=== PATIENT | female | born 1965 | race Caucasian/White ===

== ENCOUNTER 2019-07-15 18:41 | Emergency (ER) | payer OTHER, MEDICARE, SELFPAY ==
--- NOTE | ~2019-07-15 | XR_ITS ---
EXAMINATION: XR wrist RT min 3V, XR forearm RT 2V EXAM DATE: 07/15/2019 19:35 (accession [id number]), 07/15/2019 19:34 (accession [id number]) INDICATION: Initial encounter following injury, with pain of the right wrist, forearm. TECHNIQUE: Right wrist frontal, frontal with ulnar deviation, oblique and lateral projections obtain ed and reviewed. Right forearm frontal and lateral projections obtained and reviewed. There are no p rior studies for comparison. FINDINGS: Right wrist scapholunate joint space is maintained. There are no acute forearm or wrist fra ctures or dislocations identified. There is no subcutaneous gas. The soft tissue is unremarkable. There are no radiopaque foreign bodies. IMPRESSION: 1. Right wrist, forearm exam without acute osseous findings. Reviewed, dictated and finalized at location A. IMPRESSION: 1. Right wrist, forearm exam without acute osseous findings.
[2019-07-15 19:16] VITALS: BP 148/90; PULSE 91; RESP 18; TEMP 36.1; O2SAT 100
--- NOTE | 2019-07-15 19:56 | ED.UPPEXIN ---
HPI - Extremity Injury (Upper) General Chief Complaint: Extremity Injury, Upper Stated Complaint: R arm injury/pain Time Seen by Provider: 07/15/19 19:43 History of Present Illness HPI narrative: Patient presents after falling on her grandkids slip and slide in the yard. She went to reach over to poultry picking machine tender the toys when she took the slide and fell primarily on her right hand and wrist. She said the pain in her right wrist is 9 out of 10, she did not recognize the bruise on her left arm is being involved with this accident, and she hurts all over. She has never had a broken bone, she takes multiple medications, she does not smoke or drink. She has history of gastric bypass but still takes ibuprofen. MD complaint: injury to: right Other Extremity Injury: Right: wrist Handedness: right Place: home Severity: severe Relieving factors: none Exacerbating factors: movement of extremity Context: fall Associated symptoms: other (Pain all over) Related Data Home Medications Medication Instructions Recorded Confirmed conjugated estrogens 0.625 mg 0.625 mg PO DAILY 01/08/19 tablet cyanocobalamin (vitamin B-12) 3,000 mcg IM MONTHLY ml 01/08/19 1,000 mcg/mL injection solution dextroamphetamine-amphetamine 30 30 mg PO DAILY 01/08/19 mg tablet duloxetine 60 mg capsule,delayed 60 mg PO DAILY 01/08/19 release ferrous sulfate 325 mg (65 mg 325 mg PO DAILY 01/08/19 iron) tablet fluoxetine 20 mg capsule 20 mg PO DAILY 01/08/19 glucosamine-chondroitin 250 mg-200 2 tablet PO BID tablet 01/08/19 mg tablet lithium carbonate 300 mg 600 mg PO DAILY tablet 01/08/19 tablet,extended release pramipexole 0.5 mg tablet 1 mg PO DAILY tablet 01/08/19 topiramate 100 mg tablet 100 mg PO BID 01/08/19 Allergies Allergy/AdvReac Type Severity Reaction Status Date / Time sulfasalazine Allergy Unknown fever Verified 07/15/19 19:19 Review of Systems Review of Systems: Narrative: CONSTITUTIONAL: Denies fever, chills, or sweats. EYES: Denies visual changes, redness, or discharge. ENT: Denies rhinorrhea, congestion, sore throat, or otalgia. CARDIOVASCULAR: Denies chest pain, palpitations, or edema. RESPIRATORY: Denies cough or dyspnea. GASTROINTESTINAL: Denies abdominal pain, nausea, vomiting, or diarrhea. GENITOURINARY: Denies dysuria or hematuria. SKIN: Denies rash or itching. MUSCULOSKELETAL: Denies back pain, NEUROLOGIC: Denies headache, numbness, or weakness. PSYCHIATRIC: Denies anxiety or depression. [facility] Past Medical History Medical History ADHD Angina at rest Anxiety Back pain Depression Diabetes Fracture clavical GERD (gastroesophageal reflux disease) H/O Sjogren's disease Kidney stone with extraction Lupus Pneumonia PUD (peptic ulcer disease) UTI (urinary tract infection) Surgical History Surgical History H/O Spinal surgery H/O: hysterectomy History of total left knee replacement (TKR) Hx of section Hx of cholecystectomy Hx of gastric bypass Social History Social History Smoking status: Never smoker Alcohol intake: never Gender identity (if verbalized by the patient): Female Exam Narrative: Exam Narrative: GENERAL: Well-appearing, well-nourished, and in no acute distress. HEAD: Normocephalic, atraumatic. EYES: PERRLA and EOMI. ENT: Nares clear, no rhinorrhea or epistaxis. Mucous membranes moist. NECK: Supple. CHEST: Clear to auscultation. No respiratory distress. HEART: Regular rate and rhythm. No murmur heard. Normal peripheral pulses. ABDOMEN: Soft, nontender, nondistended, normal active bowel sounds. EXTREMITIES: Decreased range of motion of the right wrist and tenderness. no edema. SKIN: Warm, dry, no rash. NEURO: No focal deficits. Alert and oriented x3. PSYCH: Normal mood and affect. Course Vital Signs Vital
--- NOTE | 2019-07-15 20:33 | ED.UPPEXIN ---
HPI - Extremity Injury (Upper) General Chief Complaint: Extremity Injury, Upper Stated Complaint: R arm injury/pain Time Seen by Provider: 07/15/19 19:43 History of Present Illness Place: home Relieving factors: none Exacerbating factors: movement of extremity Context: fall Associated symptoms: other (Pain all over) Related Data Home Medications Medication Instructions Recorded Confirmed conjugated estrogens 0.625 mg 0.625 mg PO DAILY 01/08/19 tablet cyanocobalamin (vitamin B-12) 3,000 mcg IM MONTHLY ml 01/08/19 1,000 mcg/mL injection solution dextroamphetamine-amphetamine 30 30 mg PO DAILY 01/08/19 mg tablet duloxetine 60 mg capsule,delayed 60 mg PO DAILY 01/08/19 release ferrous sulfate 325 mg (65 mg 325 mg PO DAILY 01/08/19 iron) tablet fluoxetine 20 mg capsule 20 mg PO DAILY 01/08/19 glucosamine-chondroitin 250 mg-200 2 tablet PO BID tablet 01/08/19 mg tablet lithium carbonate 300 mg 600 mg PO DAILY tablet 01/08/19 tablet,extended release pramipexole 0.5 mg tablet 1 mg PO DAILY tablet 01/08/19 topiramate 100 mg tablet 100 mg PO BID 01/08/19 Allergies Allergy/AdvReac Type Severity Reaction Status Date / Time sulfasalazine Allergy Unknown fever Verified 07/15/19 19:19 PMF Past Medical History Medical History ADHD Angina at rest Anxiety Back pain Depression Diabetes Fracture clavical GERD (gastroesophageal reflux disease) H/O Sjogren's disease Kidney stone with extraction Lupus Pneumonia PUD (peptic ulcer disease) UTI (urinary tract infection) Surgical History Surgical History H/O Spinal surgery H/O: hysterectomy History of total left knee replacement (TKR) Hx of section Hx of cholecystectomy Hx of gastric bypass Social History Social History Smoking status: Never smoker Alcohol intake: never Gender identity (if verbalized by the patient): Female Course Vital Signs Vital signs: Vital Signs Temperature 97 F L 07/15/19 19:16 Pulse Rate 91 07/15/19 19:16 Respiratory Rate 18 07/15/19 19:16 Blood Pressure 148/90 H 07/15/19 19:16 Pulse Oximetry 100 07/15/19 19:16 Temperature 97 F L 07/15/19 19:16 Pulse Rate 91 07/15/19 19:16 Respiratory Rate 18 07/15/19 19:16 Blood Pressure 148/90 H 07/15/19 19:16 Pulse Oximetry 100 07/15/19 19:16 Discharge Plan Discharge Clinical Impression: Fall Qualifiers: Encounter type: initial encounter Qualified Code(s): W19.XXXA - Unspecified fall, initial encounter Acute wrist pain Qualifiers: Laterality: right Qualified Code(s): M25.531 - Pain in right wrist Patient Disposition: Home, Self-Care Condition: Stable Instructions: How to Use a Sling (ED) Prescriptions: New oxycodone-acetaminophen [Percocet] 5-325 mg tablet 1 tablet PO Q4H PRN (Reason: pain) Qty: 10 RF: 0 No Action dextroamphetamine-amphetamine [Adderall] 30 mg tablet 30 mg PO DAILY RF: 0 duloxetine [Cymbalta] 60 mg capsule,delayed release(DR/EC) 60 mg PO DAILY RF: 0 ferrous sulfate [Feosol] 325 mg (65 mg iron) tablet 325 mg PO DAILY RF: 0 lithium carbonate 300 mg tablet extended release 600 mg PO DAILY RF: 0 pramipexole 0.5 mg tablet 1 mg PO DAILY RF: 0 Premarin 0.625 mg tablet 0.625 mg PO DAILY RF: 0 fluoxetine [Prozac] 20 mg capsule 20 mg PO DAILY RF: 0 topiramate 100 mg tablet 100 mg PO BID RF: 0 glucosamine-chondroitin [Osteo Bi-Flex] 250-200 mg tablet 2 tablet PO BID RF: 0 cyanocobalamin (vitamin B-12) 1,000 mcg/mL solution 3,000 mcg IM MONTHLY RF: 0 metronidazole [Flagyl] 500 mg tablet 500 mg PO Q8H Qty: 21 RF: 0 omeprazole 20 mg capsule,delayed release(DR/EC) 20 mg PO DAILY Qty: 90 RF: 3 gabapentin 300 mg capsule 300 mg PO TID Qty: 270 RF: 3
== END 2019-07-15 20:40 | disposition home or self-care (01) ==
LOC: ANHED 20:08
PROVIDERS: Emergency Provider Emergency Medicine; PCP Family Medicine
DX: M25.531 Pain in right wrist (principal); F90.9 Attention-deficit hyperactivity disorder, unspecified type; F41.9 Anxiety disorder, unspecified; F32.9 Major depressive disorder, single episode, unspecified; E11.9 Type 2 diabetes mellitus without complications; K21.9 Gastro-esophageal reflux disease without esophagitis; M35.00 Sjogren syndrome, unspecified; Z87.442 Personal history of urinary calculi; Z87.11 Personal history of peptic ulcer disease; Z87.440 Personal history of urinary (tract) infections; Z96.652 Presence of left artificial knee joint; Z98.84 Bariatric surgery status; W18.39XA Other fall on same level, initial encounter
CPT/HCPCS: 73090; 73110; 99283; A4565; A9270

== ENCOUNTER 2019-10-03 13:08 | Outpatient (CLI) | payer OTHER, MEDICARE, SELFPAY ==
--- NOTE | ~2019-10-03 | MM_ITS ---
EXAMINATION: MM screening [facility] BI w jose HISTORY: Screening TECHNIQUE: Craniocaudal and mediolateral oblique 3-D tomosynthesis images were obtained and synthetic 2-D images were generated. CAD analysis was submitted and interpreted. COMPARISON: Comparison to multiple prior studies sequentially, with oldest reviewed study dated 10/2010. BREAST PARENCHYMAL COMPOSITION: There are scattered areas of fibroglandular density. FINDINGS: There is no evidence of suspicious mass, calcification, or architectural distortion to sugg est malignancy in either breast. There has been no suspicious interval change. IMPRESSION: 1. No mammographic evidence of malignancy. 2. Recommend routine screening mammography in one year. BI-RADS Category 1: Negative Reviewed, dictated and finalized at location A.
== END 2019-10-03 13:09 | disposition home or self-care (01) ==
LOC: ANHIMG 13:13
PROVIDERS: PCP Family Medicine; Visit Provider Family Medicine
DX: Z12.31 Encounter for screening mammogram for malignant neoplasm of breast (principal)
CPT/HCPCS: 77063; 77067

== ENCOUNTER 2020-01-02 06:42 | Outpatient (NON) | payer OTHER, MEDICARE, SELFPAY ==
[2020-01-04 21:25] LABS: SARS-CoV-2 RNA PCR Negative
== END 2020-01-02 06:43 ==
LOC: ANHCOVIDDT 06:44
PROVIDERS: PCP Family Medicine; Visit Provider Physician Assistant Medical
DX: J02.9 Acute pharyngitis, unspecified (principal); R05 Cough; R51.9 Headache, unspecified; Z20.828 Contact with and (suspected) exposure to other viral communicable diseases
CPT/HCPCS: 87635; C9803; U0003

== ENCOUNTER 2020-04-22 08:38 | Outpatient (CLI) | payer OTHER, MEDICARE, SELFPAY | END 2020-04-22 08:39 | disposition home or self-care (01) | LOC: ANHCOVIDVC 08:38 | PROVIDERS: PCP Family Medicine | DX: Z23 Encounter for immunization (principal) | CPT/HCPCS: 0001A; 91300 ==

== ENCOUNTER 2020-05-13 08:15 | Outpatient (CLI) | payer OTHER, MEDICARE, SELFPAY | END 2020-05-13 08:16 | LOC: ANHCOVIDVC 08:15 | PROVIDERS: PCP Family Medicine | DX: Z23 Encounter for immunization (principal) | CPT/HCPCS: 0002A; 91300 ==

== ENCOUNTER 2020-06-14 20:11 | Emergency (ER) | payer OTHER, MEDICARE, SELFPAY ==
--- NOTE | ~2020-06-14 | CT_ITS ---
EXAMINATION: CT abdomen pelvis w con DATE: 06/14/2020 21:36 INDICATION: Epigastric abdominal pain. TECHNIQUE: Computed tomography (CT) of the abdomen and pelvis was performed with 100 mL Omnipaque 350 intravenous contrast. Automated exposure control and iterative reconstruction technique were employe d. The dose-length product was 872.37 mGy-cm. COMPARISON: CT abdomen and pelvis 02/15/2019 FINDINGS: The visualized portions of the lung bases demonstrate mild atelectasis. No pleural effusion . The heart size is normal. No pericardial effusion. There is a small sliding hiatal hernia. There ar e changes of gastric bypass procedure. There is a calcification in the liver, consistent with old gra nulomatous disease. There are changes of cholecystectomy. The spleen, pancreas, adrenal glands, and k idneys are normal. There are no dilated loops of bowel. The appendix is normal. There are no patholog ically enlarged lymph nodes. There is no free intraperitoneal fluid. There is mild thoracolumbar spon dylosis. IMPRESSION: 1. Small sliding hiatal hernia. Reviewed, dictated and finalized at location A.
[2020-06-14 20:12] VITALS: BP 143/81; PULSE 78; RESP 16; TEMP 36.5; O2SAT 98
[2020-06-14 20:35] LABS: Basophils Absolute Auto 0.1 K/mm3 (0.0-0.1); Basophils Percent Auto 0.8 % (0.2-1.2); Eosinophils Absolute Auto 0.5 K/mm3 (0-0.3); Eosinophils Percent Auto 4.1 % (0-4.4); Hematocrit 49.4 % (37.0-47.0); Hemoglobin 15.7 g/dL (12.0-15.0); Immature Granulocyte Absolute 0.03 K/mm3 (0.00-0.031); Immature Granulocyte Percent A 0.3 % (0-0.5); Lymphocytes Absolute Auto 2.62 K/mm3 (0.9-3.2); Lymphocytes Percent Auto 23.3 % (18.3-44.2); Mean Corpuscular HGB Conc 31.8 g/dl (32-36); Mean Corpuscular Hemoglobin 28.8 pg (26-34); Mean Corpuscular Volume 90.6 fl (80-100); Mean Platelet Volume 10.3 fl (7.4-10.4); Monocytes Absolute Auto 0.7 K/mm3 (0.1-0.6); Monocytes Percent Auto 6.5 % (2.6-8.5); Neutrophils Absolute Auto 7.3 K/mm3 (1.3-6.7); Platelet Count Result 309 k/mm3 (150-375); Red Blood Count 5.45 M/mm3 (4.2-5.4); White Blood Count 11.2 K/mm3 (4.5-10.0)
--- NOTE | 2020-06-14 20:35 | ECG_ITS ---
Measurements Intervals [place] Rate: 71 P: 56 SC: 158 QRS: -7 QRSD: 82 T: 44 QT: 388 QTc: 424 Interpretive Statements SINUS RHYTHM BASELINE WANDER- I, II, AVR, AVL, AVF NORMAL ECG Electronically Signed On 06-14-2020 20:59:49 CDT by Francisco Javier Dozier D.O.
--- NOTE | 2020-06-14 20:37 | ED.ABDPAIN ---
HPI - Abdominal Pain General Chief Complaint: Abdominal Pain Stated Complaint: c/o flank pain Time Seen by Provider: 06/14/20 20:19 Source: patient Mode of arrival: ambulatory Limitations: no limitations History of Present Illness HPI narrative: This is a 55 year old female with history of gastric bypass, GERD, PUD, bipolar who presents for evaluation of epigastric pain and constipation. She reports constant epigastric discomfort for 3 weeks but it became sharp pain yesterday. Today she developed more severe pain after eating . Her pain radiates to her back and her chest. She also developed nausea and vomiting today with her worsening pain. She states she has chronic issue with constipation but over the past week it seems worse. She states she has been taking laxatives and stool softeners, and she is only passing small amount of brown liquid. Her gastric bypass was performed 10 years ago at [facility]. Related Data Home Medications Medication Instructions Recorded Confirmed dextroamphetamine-amphetamine 30 30 mg PO DAILY 01/08/19 mg tablet duloxetine 60 mg capsule,delayed 60 mg PO DAILY 01/08/19 04/02/20 release ferrous sulfate 325 mg (65 mg 325 mg PO DAILY 01/08/19 04/02/20 iron) tablet pramipexole 0.5 mg tablet 1 mg PO DAILY tablet 01/08/19 04/02/20 topiramate 100 mg tablet 100 mg PO BID 01/08/19 04/02/20 Allergies Allergy/AdvReac Type Severity Reaction Status Date / Time sulfasalazine Allergy Unknown fever Verified 04/16/20 14:50 Review of Systems Review of Systems: All systems reviewed & are unremarkable except as noted in HPI and below Constitutional: Constitutional: Denies chills and Denies fever(s) Cardiovascular: Cardiovascular: Reports chest pain Respiratory: Respiratory: Denies cough and Denies dyspnea Gastrointestinal: Gastrointestinal: Reports abdominal pain, Reports constipation, Reports nausea and Reports vomiting Musculoskeletal: Musculoskeletal: Reports back pain PMFSH Past Medical History Medical History ADHD Angina at rest Anxiety Back pain Depression Diabetes Fracture clavical GERD (gastroesophageal reflux disease) H/O Sjogren's disease Kidney stone with extraction Lupus Pneumonia PUD (peptic ulcer disease) Urge incontinence UTI (urinary tract infection) Surgical History Surgical History H/O Spinal surgery H/O: hysterectomy History of total left knee replacement (TKR) Hx of section Hx of cholecystectomy Hx of gastric bypass Family History Family History (Reviewed 04/16/20 @ 14:51 by Fadumo Ball [facility]) Mother Diabetes mellitus Depression Family history of hypothyroidism Social History Social History (Updated 06/14/20 @ 20:37 by Ruth Sruesh MD) Smoking status: Never smoker Alcohol intake: current Gender identity (if verbalized by the patient): Female Exam Const: General: alert Orientation/consciousness: patient oriented x3 Other: moderate distress due to pain Eyes: EOM: EOMs intact bilaterally Chest: Chest palpation & inspection: normal inspection of the chest Resp: Effort & Inspection: normal respiratory effort and no retractions Auscultation: clear to auscultation bilaterally Cardio: Rate: regular rate Rhythm: regular rhythm Heart sounds: no murmurs GI: GI Palp: Yes Soft to palpation, Yes Tenderness to palpation present (GI) (epigastric abdominal pain), No Guarding due to palpation present (GI) and No Rigid due to palpation Auscultation: normal bowel sounds Rectal Exam: No fecal impaction and No hemorrhoids Back/Spine/Pelvis: Back: no CVA tenderness Skin: General skin exam: normal color Rashes: no rashes Neuro: General: patient oriented x3, moves all extremities and CN's II-XI intact bilaterally Psych: Mental Status: mental status grossly normal Affect: normal affect Course
[2020-06-14 20:45] LABS: Potassium 3.6 mmol/L (3.4-5.0)
[2020-06-14] MEDS: LACTATED RINGERS 1,000 ML 999 ML IV CONT (20:45)
[2020-06-14] MEDS: ONDANSETRON INJ 4 MG/2 ML VIAL IV PUSH (20:45)
[2020-06-14] MEDS: PANTOPRAZOLE SODIUM IV 40 MG VIAL IV PUSH (20:45)
[2020-06-14] MEDS: HYDROmorphone HCL INJ (*CRX) 1 MG/ML SYR IV PUSH (20:46)
[2020-06-14 20:52] VITALS: BP 131/71; PULSE 84; RESP 22; O2SAT 99
[2020-06-14 20:57] LABS: Alanine Aminotransferase 19 U/L (4-35); Albumin Level 4.9 g/dL (3.5-5.1); Alkaline Phosphatase 96 U/L (38-126); Anion Gap 8 mmol/L (8-16); Aspartate Amino Transferase 35 U/L (14-36); Bilirubin,Total 0.2 mg/dL (0.2-1.3); Blood Urea Nitrogen 7 mg/dL (7-17); Calcium 9.7 mg/dL (8.4-10.2); Carbon Dioxide 28 mmol/L (22-30); Chloride 105 mmol/L (98-107); Estimated CRCL calculation 57 ml/min; Estimated Glomerular Filt Rate > 60; Glucose 67 mg/dL (65-105); Lipase 210 U/L (23-300); Sodium 141 mmol/L (137-145)
[2020-06-14 21:01] LABS: Troponin I < 0.012 ng/mL (0.000-0.034)
[2020-06-14 21:07] LABS: Lithium 0.5 mmol/L (0.6-1.2)
[2020-06-14 21:08] LABS: Add Urine Microscopic? NO; Appearance Urine Clear (Clear); Bilirubin Urine Negative (Negative); Blood Urine Negative (Negative); Color Urine Yellow (Yellow); Glucose Urine UA Negative (Negative); Ketones Urine Negative (Negative); Leukocyte Esterase Ur Negative LEU/UL (Negative); Nitrate Urine Negative (Negative); Protein Urine Negative (Negative); Specific Grav Ur 1.011 (1.001-1.035); Urobilinogen Urine Negative mg/dL (<2.0)
[2020-06-14 21:57] VITALS: BP 129/70; PULSE 81; RESP 20; O2SAT 99
[2020-06-15 00:23] VITALS: BP 160/92; PULSE 86; RESP 20; O2SAT 98
--- NOTE | 2020-06-15 01:01 | PC.NURSE ---
rn @ bedside ,pt was crying and states dr. hyde was rude and told me nothing is worry , and oh your bipolar pt continue to cry and said i have never been treated like this.
--- NOTE | 2020-06-20 02:17 | PC.NURSE ---
LATE ENTRY This note is being entered to document information to the patient's record. The following information was omitted on [], by [[id number] zoie barrientosed
== END 2020-06-15 01:08 | disposition left against medical advice (07) ==
LOC: ANHED 20:54
PROVIDERS: Emergency Medicine; Emergency Provider General Practice; PCP Family Medicine
DX: R10.13 Epigastric pain (principal); Z98.84 Bariatric surgery status; E11.9 Type 2 diabetes mellitus without complications; K21.9 Gastro-esophageal reflux disease without esophagitis; F31.9 Bipolar disorder, unspecified; F90.9 Attention-deficit hyperactivity disorder, unspecified type; F41.9 Anxiety disorder, unspecified; Z87.442 Personal history of urinary calculi; Z87.11 Personal history of peptic ulcer disease; Z87.440 Personal history of urinary (tract) infections; Z96.652 Presence of left artificial knee joint; M35.00 Sjogren syndrome, unspecified; K44.9 Diaphragmatic hernia without obstruction or gangrene
CPT/HCPCS: 36415; 74177; 80053; 80178; 81003; 83690; 84484; 85025; 93005; 95864; 96361; 96374; 96375; 99284; A9270; C9113; J1170; J2405; J7120; Q9967

== ENCOUNTER → 2020-07-25 07:26 | Outpatient (CLI) | payer OTHER, MEDICARE, SELFPAY ==
--- NOTE | ~2020-07-25 | MR_ITS ---
EXAMINATION: MR sacrum wo con, MR lumbar spine wo con DATE: 07/25/2020 08:48 INDICATION: Sacrococcygeal disorder with chronic low back pain and bilateral foot numbness and burnin g. Right leg pain of 2 weeks duration. TECHNIQUE: 1. Magnetic resonance imaging (MRI) of the lumbar spine was performed without intravenous contrast. S equences included sagittal T2-weighted FSE, sagittal T2-weighted FS FSE, sagittal T1-weighted FSE and axial T2-weighted FSE. 2. MRI of the sacrum and coccyx was performed without intravenous contrast. Sequences included sagitt al PD-weighted FS FSE, coronal oblique T2-weighted FS FSE, coronal oblique T1-weighted FSE, oblique axial T2-weighted FS FSE and oblique axial T1-weighted FSE. COMPARISON: CT abdomen and pelvis dated 06/14/2020 FINDINGS: Lumbar spine: Alignment is normal. Vertebral body heights are normal. There are a few small T1 hyperintense hemangi omas including at T11, T12, L2 and L3. Marrow signal is otherwise normal. Disc heights are normal. An nular fissure at L5-S1. The conus medullaris terminates at L1. There is normal signal in the caudal s mag cord. Paravertebral soft tissues are unremarkable. The following disc levels are specifically d iscussed: T12-L1: Disc is mildly bulging. There is no facet joint osteoarthritis. There is no neural foraminal stenosis. There is no central canal stenosis. L1-L2: Disc is minimally bulging. There is mild right and minimal left facet joint osteoarthritis. Th ere is no neural foraminal stenosis. There is no central canal stenosis. L2-L3: Disc is minimally bulging. There is normal bilateral facet joint osteoarthritis. There is no n eural foraminal stenosis. There is no central canal stenosis. L3-L4: The disc does not extend beyond the endplate margin. There is mild bilateral facet joint osteo arthritis. There is no neural foraminal stenosis. There is no central canal stenosis. L4-L5: Disc is minimally bulging. There is mild bilateral facet joint osteoarthritis. There is and mi ld to moderate right and mild left neural foraminal stenosis. There is no central canal stenosis. L5-S1: Disc is minimally bulging with annular fissure and small central disc extrusion with disc mate rial extending 3 mm caudal to the level of the superior endplate of S1. There is mild right and moder ate left facet joint osteoarthritis. There is mild bilateral neural foraminal stenosis. There is no c entral canal stenosis. Sacrum and coccyx: Bilateral sacroiliac joints are normal. Marrow edema surrounding a nondisplaced linear low signal int ensity sagittally oriented fracture of the right sacral ala which runs alongside the right sacroiliac joint and which is new since CT dated 06/14/2020. No other fractures identified. The uterus is not chelsey ntified and has likely been surgically resected. IMPRESSION: 1. Acute to subacute nondisplaced sagittally oriented fracture of the right sacral ala, new since 06/14. 2. Mild lumbar spondylosis. Reviewed, dictated and finalized at location A. IMPRESSION: 1. Acute to subacute nondisplaced sagittally oriented fracture of the right sac ral ala, new since 06/14/2020. 2. Mild lumbar spondylosis.
== END ==
PROVIDERS: PCP Family Medicine; Visit Provider Family Medicine
DX: M53.3 Sacrococcygeal disorders, not elsewhere classified (principal); M47.896 Other spondylosis, lumbar region; S32.19XD Other fracture of sacrum, subsequent encounter for fracture with routine healing; X58.XXXD Exposure to other specified factors, subsequent encounter
CPT/HCPCS: 72148; 72195

== ENCOUNTER 2020-09-01 19:24 | Emergency (ER) | payer OTHER, MEDICARE, SELFPAY ==
--- NOTE | ~2020-09-01 | CT_ITS ---
EXAMINATION: CTA brain carotid DATE: 09/01/2020 23:32 INDICATION: Headache TECHNIQUE: Computed tomographic angiography (CTA) of the head was performed without and with 100 mL O mnipaque-350 intravenous contrast. CTA of the neck was performed with intravenous contrast. The dose- length product was 2074.41 mGy-cm. Maximum intensity projection and volume rendered 3D-reconstruction s were created by the technologist on a separate workstation. Automated exposure control and iterativ e reconstruction technique were employed. COMPARISON: 04/30/2016 FINDINGS: HEAD CTA: There is no intracranial hemorrhage, acute infarction, or abnormal mass lesion. The ventric les are normal. There is no abnormal mass effect or midline shift. The baig-white matter differentiat ion is normal. The basal cisterns are patent. The orbits are normal. The paranasal sinuses, mastoids and calvarium are normal. There is no significant stenosis of the basilar artery or posterior cerebral arteries. There is no si gnificant stenosis of the intracranial internal carotid arteries or the anterior or middle cerebral a rteries. The anterior communicating artery and posterior communicating arteries are normal. There is no aneurysm. NECK CTA: The thyroid gland is unremarkable. The submandibular and parotid glands are symmetric. Ther e is no lymphadenopathy. There are no masses identified. The airway is unremarkable. An interbody dev ice is noted at C5-6. The superior mediastinum is unremarkable. There is 0% stenosis of the proximal right internal carotid artery relative to normal distal artery l umen diameter (NASCET criteria). There is 0% stenosis of the proximal left internal carotid artery re lative to normal distal artery lumen diameter. IMPRESSION: 1. No acute intracranial abnormality. Normal head CTA. 2. 0% stenosis of the proximal right internal carotid artery relative to normal distal artery lumen d iameter (NASCET criteria). 3. 0% stenosis of the proximal left internal carotid artery relative to normal distal artery lumen di ameter. Reviewed, dictated and finalized at location A. IMPRESSION: 1. No acute intracranial abnormality. Normal head CTA. 2. 0% stenosis of the proximal right internal carotid artery relative to normal distal artery lumen diameter (NASCET criteria). 3. 0% stenosis of the proximal left internal carotid artery relative to normal distal artery lumen diameter.
--- NOTE | ~2020-09-01 | CT_ITS ---
EXAMINATION: CT brain wo con INDICATION: Headache COMPARISON: 04/30/2016 TECHNIQUE: Standard unenhanced head CT. The dose-length product (DLP) was 605.33 mGy-cm. The mA was a djusted according to patient size. Iterative reconstruction technique was employed. FINDINGS: There is no intracranial hemorrhage, acute infarction, or abnormal mass lesion. The ventric les are normal. There is no abnormal mass effect or midline shift. The baig-white matter differentiat ion is normal. The basal cisterns are patent. The orbits are normal. The paranasal sinuses, mastoids and calvarium are normal. IMPRESSION: 1. No acute intracranial abnormality. Reviewed, dictated and finalized at location A.
--- NOTE | 2020-09-01 19:36 | ED.HA ---
HPI - Headache General Chief Complaint: Headache Stated Complaint: Unspecified Time Seen by Provider: 09/01/20 19:35 Source: patient and EMS Mode of arrival: EMS Limitations: no limitations History of Present Illness HPI Narrative: Patient is a 55-year-old female with a history of peptic ulcer disease, gastric bypass, hyperlipidemia, bipolar disorder, depression who presents for evaluation of headache pain. Patient states she has had a mild, aching headache throughout the day today, which became acutely worse approximately 1 hour ago. Patient states that she bent over to pick something up where she felt a severe pain in the front of her head. She has had some associated nausea and vomiting. She has had 2 episodes of nonbloody, nonbilious emesis. She denies vision changes, arm weakness or leg weakness. No numbness. No difficulty with speech. Patient denies history of headache pain. She states she was outside for many hours today, states that she felt as if she was drinking enough water. She denies any myalgias currently. No chest pain or shortness of breath. No neck pain or recent fevers. Patient denies any history of migraine headache. She states that she did discontinue caffeine today, states she typically drinks several sodas daily. Patient does not feel confused. Patient does state that her lithium dose was recently changed per her primary care provider. Related Data Home Medications Medication Instructions Recorded Confirmed duloxetine 60 mg capsule,delayed 60 mg PO DAILY 01/08/19 07/31/20 release ferrous sulfate 325 mg (65 mg 325 mg PO DAILY 01/08/19 07/31/20 iron) tablet topiramate 100 mg tablet 100 mg PO BID 01/08/19 07/31/20 furosemide 20 mg tablet 20 mg PO QAM PRN tablet 07/31/20 Allergies Allergy/AdvReac Type Severity Reaction Status Date / Time sulfasalazine Allergy Unknown fever Verified 09/01/20 21:03 Review of Systems Review of Systems: Narrative: CONSTITUTIONAL: Denies fever, chills, or sweats. EYES: Denies visual changes, redness, or discharge. ENT: Denies rhinorrhea, congestion, sore throat, or otalgia. CARDIOVASCULAR: Denies chest pain, palpitations, or edema. RESPIRATORY: Denies cough or dyspnea. GASTROINTESTINAL: Denies abdominal pain, reports nausea and vomiting GENITOURINARY: Denies dysuria or hematuria. SKIN: Denies rash or itching. MUSCULOSKELETAL: Denies back pain, joint pain, or myalgia. NEUROLOGIC: Reports headache without numbness, or weakness. PSYCHIATRIC: History of depression PMFSH Past Medical History Medical History ADHD Angina at rest Anxiety Back pain Depression Diabetes Fracture clavical GERD (gastroesophageal reflux disease) H/O Sjogren's disease Kidney stone with extraction Lupus Pneumonia PUD (peptic ulcer disease) Urge incontinence UTI (urinary tract infection) Surgical History Surgical History H/O Spinal surgery H/O: hysterectomy History of total left knee replacement (TKR) Hx of section Hx of cholecystectomy Hx of gastric bypass Family History Family History Mother Diabetes mellitus Depression Family history of hypothyroidism Social History Social History Alcohol intake: current Gender identity (if verbalized by the patient): Female Exam Narrative: Exam Narrative: GENERAL: Awake, alert, conversant HEAD: Normocephalic, atraumatic. EYES: 2+ PERRLA and EOMI. ENT: Nares clear, no rhinorrhea or epistaxis. Mucous membranes moist. NECK: Supple. CHEST: No respiratory distress, breathing even and non labored HEART: Regular rate, sinus rhythm ABDOMEN:Non distended, non tender EXTREMITIES: Normal range of motion. No edema. SKIN: Warm, dry, no rash. NEURO:No focal deficits. Alert and oriented x3. Finger to nose int
--- NOTE | 2020-09-01 19:38 | ECG_ITS ---
Measurements Intervals [place] Rate: 88 P: 68 MA: 158 QRS: 4 QRSD: 82 T: 43 QT: 374 QTc: 454 Interpretive Statements SINUS RHYTHM BASELINE ARTIFACT- I, II, III, AVR, AVL NORMAL ECG Electronically Signed On 09-01-2020 22:17:36 CDT by Francisco Javier Dozier D.O.
[2020-09-01 19:41] VITALS: BP 142/74; PULSE 78; RESP 18; TEMP 36.3; O2SAT 100
[2020-09-01] MEDS: ONDANSETRON INJ 4 MG/2 ML VIAL IV PUSH (20:57)
[2020-09-01] MEDS: SODIUM CHLORIDE 0.9% IV 1,000 ML 999 ML IV CONT (20:57)
[2020-09-01 21:01] VITALS: BP 145/72; PULSE 84; RESP 16; O2SAT 100
[2020-09-01] MEDS: MAGNESIUM SULF 2 GM/WATER 50ML 2 GM/50 ML BAG IVPB (21:37)
[2020-09-01 22:31] LABS: Basophils Absolute Auto 0.1 K/mm3 (0.0-0.1); Basophils Percent Auto 0.7 % (0.2-1.2); Eosinophils Absolute Auto 0.1 K/mm3 (0-0.3); Eosinophils Percent Auto 0.8 % (0-4.4); Hematocrit 40.7 % (37.0-47.0); Hemoglobin 13.1 g/dL (12.0-15.0); Immature Granulocyte Absolute 0.03 K/mm3 (0.00-0.031); Immature Granulocyte Percent A 0.3 % (0-0.5); Lymphocytes Absolute Auto 0.83 K/mm3 (0.9-3.2); Lymphocytes Percent Auto 9.5 % (18.3-44.2); Mean Corpuscular HGB Conc 32.2 g/dl (32-36); Mean Corpuscular Hemoglobin 28.8 pg (26-34); Mean Corpuscular Volume 89.5 fl (80-100); Mean Platelet Volume 10.1 fl (7.4-10.4); Monocytes Absolute Auto 0.4 K/mm3 (0.1-0.6); Monocytes Percent Auto 4.1 % (2.6-8.5); Neutrophils Absolute Auto 7.4 K/mm3 (1.3-6.7); Neutrophils Percent Auto 84.6 % (45.5-73.1); Platelet Count Result 252 k/mm3 (150-375); Red Blood Count 4.55 M/mm3 (4.2-5.4); Red Cell Distribution Width 13.2 % (11.5-14.5); White Blood Count 8.8 K/mm3 (4.5-10.0)
[2020-09-01 22:41] LABS: Creatine Kinase 40 U/L (30-135)
[2020-09-01 22:43] LABS: Alanine Aminotransferase 25 U/L (4-35); Albumin Level 3.8 g/dL (3.5-5.1); Alkaline Phosphatase 100 U/L (38-126); Anion Gap 5 mmol/L (8-16); Aspartate Amino Transferase 30 U/L (14-36); Bilirubin,Total 0.4 mg/dL (0.2-1.3); Blood Urea Nitrogen 11 mg/dL (7-17); Calcium 8.3 mg/dL (8.4-10.2); Carbon Dioxide 28 mmol/L (22-30); Chloride 107 mmol/L (98-107); Estimated CRCL calculation 80 ml/min; Estimated Glomerular Filt Rate > 60; Glucose 101 mg/dL (65-110); Potassium 4.3 mmol/L (3.4-5.0); Sodium 140 mmol/L (137-145)
[2020-09-01 23:45] LABS: Lithium < 0.2 mmol/L (0.6-1.2)
[2020-09-01 23:49] VITALS: BP 123/72; PULSE 74; RESP 17; O2SAT 100
[2020-09-02 01:25] VITALS: BP 100/62; PULSE 72; RESP 14; O2SAT 99
== END 2020-09-02 01:25 | disposition home or self-care (01) ==
PROVIDERS: Emergency Provider Emergency Medicine; PCP Family Medicine
DX: G44.209 Tension-type headache, unspecified, not intractable (principal); E78.5 Hyperlipidemia, unspecified; E11.9 Type 2 diabetes mellitus without complications; K21.9 Gastro-esophageal reflux disease without esophagitis; M35.00 Sjogren syndrome, unspecified; F41.9 Anxiety disorder, unspecified; F32.9 Major depressive disorder, single episode, unspecified; F90.9 Attention-deficit hyperactivity disorder, unspecified type; Z87.11 Personal history of peptic ulcer disease; Z98.84 Bariatric surgery status; Z87.440 Personal history of urinary (tract) infections; Z96.652 Presence of left artificial knee joint
CPT/HCPCS: 36415; 70450; 70496; 70498; 80053; 80178; 82550; 85025; 93005; 96365; 96366; 96367; 96375; 99284; J0131; J1100; J2405; J3475; J7030; Q9967

== ENCOUNTER 2021-02-15 18:33 | Emergency (ER) | payer OTHER, MEDICARE, SELFPAY ==
--- NOTE | ~2021-02-15 | XR_ITS ---
EXAMINATION: XR hip RT 2V w AP pelvis INDICATION: Right hip pain after fall TECHNIQUE: AP view of the pelvis and two views of the right hip are obtained. COMPARISON: 05/01/2014 FINDINGS: There is moderate osteoarthritis of the hips. Bone alignment is normal. No fracture is iden tified. Phleboliths are noted in the pelvis. IMPRESSION: 1. No acute osseous abnormality. Reviewed, dictated and finalized at location F. BOTTLE INSPECTOR
[2021-02-15 18:40] VITALS: BP 119/73; PULSE 89; RESP 18; TEMP 37.6; O2SAT 99
[2021-02-15 20:36] VITALS: PULSE 85; RESP 15; O2SAT 100
--- NOTE | 2021-02-15 20:51 | ED.LOWEXIN ---
HPI - Extremity Injury (Lower) General Chief Complaint: Extremity Injury, Lower Stated Complaint: Fall Rt hip pain Time Seen by Provider: 02/15/21 20:47 Source: patient Mode of arrival: ambulatory Limitations: no limitations History of Present Illness HPI Narrative: Patient is a 55-year-old female complaining of right hip pain, 9 out of 10, dull, worse with palpation and movement after she tripped over her make-up chair and fell on her right hip. Patient denies any head, neck, chest, back, abdomen or any other extremity pain/injury. Patient denies any loss of consciousness. Related Data Home Medications Medication Instructions Recorded Confirmed ferrous sulfate 325 mg (65 mg 325 mg PO DAILY 01/08/19 01/02/21 iron) tablet furosemide 20 mg tablet 20 mg PO QAM PRN tablet 07/31/20 01/02/21 Allergies Allergy/AdvReac Type Severity Reaction Status Date / Time sulfasalazine Allergy Unknown fever Verified 02/15/21 20:35 Review of Systems Review of Systems: All systems reviewed & are unremarkable except as noted in HPI and below Constitutional: Constitutional: Denies body ache(s), Denies chills, Denies excessive sweating, Denies fatigue, Denies fever(s), Denies headache(s), Denies lethargy, Denies malaise, Denies weakness and Denies weight loss Eyes: Eyes: Denies blurry vision, Denies change in vision and Denies loss of vision ENT: Denies dizziness, Denies ear discharge, Denies headache(s), Denies lip swelling, Denies epistaxis, Denies nasal congestion, Denies neck pain, Denies throat swelling and Denies tongue swelling Cardiovascular: Cardiovascular: Denies chest pain, Denies chest pain at rest, Denies chest pain with activity, Denies diaphoresis, Denies rapid heart rate, Denies edema, Denies irregular heart rhythm, Denies lightheadedness, Denies palpitations, Denies dyspnea and Denies dyspnea on exertion Respiratory: Respiratory: Denies chest congestion, Denies cough, Denies hemoptysis, Denies dyspnea and Denies dyspnea on exertion Gastrointestinal: Gastrointestinal: Denies abdominal pain, Denies melena, Denies hematochezia, Denies diarrhea, Denies nausea, Denies vomiting and Denies hematemesis Musculoskeletal: Musculoskeletal: Denies abnormal gait, Denies deformity, Denies joint swelling, Denies limited range of motion, Denies neck pain and Denies numbness Neurologic: Denies Abnormal speech present, Denies abnormal gait, Denies confusion, Denies dizziness, Denies headache(s), Denies focal weakness, Denies loss of vision, Denies numbness, Denies Other visual disturbances, Denies Sensory deficit (Neuro) and Denies weakness Psychiatric: Psychiatric: Denies confusion, Denies depression, Denies auditory hallucinations, Denies homicidal ideation and Denies suicidal ideation Endocrine: Endocrine: Denies cold intolerance, Denies excessive sweating, Denies fatigue, Denies heat intolerance and Denies palpitations Hematologic/Lymphatic: Hematologic/Lymphatic: Denies easy bleeding and Denies easy bruising Allergic/Immunologic: Allergic/Immunologic: Denies lip swelling, Denies throat swelling and Denies tongue swelling PMFSH Past Medical History Medical History ADHD Angina at rest Anxiety Back pain Depression Diabetes Fracture clavical GERD (gastroesophageal reflux disease) H/O Sjogren's disease Kidney stone with extraction Lupus Pneumonia PUD (peptic ulcer disease) Urge incontinence UTI (urinary tract infection) Surgical History Surgical History H/O Spinal surgery H/O: hysterectomy History of total left knee replacement (TKR) Hx of section Hx of cholecystectomy Hx of gastric bypass Family History Family History Mother Diabetes mellitus Depression Family history of hypothyroidism Social History Social History (Reviewed 02/15/21 @ 20:52
[2021-02-15] MEDS: KETOROLAC 30 MG/ML VIAL (*BKC) IM (21:13)
[2021-02-15] MEDS: HYDROcodone/acetaminophen (*CRX) 5-325 MG TABLET 2 TAB PO (21:13)
[2021-02-15] MEDS: diazePAM INJ (*CRX) 10 MG/2 ML SYRINGE 5 MG IM (22:48)
[2021-02-15 23:02] VITALS: BP 119/57; PULSE 76; RESP 18; O2SAT 97
[2021-02-15 23:36] LABS: SARS-CoV-2 RNA PCR Positive
== END 2021-02-15 23:03 | disposition home or self-care (01) ==
PROVIDERS: Emergency Provider Emergency Medicine; PCP Family Medicine
DX: S70.01XA Contusion of right hip, initial encounter (principal); U07.1 COVID-19; E11.9 Type 2 diabetes mellitus without complications; K21.9 Gastro-esophageal reflux disease without esophagitis; F90.9 Attention-deficit hyperactivity disorder, unspecified type; F41.9 Anxiety disorder, unspecified; F32.A Depression, unspecified; Z87.442 Personal history of urinary calculi; Z87.01 Personal history of pneumonia (recurrent); Z87.11 Personal history of peptic ulcer disease; Z87.440 Personal history of urinary (tract) infections; Z79.84 Long term (current) use of oral hypoglycemic drugs; W18.09XA Striking against other object with subsequent fall, initial encounter
CPT/HCPCS: 73502; 96372; 99284; A9270; C9803; J1885; J3360; U0003; U0005

== ENCOUNTER 2021-07-16 13:26 | Emergency (ER) | payer OTHER, MEDICARE, SELFPAY ==
[2021-07-16 13:53] VITALS: BP 115/70; PULSE 99; RESP 18; TEMP 36.5; O2SAT 99
--- NOTE | 2021-07-16 14:48 | PC.NURSE ---
pt amb out of ed with steady gait.
== END 2021-07-17 00:38 | disposition left against medical advice (07) ==
LOC: ANHED 14:53
DX: Z53.21 Procedure and treatment not carried out due to patient leaving prior to being seen by health care provider (principal)
CPT/HCPCS: 99199

== ENCOUNTER 2021-09-24 10:27 | Outpatient (CLI) | payer OTHER, MEDICARE, SELFPAY ==
--- NOTE | ~2021-09-24 | XR_ITS ---
EXAMINATION:XR cervical spine 4-5V DATE: 09/24/2021 10:59 INDICATION: Neck pain TECHNIQUE: AP and lateral in neutral, flexion, extension views of the cervical spine are provided. COMPARISON: 10/10/2013 FINDINGS: There are surgical changes at C5-6. Alignment is normal in the neutral position. There are 2 mm of anterolisthesis of C5 on C6 with flexion of the cervical spine. No fracture is identified. Th e vertebral body heights are normal. There is mild multilevel facet and uncovertebral joint osteoarth ritis. The odontoid appears intact although is not directly evaluated. The prevertebral soft tissues are normal. IMPRESSION: 1. Postsurgical changes at C5-6 with 2 mm of anterolisthesis of C5 on C6 with flexion of the cervical spine. Reviewed, dictated and finalized at location A. IMPRESSION: 1. Postsurgical changes at C5-6 with 2 mm of anterolisthesis of C5 on C6 with f lexion of the cervical spine.
--- NOTE | ~2021-09-24 | XR_ITS ---
XR lumbar spine 6V w bending 09/24/2021 13:50 Indication: Back pain Procedure: 7 views lumbar spine including oblique and flexion/extension views. Comparison: No prior studies for comparison. Findings: There is mild disc narrowing at L5-S1. Vertebral body heights are maintained. No fracture o r traumatic malalignment. There are facet degenerative change at L5-S1. There are cholecystectomy cli ps. There are pelvic phleboliths. Impression: 1: Mild lumbar spondylosis. Reviewed, dictated and finalized at location B. Impression: 1: Mild lumbar spondylosis.
== END 2021-09-24 10:28 | disposition home or self-care (01) ==
PROVIDERS: PCP Family Medicine; Visit Provider Neurological Surgery
DX: R51.9 Headache, unspecified (principal); R20.2 Paresthesia of skin; M47.896 Other spondylosis, lumbar region
CPT/HCPCS: 72050; 72114

== ENCOUNTER 2021-11-02 12:07 | Emergency (ER) | payer OTHER, MEDICARE, SELFPAY ==
--- NOTE | ~2021-11-02 | XR_ITS ---
XR knee LT min 4V 11/02/2021 12:45 Indication: Left total knee arthroplasty Procedure: 4 views left knee Comparison: 06/19/2014 Findings: This post left total knee arthroplasty. No fracture or traumatic malalignment. No significa nt joint effusion. No foreign bodies. Prosthesis well seated. Impression: 1: No acute fracture. Reviewed, dictated and finalized at location B. Impression: 1: No acute fracture.
[2021-11-02 12:08] VITALS: BP 133/80; PULSE 70; RESP 16; TEMP 36.8; O2SAT 98
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
[2021-11-02 13:56] VITALS: BP 135/86; PULSE 79; RESP 14; O2SAT 97
== END 2021-11-02 13:58 | disposition home or self-care (01) ==
PROVIDERS: Emergency Provider Nurse Practitioner Family; PCP Family Medicine
DX: M25.562 Pain in left knee (principal); E11.9 Type 2 diabetes mellitus without complications; K21.9 Gastro-esophageal reflux disease without esophagitis; M65.4 Radial styloid tenosynovitis [de Quervain]; M35.00 Sjogren syndrome, unspecified; F90.9 Attention-deficit hyperactivity disorder, unspecified type; F41.9 Anxiety disorder, unspecified; Z98.84 Bariatric surgery status; Z96.652 Presence of left artificial knee joint; Z90.710 Acquired absence of both cervix and uterus; Z86.16 Personal history of COVID-19; Z87.442 Personal history of urinary calculi; Z87.01 Personal history of pneumonia (recurrent); Z87.11 Personal history of peptic ulcer disease; Z87.440 Personal history of urinary (tract) infections; Z62.810 Personal history of physical and sexual abuse in childhood; Z79.84 Long term (current) use of oral hypoglycemic drugs
CPT/HCPCS: 73564; 99283

== ENCOUNTER 2021-12-03 07:42 | Outpatient (CLI) | payer OTHER, MEDICARE, SELFPAY ==
--- NOTE | ~2021-12-03 | MR_ITS ---
EXAMINATION: MR brain/brain stem wo/w con DATE: 12/03/2021 16:57 CDT INDICATION: Migraine headaches. Vision changes. TECHNIQUE: Magnetic resonance imaging (MRI) of the brain and brainstem was performed without and with 16 cc MultiHance intravenous contrast. Sequences included sagittal and axial T1-weighted SE, axial d iffusion-weighted FS SE, axial T2*-weighted GRE, axial T2-weighted FLAIR Propeller, and axial T2-weig hted Propeller. Apparent diffusion coefficient (ADC) maps were created. COMPARISON: CT dated 09/01/2020 FINDINGS: The brain volume and ventricular system are within normal limits. The brain parenchymal si gnal intensity pattern and baig/white matter is normal and there is no evidence of hemorrhage, space occupying masses or infarctions. The flow signal voids of the major arterial structures about the [place] and within the david r dural venous sinuses appear grossly unremarkable and patent. The seventh and eighth cranial nerve complexes are normal. The mid sagittal image demonstrates a normal craniovertebral junction and cris us callosum. The paranasal sinuses are grossly unremarkable. No abnormal contrast enhancement was appreciated. IMPRESSION: 1: Unremarkable MRI of the brain. Reviewed, dictated and finalized at location B.
--- NOTE | ~2021-12-03 | CT_ITS ---
EXAMINATION: CTA brain carotid DATE: 12/04/2021 09:48 CDT INDICATION: Headaches.. TECHNIQUE: Computed tomographic angiography (CTA) of the head was performed without and with 100 mL O mnipaque-350 intravenous contrast. CTA of the neck was performed with intravenous contrast. The dose- length product was 1556.66 mGy-cm. Maximum intensity projection and volume rendered 3D-reconstruction s were created by the technologist on a separate workstation. Automated exposure control and iterativ e reconstruction technique were employed. COMPARISON: CTA brain/carotid dated 09/01/2020 and MRI dated 12/03/2021 FINDINGS: HEAD CTA: Normal brain parenchymal volume. Normal baig-white differentiation. No ventriculomegaly or midline shift. Basilar cisterns are patent. No acute infarction, hemorrhage, mass or mass effect. Par anasal sinuses and mastoids are pneumatized. No depressed skull fractures. The anterior, middle and p osterior cerebral arteries are within normal limits. There is a left dominant vertebral artery. No ev idence for significant stenosis, occlusion or aneurysm. NECK CTA: The aortic arch is unremarkable. The vertebral arteries are symmetric without occlusion or dissection. The common carotid arteries are within normal limits. There is mild atherosclerosis at th e bifurcation of the common carotid artery. Lung apices are unremarkable. There is right upper lobe a telectasis/scarring. Thyroid gland is unremarkable. No cervical lymph node enlargement. There is 34% stenosis of the proximal right internal carotid artery relative to normal distal artery lumen diameter (NASCET criteria). There is 0% stenosis of the proximal left internal carotid artery r elative to normal distal artery lumen diameter. IMPRESSION: 1. 34% stenosis of the proximal right internal carotid artery relative to normal distal artery lumen diameter (NASCET criteria). 2. 0% stenosis of the proximal left internal carotid artery relative to normal distal artery lumen di ameter. 3: No significant abnormality of the intracranial arteries. No acute intracranial abnormality Reviewed, dictated and finalized at location B. IMPRESSION: 1. 34% stenosis of the proximal right internal carotid artery relative to magdiel l distal artery lumen diameter (NASCET criteria). 2. 0% stenosis of the proximal left internal carotid artery relative to normal distal artery lumen diameter. 3: No significant abnormality of the intracranial arteries. No acute intracrani al abnormality
[2021-12-03 08:29] LABS: Estimated Glomerular Filt Rate > 60
== END 2021-12-03 07:43 | disposition home or self-care (01) ==
PROVIDERS: PCP Family Medicine; Visit Provider Student in an Organized Health Care Education/Training Program
DX: G43.909 Migraine, unspecified, not intractable, without status migrainosus (principal); H53.9 Unspecified visual disturbance; I65.21 Occlusion and stenosis of right carotid artery
CPT/HCPCS: 70496; 70498; 70553; A9577; Q9967

== ENCOUNTER 2022-04-28 09:00 | Outpatient (NON) | payer OTHER, MEDICARE, SELFPAY | END 2022-04-28 09:01 | disposition home or self-care (01) | LOC: ANHLAB 04-29 07:57 | PROVIDERS: PCP Family Medicine; Visit Provider Internal Medicine Gastroenterology | DX: R19.7 Diarrhea, unspecified (principal); K21.9 Gastro-esophageal reflux disease without esophagitis | CPT/HCPCS: 88305 ==

== ENCOUNTER 2022-04-28 12:33 | Day surgery (SDC) | payer OTHER, MEDICARE, SELFPAY ==
[2022-04-22 10:06] VITALS: BMI 37.7
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
[2022-04-28 12:50] VITALS: BP 107/64; PULSE 83; RESP 20; TEMP 37.1; O2SAT 100
[2022-04-28 13:09] LABS: Glucose Point of Care 71 mg/dl (65-105)
[2022-04-28] MEDS: LACTATED RINGERS 1,000 ML 150 ML IV CONT (13:09)
[2022-04-28] MEDS: DEXTROSE 50% 25 GM/50 ML SYRINGE IV PUSH (13:13)
[2022-04-28 14:20] LABS: Glucose Point of Care 83 mg/dl (65-105)
[2022-04-28 14:53] VITALS: BP 128/61; PULSE 71; RESP 16; O2SAT 100
--- NOTE | 2022-04-28 15:02 | WPDANESPN ---
Anes - Prog Note Post-Op Date/Time: 04/28/22 15:02 Cardiovascular status: normal Respiratory status: normal Airway patency: baseline Mental status: baseline Post-Op hydration status: normal Vital Signs: Last Vital Signs Temp 37.1 C 04/28/22 12:50 Pulse 71 04/28/22 14:53 Resp 16 04/28/22 14:53 BP 128/61 04/28/22 14:53 Pulse Ox 100 04/28/22 14:53 O2 Del Method Room Air 04/28/22 14:53 Pain Score (VAS): 0 I/O: Intake & Output 04/27/22 04/28/22 04/28/22 23:59 07:59 15:59 Intake Total 400 Balance 400 04/28/22 04/28/22 13:05 14:18 POC Capillary Glucose 71 83 Post-procedural complaints: none Patient Feedback: Patient satisfied with anesthetic care. Other Findings: Patient vital signs back to baseline. Patient denies nausea and vomiting. Patient's pain under control. Patient OK for discharge.
[2022-04-28 15:03] VITALS: BP 107/70; PULSE 71; RESP 16; O2SAT 100
[2022-04-28 15:13] VITALS: BP 97/62; PULSE 72; RESP 16; O2SAT 100
== END 2022-04-28 15:35 | disposition home or self-care (01) ==
PROVIDERS: PCP Family Medicine; Visit Provider Internal Medicine Gastroenterology
PROC: 0DJ08ZZ Inspection of Upper Intestinal Tract, Via Natural or Artificial Opening Endoscopic (ICD-10-PCS; CPT 43235; principal; 2022-04-28 14:00)
PROC: 0DJD8ZZ Inspection of Lower Intestinal Tract, Via Natural or Artificial Opening Endoscopic (ICD-10-PCS; CPT 45378; 2022-04-28 14:00)
DX: K21.9 Gastro-esophageal reflux disease without esophagitis (principal)
CPT/HCPCS: 45385; 43239

== ENCOUNTER 2022-07-07 19:42 | Emergency (ER) | payer OTHER, MEDICARE, SELFPAY ==
[2022-07-07 19:48] VITALS: BP 126/88; PULSE 89; RESP 18; TEMP 36.5; O2SAT 100
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
== END 2022-07-07 21:35 | disposition home or self-care (01) ==
PROVIDERS: Emergency Provider Family Medicine; PCP Family Medicine
DX: K91.840 Postprocedural hemorrhage of a digestive system organ or structure following a digestive system procedure (principal); I10 Essential (primary) hypertension; E11.9 Type 2 diabetes mellitus without complications; K21.9 Gastro-esophageal reflux disease without esophagitis; M35.00 Sjogren syndrome, unspecified; F90.9 Attention-deficit hyperactivity disorder, unspecified type; F41.9 Anxiety disorder, unspecified; F32.A Depression, unspecified; Z96.652 Presence of left artificial knee joint; Z98.84 Bariatric surgery status; Z86.16 Personal history of COVID-19; Z87.01 Personal history of pneumonia (recurrent); Z87.11 Personal history of peptic ulcer disease; Z87.440 Personal history of urinary (tract) infections; Z87.442 Personal history of urinary calculi; Z62.810 Personal history of physical and sexual abuse in childhood; Z90.710 Acquired absence of both cervix and uterus; Z90.49 Acquired absence of other specified parts of digestive tract; Z79.85 Long-term (current) use of injectable non-insulin antidiabetic drugs; Z79.84 Long term (current) use of oral hypoglycemic drugs
CPT/HCPCS: 99281

== ENCOUNTER 2022-08-26 09:47 | Emergency (ER) | payer OTHER, MEDICARE, SELFPAY ==
[2022-08-26 10:07] VITALS: BP 108/71; PULSE 78; RESP 16; TEMP 36.3; O2SAT 100
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
== END 2022-08-26 10:33 | disposition short-term general hospital (02) ==
PROVIDERS: Emergency Provider Nurse Practitioner; PCP Family Medicine
DX: R10.9 Unspecified abdominal pain (principal); E11.9 Type 2 diabetes mellitus without complications; K21.9 Gastro-esophageal reflux disease without esophagitis; M35.00 Sjogren syndrome, unspecified; I20.9 Angina pectoris, unspecified; Z86.16 Personal history of COVID-19; Z98.84 Bariatric surgery status; Z96.652 Presence of left artificial knee joint; F41.9 Anxiety disorder, unspecified; F32.A Depression, unspecified
CPT/HCPCS: 81003; 99212; G0463

== ENCOUNTER 2022-08-26 10:42 | Emergency (ER) | payer OTHER, MEDICARE, SELFPAY ==
[2022-08-26 10:50] VITALS: BP 103/86; PULSE 102; RESP 20; TEMP 36.3; O2SAT 100
[2022-08-26 11:07] LABS: Basophils Absolute Auto 0.1 K/mm3 (0.0-0.1); Basophils Percent Auto 1.1 % (0.2-1.2); Eosinophils Absolute Auto 0.1 K/mm3 (0-0.3); Eosinophils Percent Auto 2.9 % (0-4.4); Hematocrit 47.7 % (37.0-47.0); Hemoglobin 15.2 g/dL (12.0-15.0); Immature Granulocyte Absolute 0.01 K/mm3 (0.00-0.031); Immature Granulocyte Percent A 0.2 % (0-0.5); Lymphocytes Absolute Auto 1.28 K/mm3 (0.9-3.2); Lymphocytes Percent Auto 26.9 % (18.3-44.2); Mean Corpuscular HGB Conc 31.9 g/dl (32-36); Mean Corpuscular Hemoglobin 28.3 pg (26-34); Mean Corpuscular Volume 88.8 fl (80-100); Monocytes Absolute Auto 0.4 K/mm3 (0.1-0.6); Monocytes Percent Auto 7.8 % (2.6-8.5); Neutrophils Absolute Auto 2.9 K/mm3 (1.3-6.7); Neutrophils Percent Auto 61.1 % (45.5-73.1); Platelet Count Result 194 k/mm3 (150-375); Red Blood Count 5.37 M/mm3 (4.2-5.4); Red Cell Distribution Width 13.3 % (11.5-14.5); White Blood Count 4.8 K/mm3 (4.5-10.0)
[2022-08-26 11:15] LABS: Alanine Aminotransferase 48 U/L (6-35); Albumin Level 4.6 g/dL (3.5-5.1); Alkaline Phosphatase 89 U/L (38-126); Anion Gap 11 mmol/L (8-16); Aspartate Amino Transferase 38 U/L (14-36); Bilirubin,Total 0.5 mg/dL (0.2-1.3); Blood Urea Nitrogen 10 mg/dL (7-17); Calcium 9.5 mg/dL (8.4-10.2); Carbon Dioxide 26 mmol/L (22-30); Chloride 102 mmol/L (98-107); Estimated CRCL calculation 61 ml/min; Estimated Glomerular Filt Rate > 60; Glucose 89 mg/dL (65-110); Sodium 139 mmol/L (137-145)
--- NOTE | 2022-08-26 11:22 | PC.NURSE ---
Pt to intake desk and reports she just passed a kidney stone in the restroom.
== END 2022-08-26 12:37 | disposition left against medical advice (07) ==
LOC: ANHED 12:22
PROVIDERS: Emergency Provider Emergency Medicine; PCP Family Medicine
DX: M54.9 Dorsalgia, unspecified (principal)
CPT/HCPCS: 36415; 80053; 81003; 85025; 99199; 99212; G0463

== ENCOUNTER 2022-09-18 17:13 | Emergency (ER) | payer OTHER, MEDICARE, SELFPAY ==
[2022-09-18] VITALS (10 sets, daily range): BP systolic 127–196; BP diastolic 58–80; PULSE 72–97; RESP 13–40; TEMP 36.4; O2SAT 99–100
--- NOTE | ~2022-09-18 | XR_ITS ---
EXAMINATION: XR chest 2V DATE: 09/18/2022 17:33 INDICATION: Chest pain. TECHNIQUE: Frontal and lateral views of the chest were obtained. COMPARISON: Chest single view 12/13/2016, CT abdomen and pelvis 06/14/2020 FINDINGS: There is no pneumonia, pleural effusion, or pneumothorax. The heart size is normal. There a re changes of disc replacement in cervical spine. Surgical clips in the right upper quadrant are like ly from cholecystectomy. There is a staple line at the stomach. IMPRESSION: 1. No acute cardiopulmonary disease. Reviewed, dictated and finalized at location E.
--- NOTE | 2022-09-18 17:16 | ECG_ITS ---
Measurements Intervals [place] Rate: 81 P: 76 [place]: 174 QRS: 13 QRSD: 84 T: 62 QT: 359 QTc: 417 Interpretive Statements SINUS RHYTHM NORMAL ECG COMPARED TO ECG 09/01/2020 20:18:27 NO SIGNIFICANT CHANGES Electronically Signed On 09-19-2022 10:03:20 CDT by Jesus Waldrop M.D.
--- NOTE | 2022-09-18 17:44 | PC.NURSE ---
patient very anxious. requesting to walk around the room. at bedside.
[2022-09-18 17:51] LABS: Basophils Absolute Auto 0.1 K/mm3 (0.0-0.1); Basophils Percent Auto 1.2 % (0.2-1.2); Eosinophils Absolute Auto 0.1 K/mm3 (0-0.3); Eosinophils Percent Auto 1.4 % (0-4.4); Hematocrit 42.9 % (37.0-47.0); Hemoglobin 13.8 g/dL (12.0-15.0); Immature Granulocyte Absolute 0.02 K/mm3 (0.00-0.031); Immature Granulocyte Percent A 0.3 % (0-0.5); Lymphocytes Absolute Auto 1.35 K/mm3 (0.9-3.2); Lymphocytes Percent Auto 23.4 % (18.3-44.2); Mean Corpuscular HGB Conc 32.2 g/dl (32-36); Mean Corpuscular Hemoglobin 28.3 pg (26-34); Mean Corpuscular Volume 88.1 fl (80-100); Mean Platelet Volume 11.5 fl (7.4-10.4); Monocytes Absolute Auto 0.4 K/mm3 (0.1-0.6); Monocytes Percent Auto 7.4 % (2.6-8.5); Neutrophils Absolute Auto 3.8 K/mm3 (1.3-6.7); Neutrophils Percent Auto 66.3 % (45.5-73.1); Platelet Count Result 199 k/mm3 (150-375); Red Blood Count 4.87 M/mm3 (4.2-5.4); Red Cell Distribution Width 13.1 % (11.5-14.5); White Blood Count 5.8 K/mm3 (4.5-10.0)
[2022-09-18 18:01] LABS: Alanine Aminotransferase 41 U/L (6-35); Albumin Level 4.3 g/dL (3.5-5.1); Alkaline Phosphatase 78 U/L (38-126); Anion Gap 11 mmol/L (8-16); Aspartate Amino Transferase 31 U/L (14-36); Bilirubin,Total 0.3 mg/dL (0.2-1.3); Blood Urea Nitrogen 13 mg/dL (7-17); Carbon Dioxide 21 mmol/L (22-30); Chloride 106 mmol/L (98-107); Estimated CRCL calculation 49 ml/min; Estimated Glomerular Filt Rate 57; Glucose 158 mg/dL (65-110); Lipase 202 U/L (23-300); Potassium 3.1 mmol/L (3.4-5.0); Sodium 138 mmol/L (137-145)
[2022-09-18 18:06] LABS: Partial Thromboplastin Time 24.3 SECONDS (22.3-36.8); Prothrombin Time 13.6 Seconds (11.1-14.7)
[2022-09-18 18:13] LABS: Troponin I < 0.012 ng/mL (0.000-0.034)
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
[2022-09-18 18:53] LABS: Appearance Urine Slightly Cloudy (Clear); Bilirubin Urine 1+ (Negative); Blood Urine Negative (Negative); Color Urine Yellow (Yellow); Glucose Urine UA Negative (Negative); Ketones Urine Trace mg/dL (Negative); Leukocyte Esterase Ur 1+ LEU/UL (Negative); Nitrate Urine Negative (Negative); Protein Urine 1+ mg/dL (Negative); Specific Grav Ur >= 1.030 (1.001-1.035); Urobilinogen Urine 0.2 mg/dL (<2.0); pH Urine 5.5 (5.0-9.0)
[2022-09-18] MEDS: LORazepam (*CRX) 0.5 MG TABLET PO (18:55)
[2022-09-18] MEDS: ONDANSETRON INJ 4 MG/2 ML VIAL IV PUSH (18:55)
[2022-09-18] MEDS: SODIUM CHLORIDE 0.9% IV 1,000 ML 999 ML IV CONT (18:58)
[2022-09-18] MEDS: POTASSIUM CHLORIDE 20 MEQ ER TABLET 40 MEQ PO (19:00)
[2022-09-18 19:03] LABS: Add Urine Microscopic? YES
[2022-09-18 19:04] LABS: RBC Urine 0-2 /hpf (0-2)
[2022-09-18 19:05] LABS: Squamous Epithelial Cell Urine Few /hpf (Few)
--- NOTE | 2022-09-18 19:05 | PC.NURSE ---
This RN assumed care of patient. This Rn took patient report from SARAH Nguyen.
[2022-09-18 19:06] LABS: Bacteria Urine Trace /hpf
[2022-09-18 19:18] LABS: Creatine Kinase 38 U/L (30-135)
[2022-09-18 21:21] LABS: Troponin I < 0.012 ng/mL (0.000-0.034)
[2022-09-18 22:01] LABS: Influenza A QL RT-PCR Negative (Negative); Influenza B QL RT-PCR Negative (Negative); SARS-CoV-2 RNA PCR Negative (Negative)
--- NOTE | 2022-09-18 22:36 | PC.NURSE ---
pt asked for medications for pain following discharge to get her through until she sees Dr. Black and for medications for her restless leg syndrome because she is not happy with the medication she is currently on . EDP Angeles Tang made aware.
== END 2022-09-18 23:03 | disposition home or self-care (01) ==
PROVIDERS: Emergency Provider Physician Assistant; PCP Family Medicine
DX: E86.0 Dehydration (principal); E87.6 Hypokalemia; R11.2 Nausea with vomiting, unspecified; G25.81 Restless legs syndrome; Z20.822 Contact with and (suspected) exposure to COVID-19; E11.9 Type 2 diabetes mellitus without complications; N39.41 Urge incontinence; K21.9 Gastro-esophageal reflux disease without esophagitis; M35.00 Sjogren syndrome, unspecified; F90.9 Attention-deficit hyperactivity disorder, unspecified type; F32.A Depression, unspecified; Z98.84 Bariatric surgery status; Z96.652 Presence of left artificial knee joint; Z86.16 Personal history of COVID-19; Z87.01 Personal history of pneumonia (recurrent); Z87.440 Personal history of urinary (tract) infections; Z87.442 Personal history of urinary calculi; Z87.11 Personal history of peptic ulcer disease; Z90.710 Acquired absence of both cervix and uterus; Z90.49 Acquired absence of other specified parts of digestive tract; Z79.84 Long term (current) use of oral hypoglycemic drugs
CPT/HCPCS: 36415; 71046; 80053; 81001; 82550; 83690; 83735; 84484; 85025; 85610; 85730; 87636; 93005; 96361; 96374; 99284; A9270; J2405; J7030

== ENCOUNTER 2023-03-10 09:09 | Day surgery (SDC) | payer OTHER, MEDICARE, SELFPAY ==
[2023-03-03 07:57] VITALS: BMI 22.4
[2023-03-04 11:52] VITALS: BMI 22.4
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
[2023-03-10 10:43] VITALS: BP 126/77; PULSE 85; RESP 20; TEMP 37.3; O2SAT 99
[2023-03-10 11:28] LABS: Glucose Point of Care 78 mg/dl (65-105)
[2023-03-10] MEDS: LACTATED RINGERS 1,000 ML 150 ML IV CONT (11:30)
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
[2023-03-10 11:56] VITALS: BP 111/70; PULSE 83; RESP 16; O2SAT 100
--- NOTE | 2023-03-10 11:58 | WPDANESPN ---
Anes - Prog Note Post-Op Date/Time: 03/10/23 11:58 Cardiovascular status: normal Respiratory status: normal Airway patency: baseline Mental status: baseline Post-Op hydration status: normal Vital Signs: Last Vital Signs Temp 37.3 C 03/10/23 10:43 Pulse 85 03/10/23 10:43 Resp 20 03/10/23 10:43 BP 126/77 03/10/23 10:43 Pulse Ox 99 03/10/23 10:43 O2 Del Method Room Air 03/10/23 10:43 Pain Score (VAS): 0 I/O: Intake & Output 03/09/23 03/10/23 03/10/23 23:59 07:59 15:59 Intake Total 100 Balance 100 03/10/23 11:23 POC Capillary Glucose 78 Post-procedural complaints: none Patient Feedback: Patient satisfied with anesthetic care. Other Findings: Patient vital signs back to baseline. Patient denies nausea and vomiting. Patient's pain under control. Patient OK for discharge.
[2023-03-10 12:06] VITALS: BP 110/68; PULSE 72; RESP 16; O2SAT 100
[2023-03-10 12:16] VITALS: BP 111/72; PULSE 65; RESP 16; O2SAT 100
== END 2023-03-10 12:33 | disposition home or self-care (01) ==
PROVIDERS: PCP Family Medicine; Visit Provider Internal Medicine Gastroenterology
PROC: 0DJ08ZZ Inspection of Upper Intestinal Tract, Via Natural or Artificial Opening Endoscopic (ICD-10-PCS; CPT 43235; principal; 2023-03-10 12:00)
DX: R10.13 Epigastric pain (principal); K31.89 Other diseases of stomach and duodenum
CPT/HCPCS: 43239

== ENCOUNTER 2023-04-22 13:57 | Outpatient (CLI) | payer OTHER, MEDICARE, SELFPAY ==
--- NOTE | ~2023-04-22 | XR_ITS ---
[[id number] ] INDICATION: Right rib pain TECHNIQUE: Frontal projection of the upper right ribs, frontal projection of the lower right ribs, ob lique projection of all the right ribs, frontal inspiratory chest x-ray for interpretation. FINDINGS: There are no displaced rib fractures identified. There are no soft tissue abnormality see n. The lungs are clear. There are cholecystectomy clips. IMPRESSION: 1:No acute displaced rib fractures. Reviewed, dictated and finalized at location A.
== END 2023-04-22 13:58 | disposition home or self-care (01) ==
LOC: ANHIMG 14:00
PROVIDERS: PCP Family Medicine; Visit Provider Family Medicine
DX: R29.6 Repeated falls (principal)
CPT/HCPCS: 71101

== ENCOUNTER 2023-05-04 23:35 | Emergency (ER) | payer OTHER, MEDICARE, SELFPAY ==
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
[2023-05-04 23:42] VITALS: BP 117/71; PULSE 84; RESP 15; TEMP 36.6; O2SAT 100
[2023-05-04 23:51] VITALS: BP 117/71; PULSE 82; PULSE 83; RESP 12; O2SAT 99
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
[2023-05-05] MEDS: ONDANSETRON INJ 4 MG/2 ML VIAL IV PUSH (00:19)
[2023-05-05] MEDS: MORPHINE SULFATE (*CRX) 4 MG/ML INJ IV PUSH (00:20)
[2023-05-05 00:38] LABS: Alanine Aminotransferase 97 U/L (6-35); Albumin Level 4.1 g/dL (3.5-5.1); Alkaline Phosphatase 89 U/L (38-126); Anion Gap 1 mmol/L (4-12); Aspartate Amino Transferase 56 U/L (14-36); Bilirubin,Total 0.5 mg/dL (0.2-1.3); Blood Urea Nitrogen 14 mg/dL (7-17); Calcium 9.3 mg/dL (8.4-10.2); Carbon Dioxide 33 mmol/L (22-30); Chloride 102 mmol/L (98-107); Estimated CRCL calculation 50 ml/min; Estimated Glomerular Filt Rate > 60; Glucose 83 mg/dL (65-110); Potassium 4.1 mmol/L (3.4-5.0); Sodium 136 mmol/L (137-145)
[2023-05-05 00:50] LABS: Basophils Absolute Auto 0.1 K/mm3 (0.0-0.1); Eosinophils Absolute Auto 0.1 K/mm3 (0-0.3); Eosinophils Percent Auto 2.3 % (0-4.4); Hematocrit 42.3 % (37.0-47.0); Hemoglobin 13.8 g/dL (12.0-15.0); Immature Granulocyte Absolute 0.01 K/mm3 (0.00-0.031); Immature Granulocyte Percent A 0.2 % (0-0.5); Lymphocytes Absolute Auto 1.59 K/mm3 (0.9-3.2); Lymphocytes Percent Auto 26.6 % (18.3-44.2); Mean Corpuscular HGB Conc 32.6 g/dl (32-36); Mean Corpuscular Hemoglobin 29.1 pg (26-34); Mean Corpuscular Volume 89.2 fl (80-100); Monocytes Absolute Auto 0.5 K/mm3 (0.1-0.6); Monocytes Percent Auto 8.7 % (2.6-8.5); Neutrophils Absolute Auto 3.7 K/mm3 (1.3-6.7); Neutrophils Percent Auto 61.2 % (45.5-73.1); Platelet Count Result 218 k/mm3 (150-375); Red Blood Count 4.74 M/mm3 (4.2-5.4); Red Cell Distribution Width 12.9 % (11.5-14.5)
[2023-05-05 02:16] VITALS: BP 122/68; PULSE 84; RESP 12; O2SAT 99
[2023-05-05] MEDS: METOCLOPRAMIDE HCL INJ 10 MG/2 ML VIAL IV PUSH (02:19)
[2023-05-05] MEDS: MORPHINE SULFATE (*CRX) 2 MG/ML INJ IV PUSH (02:19)
== END 2023-05-05 02:30 | disposition home or self-care (01) ==
LOC: ANHED 05-05 00:14
PROVIDERS: Emergency Provider Physician Assistant; PCP Family Medicine
DX: K52.9 Noninfective gastroenteritis and colitis, unspecified (principal); E11.9 Type 2 diabetes mellitus without complications; K21.9 Gastro-esophageal reflux disease without esophagitis; M35.00 Sjogren syndrome, unspecified; Z98.84 Bariatric surgery status; Z96.652 Presence of left artificial knee joint; Z86.16 Personal history of COVID-19; Z87.442 Personal history of urinary calculi; Z87.01 Personal history of pneumonia (recurrent); Z87.11 Personal history of peptic ulcer disease; Z87.440 Personal history of urinary (tract) infections; Z90.710 Acquired absence of both cervix and uterus; Z90.49 Acquired absence of other specified parts of digestive tract; Z79.84 Long term (current) use of oral hypoglycemic drugs
CPT/HCPCS: 36415; 71260; 74177; 80053; 85025; 96374; 96375; 96376; 99284; J2270; J2405; J2765; Q9967

== ENCOUNTER 2023-05-10 00:33 | Emergency (ER) | payer OTHER, MEDICARE, SELFPAY ==
[2023-05-10] VITALS (59 sets, daily range): BP systolic 97–137; BP diastolic 52–108; PULSE 66–111; RESP 10–30; TEMP 36.7–36.8; O2SAT 95–100
--- NOTE | 2023-05-10 00:47 | ECG_ITS ---
Measurements Intervals [place] Rate: 101 P: 71 RI: 156 QRS: 9 QRSD: 82 T: 67 QT: 342 QTc: 444 Interpretive Statements SINUS TACHYCARDIA POSSIBLE LEFT ATRIAL ENLARGEMENT [-0.1mV P WAVE IN V1/V2] SEPTAL MYOCARDIAL INFARCTION , PROBABLY OLD [40+ ms Q WAVE IN V1/V2] COMPARED TO ECG 09/18/2022 17:34:30 SINUS TACHYCARDIA NOW PRESENT Electronically Signed On 05-10-2023 8:52:25 CDT by Venkat Arriaga M.D.
[2023-05-10 01:07] LABS: Basophils Absolute Auto 0.1 K/mm3 (0.0-0.1); Basophils Percent Auto 0.9 % (0.2-1.2); Eosinophils Absolute Auto 0.2 K/mm3 (0-0.3); Eosinophils Percent Auto 2.7 % (0-4.4); Hematocrit 43.6 % (37.0-47.0); Hemoglobin 14.4 g/dL (12.0-15.0); Immature Granulocyte Absolute 0.02 K/mm3 (0.00-0.031); Immature Granulocyte Percent A 0.4 % (0-0.5); Lymphocytes Absolute Auto 1.69 K/mm3 (0.9-3.2); Lymphocytes Percent Auto 30.1 % (18.3-44.2); Mean Corpuscular Hemoglobin 29.3 pg (26-34); Mean Corpuscular Volume 88.6 fl (80-100); Mean Platelet Volume 10.7 fl (7.4-10.4); Monocytes Absolute Auto 0.5 K/mm3 (0.1-0.6); Monocytes Percent Auto 8.6 % (2.6-8.5); Neutrophils Absolute Auto 3.2 K/mm3 (1.3-6.7); Neutrophils Percent Auto 57.3 % (45.5-73.1); Platelet Count Result 192 k/mm3 (150-375); Red Blood Count 4.92 M/mm3 (4.2-5.4); Red Cell Distribution Width 12.8 % (11.5-14.5); White Blood Count 5.6 K/mm3 (4.5-10.0)
[2023-05-10 01:16] LABS: Acetaminophen < 10 ug/mL (10-30); Ethanol < 10 mg/dL (<10); Salicylate < 1.0 mg/dL (2-20)
[2023-05-10 01:17] LABS: Alanine Aminotransferase 108 U/L (6-35); Albumin Level 4.4 g/dL (3.5-5.1); Alkaline Phosphatase 91 U/L (38-126); Anion Gap 2 mmol/L (4-12); Aspartate Amino Transferase 98 U/L (14-36); Bilirubin,Total 0.5 mg/dL (0.2-1.3); Blood Urea Nitrogen 11 mg/dL (7-17); Calcium 9.5 mg/dL (8.4-10.2); Carbon Dioxide 32 mmol/L (22-30); Chloride 105 mmol/L (98-107); Estimated CRCL calculation 57 ml/min; Estimated Glomerular Filt Rate > 60; Glucose 96 mg/dL (65-110); Potassium 3.8 mmol/L (3.4-5.0); Sodium 139 mmol/L (137-145)
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
[2023-05-10 01:27] LABS: Lithium 0.6 mmol/L (0.6-1.2)
[2023-05-10 01:28] LABS: Glucose Point of Care 93 mg/dl (65-105)
--- NOTE | 2023-05-10 01:33 | PC.NURSE ---
Patient states she took three days worth of her medications. See list below. Adderall 30mg Calcium 600mg Centrum Silver for women Crestor 5mg D3 5,000IU Estradiol 1mg Hydroxychloroquine 200mg Iron 65mg [place] 300mg Lorazepam 1mg TID Magnesium 400mg Metformin 500mg Midodrine 2.5mg Pantoprazole 40mg Pramipexole 1.5mg 2@bedtime Premarin 0.625mg Prozac 40mg Ropinirole 0.25mg BID Super B complex Trazodone 100mg [place] poison control called and advised to get a [place] level, acetaminophen, salicylate, and a basic 12 lead EKG. Poison control advised to watch patient for six hours before medically clearing patient. Poison control also advised to that Adderall will increase the heart rate, Hydroxychloroquine may cause N/V/D, HTN and arrhythmias (poison control also advised that at levels of 1,600mg of Hydroxychloroquine can lead to Cardiogenic shock or Cardiac ), magnesium may lead to diarrhea, metformin may cause lactic acidosis as well low blood glucose, ropinirole may cause drowsiness, and trazadone may also cause drowsiness. Notified EDP Dr. Go.
[2023-05-10 01:41] LABS: Appearance Urine Clear (Clear); Bacteria Urine 1+ /hpf; Bilirubin Urine Negative (Negative); Blood Urine Negative (Negative); Color Urine Yellow (Yellow); Glucose Urine UA Negative (Negative); Ketones Urine Negative (Negative); Leukocyte Esterase Ur 2+ LEU/UL (Negative); Need Manual Microscopic Reviewed; Nitrate Urine Negative (Negative); Non Pathogenic Casts 0-2; Protein Urine Negative (Negative); Specific Grav Ur 1.015 (1.001-1.035); Squamous Epithelial Cell Urine Many /hpf (Few); WBC Urine 21-50 /hpf (0-3); pH Urine 6.5 (5.0-9.0)
[2023-05-10 01:42] LABS: Amphetamine Screen Urine Positive (Negative); Barbiturate Screen Urine Negative (Negative); Benzodiazepines Screen Urine Negative (Negative); Cannabinoid Screen Urine Negative (Negative); Cocaine Screen Urine Negative (Negative); Methadone Screen Urine Negative (Negative); Opiate Screen Urine Negative (Negative); Phencyclidine Screen Urine Negative (Negative)
[2023-05-10 01:43] LABS: SARS-CoV-2 RNA PCR Negative (Negative)
[2023-05-10] MEDS: cefTRIAXone 1 GM VIAL IM (02:03)
[2023-05-10 02:18] LABS: Add Urine Microscopic? YES
[2023-05-10] MEDS: ONDANSETRON INJ 4 MG/2 ML VIAL IV PUSH (02:27)
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
[2023-05-10 02:37] LABS: Glucose Point of Care 93 mg/dl (65-105)
[2023-05-10 03:26] LABS: Glucose Point of Care 83 mg/dl (65-105)
[2023-05-10 04:28] LABS: Glucose Point of Care 82 mg/dl (65-105)
[2023-05-10 06:09] LABS: Glucose Point of Care 78 mg/dl (65-105)
--- NOTE | 2023-05-10 06:33 | PC.NURSE ---
Per EDP Dr. Go patient is medically cleared and crisis can be called.
--- NOTE | 2023-05-10 06:37 | PC.NURSE ---
Addendum entered by Ricardo Reed RN 05/10/23 06:38: Per poison control . Per Tracy at poison control the case is closed. Original Note: Per Sruthi at [facility] for patient to have placement be sure to get a case number from poison control and that they close the case.
--- NOTE | 2023-05-10 08:58 | PC.NURSE ---
Pt phone returned to pt
--- NOTE | 2023-05-10 10:39 | PC.NURSE ---
This RN spoke with Minal at [facility] regarding pt, Minal stated she would call back after speaking with her nursing shipping supervisor
--- NOTE | 2023-05-10 11:12 | PC.NURSE ---
This RN spoke with Beryl Nixon regarding pt status. Beryl stated she would call back after presenting to the physician at [facility]
--- NOTE | 2023-05-10 11:13 | PC.NURSE ---
This RN spoke with Krystal at [facility] who stated their physician would like a repeat lithium, EKG, and CMP levels done. EDP made aware and gave VORB to place the orders requested
--- NOTE | 2023-05-10 11:26 | ECG_ITS ---
Measurements Intervals [place] Rate: 87 P: 57 FL: 144 QRS: 16 QRSD: 76 T: 60 QT: 347 QTc: 419 Interpretive Statements SINUS RHYTHM COMPARED TO ECG 05/10/2023 00:55:29 SINUS RHYTHM NOW PRESENT Electronically Signed On 05-10-2023 12:38:29 CDT by Venkat Arriaga M.D.
--- NOTE | 2023-05-10 11:26 | PC.NURSE ---
PT refusing to go to [place] due to stating it is too far [place] notified
--- NOTE | 2023-05-10 11:29 | PC.NURSE ---
This RN spoke with Kassandra at [facility] regarding pt and Kassandra stated they would not be able to accept her
[2023-05-10 12:08] LABS: Alanine Aminotransferase 119 U/L (6-35); Albumin Level 4.1 g/dL (3.5-5.1); Alkaline Phosphatase 88 U/L (38-126); Anion Gap 3 mmol/L (4-12); Aspartate Amino Transferase 106 U/L (14-36); Bilirubin,Total 0.6 mg/dL (0.2-1.3); Blood Urea Nitrogen 10 mg/dL (7-17); Calcium 9.1 mg/dL (8.4-10.2); Carbon Dioxide 30 mmol/L (22-30); Chloride 102 mmol/L (98-107); Estimated CRCL calculation 57 ml/min; Estimated Glomerular Filt Rate > 60; Glucose 96 mg/dL (65-110); Potassium 4.5 mmol/L (3.4-5.0); Sodium 135 mmol/L (137-145)
--- NOTE | 2023-05-10 12:39 | PC.NURSE ---
This RN attempted to call Minal at [facility] back at [phone] and received no answer
--- NOTE | 2023-05-10 12:52 | PC.NURSE ---
This RN spoke with Krystal at [facility] [phone] regarding pt status and stated that the only result we are waiting on of the ones requested was the [place] level. This RN stated that we would inform them of the results when they resulted
--- NOTE | 2023-05-10 12:54 | PC.NURSE ---
This RN spoke with Carine at [facility] [phone] regarding pt placement status
[2023-05-10 13:42] LABS: Lithium 0.4 mmol/L (0.6-1.2)
== END 2023-05-10 15:55 ==
LOC: ANHED 02:38
PROVIDERS: Emergency Medicine; Emergency Provider Emergency Medicine; PCP Family Medicine
DX: T50.902A Poisoning by unspecified drugs, medicaments and biological substances, intentional self-harm, initial encounter (principal); Z11.52 Encounter for screening for COVID-19; E11.9 Type 2 diabetes mellitus without complications; M32.9 Systemic lupus erythematosus, unspecified; M35.00 Sjogren syndrome, unspecified; K21.9 Gastro-esophageal reflux disease without esophagitis; Z86.16 Personal history of COVID-19; F41.9 Anxiety disorder, unspecified; F32.A Depression, unspecified; F90.9 Attention-deficit hyperactivity disorder, unspecified type; Z96.652 Presence of left artificial knee joint; Z87.442 Personal history of urinary calculi; Z87.01 Personal history of pneumonia (recurrent); Z87.11 Personal history of peptic ulcer disease; Z87.440 Personal history of urinary (tract) infections; Z90.710 Acquired absence of both cervix and uterus; Z90.49 Acquired absence of other specified parts of digestive tract; Z79.84 Long term (current) use of oral hypoglycemic drugs; R94.31 Abnormal electrocardiogram [ECG] [EKG]; R00.0 Tachycardia, unspecified; Z98.84 Bariatric surgery status
CPT/HCPCS: 36415; 80053; 80178; 80307; 81001; 81025; 82948; 84443; 85025; 87086; 87088; 87635; 93005; 96372; 96374; 99285; J0696; J2405

== ENCOUNTER 2023-06-11 10:07 | Observation (INO) | payer OTHER, MEDICARE, SELFPAY ==
[2023-06-11] VITALS (12 sets, daily range): BP systolic 101–137; BP diastolic 62–78; PULSE 65–89; RESP 16–20; TEMP 35.9–36.8; O2SAT 97–100
--- NOTE | 2023-06-11 | ECHO_ITS ---
Patient Info Name: Dafne Polanco Treat Age: 58 years : 1965 Gender: Female Ht: 61 in Wt: 99 lbs BSA: 1.39 m2 HR: 80 bpm BP: 137 / 76 mmHg Heart Rhythm: Sinus Rhythm Technical Quality: Good Exam Date: 06/11/2023 4:52 PM Exam Location: Echo Lab Patient Status: Inpatient Admit Date: 06/11/2023 Staff Ordering Physician: Erasmo Gimenez MD Sewer: Sarai De [facility] Attending Provider: Erasmo Gimenez MD Exam Type: CA echo doppler w bubble study Study Info Indications - TIA Complete two-dimensional, color flow and Doppler transthoracic echocardiogram is performed with agitated saline. Contrast/Agitated Saline Contrast/Ag. Saline: Agitated Saline Amount: 14.00 ml IV Access Condition: patent with no signs of infiltration Summary 1. Left ventricular chamber dimension is normal. 2. Left ventricular systolic function is normal, estimated at 55-60%. 3. There is no increased left ventricular wall thickness. 4. The left ventricular diastolic function is grade I diastolic dysfunction. 5. Suspected patent foramen ovale visualized by agitated saline imaging. 6. Thin and hypermobile atrial septum. 7. There is mild aortic valve regurgitation. 8. The mitral valve has thickened leaflets. 9. There is mild tricuspid valve regurgitation. Left Ventricle Left ventricular chamber dimension is normal. Left ventricular systolic function is normal, estimated at 55-60%. There is no increased left ventricular wall thickness. The left ventricular diastolic function is grade I diastolic dysfunction. Right Ventricle Right ventricular chamber dimension is normal. Right ventricular systolic function is normal. Left Atria Left atrial chamber dimension is normal. Right Atria Right atrial chamber dimension is normal. Atrial Septum Suspected patent foramen ovale visualized by agitated saline imaging. Thin and hypermobile atrial septum. Aortic Valve The aortic valve is probable trileaflet. There is mild aortic valve sclerosis. There is no aortic valve stenosis. There is mild aortic valve regurgitation. Pulmonic Valve The pulmonic valve is normal. There is no pulmonic valve stenosis. There is trace pulmonic regurgitation. Mitral Valve The mitral valve has thickened leaflets. There is no mitral valve stenosis. There is trace mitral valve regurgitation. Tricuspid Valve The tricuspid valve leaflets are normal. There is no significant tricuspid valve stenosis. There is mild tricuspid valve regurgitation. No pulmonary hypertension, estimated pulmonary arterial systolic pressure is 26 mmHg. Pericardium/Pleural The pericardium appears normal. There is no pericardial effusion. Inferior Vena Cava Normal inferior vena cava with >50% collapse upon inspiration consistent with normal right atrial pressure, 10 mmHg. Aorta The aortic root size at the sinus of Valsalva is mildly dilated. Left Ventricular Outflow Tract Name Value Normal LVOT 2D LVOT Diameter 1.9 cm LVOT Doppler LVOT Peak Gradient 4 mmHg LVOT Mean Gradient 2 mmHg LVOT VTI 21 cm LVOT VTI/
--- NOTE | ~2023-06-11 | MR_ITS ---
EXAMINATION: MR lumbar spine wo/w con DATE: 06/11/2023 15:27 INDICATION: left leg weakness . TECHNIQUE: Magnetic resonance imaging (MRI) of the lumbar spine was performed intravenous contrast. S equences included sagittal T2-weighted frFSE, sagittal T2-weighted FS frFSE, sagittal T1-weighted FSE , and axial T2-weighted FSE. This examination was originally ordered without and with contrast. The p atient could not tolerate additional sequences, no contrast injection or postcontrast imaging perform ed. COMPARISON: 07/25/2020 X-ray L-spine 09/24/2021 FINDINGS: The last fully formed and hydrated disc is designated L5-S1. The marrow signal is benign an d homogenous. Conus terminates at L1-2. Mild multilevel loss of disc height. The following disc level s are specifically discussed: T11-T12: The disc does not extend beyond the endplate margin. There is no facet joint osteoarthritis. There is no neural foraminal stenosis. There is no central canal stenosis. T12-L1: The disc does not extend beyond the endplate margin. There is no facet joint osteoarthritis. There is no neural foraminal stenosis. There is no central canal stenosis. L1-L2: Mild diffuse bulge. There is mild facet joint osteoarthritis. There is no neural foraminal marzena nosis. There is no central canal stenosis. L2-L3: Mild diffuse bulge. There is mild facet joint osteoarthritis. There is no neural foraminal marzena nosis. There is no central canal stenosis. L3-L4: Mild diffuse bulge. There is mild facet joint osteoarthritis. There is no neural foraminal marzena nosis. There is no central canal stenosis. L4-L5: Mild diffuse bulge with a 5 mm superimposed left foraminal extrusion. There is moderate bilate ral facet joint osteoarthritis. There is mild right and moderate left neural foraminal stenosis. Ther e is no central canal stenosis. L5-S1: Mild diffuse bulge posterior disc rent. 3 mm central protrusion. There is moderate bilateral f acet joint osteoarthritis. There is no right and mild left neural foraminal stenosis. There is no leonidas tral canal stenosis. IMPRESSION: 5 mm left foraminal disc extrusion at L4-5 that contributes to moderate left neural foraminal narrowi ng. Moderate lower lumbar facet arthropathy. Reviewed, dictated and finalized at location K. IMPRESSION: 5 mm left foraminal disc extrusion at L4-5 that contributes to moderate left ne ural foraminal narrowing. Moderate lower lumbar facet arthropathy.
--- NOTE | ~2023-06-11 | CT_ITS ---
EXAMINATION: CTA BRAIN/CAROTID DATE: 06/11/2023 10:29 INDICATION: Left-sided weakness, numbness and tingling TECHNIQUE: Computed tomographic angiography (CTA) of the head and neck was performed with 100 mL Omni paque-350 intravenous contrast. Multiplanar reconstructions and maximum intensity projection 3D-recon structions of the carotid arteries and of the intracranial arteries were created by the technologist on a separate workstation. Automated exposure control and iterative reconstruction technique were emp loyed.The dose-length product was 847.36 mGy-cm. COMPARISON: None. FINDINGS: Carotid arteries: Visualized portion of the thoracic aorta and great vessels arising from the arch are all normal in ca liber with no atherosclerotic plaque or dissection. There is small amount of calcified atheroscleroti c plaque with 0% stenosis of the right carotid bulb relative to normal distal artery lumen diameter ( NASCET criteria). There is no evident atherosclerotic plaque with 0% stenosis of the left carotid bul b relative to normal distal artery lumen diameter. Left vertebral artery is mildly dominant. There is no hemodynamically significant stenosis along the cervical portion of the bilateral vertebral arteri es. Cervical soft tissues are unremarkable. Mild biapical pleural-parenchymal scarring, recommend lef t. Mild cervical and upper thoracic spondylosis with C5-C6 discectomy and prosthetic disc placement. Intracranial arteries There is no hemodynamically significant stenosis in the vertebral, basilar and internal carotid arter ies. Left vertebral artery is dominant. There are no aneurysms identified. Both A1 and P1 segments a re patent. The left P1 segment is diminutive with majority of the flow to the left posterior cerebral artery supplied via a patent left posterior communicating artery. There appears also to be a likely tiny anterior communicating artery. Cerebral arterial arborization appears symmetric. IMPRESSION: 1. 0% stenosis of the right and left carotid bulbs relative to normal distal artery lumen diameter (N ASCET criteria). 2. Unremarkable cerebral CT angiogram with no hemodynamically significant stenosis, aneurysm or disse ction. Reviewed, dictated and finalized at location A. IMPRESSION: 1. 0% stenosis of the right and left carotid bulbs relative to normal distal ar yvon lumen diameter (NASCET criteria). 2. Unremarkable cerebral CT angiogram with no hemodynamically significant steno sis, aneurysm or dissection.
--- NOTE | ~2023-06-11 | CT_ITS ---
EXAMINATION: CT brain wo con DATE: 06/11/2023 10:29 INDICATION: Stroke with left-sided numbness and tingling TECHNIQUE: Computed tomography (CT) of the head was performed without intravenous contrast. Sagittal and coronal reconstructions were performed. The mA was adjusted according to patient size. Iterative reconstruction technique was employed. The dose-length product was 847.36 mGy-cm. COMPARISON: head CT dated 12/03/2021 FINDINGS: No acute intracranial hemorrhage, acute infarction or abnormal extra axial fluid collection. There is minimal scattered white matter hypoattenuation consistent with chronic small vessel ischemic disease . Ventricles are normal and symmetric. No mass/mass effect. The orbits, paranasal sinuses and mastoi d air cells are normal. IMPRESSION: 1. Minimal scattered white matter hypoattenuation which is within normal limits for age and likely se quela of chronic small vessel ischemic disease. No acute intracranial process. Reviewed, dictated and finalized at location A. IMPRESSION: 1. Minimal scattered white matter hypoattenuation which is within normal limits for age and likely sequela of chronic small vessel ischemic disease. No acute intracranial process.
--- NOTE | ~2023-06-11 | MR_ITS ---
EXAMINATION: MR brain/brain stem wo/w con DATE: 06/11/2023 15:27 INDICATION: CVA TECHNIQUE: Magnetic resonance imaging (MRI) of the brain and brainstem was performed without and with 9 mL MultiHance intravenous contrast. Sequences included sagittal and axial T1-weighted SE, axial di ffusion-weighted FS EPI ASSET, axial T2*-weighted GRE, axial T2-weighted FLAIR Propeller, and axial T 2-weighted Propeller. Postcontrast axial and coronal T1-weighted SE was obtained. Apparent diffusion coefficient (ADC) maps were created. COMPARISON: CT brain and CTA brain carotid, same date. FINDINGS: No abnormal restricted diffusion to suggest acute ischemic infarct. No MRI evidence of hemorrhage or extra-axial collection. No suspicious foci of susceptibility to suggest prior intraparenchymal hemorr margie. Scattered foci of white matter hyperintensity, likely representing mild small vessel ischemic d isease. No evidence of advanced or lobar predominant parenchymal volume loss. The basilar cisterns ar e patent. Flow voids are preserved. Paranasal sinuses are within normal limits. Bilateral lens replac ements.Globes and orbital contents are otherwise within normal limits. No abnormal enhancement. IMPRESSION: No acute intracranial process. Reviewed, dictated and finalized at location K.
--- NOTE | ~2023-06-11 | US_ITS ---
EXAMINATION: US arterial duplex LE DATE: 06/11/2023 18:44 INDICATION: Peripheral arterial disease. TECHNIQUE: Multiple grayscale and Doppler ultrasound images of the lower extremities arteries were ob tained. COMPARISON: CT 05/05/2023 FINDINGS: Peak systolic velocity is 89 cm/s in right common femoral artery, 97 cm/s in profunda femor al artery, 95 cm/s in superficial femoral artery, 67 cm/s in popliteal artery, 52 cm/s in posterior t ibial artery, 81 cm/s in anterior tibial artery, 49 cm/s in dorsalis pedis, and 92 cm/s in peroneal a rtery. Peak systolic velocity is 98 cm/s in left common femoral artery, 75 cm/s in profunda femoral artery, 103 cm/s in superficial femoral artery, 69 cm/s in popliteal artery, 61 cm/s in posterior tibial yuri ry, 58 cm/s in anterior tibial artery, and 25 cm/s in dorsalis pedis. Left peroneal artery is not chelsey ntified. IMPRESSION: 1. No significant right-sided arterial occlusive disease. 2. Increased velocity gradient between anterior tibial artery and dorsalis pedis, consistent with mod erate to severe stenosis. 3. Left peroneal artery not identified. Reviewed, dictated and finalized at location A. IMPRESSION: 1. No significant right-sided arterial occlusive disease. 2. Increased velocity gradient between anterior tibial artery and dorsalis pedi s, consistent with moderate to severe stenosis. 3. Left peroneal artery not identified.
--- NOTE | 2023-06-11 10:13 | ECG_ITS ---
SEE SCANNED COPY FOR CONFIRMED REPORT MTDD
[2023-06-11 10:14] LABS: Glucose Point of Care 92 mg/dl (65-105)
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
[2023-06-11 10:22] LABS: Basophils Absolute Auto 0.1 K/mm3 (0.0-0.1); Basophils Percent Auto 1.2 % (0.2-1.2); Eosinophils Absolute Auto 0.1 K/mm3 (0-0.3); Eosinophils Percent Auto 2.1 % (0-4.4); Hematocrit 45.1 % (37.0-47.0); Hemoglobin 14.9 g/dL (12.0-15.0); Immature Granulocyte Absolute 0.02 K/mm3 (0.00-0.031); Immature Granulocyte Percent A 0.4 % (0-0.5); Lymphocytes Absolute Auto 1.52 K/mm3 (0.9-3.2); Lymphocytes Percent Auto 31.6 % (18.3-44.2); Mean Corpuscular Hemoglobin 28.9 pg (26-34); Mean Corpuscular Volume 87.4 fl (80-100); Mean Platelet Volume 10.9 fl (7.4-10.4); Monocytes Absolute Auto 0.4 K/mm3 (0.1-0.6); Monocytes Percent Auto 8.1 % (2.6-8.5); Neutrophils Absolute Auto 2.7 K/mm3 (1.3-6.7); Neutrophils Percent Auto 56.6 % (45.5-73.1); Platelet Count Result 210 k/mm3 (150-375); Red Blood Count 5.16 M/mm3 (4.2-5.4); Red Cell Distribution Width 12.4 % (11.5-14.5); White Blood Count 4.8 K/mm3 (4.5-10.0)
[2023-06-11 10:25] LABS: Estimated CRCL calculation 47 ml/min; Estimated Glomerular Filt Rate > 60
[2023-06-11 10:33] LABS: Alanine Aminotransferase 57 U/L (6-35); Albumin Level 4.8 g/dL (3.5-5.1); Alkaline Phosphatase 77 U/L (38-126); Anion Gap 5 mmol/L (4-12); Aspartate Amino Transferase 48 U/L (14-36); Bilirubin,Total 0.6 mg/dL (0.2-1.3); Blood Urea Nitrogen 8 mg/dL (7-17); Calcium 10.1 mg/dL (8.4-10.2); Carbon Dioxide 30 mmol/L (22-30); Chloride 105 mmol/L (98-107); Estimated CRCL calculation 54 ml/min; Estimated Glomerular Filt Rate > 60; Glucose 92 mg/dL (65-110); Potassium 4.5 mmol/L (3.4-5.0); Sodium 140 mmol/L (137-145)
[2023-06-11 10:35] LABS: Partial Thromboplastin Time 27.7 Seconds (22.3-36.8); Prothrombin Time 13.3 Seconds (11.1-14.7)
--- NOTE | 2023-06-11 12:22 | PC.NURSE ---
Pt ambulatory to bathroom with steady gait & stand by assist. Denies any increase in left leg numbness
[2023-06-11] MEDS: ASPIRIN 81 MG CHEWABLE TABLET 324 MG PO (12:29)
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
--- NOTE | 2023-06-11 14:08 | PC.NURSE ---
Spoke with patient upon arrival to the floor. This RN discussed with patient, patient's right and options while in the hospital. Patient marked confidential in the system per patient request. dry starch supervisor made aware. Security made aware.
--- NOTE | 2023-06-11 14:21 | ADMGEN ---
This patient, Dafne Case, was admitted to [facility] Surg Room 330-02. Patient/family oriented to hospital policies and general routines including ID bracelet, bed and alarms, visiting hours, pain management, procedures, bathroom and other care routines, personal items, smoking policy, room service/diet, and visiting hours. Information on how to activate the Rapid Response Team has been discussed. Patient/Family are encouraged to report perceived risks to care and to ask questions if they do not understand what they are told or what they should do.
[2023-06-11] MEDS: LORazepam (*CRX) 1 MG TABLET PO (15:48)
[2023-06-11 16:09] LABS: Cholesterol 145 mg/dL (0-200); HDL Direct 90 mg/dL; Triglycerides 66 mg/dL (<150)
[2023-06-11 16:10] LABS: Hemoglobin A1C 4.8 % (<5.7)
[2023-06-11 16:20] LABS: LDL Cholesterol Direct 48 mg/dL
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
--- NOTE | 2023-06-11 17:00 | ECG_ITS ---
SEE SCANNED COPY FOR CONFIRMED REPORT MTDD
[2023-06-11] MEDS: ONDANSETRON INJ 4 MG/2 ML VIAL IV PUSH (18:12)
[2023-06-11 18:45] LABS: Troponin I < 0.012 ng/mL (0.000-0.034)
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
[2023-06-11] MEDS: LITHIUM CARBONATE 300 MG CAPSULE PO (20:11)
[2023-06-11] MEDS: PRAMIPEXOLE 0.5 MG TABLET 1.5 MG PO (20:12)
[2023-06-12] VITALS (7 sets, daily range): BP systolic 116–118; BP diastolic 65–74; PULSE 77–93; RESP 13–21; TEMP 36.3; O2SAT 93–96
[2023-06-12] MEDS: HYDROcodone/acetaminophen (*CRX) 5-325 MG TABLET 1 TAB PO (06:31)
[2023-06-12] MEDS: HYDROXYCHLOROQUINE SULFATE 200 MG TABLET PO (09:01)
[2023-06-12] MEDS: FLUoxetine HCL 20 MG CAPSULE 40 MG PO (09:01)
[2023-06-12] MEDS: ROSUVASTATIN 5 MG TABLET PO (09:01)
[2023-06-12] MEDS: MULTIVITAMINS THERAPEUTIC TAB (*BKC) 1 TABLET PO (09:01)
[2023-06-12] MEDS: MIDODRINE HCL 2.5 MG TABLET PO (09:01)
[2023-06-12] MEDS: MAGNESIUM OXIDE 400 MG TABLET PO (09:01)
[2023-06-12] MEDS: PANTOPRAZOLE 40 MG TABLET PO (09:01)
[2023-06-12] MEDS: rOPINIRole HCL 0.25 MG TABLET PO (09:01)
[2023-06-12] MEDS: CALCIUM CARBONATE (OSCAL) 500 MG TABLET PO (09:02)
[2023-06-12] MEDS: ASPIRIN 81 MG CHEWABLE TABLET PO (09:02)
[2023-06-12] MEDS: ENOXAPARIN 40 MG/0.4 ML SYRINGE SUB-Q (09:02)
[2023-06-12] MEDS: estradioL 1 MG TABLET PO (09:02)
[2023-06-12] MEDS: ESTROGENS, CONJUGATED 0.625 MG TABLET PO (09:02)
[2023-06-12] MEDS: FERROUS SULFATE 325 MG TABLET DR BY MOUTH (09:02)
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
== END 2023-06-12 11:45 | disposition home or self-care (01) ==
LOC: ANHED 10:37 → ANH3MEDSUR 12:54 → ANHICU 06-12 10:32 → ANH3MEDSUR 06-14 07:46 → ANHICU 06-14 07:46
PROVIDERS: Admitting Provider Internal Medicine; Emergency Provider Emergency Medicine; PCP Family Medicine; Visit Provider Internal Medicine
DX: M79.605 Pain in left leg (principal); R20.2 Paresthesia of skin; M51.26 Other intervertebral disc displacement, lumbar region; I73.9 Peripheral vascular disease, unspecified; G25.81 Restless legs syndrome; E78.2 Mixed hyperlipidemia; R73.03 Prediabetes; M79.7 Fibromyalgia; F31.9 Bipolar disorder, unspecified; M32.9 Systemic lupus erythematosus, unspecified; M35.00 Sjogren syndrome, unspecified; F90.9 Attention-deficit hyperactivity disorder, unspecified type; F41.9 Anxiety disorder, unspecified; K21.9 Gastro-esophageal reflux disease without esophagitis; Z98.84 Bariatric surgery status; R29.703 NIHSS score 3; Z79.85 Long-term (current) use of injectable non-insulin antidiabetic drugs; Z79.891 Long term (current) use of opiate analgesic; Z79.84 Long term (current) use of oral hypoglycemic drugs; Z91.51 Personal history of suicidal behavior
CPT/HCPCS: 36415; 70450; 70496; 70498; 70553; 72148; 72158; 80053; 80061; 82948; 83036; 84484; 85025; 85610; 85730; 93005; 93306; 93925; 96374; 96375; 99285; A9270; A9577; G0378; J1650; J2405; Q9967

== ENCOUNTER 2023-09-12 14:19 | Emergency (ER) | payer MEDICARE, OTHER, SELFPAY ==
[2023-09-12 14:32] VITALS: BP 118/69; PULSE 84; RESP 16; TEMP 36.7; O2SAT 100
[2023-09-12 16:40] VITALS: BP 113/70; PULSE 79; RESP 15; O2SAT 97
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
[2023-09-12 18:24] LABS: Basophils Absolute Auto 0.1 K/mm3 (0.0-0.1); Eosinophils Absolute Auto 0.1 K/mm3 (0-0.3); Eosinophils Percent Auto 1.9 % (0-4.4); Hematocrit 42.5 % (37.0-47.0); Immature Granulocyte Absolute 0.02 K/mm3 (0.00-0.031); Immature Granulocyte Percent A 0.3 % (0-0.5); Lymphocytes Percent Auto 29.1 % (18.3-44.2); Mean Corpuscular HGB Conc 32.9 g/dl (32-36); Mean Corpuscular Hemoglobin 29.4 pg (26-34); Mean Corpuscular Volume 89.1 fl (80-100); Mean Platelet Volume 10.1 fl (7.4-10.4); Monocytes Absolute Auto 0.4 K/mm3 (0.1-0.6); Monocytes Percent Auto 7.5 % (2.6-8.5); Neutrophils Absolute Auto 3.5 K/mm3 (1.3-6.7); Neutrophils Percent Auto 60.2 % (45.5-73.1); Platelet Count Result 192 k/mm3 (150-375); Red Blood Count 4.77 M/mm3 (4.2-5.4); Red Cell Distribution Width 12.3 % (11.5-14.5); White Blood Count 5.8 K/mm3 (4.5-10.0)
[2023-09-12 18:35] LABS: Alanine Aminotransferase 55 U/L (6-35); Alkaline Phosphatase 67 U/L (38-126); Anion Gap 7 mmol/L (4-12); Aspartate Amino Transferase 40 U/L (14-36); Bilirubin,Total 0.3 mg/dL (0.2-1.3); Blood Urea Nitrogen 11 mg/dL (7-17); Calcium 8.6 mg/dL (8.4-10.2); Carbon Dioxide 30 mmol/L (22-30); Chloride 100 mmol/L (98-107); Estimated CRCL calculation 66 ml/min; Estimated Glomerular Filt Rate > 60; Glucose 87 mg/dL (65-110); Potassium 4.4 mmol/L (3.4-5.0); Sodium 137 mmol/L (137-145)
[2023-09-12 18:44] VITALS: BP 119/68; PULSE 82; RESP 15; TEMP 36.9; O2SAT 97
== END 2023-09-12 18:50 | disposition home or self-care (01) ==
PROVIDERS: Emergency Provider Physician Assistant; PCP Family Medicine
DX: K13.70 Unspecified lesions of oral mucosa (principal); F90.9 Attention-deficit hyperactivity disorder, unspecified type; F41.9 Anxiety disorder, unspecified; F32.A Depression, unspecified; E11.9 Type 2 diabetes mellitus without complications; K21.9 Gastro-esophageal reflux disease without esophagitis; Z87.442 Personal history of urinary calculi; Z87.440 Personal history of urinary (tract) infections
CPT/HCPCS: 36415; 80053; 85025; 99283

== ENCOUNTER 2023-11-24 21:13 | Emergency (ER) | payer MEDICARE, OTHER, SELFPAY ==
[2023-11-24 21:14] VITALS: BP 121/74; PULSE 73; RESP 15; TEMP 36.8; O2SAT 98
--- NOTE | 2023-11-24 21:28 | PC.NURSE ---
pt refused xray. stating i dont care if it is broke, theres nothing that can be done with that I just want to be able to go to the beach without it getting infected
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
== END 2023-11-24 23:22 | disposition home or self-care (01) ==
PROVIDERS: Emergency Provider Registered Nurse; PCP Family Medicine
DX: S91.111A Laceration without foreign body of right great toe without damage to nail, initial encounter (principal); E11.9 Type 2 diabetes mellitus without complications; J32.9 Chronic sinusitis, unspecified; K21.9 Gastro-esophageal reflux disease without esophagitis; M35.00 Sjogren syndrome, unspecified; M32.9 Systemic lupus erythematosus, unspecified; F90.9 Attention-deficit hyperactivity disorder, unspecified type; F41.9 Anxiety disorder, unspecified; F32.A Depression, unspecified; Z98.84 Bariatric surgery status; Z96.652 Presence of left artificial knee joint; Z86.16 Personal history of COVID-19; Z87.442 Personal history of urinary calculi; Z87.11 Personal history of peptic ulcer disease; Z87.440 Personal history of urinary (tract) infections; Z90.710 Acquired absence of both cervix and uterus; Z79.84 Long term (current) use of oral hypoglycemic drugs; Z79.899 Other long term (current) drug therapy; W22.8XXA Striking against or struck by other objects, initial encounter
CPT/HCPCS: 12001; 99282

== ENCOUNTER 2024-01-11 12:31 | Emergency (ER) | payer MEDICARE, OTHER, SELFPAY ==
[2024-01-11] VITALS (7 sets, daily range): BP systolic 115–135; BP diastolic 69–91; PULSE 68–102; RESP 12–17; TEMP 36.6; O2SAT 96–100
--- NOTE | ~2024-01-11 | CT_ITS ---
EXAMINATION: CTA chest abdomen pelvis DATE: 01/11/2024 14:07 INDICATION: Chest pain radiating to the back TECHNIQUE: Computed tomographic angiography (CTA) of the chest, abdomen and pelvis was performed with 100 cc of Omnipaque-350 intravenous contrast. Additional 3D reconstructions utilizing rotating maxim um intensity projection (MIP) were performed. Automated exposure control and iterative reconstruction technique were employed. The dose-length product was 281.46 mGy-cm. COMPARISON: 05/05/2023 FINDINGS: Chest: Mild right apical pleural-parenchymal scarring. No pneumonia, pulmonary edema, pleural effusion or pn eumothorax. Heart size is normal. No pericardial effusion. Thoracic aorta is normal caliber with no d issection. No pathologically enlarged thoracic lymphadenopathy. Mild to moderate thoracic spondylosis . Abdomen and pelvis: Small sliding-type hiatal hernia with postoperative change of prior Gamaliel-en-Y gastric bypass procedur e. Cholecystectomy clips the gallbladder fossa. Liver, spleen, pancreas, bilateral adrenal glands and kidneys are normal. No bowel obstruction or abnormal bowel wall thickening. Normal appendix. Bladder is normal. The uterus is not identified and has likely been surgically resected. Abdominal aorta is normal in caliber with no dissection and with negligible a few sclerotic plaque. The arteries arising from the aorta proximally normal in caliber with no hematoma and significant atherosclerotic plaque. No free intraperineal gas or fluid. No pathologically enlarged abdominal or pelvic lymphadenopathy. Mild lumbar spondylosis. Osteoarthritis of the bilateral hips, mild on the left and mild to moderate on the right. IMPRESSION: 1. Normal thoracic and abdominal aorta with no aneurysm or dissection. No acute cardiopulmonary disea se or acute intra-abdominal/pelvic process. 2. Small sliding-type hernia with change of prior gastric bypass procedure. Reviewed, dictated and finalized at location A. [facility] [employer] IMPRESSION: 1. Normal thoracic and abdominal aorta with no aneurysm or dissection. No acute cardiopulmonary disease or acute intra-abdominal/pelvic process. 2. Small sliding-type hernia with change of prior gastric bypass procedure.
--- NOTE | 2024-01-11 12:36 | ECG_ITS ---
Test Date: 2024-01-11 12:41:11 Measurements Intervals [place] Rate: 91 P: 78 NV: 148 QRS: 39 QRSD: 81 T: 73 QT: 334 QTc: 413 Interpretive Statements SINUS RHYTHM NORMAL ECG No previous ECG available for comparison Electronically Signed On 01-11-2024 15:03:03 [employer] MECH[employer]IC by Jesus Waldrop M.D.
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
[2024-01-11] MEDS: HYDROmorphone HCL INJ (*CRX) 1 MG/ML SYR 0.5 MG IV PUSH (12:59)
[2024-01-11] MEDS: LORazepam INJ (*CRX) 2 MG/ML VIAL 0.5 MG IV PUSH (13:00)
[2024-01-11] MEDS: ONDANSETRON INJ 4 MG/2 ML VIAL IV PUSH (13:11)
[2024-01-11 13:31] LABS: Basophils Percent Auto 0.7 % (0.2-1.2); Eosinophils Absolute Auto 0.1 K/mm3 (0-0.3); Hematocrit 42.5 % (37.0-47.0); Hemoglobin 14.3 g/dL (12.0-15.0); Immature Granulocyte Absolute 0.01 K/mm3 (0.00-0.031); Immature Granulocyte Percent A 0.2 % (0-0.5); Lymphocytes Absolute Auto 1.19 K/mm3 (0.9-3.2); Lymphocytes Percent Auto 21.3 % (18.3-44.2); Mean Corpuscular HGB Conc 33.6 g/dl (32-36); Mean Corpuscular Hemoglobin 29.9 pg (26-34); Mean Corpuscular Volume 88.7 fl (80-100); Mean Platelet Volume 10.6 fl (7.4-10.4); Monocytes Absolute Auto 0.5 K/mm3 (0.1-0.6); Monocytes Percent Auto 8.4 % (2.6-8.5); Neutrophils Absolute Auto 3.8 K/mm3 (1.3-6.7); Neutrophils Percent Auto 67.4 % (45.5-73.1); Platelet Count Result 212 k/mm3 (150-375); Red Blood Count 4.79 M/mm3 (4.2-5.4); Red Cell Distribution Width 12.3 % (11.5-14.5); White Blood Count 5.6 K/mm3 (4.5-10.0)
[2024-01-11 13:49] LABS: Lipase 627 U/L (23-300)
[2024-01-11 13:49] LABS: Alanine Aminotransferase 43 U/L (6-35); Albumin Level 4.4 g/dL (3.5-5.1); Alkaline Phosphatase 69 U/L (38-126); Anion Gap 4 mmol/L (4-12); Aspartate Amino Transferase 34 U/L (14-36); Bilirubin,Total 0.5 mg/dL (0.2-1.3); Blood Urea Nitrogen 12 mg/dL (7-17); Calcium 9.2 mg/dL (8.4-10.2); Carbon Dioxide 28 mmol/L (22-30); Chloride 107 mmol/L (98-107); Estimated CRCL calculation 62 ml/min; Estimated Glomerular Filt Rate > 60; Glucose 62 mg/dL (65-110); Potassium 3.9 mmol/L (3.4-5.0); Sodium 139 mmol/L (137-145)
[2024-01-11 13:52] LABS: INR 0.9; Prothrombin Time 13.1 Seconds (11.1-14.7)
[2024-01-11 13:59] LABS: D Dimer < 0.27 ug/mL (<0.48)
[2024-01-11 14:15] LABS: NT Pro B Type Natriuretic Pept 78 pg/mL (19.9-100); Troponin I < 0.012 ng/mL (0.000-0.034)
[2024-01-11 15:13] LABS: Glucose Point of Care 73 mg/dl (65-105)
--- NOTE | 2024-01-11 15:34 | ECG_ITS ---
Test Date: 2024-01-11 15:47:00 Measurements Intervals [place] Rate: 83 P: 73 ID: [id number] QRS: -1 QRSD: 84 T: 60 QT: 371 QTc: 438 Interpretive Statements SINUS RHYTHM SEPTAL MYOCARDIAL INFARCTION , PROBABLY OLD [40+ ms Q WAVE IN V1/V2] ABNORMAL ECG Compared to ECG 01/11/2024 12:41:11 Myocardial infarct finding now present Electronically Signed On 01-11-2024 16:44:23 [employer]YROLL ACCOUNTANT by Jesus Waldrop M.D.
[2024-01-11 16:07] LABS: Troponin I < 0.012 ng/mL (0.000-0.034)
== END 2024-01-11 17:46 | disposition home or self-care (01) ==
PROVIDERS: Emergency Provider Emergency Medicine; PCP Family Medicine
DX: R07.89 Other chest pain (principal); E11.9 Type 2 diabetes mellitus without complications; M32.9 Systemic lupus erythematosus, unspecified; M35.00 Sjogren syndrome, unspecified; K21.9 Gastro-esophageal reflux disease without esophagitis; J32.9 Chronic sinusitis, unspecified; N39.41 Urge incontinence; F90.9 Attention-deficit hyperactivity disorder, unspecified type; F41.9 Anxiety disorder, unspecified; Z98.84 Bariatric surgery status; Z96.652 Presence of left artificial knee joint; Z86.16 Personal history of COVID-19; Z87.442 Personal history of urinary calculi; Z87.01 Personal history of pneumonia (recurrent); Z87.11 Personal history of peptic ulcer disease; Z87.440 Personal history of urinary (tract) infections; Z62.810 Personal history of physical and sexual abuse in childhood; Z90.710 Acquired absence of both cervix and uterus; Z90.49 Acquired absence of other specified parts of digestive tract; Z79.84 Long term (current) use of oral hypoglycemic drugs; Z79.899 Other long term (current) drug therapy; R94.31 Abnormal electrocardiogram [ECG] [EKG]
CPT/HCPCS: 36415; 71275; 74174; 80053; 82948; 83690; 83880; 84484; 85025; 85380; 85610; 85730; 93005; 96374; 96375; 99284; J1171; J2060; J2405; Q9967

== ENCOUNTER 2024-03-06 14:06 | Outpatient (CLI) | payer MEDICARE, OTHER, SELFPAY ==
--- NOTE | ~2024-03-06 | MM_ITS ---
EXAMINATION: MM screening surya BI w jose HISTORY: Screening TECHNIQUE: Craniocaudal and mediolateral oblique 3-D tomosynthesis images were obtained and synthetic 2-D images were generated. CAD analysis was submitted and interpreted. COMPARISON: Comparison to multiple prior studies sequentially, with oldest reviewed study dated 11/03. BREAST PARENCHYMAL COMPOSITION: Dense: The breasts are extremely dense, which lowers the sensitivity of mammography. FINDINGS: There is no evidence of suspicious mass, calcification, or architectural distortion to sugg est malignancy in either breast. There has been no suspicious interval change. IMPRESSION: 1. No mammographic evidence of malignancy. 2. Recommend routine screening mammography in one year. BI-RADS Category 1: Negative Reviewed, dictated and finalized at location A. DEVELOPER
--- OUTSIDE RECORDS SUMMARY | 2024-03-06 14:46 | XMS_ITS | Referral Summary ---
Author Organization [facility] Address [address] [place] [address] Care Team Providers Care Manager Agriculture Name Role Phone Maxwell Black MD Primary Care Provider [phone] Source Comments [facility],non-owned Affiliates and Associated Physician Practices is amultiple site organization consisting of ambulatory clinics and hospital sitesin [place], [place], [place] and [place]. This disclosure is being madepursuant to the Care Everywhere program and may not contain all information available regarding this patient. Last updated 17.[employer] [facility] Allergies No known active allergies Medications * Be aware that medications may not be up to date on this document. Alwaysverify current medications with the patient. Medication Sig Dispensed Refills Start Date End Date Status cyanocobalamin (Vitamin B-12) injection Inject into muscle every 30 days Active calcium carbonate (Caltrate) 600 MG tablet Take 1 (one) tablet by mouth daily with food Active rosuvastatin (Crestor) 5 MG tablet Take 1 (one) tablet by mouth once daily Active ferrous sulfate 325 (65 FE) MG tablet Take 1 (one) tablet by mouth once daily Active furosemide (Lasix) 20 MG tablet Take 1 (one) tablet by mouth once daily Active omeprazole (PriLOSEC) 20 MG capsule Take 1 (one) capsule by mouth daily before breakfast Active gabapentin (Neurontin) 300 MG capsule Take 1 (one) capsule by mouth once daily 10/20/2021 Active hydroxychloroquine (Plaquenil) 200 MG tablet Take 1 (one) tablet by mouth as directed 06/24/2022 Active lithium CR (Lithobid) 300 MG tablet Take 1 (one) tablet by mouth once daily 05/29/2022 Active LORazepam (Ativan) 1 MG tablet Take 1 (one) tablet by mouth as directed 05/29/2022 Active metFORMIN ER 24hr (Glucophage XR) 500 MG tablet Take 1 (one) tablet by mouth as directed 06/12/2022 Active traZODone (Desyrel) 100 MG tablet 05/17/2022 Active semaglutide (Wegovy) 2.4 MG/0.75ML pen Inject 2.4 mg subcutaneously every 7 days Active topiramate (Topamax) 100 MG tablet Take 1 (one) tablet by mouth 2 times daily Active B Complex-C (SUPER B COMPLEX PO) Active estrogens, conjugated, (Premarin) 0.625 MG tablet Take 1 (one) tablet by mouth once daily Active FLUoxetine (PROzac) 20 MG capsule Take 1 (one) capsule by mouth once daily Active pramipexole (Mirapex) 0.5 MG tablet Take 1 (one) tablet by mouth at bedtime 2 tabs Active magnesium oxide (Mag-Ox) 400 MG tablet Take 1 (one) tablet by mouth once daily Active vitamin D3 (Cholecalciferol) 25 MCG (1000 UNITS) tablet Take 1 (one) tablet by mouth once daily 5000 Active Multiple Vitamins-Minerals (Centrum Silver 50+Women) TABS Active ipratropium (Atrovent) 0.06 % nasal sprayIndications:V asomotor rhinitis [place] 2 (two) sprays into each nostril 3 times daily 15 mL 12/20/2022 Active Active Problems Problem Noted Date Diagnosed Date Sjogren syndrome, unspecified 07/08/2022 Hypercholesteremia 07/07/2022 Migraines 07/07/2022 Prediabetes 07/07/2022 Anxiety 07/07/2022 Depression 07/07/2022 Systemic lupus erythematosus 07/07/2022 GERD (gastroesophageal reflux disease) Hypertension 07/07/2022 Resolved Problems Problem Noted Date Diagnosed Date Resolved Date Sjogren's syndrome without e xtraglandular involvement 07/07/2022 07/07/2022 Immunizations Name Administration Dates Next Due INFLUENZA VACCINE, QUADR. (F LUZONE; FLULAVAL; FLUARIX; AFLURIA QUADRIVALENT; 6MO+), 0.5 ML (IIV4) 11/26/2019,11/24/2018 INFLUENZA VACCINE, TRIV. (FL UZONE; FLULAVAL; FLUARIX; AFLURIA TRIVALENT; 6MO+), 0.5 ML (IIV3) 11/27/2015,12/01/2014 Social History Tobacco Use Types Packs/Day Years Used Date Smoking Tobacco: Never Smokeless Tobacco: Never Tobacco Cessation:Counseling Given: Not Answered Alcohol Use Standard Drinks/Week Comments Yes 0 (1 standard drink = 0.6 oz pur e alcohol) AUDIT-C Answer Date Recorded Q1: How often do you have a drink containing alcohol? Never 09/25/2021 Q2: How many drinks containi ng alcohol do you have on a typical day when you are drinking? Patient does not drink Q3: How often do you have si x or more drinks on one occasion? Never 09/25/2021 Sex and Gender Information Value Date Recorded Sex Assigned at Not on file Gender Identity Not on file Sexual Orientation Not on file Last Filed Vital Signs Vital Sign Reading Time Taken Comments Blood Pressure 121/84 07/07/2022 8:50 AM CDT Pulse 84 07/07/2022 8:50 AM CDT Temperature 36.7 ??C (98.1 ??F) 09/25/2021 7:27 AM CD T Respiratory Rate 16 09/25/2021 7:27 AM CDT Oxygen Saturation 99% 09/25/2021 7:27 AM CDT Inhaled Oxygen Concentration - - Weight 79.8 kg (176 lb) 07/07/2022 8:50 AM CDT Height 152.4 cm (5') 07/07/2022 8:50 AM CDT Body Mass Index 34.37 07/07/2022 8:50 AM CDT Plan of Treatment Not on file Care Teams Manager Agriculture Relationship Specialty Start Date End Date Maxwell Black MD [address] [place] [phone] PCP - General 12/03/13
--- OUTSIDE RECORDS SUMMARY | 2024-03-06 14:46 | XMS_ITS ---
Author Organization [facility] Address [address] [address] [address], [place] [address] Care Team Providers Care Cold Roll Operator Name Role Phone Wayne FOSTER, Maxwell Primary Care Provider Marisel Garcia Unavailable [phone] Marisel Layton MD Unavailable Unavailable REASON FOR VISIT Benlysta 520mg dose. 1)400 1)120 Du Encounters Encounter Location Date Provider Diagnosis [facility] [address] [address] 01/17/2024 Marisel Layton Plan Of Treatment No Information Progress Notes * Dafne SCHULZDOB: [birth year] (59 yo F)Acc No.[id number]:01/17/2024 Patient:Dafne SY Provider:?MARISEL LAYTON MD :1965???Age:58 Y???Sex:Female D ate:01/17/2024 Address:[address] [place], [place] [id number] Pcp:Maxwell Black MD Subjective: * Chief Complaints: * ???1. Benlysta 520mg dose. 1 )400 1)120 Du. * Medical History:? Objective: * Vitals:? Assessment: Plan: * Treatment: * Billing Information: * Visit Code:? * Procedure Codes:? * Electronic signature of Marisel Layton MD on 03/06/2024 at 02:46 PM BILLET CHECKER Sign off status: Pending * Provider:?MARISEL LAYTON MD Date:?01/17/2024 Generated for Kelley doherty/Ada/eTransmitting on:?03/06/2024 02:46 PM BILLET CHECKER
--- OUTSIDE RECORDS SUMMARY | 2024-03-06 14:46 | XMS_ITS | Clinical Summary ---
Author Organization [facility] Address [address] [place] [address] Care Team Providers Care Solar Panel Technician Name Role Phone Charmaine Black MD Primary Care Provider + Allergies No known active allergies Medications calcium carbonate (OS-TAMARA) 650 mg (260 mg elemental) tablet,chewable 260 mg Acti ve awxfjzxc-oqj-gu lic acid-vit K 400-80 mcg capsule Take by mouth Active rosuvastatin (CRESTOR) 5 mg tablet Take 1 tablet (5 mg total) by mouth daily Active cyanocobalamin (Vitamin B-12) 1,000 mcg/mL injection Active estradioL 1 mg/gram (0.1 %) gel in packet Place 1 mg on the skin daily Active hydroxychloroqu ine (PLAQUENIL) 200 mg tablet Take by mouth daily Active iron bisgly,ps-FA-B- C#12-succ 65 mg-65 mg -1,000 mcg (24) tablet Take by mouth Active LORazepam (ATIVAN) 1 mg tablet Take 1 tablet (1 mg total) by mouth every 6 (six) hours as needed for anxiety Active magnesium oxide 400 mg magnesium capsule Take by mouth Active metFORMIN (GLUCOPHAGE) 500 mg tablet Take 1 tablet (500 mg total) by mouth 2 (two) times a day with meals Active methocarbamoL (ROBAXIN) 750 mg tablet Take 1 tablet (750 mg total) by mouth 4 (four) times a day Active omeprazole (PriLOSEC) 40 mg capsule Take 1 capsule (40 mg total) by mouth daily Active pantoprazole DR (PROTONIX) 40 mg EC tablet Take 1 tablet (40 mg total) by mouth daily Active pramipexole (MIRAPEX) 0.125 mg tablet Take 1 tablet (0.125 mg total) by mouth 3 (three) times a day Active FLUoxetine (PROzac) 40 mg capsule Take 1 capsule (40 mg total) by mouth daily Active rOPINIRole (REQUIP) 0.25 mg tablet Take 1 tablet (0.25 mg total) by mouth 3 (three) times a day Active traZODone (DESYREL) 100 mg tablet Take 1 tablet (100 mg total) by mouth nightly Active ondansetron (ZOFRAN) 4 mg tablet Take 1 tablet (4 mg total) by mouth every 8 (eight) hours as needed for nausea or vomiting Active Active Problems Problem Noted Date Diagnosed Date Peripheral arterial disease 08/15/2023 Assessment & Plan (08/15/2023 8:24 AM CDT): no evidence of PVD as she has palpable pulses. I suspect her noninvasives from [facility] were inaccurate. Based on her history a lot of her discomfort sounds more musculoskeletal in nature or from lumbosacral spine disease. Can follow up with me as needed. Surgical History Surgery Date Site/Laterality Comments EPIDURAL INJECTION LUMBOSACRAL 12/29/2012 N/A EPIDURAL INJECTION LUMBOSACRAL 11/06/2012 N/A Social History Tobacco Use Types Packs/Day Years Used Date Smoking Tobacco: Unknown Tobacco Cessation:Counseling Given: Not Answered Comments Unknown Sex and Gender Information Value Date Recorded Sex Assigned at Not on file Legal Sex Female 2:19 AM NURSE RECEPTIONIST Gender Identity Female 06/06/2018 12:13 PM CDT Sexual Orientation Not on file Obstetrics History Last Filed Vital Signs Vital Sign Reading Time Taken Comments Blood Pressure 92/59 08/10/2023 10:07 AM CDT Pulse 80 08/10/2023 10:07 AM CDT Temperature 36.6 ??C (97.9 ??F) 05/14/2023 3:38 PM CD T Respiratory Rate 18 05/14/2023 3:38 PM CDT Oxygen Saturation 97% 08/10/2023 10:07 AM CDT Inhaled Oxygen Concentration - - Weight 52.3 kg (115 lb 3.2 oz) 05/14/2023 3:38 P M CDT Height 154.9 cm (5' 1 ) 05/14/2023 3:38 PM CDT Body Mass Index 21.77 05/14/2023 3:38 PM CDT Plan of Treatment Health Maintenance Due Date Last Done Comments Breast Cancer Screening-Mammogram 1965 Cervical Cancer Screening 1965 Colon Cancer Screening-Colonoscopy 1965 Depression Screening 1965 Pneumococcal vaccine <65 (1 of 2 - PCV) 1971 DTaP/Tdap/Td Vaccine (1 - Tdap) 02/21/1976 Hepatitis B Screening 1983 Regular Well Visit/Exam 18-64 1983 Zoster Vaccine (1 of 2) 02/21/1984 Covid-19 Vaccine (4 - 2023-2 5 season) 2023 04/07/2022, 05/13/2020, 04/22/2020 Influenza Vaccine (#1) 2023 0, 11/24/2018, 11/27/2015, Additional history exists Hepatitis C Screening Completed 03/08/2022 Procedures Procedure Name Priority Date/Time Associated Diagnosis Comments HEPATITIS C ANTIBODY Routine 03/08/2022 3:23 PM NURSE RECEPTIONIST from Last 3 Months or Most Recently Relevant to Health Maintenance Results * Hepatitis C antibody (03/08/2022 3:23 PM NURSE RECEPTIONIST) Hep C Ab Nonreactive Nonreactive [facility] Comment: Interpretive Data Nonreactive: Antibodies to HCV not detected. Does NOT exclude the possibility of recent exposure to HCV. Equivocal: Equivocal for HCV antibodies. Supplemental molecular testing will be automatically performed to determine infection status in accordance with current CDC screening recommendations. ?? Reactive: Positive for HCV antibodies. ??This may represent current or past HCV infection. Supplemental molecular testing will be automatically performed to determine ??current infection status in accordance with current CDC screening recommendations. Interpretive data was last revised on 2019. Blood 03/08/2022 3:23 PM NURSE RECEPTIONIST 03/08/2022 5:48 PM NURSE RECEPTIONIST us Marisel Pineda MD LAB MICROBIOLOGY - GENERAL ORDER NAIF Edited Result - Final [facility] Natalie Law [place] Department [place] [address] from Last 3 Months or Most Recently Relevant to Health Maintenance Insurance [facility] CHOICE PLUS MEDICARE [facility] MEDICARE Care Teams Solar Panel Technician Relationship Specialty Start Date End Date Charmaine Black MD PCP - General 10/07/16
--- OUTSIDE RECORDS SUMMARY | 2024-03-06 14:46 | XMS_ITS | Patient Health Summary ---
Author Organization [facility] [employer] Address [address] [place] [address] Care Team Providers Care Commercial Food Instructor Name Role Phone Maxwell Black MD Primary Care Provider [phone] Note from [facility],non-owned Affiliates and Associated Physician Practices is amultiple site organization consisting of ambulatory clinics and hospital sitesin [place], [place], [place] and [place]. This disclosure is being madepursuant to the Care Everywhere program and may not contain all information available regarding this patient. Last updated 17.[facility] [employer] Allergies No known active allergies Medications * Be aware that medications may not be up to date on this document. Alwaysverify current medications with the patient. * cyanocobalamin (Vitamin B-12) injection Inject into muscle every 30 days * calcium carbonate (Caltrate) 600 MG tablet Take 1 (one) tablet by mouth daily with food * rosuvastatin (Crestor) 5 MG tablet Take 1 (one) tablet by mouth once daily * ferrous sulfate 325 (65 FE) MG tablet Take 1 (one) tablet by mouth once daily * furosemide (Lasix) 20 MG tablet Take 1 (one) tablet by mouth once daily * omeprazole (PriLOSEC) 20 MG capsule Take 1 (one) capsule by mouth daily before breakfast * gabapentin (Neurontin) 300 MG capsule(Started 10/20/2021) Take 1 (one) capsule by mouth once daily * hydroxychloroquine (Plaquenil) 200 MG tablet(Started 06/24/2022) Take 1 (one) tablet by mouth as directed * lithium CR (Lithobid) 300 MG tablet(Started 05/29/2022) Take 1 (one) tablet by mouth once daily * LORazepam (Ativan) 1 MG tablet(Started 05/29/2022) Take 1 (one) tablet by mouth as directed * metFORMIN ER 24hr (Glucophage XR) 500 MG tablet(Started 06/12/2022) Take 1 (one) tablet by mouth as directed * traZODone (Desyrel) 100 MG tablet(Started 05/17/2022) * semaglutide (Wegovy) 2.4 MG/0.75ML pen Inject 2.4 mg subcutaneously every 7 days * topiramate (Topamax) 100 MG tablet Take 1 (one) tablet by mouth 2 times daily * B Complex-C (SUPER B COMPLEX PO) * estrogens, conjugated, (Premarin) 0.625 MG tablet Take 1 (one) tablet by mouth once daily * FLUoxetine (PROzac) 20 MG capsule Take 1 (one) capsule by mouth once daily * pramipexole (Mirapex) 0.5 MG tablet Take 1 (one) tablet by mouth at bedtime 2 tabs * magnesium oxide (Mag-Ox) 400 MG tablet Take 1 (one) tablet by mouth once daily * vitamin D3 (Cholecalciferol) 25 MCG (1000 UNITS) tablet Take 1 (one) tablet by mouth once daily 5000 * Multiple Vitamins-Minerals (Centrum Silver 50+Women) TABS * ipratropium (Atrovent) 0.06 % nasal spray(Started 12/20/2022) [place] 2 (two) sprays into each nostril 3 times daily Active Problems Problem Noted Date Diagnosed Date Sjogren syndrome, unspecified 07/08/2022 Hypercholesteremia 07/07/2022 Migraines 07/07/2022 Prediabetes 07/07/2022 Anxiety 07/07/2022 Depression 07/07/2022 Systemic lupus erythematosus 07/07/2022 GERD (gastroesophageal reflux disease) Hypertension 07/07/2022 Resolved Problems Problem Noted Date Diagnosed Date Resolved Date Sjogren's syndrome without e xtraglandular involvement 07/07/2022 07/07/2022 Immunizations * INFLUENZA VACCINE, QUADR. (FLUZONE; FLULAVAL; FLUARIX; AFLURIA QUADRIVALENT; 6MO+), 0.5 ML (IIV4)(Given 11/26/2019, 11/24/2018) * INFLUENZA VACCINE, TRIV. 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 12/20/2022 11:57 AM Procedure- ??flexible nasal endoscopy The procedure and alternatives were explained to the patient and verbal consent was obtained. The patient's bilateral nasal cavities were anesthetized with mixture of topical lidocaine and oxymetazoline. A zero degree flexible ??endoscope was advanced into both nasal cavities for evaluations. The patient tolerated the procedure well and there were no complications. Findings- There are no nasal masses, mucosal lesions, polyps, or purulent drainage. Posterior septum straight, no metallic posts in the floor of the nasal cavity, no signs of bleeding, no prominent vessels. Nasopharynx clear. Christopher Rose MD PROCEDURE/MINOR SURG ICAL ORDERABLES * [place] BIOPSY TONGUE,ANTER 2/3 (07/08/2022 5:54 AM CDT) Narrative Ernesto Orellana DMD - 07/08/2022 5:54 AM CDT Ernesto Orellana DMD ? 07/08/2022 ??6:01 AM Part 2 Location: Tongue, left ventrolateral Procedure: Incisional biopsy Start: 10:30 AM Finish: 10:40 AM Pre-op instructions given, informed consent obtained, and surgery consent form signed prior to Part 1. Left ventrolateral tongue--a more posterior location than Part 1--dried. 1.2 cc of 2% lidocaine 1:100,000 epi injected around more posterior white striations. After confirming profound anesthesia, 6 mm punch biopsy of left ventrolateral tongue white striations completed to a depth of 3 mm. Tissue removed with tissue forceps and 15 blade disposable scalpel. Tissue submitted in Hair's solution for direct immunofluorescence. Pressure hemostasis for 5 minutes. Three 3.0 chromic gut sutures placed. Gauze placed for pressure hemostasis. Minimal residual hemorrhage noted. Post-op instructions given. The patient was advised to take 600 mg of ibuprofen every 6 hours and 500 mg of Tylenol every 6 hours as needed for pain and to apply ice as needed for pain. The patient was dismissed in good condition. At this time, IDr. Ernesto, am practicing in the Oral Pathology portion of my credentials and not in the Dental capacity. Oral Pathology is the specialty of dentistry and discipline of pathology that deals with the nature, identification, and management of diseases affecting the oral and maxillofacial regions (i.e., the mouth and jaw areas). It is a science that investigates the causes, processes, and effects of these diseases. The practice of oral pathology includes the diagnosis of diseases using clinical, radiographic, microscopic, biochemical, or other examinations and the management of patients. Ernesto Orellana DMD, MBA Ernesto Orellana DMD PROCEDURE/MINOR SURG ICAL ORDERABLES * [place] BIOPSY TONGUE,ANTER 03/12 (07/08/2022 5:48 AM CDT) Narrative Ernesto Orellana DMD - 07/08/2022 5:48 AM CDT Ernesto Orellana DMD ? 07/08/2022 ??6:01 AM Part 1 Location: Tongue, left ventrolateral Procedure: Incisional biopsy Start: 10:20 AM Finish: 10:30 AM Pre-op instructions given, informed consent obtained, and surgery consent form signed prior to Part 1 and Part 2. Left ventrolateral tongue dried. 1.0 cc of 2% lidocaine 1:100,000 epi injected around white striations. After confirming profound anesthesia, 6 mm punch biopsy of left ventrolateral tongue white striations completed to a depth of 3 mm. Tissue specimen removed with 15 blade disposable scalpel and tissue forceps. Pressure hemostasis for 5 minutes. Two 3.0 chromic gut sutures placed. No residual hemorrhage noted. The patient verbally consented to proceed with Part 2. At this time, I, Dr. Ernesto Orellana, am practicing in the Oral Pathology portion of my credentials and not in the Dental capacity. Oral Pathology is the specialty of dentistry and discipline of pathology that deals with the nature, identification, and management of diseases affecting the oral and maxillofacial regions (i.e., the mouth and jaw areas). It is a science that investigates the causes, processes, and effects of these diseases. The practice of oral pathology includes the diagnosis of diseases using clinical, radiographic, microscopic, biochemical, or other examinations and the management of patients. Ernesto Orellana DMD, MBA Ernesto Orellana DMD PROCEDURE/MINOR SURG ICAL ORDERABLES * PATHOLOGY TISSUE (07/07/2022 12:48 PM CDT) Case Report Surgical Pathology Report ? Case: [id number] ? Authorizing Provider: ??Ernesto Orellana, DMD ?Collected: ? 07/07/2022 12:48 PM ? Ordering Location: ? [facility] - Otolaryngology ?? Received: ?07/07/2022 02:56 PM ? Pathologist: ? Orville Anand, NANCY ? Specimens: ?? A) - Tongue, Part 1: Tongue, left ventrolateral, incisional biopsy, submitted in ? formalin for H&E ? B) - Skin Biopsy, Part 2: Tongue, left ventrolateral, incisional biopsy, submitted in ? Hair's solution for DIF ? 07/13/2022 4:43 PM [facility] Final Diagnosis .A Tongue; left ventrolateral -- Focal keratosis and mild chronic mucositis .B Tongue; left ventrolateral; immunofluorescence -- No immunopathological abnormality 07/13/2022 4:43 PM [facility] Microscopic Description and Comment .A The specimen consists of two strip-like sections surfaced by parakeratinized stratified squamous epithelium with a slightly corrugated surface. The lamina propria contains scattered aggregates of lymphocytes. .B The specimen is a strip like sections with intact mucosa-submucosa interface on each end. Antibodies to IgA, IgG, IgM, C3, C1q and fibrinogen show negative or non-specific staining. Positive controls are evaluated and are appropriate. 07/13/2022 4:43 PM [facility] Clinical History 57 year-old male presents with lacy, interlacing, white striations of the patient's right and left ventrolateral tongue. No erythematous areas, erosions, or ulcerations were noted in these locations. 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 Received in formalin, specimen A tongue , is a 0.7 x 0.4 x 0.3 cm esquivel epithelial ellipse which is inked blue, sectioned, and entirely submitted in A1. /ml 07/13/2022 4:43 PM [facility] Pathologist Location at [facility] 07/13/2022 4:43 PM [facility] Disclaimer The performance characteristics of all immunohistochemical and indirect immunofluorescence stains (if any) cited in this report were determined by the [facility] of [facility]. Some of these tests were developed by our own laboratory and have not been cleared or approved by the US Food and Drug Administration. The FDA does not require this test to go through premarket FDA review. These tests are used for clinical purposes. They should not be regarded as investigational or for research. This laboratory is certified under the Clinical Laboratory Improvement Amendments (CLIA) as qualified to perform high complexity clinical laboratory testing. This case has been personally reviewed and interpreted by the attending (teaching) pathologist. 07/13/2022 4:43 PM CDT [facility] Embedded Images 07/13/2022 4:43 PM CDT [facility] Pathology/Cytology BIOPSY OF SKIN / Unknown Collection / Unknown 07/07/2022 12:48 PM CDT 07/07/2022 2:56 PM CDT Comment:Please accession to Dr. Iron Anand, Oral and Maxillofacial Pathologist.Thanks,Ernesto Miscellaneous samples (specimen) BIOPSY OF SKIN / Unknown 07/07/2022 12:48 PM CDT 07/07/2022 2:56 PM CDT Comment:Please accession to Dr. Iron Anand, Oral and Maxillofacial Pathologist.Thanks,Ernesto Ernesto Orellana [facility] - PATHOLOGY/CYTO LOGY ORDERABLES Performing Organization Address City/State/[facility] Phone Number [facility] [address] [phone] * Laceration Repair (09/25/2021 3:30 PM CDT) Narrative Aaron Guillory MD - 09/25/2021 3:30 PM CDT Nichelle Hua MD ? 09/25/2021 ??3:33 PM Laceration Repair Date/Time: 09/25/2021 3:30 PM Performed by: Nichelle Hua MD Authorized by: Aaron Guillory MD Consent: ??Consent obtained: ??Verbal ??Consent given by: ??Patient ??Risks, benefits, and alternatives were discussed: yes ?Risks discussed: ??Infection and pain ??Alternatives discussed: ??No treatment [place] protocol: ??Procedure explained and questions answered to patient or proxy's satisfaction: yes ?Patient identity confirmed: ??Verbally with patient Anesthesia: ??Anesthesia method: ??None Laceration details: ??Location: ??Face ??Face location: ??Forehead ??Length (cm): ??1 Exploration: ??Hemostasis achieved with: ??Direct pressure ??Contaminated: no ?? Treatment: ??Area cleansed with: ??Saline ??Amount of cleaning: ??Standard ??Irrigation solution: ??Sterile saline ??Irrigation method: ??Pressure wash Skin repair: ??Repair method: ??Tissue adhesive Approximation: ??Approximation: ??Close Post-procedure details: ??Dressing: ??Open (no dressing) ??Procedure completion: ??Tolerated Aaron Guillory MD PROCEDURE/MINOR SURG ICAL ORDERABLES * CULTURE URINE (01/14/2014 11:50 PM TRANSCRIPT CLERK) Only the most recent of2 resultswithin the time period is included. Culture Urine Greater than or Equal to 10,000 CFU/ML Normal Urogenital/ Skin Rosie at 48 Hours [facility] Comment: Urine specimen (specimen) (Unspecified) 01/14/2014 11:50 PM TRANSCRIPT CLERK 01/15/2014 9:44 AM TRANSCRIPT CLERK [facility] - 01/17/2014 10:57 AM TRANSCRIPT CLERK ViktorSpecimen#[id number] Viktor Loc/Rm/Bed: ED// UNSP U @01/15/14 0018: URINE CULTURE added. RFLXG = UAUCC. Historical Provider LAB - MICROBIOLOG Y ORDERABLES Performing Organization Address [facility] Co de Phone Number [address] [phone] * CULTURE BLOOD (12/16/2013 1:30 AM TRANSCRIPT CLERK) Only the most recent of2 resultswithin the time period is included. Culture Blood No Growth at 5 days [facility] Blood specimen (specimen) BLOOD SPECIMEN / Unknown 12/16/2013 1:30 AM TRANSCRIPT CLERK 12/16/2013 10:21 AM TRANSCRIPT CLERK Narrative [facility] - 12/21/2013 10:30 AM TRANSCRIPT CLERK ViktorSpecimen#[id number] Viktor Loc/Rm/Bed: 3 [facility]/322/02 @ MANISHA DATE was changed from 12/15/13 to 12/16/13 @ by NGUYỄN. Historical Provider LAB - [place] [address], [facility] [phone] Care Teams Commercial Food Instructor Relationship Specialty Start Date End Date Maxwell Black MD [address] [place] [address] [phone] PCP - General 12/03/13
--- OUTSIDE RECORDS SUMMARY | 2024-03-06 14:46 | XMS_ITS | Referral Summary ---
Author Organization [facility] Address [address] [place] [address] Care Team Providers Care Post Office Markup Clerk Name Role Phone Charmaine Black MD Primary Care Provider + Allergies No known active allergies Medications calcium carbonate (OS-TAMARA) 650 mg (260 mg elemental) tablet,chewable 260 mg Acti ve oowavvas-zzm-sb lic acid-vit K 400-80 mcg capsule Take [...] palpable pulses. I suspect her noninvasives from [facility] were inaccurate. Based on her history a lot of her discomfort sounds more musculoskeletal in nature or from lumbosacral spine disease. Can follow up with me as needed. Social History Tobacco Use Types Packs/Day Years Used Date Smoking Tobacco: Unknown Tobacco Cessation:Counseling Given: Not Answered Comments Unknown Sex and Gender Information Value Date Recorded Sex Assigned at Not on file Legal Sex Female 2:19 AM AIRCRAFT DESIGNER Gender Identity Female 06/06/2018 12:13 PM CDT Sexual Orientation Not on file Last Filed [...] 05/14/2023 3:38 PM CDT Plan of Treatment Not on file Procedures Procedure Name Priority Date/Time Associated Diagnosis Comments HEPATITIS C ANTIBODY Routine 03/08/2022 3:23 PM AIRCRAFT DESIGNER from Last 3 Months or Most Recently Relevant to Health Maintenance Results * Hepatitis C antibody (03/08/2022 3:23 PM AIRCRAFT DESIGNER) Hep C Ab Nonreactive Nonreactive [facility] Comment: Interpretive Data Nonreactive: Antibodies to [...] revised on 2019. Blood 03/08/2022 3:23 PM AIRCRAFT DESIGNER 03/08/2022 5:48 PM AIRCRAFT DESIGNER Marisel Pineda MD LAB MICROBIOLOGY - GENERAL ORDER NAIF Edited Result - Final [facility] [address] [place] [address] from Last 3 Months or Most Recently Relevant to Health Maintenance Insurance [facility]/PPO Address: [address] [address] [place] [address] MEDICARE [employer] Care Teams Post Office Markup Clerk Relationship Specialty Start Date End Date Charmaine Black MD PCP - General 10/07/16
--- OUTSIDE RECORDS SUMMARY | 2024-03-06 14:46 | XMS_ITS | Clinical Summary ---
Author Organization [facility] [employer] Address [address] [place] [address] Care Team Providers Care Blacksmith Apprentice Name Role Phone Maxwell Black MD Primary Care Provider [phone]- [phone] Source Comments [employer] [facility],non-owned Affiliates and Associated Physician Practices is amultiple site organization consisting of ambulatory clinics and hospital sitesin [place], [place], [place] and [place]. This disclosure is being madepursuant to the Care Everywhere program and may not contain all information available regarding this patient. Last updated 17.[employer] Allergies No known active allergies Medications * [...] (Atrovent) 0.06 % nasal sprayIndications:V asomotor rhinitis [place] 2 (two) sprays into each nostril 3 [...] 07/07/2022 8:50 AM CDT Plan of Treatment Health Maintenance Due Date Last Done Comments COLOGUARD (AGES 45-75) - COLON CA SCREENING 1965 COLON MONITORING 1965 COLONOSCOPY - COLON CA SCREENING 1965 CT COLONOGRAPHY - COLON CA SCREENING 1965 Colorectal Cancer Screening 1965 FIT - COLON CA SCREENING 1965 FLEX SIG - COLON CA SCREENING 1965 MAMMOGRAM 1965 MEDICARE AWV ? 12 MONTHS 1965 PAP SMEAR 1965 HIV SCREENING 02/21/1980 HEPATITIS C SCREENING 02/16/1983 DTAP/TDAP/TD VACCINES (1 - Tdap) 02/21/1984 HEPATITIS B VACCINE (1 of 3 - 19+ 3-dose series) 02/21/1984 PNEUMOCOCCAL VACCINE 50+ (1 of 1 - PCV) 2015 ZOSTER VACCINE (1 of 2) 2015 SCREENING FOR DIABETES 07/07/2022 COVID-19 VACCINE ( - 2023- season) 2023 04/07/2022, 05/13/2020, 04/22/2020 INFLUENZA VACCINE (#1) 2023 , 11/24/2018, 11/27/2015, Additional history exists DEPRESSION SCREENING 02/08/2024 HIB VACCINE Aged Out No longer eligi ble based on patient's age to complete this topic HPV VACCINE Aged Out No longer eligi ble based on patient's age to complete this topic MENINGOCOCCAL (Group B) VACCINE Aged Out No longer eligible based on patient's age to complete this topic MENINGOCOCCAL VACCINE Aged Out No rob lou eligible based on patient's age to complete this topic PNEUMOCOCCAL VACCINE Aged Out No long er eligible based on patient's age to complete this topic Care Teams Blacksmith Apprentice Relationship Specialty Start Date End Date Maxwell Black MD [facility] [place] [id number] PCP - General 12/03/13
--- OUTSIDE RECORDS SUMMARY | 2024-03-06 14:47 | XMS_ITS ---
Author Organization [facility] Address [address] [facility] [address] [place] [address] Care Team Providers Care Carpenter Maintenance Name Role Phone Maxwell Black MD Primary Care Provider Marisel Garcia Unavailable [phone] Marisel Layton MD Unavailable Unavailable REASON FOR VISIT Infusion, Benlysta, 520mg, 1)400 1)120 Medications Medication SIG (Take, Route, Frequency, Duration) Notes Start Date End Date Status Magnesium Oxide 400 MG 1 tablet as neede d Orally Once a day for 30 day(s) Active Midodrine HCl 2.5 MG 1 tablet Orally Twice a day for 30 day(s) Active Cevimeline HCl 30 MG 1 capsule Orally Three times a day for 30 days As needed 09/14/2023 Active Acetaminophen-Codeine 300-15 MG 1 tablet as needed Orally every 6 hrs Not-Taking Hydroxychloroquine Sulfate 200 MG TAKE 1 TABLET(200 MG) BY MOUTH TWICE DAILY WITH FOOD Oral for 90 days 09/26/2022 01/29/20 24 Active PredniSONE (Curt) Act hang Estradiol 1 MG 1 tablet Orally Once a day for 30 day(s) Active Lidocaine Viscous HCl 2 % Mouth/Throat for 25 Days Active [place] Carbonate 300 MG 1 tablet at bedtime Orally Once a day for 30 day(s) Active Pantoprazole Sodium 40 MG 1 tablet Orally Once a day for 30 day(s) Active Cyanocobalamin 1000 MCG/ML inject 1 milliliter (1,000 mcg) by intramuscular route once a month Injection [id number]- 02 Active Centrum Silver 50+Women 8 mg iron-400 mcg-300 mcg take 1 tablet by oral route once Oral 1 *Pick strength-form from [employer] for eRX* Active Topiramate 100 MG take 1 tablet (100 mg) by oral route 2 times per day Oral 2 Active Amoxicillin 500 MG TAKE 1 CAPSULE BY MOUTH EVERY 8 HOURS Oral for 10 Days Active Clobetasol Propionate 0.05 % apply a thin layer to the affected area(s) by topical route 2 times per day External 2 Active duloxetine - daily oral *Reorder from [employer] for eRx and Interaction Alerts* Active Pramipexole Dihydrochloride 0.5 MG take 1 tablet (0.5 mg) by oral route 2-3 hours before bedtime Oral 0 Active Wegovy - weekly subcutaneous *Pick strength-form from [employer] for eRX* Active Vitamin B Complex take 1 capsule by oral route once Oral 1 Active LORazepam 2 MG prn Oral Activ e metFORMIN HCl 500 MG take 1 tablet (500 mg) by oral route 2 times per day with morning and evening meals Oral 2 Active Calcium Carbonate 1500 (600 Ca) MG take 1 tablet by oral route once Oral 1 Active traZODone HCl 100 MG take 1 tablet (100 mg) by oral route once daily at bedtime Oral 1 Active Crestor 5 MG take 1 tablet (5 mg) by oral route once daily Oral 1 Active Pilocarpine HCl 5 MG take 1 tablet (5 mg) by oral route 3 times per day Oral 3 Active Cholecalciferol 1.25 MG (23357 UT) take 1 tablet by oral route once Oral 1 Active Omeprazole 20 MG take 1 capsule (20 mg) by oral route once daily before a meal Oral 1 Active PROzac 20 MG take 1 capsule (20 mg) by oral route once daily Oral 1 Active Problems Problem Type SNOMED Code ICD Code Onset Dates Problem Status W/U Status Risk Notes Problem [id number] Systemic lupus erythematosus, unspecified SLE type, unspecified organ involvement status (M32.9) Active confirmed Vital Signs Temperature 98.7 degrees Fahrenheit 12/20/19 24 Blood pressure systolic 97 mm Hg 12/20/19 24 Blood pressure diastolic 71 mm Hg 024 Heart Rate 88 /min 12/20/2023 Height 61 in 12/20/2023 Weight 109 lbs 12/20/2023 BMI 20.59 kg/m2 12/20/2023 Height-cm 154.94 cm 12/20/2023 Weight-kg 49.44 kg 12/20/2023 Encounters Encounter Location Date Provider Diagnosis [facility] [address] [facility] [address] [place] [address] 12/20/2023 Marisel Layton Systemic lupus erythematosus, unspecified SLE type, unspecified organ involvement status M32.9 Assessments Encounter Date Diagnosis (ICD Code) Assessment Notes Treatment Notes Treatment Clinical Notes Section Notes 12/20/2023 Systemic lupus erythematosus, unspecified SLE type, unspecified organ involvement status (ICD-10 - M32.9) Plan Of Treatment No Information Progress Notes * Dafne SCHULZDOB: [birth year] (58 yo F)Acc No.[id number]:12/20/2023 Patient:?JASPERSaidaDafne Provider:?MARISEL LAYTON MD :1965???Age:58 Y???Sex:Female D ate:12/20/2023 Address:[address] [place] [address] Pcp:Maxwell Black MD Subjective: * Chief Complaints: * ???Infusion, Benlysta, 520mg , 1)400 1)120 * HPI: ???Infusion:?Infusion Record?Type of Infusion? ,Benlysta,?What is the dosage?. 520mg dose. 0mg waste.,?How is the dose calculated?. 10mg/kg,?Authorized by? ,Dr. Layton,?Number of vials to reconstitute?. 1)400mg vial 1)120mg vial,?Infusion type? ,Benlysta,?Amount?. 520mg dose,?Animal Attendant?____ GSK,?Expiration date? 120m04/2028 400m05/2028,?Lot number?___ 120mg: [id number] 400mg: [id number],?Sterile water (number of vials)?. 1,?Sterile water lot number?___ [id number],?Sterile water exp. date? 02/2026,?sterile water MFG?__ [employer].?Pre Infusion Assessment?TB Screening Results PPD?N/A,?Quantiferon TB Gold Results?N/A,?Chest Xray Results?N/A,?Recent exposure to TB? ,N/A,?Any illness now? ,None.?Skin Conditon?Does the patient has any skin condition?no.?Previous Infusion?Date of last infusion?11/15/2023,?Previous infusion type? ,Benlysta,?Reaction?No,?Was patient pre treated? ,YES,?Response to previous infusion? Reports minimal relief of symptoms at this time..?IV INSERTION?Catheter brand?____ [id number],?Catherter Gauge? ,24 ga,?Needle Length?____,3/4 inch,?IV site accessed?____ LAC,?Number of attempts to access vein/port 1,?Premedication? Tylenol 650mg PO. Refused Benadryl 25mg PO.,?Time given?___ 814.?PATIENT MONITORING?Time infusion initated?___ 824,?Rate of infusion?___ 250cc/hour,?Infusion end time:? 924.?DISPOSITION?Time IV discontinued:?___ 926,?Amount of drug administered?____ 520mg,?Next Infusion Date Scheduled:?01/17/2024.? * Medical History:? * Surgical History:?Hysterecto my; [id number] surgery; 6690-84-63Oismymu Bypass; 2022-03-05 * Hospitalization/Major Diagno stic Procedure:? * Family History:?Migrated Fam heath History: Depression , Diabetes , Hypothyroidism .? * Social History:?Migrated Social History:?Migrated Social History: :: CHILDREN GROWN :: note : 2 grown children , Exercise :: Minimal Amount of Exercise (Once weekly or less) :: note : 08/02/2022 - walks, Marital Status :: , Substance Use :: Alcohol-Does not give any significant history , Substance Use :: Tobacco :: Never. * Medications:?TakingCholecalc iferol 1.25 MG (79693 UT) Tablet take 1 tablet by oral route once Oral 1 PROzac 20 MG Capsule take 1 capsule (20 mg) by oral route once daily Oral 1 Omeprazole 20 MG Capsule Delayed Release take 1 capsule (20 mg) by oral route once daily before a meal Oral 1 Calcium Carbonate 1500 (600 Ca) MG Tablet take 1 tablet by oral route once Oral 1 metFORMIN HCl 500 MG Tablet take 1 tablet (500 mg) by oral route 2 times per day with morning and evening meals Oral 2 Crestor 5 MG Tablet take 1 tablet (5 mg) by oral route once daily Oral 1 traZODone HCl 100 MG Tablet take 1 tablet (100 mg) by oral route once daily at bedtime Oral 1 Pilocarpine HCl 5 MG Tablet take 1 tablet (5 mg) by oral route 3 times per day Oral 3 Pramipexole Dihydrochloride 0.5 MG Tablet take 1 tablet (0.5 mg) by oral route 2-3 hours before bedtime Oral 0 duloxetine - daily oral , Notes to Pharmacist: *Reorder from [employer] for eRx and Interaction Alerts*Vitamin B Complex Capsule take 1 capsule by oral route once Oral 1 Wegovy - weekly subcutaneous , Notes to Pharmacist: *Pick strength- form from [employer] for eRX*LORazepam 2 MG Tablet prn Oral Cyanocobalamin 1000 MCG/ML Solution inject 1 milliliter (1,000 mcg) by intramuscular route once a month Injection [id number]-57 Topiramate 100 MG Tablet take 1 tablet (100 mg) by oral route 2 times per day Oral 2 Centrum Silver 50+Women 8 mg iron-400 mcg-300 mcg Tablet take 1 tablet by oral route once Oral 1 , Notes to Pharmacist: *Pick strength-form from [employer] for eRX*Clobetasol Propionate 0.05 % Gel apply a thin layer to the affected area(s) by topical route 2 times per day External 2 Amoxicillin 500 MG Capsule TAKE 1 CAPSULE BY MOUTH EVERY 8 HOURS Oral PredniSONE (Curt) Lidocaine Viscous HCl 2 % Solution Mouth/Throat Estradiol 1 MG Tablet 1 tablet Orally Once a day Pantoprazole Sodium 40 MG Tablet Delayed Release 1 tablet Orally Once a day [place] Carbonate 300 MG Tablet 1 tablet at bedtime Orally Once a day Midodrine HCl 2.5 MG Tablet 1 tablet Orally Twice a day Magnesium Oxide 400 MG Tablet 1 tablet as needed Orally Once a day Cevimeline HCl 30 MG Capsule 1 capsule Orally Three times a day As neededHydroxychloroquine Sulfate 200 MG Tablet TAKE 1 TABLET(200 MG) BY MOUTH TWICE DAILY WITH FOOD Oral , stop date 01/29/2024Taking Cholecalciferol 1.25 MG (86089 UT) Tablet take 1 tablet by oral route once Oral 1 Taking PROzac 20 MG Capsule take 1 capsule (20 mg) by oral route once daily Oral 1 Taking Omeprazole 20 MG Capsule Delayed Release take 1 capsule (20 mg) by oral route once daily before a meal Oral 1 Taking Calcium Carbonate 1500 (600 Ca) MG Tablet take 1 tablet by oral route once Oral 1 Taking metFORMIN HCl 500 MG Tablet take 1 tablet (500 mg) by oral route 2 times per day with morning and evening meals Oral 2 Taking Crestor 5 MG Tablet take 1 tablet (5 mg) by oral route once daily Oral 1 Taking traZODone HCl 100 MG Tablet take 1 tablet (100 mg) by oral route once daily at bedtime Oral 1 Taking Pilocarpine HCl 5 MG Tablet take 1 tablet (5 mg) by oral route 3 times per day Oral 3 Taking Pramipexole Dihydrochloride 0.5 MG Tablet take 1 tablet (0.5 mg) by oral route 2-3 hours before bedtime Oral 0 Taking duloxetine - daily oral , Notes to Pharmacist: *Reorder from [facility] for eRx and Interaction Alerts*Taking Vitamin B Complex Capsule take 1 capsule by oral route once Oral 1 Taking Wegovy - weekly subcutaneous , Notes to Pharmacist: *Pick strength-form from [facility] for eRX*Taking LORazepam 2 MG Tablet prn Oral Taking Cyanocobalamin 1000 MCG/ML Solution inject 1 milliliter (1,000 mcg) by intramuscular route once a month Injection [id number]-29 Taking Topiramate 100 MG Tablet take 1 tablet (100 mg) by oral route 2 times per day Oral 2 Taking Centrum Silver 50+Women 8 mg iron-400 mcg-300 mcg Tablet take 1 tablet by oral route once Oral 1 , Notes to Pharmacist: *Pick strength-form from [facility] for eRX*Taking Clobetasol Propionate 0.05 % Gel apply a thin layer to the affected area(s) by topical route 2 times per day External 2 Taking Amoxicillin 500 MG Capsule TAKE 1 CAPSULE BY MOUTH EVERY 8 HOURS Oral Taking PredniSONE (Curt) Taking Lidocaine Viscous HCl 2 % Solution Mouth/Throat Taking Estradiol 1 MG Tablet 1 tablet Orally Once a day Taking Pantoprazole Sodium 40 MG Tablet Delayed Release 1 tablet Orally Once a day Taking [place] Carbonate 300 MG Tablet 1 tablet at bedtime Orally Once a day Taking Midodrine HCl 2.5 MG Tablet 1 tablet Orally Twice a day Taking Magnesium Oxide 400 MG Tablet 1 tablet as needed Orally Once a day Taking Cevimeline HCl 30 MG Capsule 1 capsule Orally Three times a day As neededTaking Hydroxychloroquine Sulfate 200 MG Tablet TAKE 1 TABLET(200 MG) BY MOUTH TWICE DAILY WITH FOOD Oral , stop date 01/29/20244675Nrk-MufbxiGmetctkzopjac-Ehyqxfr 300-15 MG Tablet 1 tablet as needed Orally every 6 hrs Not-Taking Acetaminophen-Codeine 300-15 MG Tablet 1 tablet as needed Orally every 6 hrs Objective: * Vitals:?BP:97/71mm Hg, HR:88 /min, Temp:98.7F, Wt:109lbs, Wt-k.44 kg, Ht: 61 in, Ht-cm: 154.94 cm, BMI:20.59Index, Body Surface Area: 1.46. Assessment: * Assessment: 1.?Systemic lupus erythemato edda, unspecified SLE type, unspecified organ involvement status - M32.9 (Primary)??? Plan: * Treatment: * Procedure Codes:?J7050 INFUS NORMAL SALINE SOLUTION 250 [id number] INJECTION BELIMUMAB 10 MG, Units: 52.00 69253 THER/PROPH/DIAG IV INF, INIT * Billing Information: * Visit Code:? * Procedure Codes:? J7050 INFUS NORMAL SALINE SOLUTION 250 CC. J0490 INJECTION BELIMUMAB 10 MG. Units: 52.00. 90083 THER/PROPH/DIAG IV INF, INIT. * ING/EVENT PLANNER Electronically co-signed by Marisel Layton MD on 12/20/2023 at 04:44 PM MEETING/EVENT PLANNER Sign off status: Completed true * Provider:?MARISEL LAYTON MD Date:?12/20/2023 Generated for Kelley doherty/Ada/Valentin on:?03/06/2024 02:46 PM MEETING/EVENT PLANNER History and Physical Notes * HPI (History of Present Illness) Category Sub-Category Detail Notes Category Not es Infusion Infusion Record Type of Infusion: ,Benlyst a What is the dosage: . 520mg dose. 0mg wa marzena. How is the dose calculated: . 10mg/kg Authorized by: Dr. Layton Number of vials to reconstitute: . 1)400 mg vial 1)120mg vial Infusion type: ,Benlysta Amount: . 520mg dose Animal Attendant: ____ GSK Expiration date: 120m04/2028 400mg : 05/2028 Lot number: ___ 120mg: [id number] 400mg: W F9B Sterile water (number of vials): . 1 Sterile water lot number: ___ [id number] Sterile water exp. date: 02/2026 sterile water MFG: __ [employer] Pre Infusion Assessment TB Screening Results PPD : N/A Quantiferon TB Gold Results: N/A Chest Xray Results: N/A Recent exposure to TB: ,N/A Any illness now: ,None Skin Conditon Does the patient has any skin co ndition: no Previous Infusion Date of last infusion: 024 Previous infusion type: ,Benlysta Reaction: No Was patient pre treated: ,YES Response to previous infusion: Rep orts minimal relief of symptoms at this time. IV INSERTION Catheter brand: ____ Saf-T-Intim a Catherter Gauge: ,24 ga Needle Length: ____,3/4 inch IV site accessed: ____ LAC Number of attempts to access vein/port: 1 Premedication: Tylenol 650mg PO. R efused Benadryl 25mg PO. Time given: ___ 0815 PATIENT MONITORING Time infusion initated: ___ 0 825 Rate of infusion: ___ 250cc/hour Infusion end time:: 924 DISPOSITION Time IV discontinued:: ___ 926 Amount of drug administered: ____ 520mg Next Infusion Date Scheduled:: 4
--- OUTSIDE RECORDS SUMMARY | 2024-03-06 14:47 | XMS_ITS ---
Author Organization [facility] ar[facility] Address [address] [facility] [address] [place] [address] Care Team Providers Care Mortgage Banker Name Role Phone Maxwell Black MD Primary Care Provider Marisel Garcia Unavailable [phone] Marisel Pineda MD Unavailable Unavailable REASON FOR VISIT letter Encounters Encounter Location Date Provider Diagnosis [facility] [address] [facility] [address] [place] [address] 12/22/2023 Marisle Pineda Plan Of Treatment No Information Progress Notes * Dafne SCHULZDOB: [birth year] (58 yo F)Acc No.[id number]:12/22/2023 Patient:?Dafne SCHULZ :1965???Age:58 Y???Sex:Female Address:[address] [place] [address], [address] * true * Date:? Generated for Printi ng/Faxing/eTransmitting on:?03/06/2024 02:46 PM FINANCIAL REPORTING MANAGER
--- OUTSIDE RECORDS SUMMARY | 2024-03-06 14:47 | XMS_ITS | Patient Health Record ---
Author Organization [facility] arabella Address [address] [facility] [address] [place] [address] Care Team Providers Care Bindery Technician Name Role Phone Maxwell Black MD Primary Care Provider Marisel Garcia Unavailable [phone] Marisel Pineda MD Unavailable Unavailable Allergies No Known Allergies Results Component Value Reference Range Notes eGFR Reviewed date:09/14/2023 12:40:26 PM Interpretation: Performing Lab:[facility] , [address] [facility] [facility] [id number] Notes/Report: eGFR >90 >=60 mL/min/1.73 m2 Interpretive Data Reference Interval Normal >/= 90 mL/min/1.73m2 Mildly decreased* 60 - 89 mL/min/1.73m2 Mildly to moderately decreased 45 - 59 mL/min/1.73m2 Moderately to severely decreased 30 - 44 mL/min/1.73m2 Severely decreased 15 - 29 mL/min/1.73m2 Kidney Failure < 15 mL/min/1.73m2 *Relative to young adult level Estimated glomerular filtration rate is determined by the 2020 CKD-EPI equation recommended by the National Kidney Foundation (A Unifying Approach to GFR Estimation: Recommendations of the NKF-ASK Task Force on Reassessing the Inclusion of Race in Diagnosing Kidney Disease, JASN 2020). The CKD-EPI equation should not be used for patients with unstable renal function and has not been validated in children and those over 70. Current interpretive data was last reviewed 2020. UA Micro (All Sites) Reviewed date:09/14/2023 12:40:26 PM Interpretation: Performing Lab:[facility] , [address] [place] [address] Notes/Report: WBC, Ur 6-10 0-5 /HPF RBC, Ur 0-2 0-2 /HPF Epithl Squam, Ur 1-5 0-5 /HPF Urinalysis reflex microscopi c exam Reviewed date:09/14/2023 12:40:26 PM Interpretation: Performing Lab:[facility] , [address] [place] [address]. [facility] [id number] Notes/Report: Color, Ur Yellow Yellow Clarity, Ur Clear Clear Spec Grav, Ur 1.008 1.003-1.030 pH, Ur 6.5 Interpretive Data ?Urine pH is affected by diet, medications, systemic acid-base disturbances, and renal tubular function. pH may affect urinary stone formation. For example, urine pH below 6.0 may help reduce the tendency for calcium phosphate stones and pH greater than 6.0 may reduce the tendency for uric acid stone formation. Source: [facility] Aqua[employer] Current Interpretive Data was last revised on 2017 Protein, Ur Ql Negative Negative Glucose, Ur Ql Negative Negative Ketones, Ur Negative Negative Bilirubin, Ur Negative Negative Blood, Ur Negative Negative Urobilinogen, Ur <2.0 <2.0 mg/dL Nitrite, Ur Negative Negative Leukocyte Esterase, Ur 4+ Negative UA reflex comment See Below Reflex to microscopic UA will be performed. SSB Ab Reviewed date:09/15/2023 11:07:56 AM Interpretation: Performing Lab:[facility] , [address] [place] [address]. [facility] [id number] Notes/Report: SS B Antibody <0.2 <=0.9 Ab Index Interpretive Data Negative: < 1.0 Ab Index Positive: > or = 1.0 Ab Index Current interpretive data was last revised on 2016. SSA Ab Reviewed date:09/15/2023 11:07:56 AM Interpretation: Performing Lab:[facility] , [address] [place] [address] Notes/Report: SS A Antibody <0.2 <=0.9 Ab Index Interpretive Data Negative: < 1.0 Ab Index Positive: > or = 1.0 Ab Index Current interpretive data was last revised on 2016. Palacios Ab. Reviewed date:09/15/2023 11:07:56 AM Interpretation: Performing Lab:[facility] , [address] [place] [address]. [facility] [id number] Notes/Report: Palacios Antibody <0.2 <=0.9 Ab Index Interpretive Data Negative: < 1.0 Ab Index Positive: > or = 1.0 Ab Index Current interpretive data was last revised on 2016. Sed Rate Reviewed date:09/14/2023 12:40:26 PM Interpretation: Performing Lab:[facility] , [address] [place] [address]. [facility] [address] Notes/Report: ESR 7 1-30 mm/hr SCL 70 Antibodies Reviewed date:09/15/2023 11:07:56 AM Interpretation: Performing Lab:[facility] , [address] [place] [address]. [facility] [id number] Notes/Report: Scl 70 Ab, IgG <0.2 <=0.9 Ab Index Interpretive Data Negative: < 1.0 Ab Index Positive: > or = 1.0 Ab Index Current interpretive data was last revised on 2016. Ribonuclear Protein (LANDSCAPER HELPER) Ab Reviewed date:09/15/2023 11:07:56 AM Interpretation: Performing Lab:[facility] , [address] [place] [address]. [facility] [id number] Notes/Report: LANDSCAPER HELPER Antibody 0.3 <=0.9 Ab Index Interpretive Data Negative: < 1.0 Ab Index Positive: > or = 1.0 Ab Index Current interpretive data was last revised on 2016. Rheumatoid Factor Reviewed date:09/14/2023 12:40:26 PM Interpretation: Performing Lab:[facility] , [address] [place] [address]. [facility] [id number] Notes/Report: RF, Jack 10 <=15 IUnits/mL LIGIA Screen Reviewed date:09/15/2023 05:36:48 PM Interpretation: Performing Lab:[facility] , [address] [place] [address]. [facility] [id number] Notes/Report: LIGIA Screen Negative Negative Interpretive Data Positive Screens will be reflexed to specific testing for Antibodies against the following antigens: Sandy-1 Ab, LANDSCAPER HELPER Ab, Scl-70 Ab, Palacios Ab, SS-A/Ro Ab, and SS-B/La Ab. Further testing for dsDNA, Centromere, or Ribosomal P antibodies is suggested in patient with a positive screen and negative specific antibodies. Current interpretive data was last revised on 2022. DS DNA Reviewed date:09/15/2023 11:07:56 AM Interpretation: Performing Lab:[facility] , [address] [facility] [place] [address] Notes/Report: Double Stranded DNA, Jack <1.0 <=4.0 IUnits/mL Interpretive Data Negative: < or = 4 IUnits/mL Indeterminate: 5 - 9 IUnits/mL Positive: > or = 10 IUnits/mL Current interpretive data was last revised on 2016. Differential Automated Reviewed date:09/14/2023 12:21:08 PM Interpretation: Performing Lab:[facility] , [address] [facility] [place] [address] Notes/Report: Neut Abs 7.3 1.5-6.5 K/cumm ImmGran Abs 0.0 0.0-0.1 K/cumm Lymphocyte Abs 0.9 0.8-3.3 K/cumm [place] Abs 0.3 0.2-0.8 K/cumm Eos Abs 0.0 0.0-0.5 K/cumm Baso Abs 0.0 0.0-0.1 K/cumm Neut Pct 85.2 Interpretive Data Percent cell count reference ranges are not reported, since discordance with absolute values may lead to misinterpretation of CBC data. Current Interpretive Data was last revised on 2017. ImmGran Pct 0.4 Interpretive Data Percent cell count reference ranges are not reported, since discordance with absolute values may lead to misinterpretation of CBC data. Current Interpretive Data was last revised on 2017. Lymph Pct 10.3 Interpretive Data Percent cell count reference ranges are not reported, since discordance with absolute values may lead to misinterpretation of CBC data. Current Interpretive Data was last revised on 2017. [place] Pct 3.5 Interpretive Data Percent cell count reference ranges are not reported, since discordance with absolute values may lead to misinterpretation of CBC data. Current Interpretive Data was last revised on 2017. Eos Pct 0.1 Interpretive Data Percent cell count reference ranges are not reported, since discordance with absolute values may lead to misinterpretation of CBC data. Current Interpretive Data was last revised on 2017. Baso Pct 0.5 Interpretive Data Percent cell count reference ranges are not reported, since discordance with absolute values may lead to misinterpretation of CBC data. Current Interpretive Data was last revised on 2017. Creatine Kinase Reviewed date:09/14/2023 12:40:26 PM Interpretation: Performing Lab:[facility] , [address] [place] [address]. [facility] [address] Notes/Report: Total CK 50 30-200 Units/L Comprehensive metabolic pane l (CMP) Reviewed date:09/14/2023 12:40:26 PM Interpretation: Performing Lab:[facility] , [address] [place] [address]. [facility] [id number] Notes/Report: Sodium 141 135-145 mmol/L Plasma Potassium 4.3 3.3-4.9 mmol/L Chloride 100 97-110 mmol/L Total CO2 28 22-32 mmol/L Anion Gap 13 2-15 mmol/L BUN 10 6-25 mg/dL Creatinine 0.61 0.60-1.10 mg/dL Glucose 107 70-199 mg/dL Interpretive Data Fasting glucose >/= 126 mg/dl is diagnostic for diabetes. Fasting is defined as no caloric intake for at least 8 hours. Fasting glucose between 100 mg/dl to 125 mg/dl is diagnostic of prediabetes. In a patient with classic symptoms of hyperglycemia or hyperglycemic crisis, a random glucose >/= 200 mg/dl is diagnostic for diabetes. In the absence of unequivocal hyperglycemia, results should be confirmed by repeat testing. The classification and Diagnosis of Diabetes Diabetes Care 202; 46: S19-S40. Current interpretive data was last revised 2022. Total Calcium 10.1 8.5-10.3 mg/dL Total Bilirubin 0.3 0.1-1.2 mg/dL Plasma Total Protein 7.4 6.5-8.5 g/dL Albumin 4.9 3.5-5.0 g/dL Alkaline Phosphatase 82 40-130 Units/L ALT 53 7-45 Units/L AST 32 10-45 Units/L Complement C4 Reviewed date:09/14/2023 12:40:26 PM Interpretation: Performing Lab:[facility] , [address] [place] [address] Notes/Report: Complement, C4 32 10-40 mg/dL Complement C3 Reviewed date:09/14/2023 12:40:26 PM Interpretation: Performing Lab:[facility] , [address] [place] [address] Notes/Report: Complement, C3 135 90-180 mg/dL CBC w auto diff Reviewed date:09/14/2023 12:21:08 PM Interpretation: Performing Lab:[facility] , [address] [place] [address] Notes/Report: WBC 8.5 3.8-9.9 K/cumm Hgb 14.9 11.9-15.5 g/dL Hct 45.9 35.6-45.5 % Platelet Ct 242 150-400 K/cumm MPV 11.3 9.1-12.3 fL RBC 5.11 3.90-5.20 M/cumm MCV 89.8 81.3-96.4 fL MCH 29.2 27.1-33.3 pg MCHC 32.5 32.3-35.7 g/dL RDW CV 12.3 11.1-14.9 % RDW SD 40.7 35.7-48.1 fL NRBC Abs Auto 0.00 0.00-0.01 K/cumm C Reactive Protein Reviewed date:09/14/2023 12:40:26 PM Interpretation: Performing Lab:[facility] , [address] [place] [address]. [facility] [id number] Notes/Report: C-Reactive Protein <3.0 <=10.0 mg/L Anti-CCP (Cyclic Citrullinat ed Peptide Ab) Reviewed date:09/15/2023 11:07:56 AM Interpretation: Performing Lab:[facility] , [address] [place] [address] Notes/Report: CCP Ab <0.5 <=2.9 units/mL Interpretive data Negative: <3 units/mL Positive: > or equal to 3 units/mL Current interpretive data was last revised on 2016. CAROLYN reflex titer pattern LIGIA + dsDNA Reviewed date:09/15/2023 12:41:33 PM Interpretation: Performing Lab:[facility] , [address] [facility] [facility] [address] Notes/Report: CAROLYN, Qual Positive 1:640 Interpretive Data Normal range for CAROLYN Qualitative Antibody = Negative. 1. CAROLYN is performed using indirect immunofluorescence against HEp-2 cells 2. CAROLYN titers are performed on all positive qualitative results. 3. A significantly positive CAROLYN result is defined as a positive nuclear fluorescence at a titer of 1:80 or greater. 4. 15% of normal people above age 65 have significantly positive CAROLYN results. 5% or less of normal people age 65 or under have significantly positive CAROLYN results. Current interpretive data was last revised on 2019. Testing performed by: [facility], [address] [place] [address]., [address] CAROLYN, Jack 1:640 Testing performed by: [address] [address] CAROLYN Pattern 1 Homogeneous Testing performed by: [facility], [address] [place] [address]., [address] Reason For Referral Reason Benlysta Medicare/[facility] Renee Slaughter'hilario Diagnosis 1 Lupus (M32.9) Referral Organization [facility] alonzo Referring Provider First Name Marisel Referring Provider Last Name Edwin Referring Provider Speciality Rheumatolo gy Referred Organization [facility] alonzo Referred Provider Marisel Pineda Referred Address [address],[place], [place],[address], Referred Provider Specialty Rheumatology Procedure 1 INJECTION BELIMUMAB 10 MG (J0490) Referral Priority Routine Medications Medication SIG (Take, Route, Frequency, Duration) Notes Start Date End Date Status duloxetine - daily oral *Reorder from [employer] [facility] for eRx and Interaction Alerts* Active Pramipexole Dihydrochloride 0.5 MG take 1 tablet (0.5 mg) by oral route 2-3 hours before bedtime Oral 0 Active Wegovy - weekly subcutaneous *Pick strength-form from [employer] [facility] for eRX* Active Vitamin B Complex take 1 capsule by oral route once Oral 1 Active Cyanocobalamin 1000 MCG/ML inject 1 milliliter (1,000 mcg) by intramuscular route once a month Injection [id number]- 02 Active LORazepam 2 MG prn Oral Activ e Centrum Silver 50+Women 8 mg iron-400 mcg-300 mcg take 1 tablet by oral route once Oral 1 *Pick strength-form from [employer] for eRX* Active Topiramate 100 MG take 1 tablet (100 mg) by oral route 2 times per day Oral 2 Active Amoxicillin 500 MG TAKE 1 CAPSULE BY MOUTH EVERY 8 HOURS Oral for 10 Days Active Clobetasol Propionate 0.05 % apply a thin layer to the affected area(s) by topical route 2 times per day External 2 Active PredniSONE (Curt) Act hang Estradiol 1 MG 1 tablet Orally Once a day for 30 day(s) Active Lidocaine Viscous HCl 2 % Mouth/Throat for 25 Days Active Cholecalciferol 1.25 MG (61606 UT) take 1 tablet by oral route once Oral 1 Active Faxon Carbonate 300 MG 1 tablet at bedtime Orally Once a day for 30 day(s) Active Pantoprazole Sodium 40 MG 1 tablet Orally Once a day for 30 day(s) Active Omeprazole 20 MG take 1 capsule (20 mg) by oral route once daily before a meal Oral 1 Active Magnesium Oxide 400 MG 1 tablet as needed Orally Once a day for 30 day(s) Active PROzac 20 MG take 1 capsule (20 mg) by oral route once daily Oral 1 Active Midodrine HCl 2.5 MG 1 tablet Orally Twice a day for 30 day(s) Active metFORMIN HCl 500 MG take 1 tablet (500 mg) by oral route 2 times per day with morning and evening meals Oral 2 Active Cevimeline HCl 30 MG 1 capsule Orally Three times a day for 30 days As needed 09/14/2023 Active Calcium Carbonate 1500 (600 Ca) MG take 1 tablet by oral route once Oral 1 Active Acetaminophen-Codeine 300-15 MG 1 tablet as needed Orally every 6 hrs Not-Taking traZODone HCl 100 MG take 1 tablet (100 mg) by oral route once daily at bedtime Oral 1 Active Crestor 5 MG take 1 tablet (5 mg) by oral route once daily Oral 1 Active Pilocarpine HCl 5 MG take 1 tablet (5 mg) by oral route 3 times per day Oral 3 Active Problems Problem Type SNOMED Code ICD Code Onset Dates Problem Status W/U Status Risk Notes Problem Systemic lupus erythematosus (99806959) Systemic lupus erythematosus, unspecified (M32.9) Active confirmed Problem 250335194 Fibromyalgia (M79.7) Active confirmed Problem 76107865 Systemic lupus erythematosus, unspecified SLE type, unspecified organ involvement status (M32.9) Active confirmed Vital Signs Heart Rate 88 /min 12/20/2023 Temperature 98.7 degrees Fahrenheit 12/20/2023 Height-cm 154.94 cm 12/20/2023 Blood pressure diastolic 71 mm Hg 12/20/2023 Oximetry 99 % 09/14/2023 Weight-kg 49.44 kg 12/20/2023 Height 61 in 12/20/2023 Blood pressure systolic 97 mm Hg 12/20/2023 Weight 109 lbs 12/20/2023 BMI 20.59 kg/m2 12/20/2023 Encounters Encounter Location Date Provider Diagnosis [facility] [address] [place] [address] 09/14/2023 Marisel Du 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 ; Fibromyalgia M79.7 ; Dry eyes H04.123 and High risk medication use Z79.899 [facility] [address] [place] [address] 10/04/2023 Marisel Du 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 ; Lupus M32.9 ; Fibromyalgia M79.7 ; Dry eyes H04.123 and High risk medication use Z79.899 [facility] [address] [place] [address] 10/18/2023 Marisel Du Systemic lupus erythematosus, unspecified SLE type, unspecified organ involvement status M32.9 [facility] [address] [place] [address] 11/01/2023 Marisel Du Lupus M32.9 [facility] [address] [place] [address] 11/01/2023 Marisel Du 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 ; Lupus M32.9 ; Fibromyalgia M79.7 ; Dry eyes H04.123 and High risk medication use Z79.899 [facility] [address] [place] [address] 11/15/2023 Marisel Du Systemic lupus erythematosus, unspecified M32.9 [facility] [address] [place] [address] 12/13/2023 Marisel Pineda [facility] [address] [place] [address] 12/20/2023 Marisel Pineda Systemic lupus erythematosus, unspecified SLE type, unspecified organ involvement status M32.9 [facility] [address] [place] [address] 12/22/2023 Marisel Pineda Assessments Encounter Date Diagnosis (ICD Code) Assessment Notes Treatment Notes Treatment Clinical Notes Section Notes 09/14/2023 Fibromyalgia (ICD-10 - M79.7) repeat serologies, try evoxac for dryness, consider methotrexate 09/14/2023 Connective tissue disease (ICD-10 - M35.9) repeat serologies, try evoxac for dryness, consider methotrexate 10/04/2023 Connective tissue disease (ICD-10 - M35.9) has had recurrent oral ulcers and joint pain, on plaquenil 400mg/day, avoid methotrexate due to oral ulcers, will start benlysta infusion. 10/04/2023 Lupus (ICD-10 - M32.9) has had recurrent oral ulcers and joint pain, on plaquenil 400mg/day, avoid methotrexate due to oral ulcers, will start benlysta infusion. 10/18/2023 Systemic lupus erythematosus, unspecified SLE type, unspecified organ involvement status (ICD-10 - M32.9) 11/01/2023 Lupus (ICD-10 - M32.9) 11/01/2023 Connective tissue disease (ICD-10 - M35.9) hurting all over, restart plaquenil 400mg/day, start prednisone taper, continue benlysta infusion. 11/15/2023 Systemic lupus erythematosus, unspecified (ICD-10 - M32.9) 12/20/2023 Systemic lupus erythematosus, unspecified SLE type, unspecified organ involvement status (ICD-10 - M32.9) 11/01/2023 Lupus (ICD-10 - M32.9) hurting all over, restart plaquenil 400mg/day, start prednisone taper, continue benlysta infusion. 10/04/2023 Fibromyalgia (ICD-10 - M79.7) has had recurrent oral ulcers and joint pain, on plaquenil 400mg/day, avoid methotrexate due to oral ulcers, will start benlysta infusion. 09/14/2023 Dry eyes (ICD-10 - H04.123) repeat serologies, try evoxac for dryness, consider methotrexate 09/14/2023 High risk medication use (ICD-10 - Z79.899) repeat serologies, try evoxac for dryness, consider methotrexate 11/01/2023 Fibromyalgia (ICD-10 - M79.7) hurting all over, restart plaquenil 400mg/day, start prednisone taper, continue benlysta infusion. 10/04/2023 Dry eyes (ICD-10 - H04.123) has had recurrent oral ulcers and joint pain, on plaquenil 400mg/day, avoid methotrexate due to oral ulcers, will start benlysta infusion. 10/04/2023 High risk medication use (ICD-10 - Z79.899) has had recurrent oral ulcers and joint pain, on plaquenil 400mg/day, avoid methotrexate due to oral ulcers, will start benlysta infusion. 11/01/2023 Dry eyes (ICD-10 - H04.123) hurting all over, restart plaquenil 400mg/day, start prednisone taper, continue benlysta infusion. 11/01/2023 High risk medication use (ICD-10 - Z79.899) hurting all over, restart plaquenil 400mg/day, start prednisone taper, continue benlysta infusion. 09/29/2023 repeat serologies, try evoxac for dryness, consider methotrexate Plan Of Treatment Pending Test Test Name Order Date CRP (C-REACTIVE PROTEIN) 09/14/2023 RHEUMATOID FACTOR (RF), QUANTITATIVE 08/2023 CK 09/14/2023 CMP(COMPREHENSIVE METABOLIC PANEL) 09/13 C3 AND C4 COMPLEMENTS 09/14/2023 URINALYSIS, WITH MICROSCOPIC 09/14/2023 CBC W/DIFF 09/14/2023 SEDIMENTATION RATE, ESR 09/14/2023 CYCLIC CITRULLINATED PEPTIDE (CCP) AB, I gG/IgA 09/14/2023 SCLERODERMA ANTIBODY 70 (SCL-70) 024 SSA/SSB ANTIBODY (SJOGREN'S) 09/14/2023 PALACIOS / LANDSCAPER HELPER ANTIBODY 09/14/2023 DNA (DS) ANTIBODY 09/14/2023 CAROLYN SCREEN/REFLEX TITER/PATTERN 09/14/19 24 Insurance Providers Payer Name Payer Address Payer Phone Subscriber Number Group Number Insured Name Patient Relationship to Insured Coverage Start Date Coverage End Date Medicare [address] [address] [place] [address] [id number] Dafne Schulz Self - patient is the insured [address] [address] [id number] Dafne Schulz Self - patient is the insured Medical (General) History Medical History History ICD Code ADHD; Anxiety; Back Pain; Clavicle fracture; COVID-19; De Quervain's disease (radial styloid te nosynovitis); Depression; Diabetes; GERD (gastroesophageal reflux disease); Kidney stone; Lichen planus; Lupus; Peptic ulcer; Pneumonia; Sjogren's disease; Surgical History Surgery Date(Month/Year) Hysterectomy; 2022-03-05 Back surgery; 2022-03-05 Gastric Bypass; 2022-03-05
== END 2024-03-06 14:07 | disposition home or self-care (01) ==
PROVIDERS: PCP Family Medicine; Visit Provider Family Medicine
DX: Z12.31 Encounter for screening mammogram for malignant neoplasm of breast (principal)
CPT/HCPCS: 77063; 77067

== ENCOUNTER 2024-03-29 14:46 | Outpatient (CLI) | payer OTHER, SELFPAY ==
--- OUTSIDE RECORDS SUMMARY | 2024-03-29 14:54 | XMS_ITS | Clinical Summary ---
Author Organization [facility] Address [address] [place] [address] Care Team Providers Care Dormitory Supervisor Name Role Phone Charmaine Black MD Primary Care Provider + Allergies No known active allergies Medications calcium carbonate (OS-TAMARA) 650 mg (260 mg elemental) tablet,chewable 260 mg Acti ve acnfqtib-gcj-ea lic acid-vit K 400-80 mcg capsule Take [...] palpable pulses. I suspect her noninvasives from [facility] were inaccurate. 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 Gender Identity Female 06/06/2018 12:13 PM CDT Sexual Orientation Not on file Obstetrics History Last Filed Vital Signs Vital Sign Reading Time Taken Comments Blood Pressure 92/59 08/10/2023 10:07 AM CDT Pulse 80 08/10/2023 10:07 AM CDT Temperature 36.6 C (97.9 F) 05/14/2023 3:38 PM CDT Respiratory Rate 18 05/14/2023 3:38 PM CDT [...] Colon Cancer Screening-Colonoscopy 1965 Depression Screening 1965 DTaP/Tdap/Td Vaccine (1 - Tdap) 02/21/1976 Hepatitis B Screening 1983 Regular Well Visit/Exam 18-64 1983 Pneumococcal vaccine <65 (1 of 2 - PCV) 02/21/1984 Zoster Vaccine (1 of 2) 02/21/1984 Covid-19 Vaccine (4 - 2023-2 5 season) 2023 04/07/2022, 05/13/2020, 04/22/2020 Influenza Vaccine (#1) 2023 , 11/24/2018, 11/27/2015, Additional history exists Hepatitis C Screening Completed 03/08/2022 Procedures Procedure Name Priority Date/Time Associated Diagnosis Comments HEPATITIS C ANTIBODY Routine 03/08/2022 3:23 PM COMMERCIAL LOAN REVIEWER from Last 3 Months or Most Recently Relevant to Health Maintenance Results * Hepatitis C antibody (03/08/2022 3:23 PM COMMERCIAL LOAN REVIEWER) Hep C Ab Nonreactive Nonreactive [facility] Comment: Interpretive Data Nonreactive: Antibodies to HCV not detected. Does NOT exclude the possibility of recent exposure to HCV. Equivocal: Equivocal for HCV antibodies. Supplemental molecular testing will be automatically performed to determine infection status in accordance with current CDC screening recommendations. Reactive: Positive for HCV antibodies. This may represent current or past HCV infection. Supplemental molecular testing will be automatically performed to determine current infection status in accordance with current CDC screening recommendations. Interpretive data was last revised on 2019. Blood 03/08/2022 3:23 PM COMMERCIAL LOAN REVIEWER 03/08/2022 5:48 PM COMMERCIAL LOAN REVIEWER Marisel Pineda MD LAB MICROBIOLOGY - GENERAL ORDER NAIF Edited Result - Final [facility] [address] [place] Department [place] [address] from Last 3 Months or Most Recently Relevant to Health Maintenance Insurance [facility] CHOICE PLUS MEDICARE [facility] MEDICARE Care Teams Dormitory Supervisor Relationship Specialty Start Date End Date Charmaine Black MD PCP - General 10/07/16
--- OUTSIDE RECORDS SUMMARY | 2024-03-29 14:54 | XMS_ITS | Patient Health Summary ---
Author Organization [facility] Address [address] [place] [address] Care Team Providers Care Rn Unit Manager Name Role Phone Maxwell Black MD Primary Care Provider +1- [phone] Note from [facility],non-owned Affiliates and Associated Physician Practices is amultiple site organization consisting of ambulatory clinics and hospital sitesin [place], [place], [place] and [place]. This disclosure is being madepursuant to the Care Everywhere program and may not contain all information available regarding this patient. Last updated 17.[facility] Allergies No known active allergies Medications * [...] ipratropium (Atrovent) 0.06 % nasal spray(Started 12/20/2022) Fowler 2 (two) sprays into each nostril 3 [...] 84 07/07/2022 8:50 AM CDT Temperature 36.7 C (98.1 F) 09/25/2021 7:27 AM CDT Respiratory Rate 16 09/25/2021 7:27 AM CDT Oxygen Saturation 99% 09/25/2021 7:27 AM CDT Inhaled Oxygen Concentration - - Weight 79.8 kg (176 lb) 07/07/2022 8:50 AM CDT Height 152.4 cm (5') 07/07/2022 8:50 AM CDT Body Mass Index 34.37 07/07/2022 8:50 AM CDT Procedures * CT NASAL ENDOSCOPY,DX(Performed 12/20/2022) Performed for Epistaxis * CT BIOPSY TONGUE,ANTER 2/3(Performed 07/08/2022) 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 * CT BIOPSY TONGUE,ANTER 2/3(Performed 07/08/2022) 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 * PATHOLOGY TISSUE(Performed 07/07/2022) 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 The patient's bilateral nasal cavities were anesthetized with mixture of topical lidocaine and oxymetazoline. A zero degree flexible endoscope was advanced into both nasal cavities for evaluations. The patient tolerated the procedure well and there were no complications. Findings- There are no nasal masses, mucosal lesions, polyps, or purulent drainage. Posterior septum straight, no metallic posts in the floor of the nasal cavity, no signs of bleeding, no prominent vessels. Nasopharynx clear. Christopher Rose MD PROCEDURE/MINOR SURG ICAL ORDERABLES * CT BIOPSY TONGUE,ANTER 2/3 (07/08/2022 5:54 AM CDT) Ernesto Thomas DMD - 07/08/2022 5:54 AM CDT Ernesto Orellana DMD 07/08/2022 6:01 AM Part 2 Location: Tongue, left ventrolateral [...] dismissed in good condition. At this time, I, Dr. Ernesto Orellana, [...] Orellana DMD PROCEDURE/MINOR SURG ICAL ORDERABLES * CT BIOPSY TONGUE,ANTER 2/3 (07/08/2022 5:48 AM CDT) Narrative Ernesto Orellana DMD - 07/08/2022 5:48 AM CDT Ernesto Orellana DMD 07/08/2022 6:01 AM Part 1 Location: Tongue, left ventrolateral [...] PM CDT) Case Report Surgical Pathology Report Case: [id number] Authorizing Provider: Ernesto Orellana DMD Collected: 07/07/2022 12:48 PM Ordering Location: [facility] Received: 07/07/2022 02:56 PM Pathologist: Orville Anand DDS Specimens: A) - Tongue, Part 1: Tongue, left ventrolateral, incisional biopsy, submitted in formalin for H&E B) - Skin Biopsy, Part 2: Tongue, left ventrolateral, incisional biopsy, submitted in Hair's solution for DIF 07/13/2022 4:43 PM CDT [facility] Final Diagnosis .A Tongue; left ventrolateral -- Focal keratosis and mild chronic mucositis .B Tongue; left ventrolateral; immunofluorescence -- No immunopathological abnormality 07/13/2022 4:43 PM T [facility] Microscopic Description and Comment .A [...] evaluated and are appropriate. 07/13/2022 4:43 PM CDT [facility] Clinical History 57 year-old male presents with lacy, interlacing, white striations of the patient's right and left ventrolateral tongue. No erythematous areas, erosions, or ulcerations were noted in these locations. 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 Received in formalin, specimen A tongue , is a 0.7 x 0.4 x 0.3 cm esquivel epithelial ellipse which is inked blue, sectioned, and entirely submitted in A1. /ml 07/13/2022 4:43 PM CDT [facility] Pathologist Location at [facility] 07/13/2022 4:43 PM CDT [facility] Disclaimer The performance characteristics of all immunohistochemical and indirect immunofluorescence stains (if any) cited in this report were determined by the Histopathology Laboratory of [facility]. Some of these tests were developed by [...] attending (teaching) pathologist. 07/13/2022 4:43 PM CDT [facility] Embedded Images 07/13/2022 4:43 PM CDT [facility] Pathology/Cytology BIOPSY OF SKIN / Unknown Collection / Unknown 07/07/2022 12:48 PM CDT 07/07/2022 2:56 PM CDT Comment:Please accession to Dr. Iron Anand, Oral and Maxillofacial Pathologist.Thanks,Ernesto Miscellaneous samples (specimen) BIOPSY OF SKIN / Unknown 07/07/2022 12:48 PM CDT 07/07/2022 2:56 PM CDT Comment:Please accession to Dr. Iron Anand, Oral and Maxillofacial Pathologist.Thanks,Ernesto Ernesto Orellana [facility] - PATHOLOGY/CYTO LOGY ORDERABLES Performing Organization Address City/State/[facility] Phone Number [facility] [address] [phone] * Laceration Repair (09/25/2021 3:30 PM CDT) Narrative Aaron Guillory MD - 09/25/2021 3:30 PM CDT Nichelle Hua MD 09/25/2021 3:33 PM Laceration Repair Date/Time: 09/25/2021 3:30 PM Performed by: Nichelle Hua MD Authorized by: Aaron Guillory MD Consent: Consent obtained: Verbal Consent given by: Patient Risks, benefits, and alternatives were discussed: yes Risks discussed: Infection and pain Alternatives discussed: No treatment [place] protocol: Procedure explained and questions answered to patient or proxy's satisfaction: yes Patient identity confirmed: Verbally with patient Anesthesia: Anesthesia method: None Laceration details: Location: Face Face location: Forehead Length (cm): 1 Exploration: Hemostasis achieved with: Direct pressure Contaminated: no Treatment: Area cleansed with: Saline Amount of cleaning: Standard Irrigation solution: Sterile saline Irrigation method: Pressure wash Skin repair: Repair method: Tissue adhesive Approximation: Approximation: Close Post-procedure details: Dressing: Open (no dressing) Procedure completion: Tolerated Aaron Guillory MD PROCEDURE/MINOR SURG ICAL ORDERABLES * CULTURE URINE (01/14/2014 11:50 PM RAILROAD CAR LETTERER) Only the most recent of2 resultswithin the time period is included. Culture Urine Greater than or Equal to 10,000 CFU/ML Normal Urogenital/ Skin Rosie at 48 Hours [facility] Comment: Urine specimen (specimen) (Unspecified) 01/14/2014 11:50 PM RAILROAD CAR LETTERER 01/15/2014 9:44 AM RAILROAD CAR LETTERER [facility] - 01/17/2014 10:57 AM RAILROAD CAR LETTERER ViktorSpecimen#[id number] Viktor Loc/Rm/Bed: ED// UNSP U @01/15/14 0018: URINE CULTURE added. RFLXG = UAUCC. Historical Provider LAB - MICROBIOLOG Y ORDERABLES [address] [phone] * CULTURE BLOOD (12/16/2013 1:30 AM RAILROAD CAR LETTERER) Only the most recent of2 resultswithin the time period is included. Culture Blood No Growth at 5 days [facility] Blood specimen (specimen) BLOOD SPECIMEN / Unknown 12/16/2013 1:30 AM RAILROAD CAR LETTERER 12/16/2013 10:21 AM RAILROAD CAR LETTERER [facility] - 12/21/2013 10:30 AM RAILROAD CAR LETTERER ViktorSpecimen#[id number] Viktor Loc/Rm/Bed: [facility]/02 @ MANISHA DATE was changed from 12/15/13 to 12/16/13 @ by NGUYỄN. Historical Provider LAB - MICROBIOLOG Y ORDERABLES [address] [phone] Care Teams Rn Unit Manager Relationship Specialty Start Date End Date Maxwell Black MD [address] [place] [phone] PCP - General 12/03/13
--- OUTSIDE RECORDS SUMMARY | 2024-03-29 14:54 | XMS_ITS ---
Author Organization [facility] Address [address] [place] [address] Care Team Providers Care Community Relations Officer Name Role Phone Maxwell Black MD Primary Care Provider Marisel Garcia Unavailable [phone] Marisel Pineda MD Unavailable Unavailable REASON FOR VISIT infusion order Encounters Encounter Location Date Provider Diagnosis [facility] [address] [place] [address] 03/29/2024 Marisel Pineda Plan Of Treatment Next Appt Details Provider Name:Marisel Pineda, 04/11 08:30:00 AM, [address], [place], [address], Progress Notes * Dafne SCHULZDOB: [birth year] (59 yo F)Acc No.[id number]:03/29/2024 Patient: Tavo Dafne DUNBAR :1965 A ge:59 Y S ex:Female Address:[address] [place] [address], [address] * true * Date: Generated for Printi ng/Faxing/eTransmitting on: 0 03/29/2024 02:53 PM CREDIT RISK ASSOCIATE
--- OUTSIDE RECORDS SUMMARY | 2024-03-29 14:54 | XMS_ITS | Referral Summary ---
Author Organization [facility] [employer] Address [address] [place] [address] Care Team Providers Care Slotter Operator Name Role Phone Maxwell Black MD Primary Care Provider +1- [phone] Source Comments [facility] [employer],non-owned Affiliates and Associated Physician Practices is amultiple site organization consisting of ambulatory clinics and hospital sitesin [place], [place], [place] and [place]. This disclosure is being madepursuant to the Care Everywhere program and may not contain all information available regarding this patient. Last updated 17.[employer] Allergies No known active allergies Medications * [...] (Atrovent) 0.06 % nasal sprayIndications:V asomotor rhinitis [place] 2 (two) sprays into each nostril 3 [...] of Treatment Not on file Care Teams Slotter Operator Relationship Specialty Start Date End Date Maxwell Black MD [facility] [place] [phone] PCP - General 12/03/13
--- OUTSIDE RECORDS SUMMARY | 2024-03-29 14:54 | XMS_ITS | Referral Summary ---
Author Organization [facility] Address [address] [place] [address] Care Team Providers Care Promotions Intern Name Role Phone Charmaine Black MD Primary Care Provider + Allergies No known active allergies Medications calcium carbonate (OS-TAMARA) 650 mg (260 mg elemental) tablet,chewable 260 mg Acti ve bhavlslk-awt-hf lic acid-vit K 400-80 mcg capsule Take [...] palpable pulses. I suspect her noninvasives from [facility] were inaccurate. Based on her history a [...] on file Legal Sex Female 2:19 AM MAGNET PLACER Gender Identity Female 06/06/2018 12:13 PM CDT [...] HEPATITIS C ANTIBODY Routine 03/08/2022 3:23 PM MAGNET PLACER from Last 3 Months or Most Recently Relevant to Health Maintenance Results * Hepatitis C antibody (03/08/2022 3:23 PM MAGNET PLACER) Hep C Ab Nonreactive Nonreactive [facility] Comment: Interpretive Data Nonreactive: Antibodies to HCV [...] revised on 2019. Blood 03/08/2022 3:23 PM MAGNET PLACER 03/08/2022 5:48 PM MAGNET PLACER us Marisel Pineda MD LAB MICROBIOLOGY - GENERAL ORDER NAIF Edited Result - Final [facility] [address] [place] Department [place] [address] from Last 3 Months or Most Recently Relevant to Health Maintenance Insurance [facility] CHOICE PLUS MEDICARE [employer] [place] [employer] [place] MED[place] Care Teams Promotions Intern Relationship Specialty Start Date End Date Charmaine Black MD PCP - General 10/07/16
--- OUTSIDE RECORDS SUMMARY | 2024-03-29 14:54 | XMS_ITS ---
Author Organization [facility] Address [address] [facility] [[email or web address] [address] [place] [address] Care Team Providers Care Extruder Operator Name Role Phone Wayne FOSTER, Maxwell Primary Care Provider Marisel Garcia [phone] Marisel Layton MD Unavailable Unavailable REASON FOR VISIT Benlysta 520mg dose. 1)400 1)120 Du Encounters Encounter Location Date Provider Diagnosis [facility] [address] [place] [address] 01/17/2024 Marisel Layton Plan Of Treatment Next Appt Details Provider Name:Marisel Layton, 04/11 08:30:00 AM, [address] [facility] [[email or web address] [address], [place], [address], Progress Notes * Dafne SCHULZDOB: [birth year] (59 yo F)Acc No.[id number]:01/17/2024 Patient: Tavo Dafne DUNBAR Provider: Zaynab LAYTON MD :1965 A ge:58 Y S ex:Female Date:01/17/2024 Address:[address] [place], [place] [id number] Pcp:Maxwell Black MD Subjective: * Chief Complaints: * 1 . Benlysta 520mg dose. 1)400 1)120 Du. * Medical History: Objective: * Vitals: Assessment: Plan: * Treatment: * Billing Information: * Visit Code: * Procedure Codes: * Electronic signature of Marisel Layton MD on 03/29/2024 at 02:53 PM JEWEL BEARING GRINDER Sign off status: Pending * Provider: Zaynab LAYTON MD Date: 1 03/19/2023 Generated for Kelley doherty/Ada/Valentin on: 0 03/29/2024 02:53 PM JEWEL BEARING GRINDER
--- OUTSIDE RECORDS SUMMARY | 2024-03-29 14:55 | XMS_ITS ---
Author Organization [facility] Address [address] [place] [address] Care Team Providers Care Hvac Tech Name Role Phone Maxwell Black MD Primary Care Provider Marisel Garcia Unavailable [phone] Marisel Pineda MD Unavailable Unavailable REASON FOR VISIT letter Encounters Encounter Location Date Provider Diagnosis [facility] [address] [place] [address] 12/22/2023 Marisel Pineda Plan Of Treatment Next Appt Details Provider Name:Marisel Pineda, 04/11 08:30:00 AM, [address], [place], [address], Progress Notes * Dafne SCHULZDOB: [birth year] (58 yo F)Acc No.[id number]:12/22/2023 Patient: Tavo Dafne DUNBAR :1965 A ge:58 Y S ex:Female Address:[address] [place] [address], [address] * true * Date: Generated for Printi ng/Faxing/eTransmitting on: 0 03/29/2024 02:55 PM HIMS CODER
--- OUTSIDE RECORDS SUMMARY | 2024-03-29 14:55 | XMS_ITS | Clinical Summary ---
Author Organization [facility] [employer] Address [address] [place] [address] Care Team Providers Care Skilled Nursing Professional Name Role Phone Maxwell Black MD Primary Care Provider +1- [phone] Source Comments [facility] [employer],non-owned Affiliates and Associated Physician Practices is amultiple site organization consisting of ambulatory clinics and hospital sitesin [place], [place], [place] and [place]. This disclosure is being madepursuant to the Care Everywhere program and may not contain all information available regarding this patient. Last updated 17.[employer] Allergies No known active allergies Medications * [...] (Atrovent) 0.06 % nasal sprayIndications:V asomotor rhinitis [place] 2 (two) sprays into each nostril 3 [...] CA SCREENING 1965 MAMMOGRAM 1965 MEDICARE AWV 12 MONTHS 1965 PAP SMEAR 1965 HIV SCREENING 02/21/1980 HEPATITIS C SCREENING 02/16/1983 DTAP/TDAP/TD VACCINES (1 - Tdap) 02/21/1984 HEPATITIS B VACCINE (1 of 3 - 19+ 3-dose series) 02/21/1984 PNEUMOCOCCAL VACCINE 50+ (1 of 1 - PCV) 2015 ZOSTER VACCINE (1 of 2) 2015 SCREENING FOR DIABETES 07/07/2022 COVID-19 VACCINE ( - season) 2023 04/07/2022, 05/13/2020, 04/22/2020 INFLUENZA VACCINE [...] age to complete this topic Care Teams Skilled Nursing Professional Relationship Specialty Start Date End Date Maxwell Black MD [facility] [place] [address] PCP - General 12/03/13
--- OUTSIDE RECORDS SUMMARY | 2024-03-29 14:55 | XMS_ITS | Patient Health Record ---
Author Organization [facility] arabella Address [address] [place] [address] Care Team Providers Care Paste Maker Name Role Phone Maxwell Black MD Primary Care Provider Unava ilMarisel Owens Unavailable [phone] Marisel Pineda MD Unavailable Unavailable Allergies No Known Allergies Results Component Value Reference Range Notes LIGIA Screen Reviewed date:09/15/2023 05:36:48 PM Interpretation: Performing Lab:[facility] , [address] [facility] [facility] [address] Notes/Report: LIGIA Screen Negative Negative Interpretive Data Positive Screens will be reflexed to specific testing for Antibodies against the following antigens: Sandy-1 Ab, PROCESS STEWARD Ab, Scl-70 Ab, Palacios Ab, SS-A/Ro Ab, and SS-B/La Ab. Further testing for dsDNA, Centromere, or Ribosomal P antibodies is suggested in patient with a positive screen and negative specific antibodies. Current interpretive data was last revised on 2022. CAROLYN reflex titer pattern LIGIA + dsDNA Reviewed date:09/15/2023 12:41:33 PM Interpretation: Performing Lab:[facility] , [address] [facility] [address] Notes/Report: CAROLYN, Qual Positive 1:640 Interpretive Data [...] last revised on 2019. Testing performed by: [facility], [address] [place]., [address] CAROLYN, Jack 1:640 Testing performed by: [facility], [address] [place]., [address] CAROLYN Pattern 1 Homogeneous Testing performed by: [facility], [address] [place]., [address] eGFR Reviewed date:09/14/2023 12:40:26 PM Interpretation: Performing Lab:[facility] , [address] [facility] [place] [address] Notes/Report: eGFR >90 >=60 mL/min/1.73 m2 Interpretive [...] of Race in Diagnosing Kidney Disease, JASN 202). The CKD-EPI equation should not be used for patients with unstable renal function and has not been validated in children and those over 70. Current interpretive data was last reviewed 2020. Sed Rate Reviewed date:09/14/2023 12:40:26 PM Interpretation: Performing Lab:[facility] , [address] [place] [address] Notes/Report: ESR 7 1-30 mm/hr C Reactive Protein Reviewed date:09/14/2023 12:40:26 PM Interpretation: Performing Lab:[facility] , [address] [place] [address] Notes/Report: C-Reactive Protein <3.0 <=10.0 mg/L UA Micro (All Sites) Reviewed date:09/14/2023 12:40:26 PM Interpretation: Performing Lab:[facility] , [address] [place] [address]. [facility] [address] Notes/Report: WBC, Ur 6-10 0-5 /HPF RBC, Ur 0-2 0-2 /HPF Epithl Squam, Ur 1-5 0-5 /HPF Urinalysis reflex microscopi c exam Reviewed date:09/14/2023 12:40:26 PM Interpretation: Performing Lab:[facility] , [address] [place] [address]. [facility] [address] Notes/Report: Color, Ur Yellow Yellow Clarity, Ur [...] tendency for uric acid stone formation. Source: [employer] Current Interpretive Data was last revised on [...] Ab Reviewed date:09/15/2023 11:07:56 AM Interpretation: Performing Lab:[facility] , [address] [place] [address]. [facility] [address] Notes/Report: SS B Antibody <0.2 <=0.9 Ab Index Interpretive Data Negative: < 1.0 Ab Index Positive: > or = 1.0 Ab Index Current interpretive data was last revised on 2016. SSA Ab Reviewed date:09/15/2023 11:07:56 AM Interpretation: Performing Lab:[facility] , [address] [place] [address]. [facility] [address] Notes/Report: SS A Antibody <0.2 <=0.9 Ab Index Interpretive Data Negative: < 1.0 Ab Index Positive: > or = 1.0 Ab Index Current interpretive data was last revised on 2016. Palacios Ab. Reviewed date:09/15/2023 11:07:56 AM Interpretation: Performing Lab:[facility] , [address] [place] [address]. [facility] [address] Notes/Report: Palacios Antibody <0.2 <=0.9 Ab Index Interpretive Data Negative: < 1.0 Ab Index Positive: > or = 1.0 Ab Index Current interpretive data was last revised on 2016. SCL 70 Antibodies Reviewed date:09/15/2023 11:07:56 AM Interpretation: Performing Lab:[facility] , [address] [place] [address]. [facility] [address] Notes/Report: Scl 70 Ab, IgG <0.2 <=0.9 Ab Index Interpretive Data Negative: < 1.0 Ab Index Positive: > or = 1.0 Ab Index Current interpretive data was last revised on 2016. Ribonuclear Protein (PROCESS STEWARD) Ab Reviewed date:09/15/2023 11:07:56 AM Interpretation: Performing Lab:[facility] , [address] [place] [address]. [facility] [address] Notes/Report: PROCESS STEWARD Antibody 0.3 <=0.9 Ab Index Interpretive Data Negative: < 1.0 Ab Index Positive: > or = 1.0 Ab Index Current interpretive data was last revised on 2016. Rheumatoid Factor Reviewed date:09/14/2023 12:40:26 PM Interpretation: Performing Lab:[facility] , [address] [place] [address]. [facility] [address] Notes/Report: RF, Jack 10 <=15 IUnits/mL DS DNA Reviewed date:09/15/2023 11:07:56 AM Interpretation: Performing Lab:[facility] , [address] [place] [address]. [facility] [address] Notes/Report: Double Stranded DNA, Jack <1.0 <=4.0 IUnits/mL Interpretive Data Negative: < or = 4 IUnits/mL Indeterminate: 5 - 9 IUnits/mL Positive: > or = 10 IUnits/mL Current interpretive data was last revised on 2016. Differential Automated Reviewed date:09/14/2023 12:21:08 PM Interpretation: Performing Lab:[facility] , [address] [facility] [facility] [place] [address] Notes/Report: Neut Abs 7.3 1.5-6.5 K/cumm ImmGran Abs 0.0 0.0-0.1 K/cumm Lymphocyte Abs 0.9 0.8-3.3 K/cumm Haywood Abs 0.3 0.2-0.8 K/cumm Eos Abs 0.0 [...] Interpretive Data was last revised on 2017. Haywood Pct 3.5 Interpretive Data Percent cell count [...] Kinase Reviewed date:09/14/2023 12:40:26 PM Interpretation: Performing Lab:[facility] , [address] [facility]. [place] [address] Notes/Report: Total CK 50 30-200 Units/L Comprehensive metabolic pane l (CMP) Reviewed date:09/14/2023 12:40:26 PM Interpretation: Performing Lab:[facility] , [address] [place] [address]. [facility] [address] Notes/Report: Sodium 141 135-145 mmol/L Plasma Potassium [...] classification and Diagnosis of Diabetes Diabetes Care 2021; 46: S19-S40. Current interpretive data was last revised 2022. Total Calcium 10.1 8.5-10.3 mg/dL Total Bilirubin 0.3 0.1-1.2 mg/dL Plasma Total Protein 7.4 6.5-8.5 g/dL Albumin 4.9 3.5-5.0 g/dL Alkaline Phosphatase 82 40-130 Units/L ALT 53 7-45 Units/L AST 32 10-45 Units/L Complement C4 Reviewed date:09/14/2023 12:40:26 PM Interpretation: Performing Lab:[facility] , [address] [place] [address]. [facility] [address] Notes/Report: Complement, C4 32 10-40 mg/dL Complement C3 Reviewed date:09/14/2023 12:40:26 PM Interpretation: Performing Lab:[facility] , [address] [place] [address]. [facility] [address] Notes/Report: Complement, C3 135 90-180 mg/dL CBC w auto diff Reviewed date:09/14/2023 12:21:08 PM Interpretation: Performing Lab:[facility] , [address] [place] [address]. [facility] [address] Notes/Report: WBC 8.5 3.8-9.9 K/cumm Hgb 14.9 11.9-15.5 g/dL Hct 45.9 35.6-45.5 % Platelet Ct 242 150-400 K/cumm MPV 11.3 9.1-12.3 fL RBC 5.11 3.90-5.20 M/cumm MCV 89.8 81.3-96.4 fL MCH 29.2 27.1-33.3 pg MCHC 32.5 32.3-35.7 g/dL RDW CV 12.3 11.1-14.9 % RDW SD 40.7 35.7-48.1 fL NRBC Abs Auto 0.00 0.00-0.01 K/cumm Anti-CCP (Cyclic Citrullinat ed Peptide Ab) Reviewed date:09/15/2023 11:07:56 AM Interpretation: Performing Lab:[facility] , [address] [facility] [facility] [address] Notes/Report: CCP Ab <0.5 <=2.9 units/mL Interpretive data Negative: <3 units/mL Positive: > or equal to 3 units/mL Current interpretive data was last revised on 2016. Reason For Referral Reason [employer] Medicare/[facility] Renee Slaughter'd Diagnosis 1 Lupus (M32.9) Referral Organization [facility] alonzo Referring Provider First Name Marisel Referring Provider Last Name Edwin Referring Provider Speciality Rheumatolo gy Referred Organization [facility] aolnzo Referred Provider Marisel Pineda Referred Address [address] ,[facility] [address],[place], [place],[address], Referred Provider Specialty Rheumatology Procedure 1 INJECTION BELIMUMAB 10 MG (J0490) Referral Priority Routine Medications Medication SIG (Take, Route, Frequency, Duration) Notes Start Date End Date Status duloxetine - daily oral *Reorder from [facility] for eRx and Interaction Alerts* Active Pramipexole Dihydrochloride 0.5 MG take 1 tablet (0.5 mg) by oral route 2-3 hours before bedtime Oral 0 Active Wegovy - weekly subcutaneous *Pick strength-form from [facility] for eRX* Active Vitamin B Complex take 1 capsule by oral route once Oral 1 Active Cyanocobalamin 1000 MCG/ML inject 1 milliliter (1,000 mcg) by intramuscular route once a month Injection [id number] Active LORazepam 2 MG prn Oral Activ e Centrum Silver 50+Women 8 mg iron-400 mcg-300 mcg take 1 tablet by oral route once Oral 1 *Pick strength-form from [employer] for eRX* Active Topiramate 100 MG take [...] for 25 Days Active Cholecalciferol 1.25 MG (07172 UT) take 1 tablet by oral route once Oral 1 Active Iron Station Carbonate 300 MG 1 tablet at bedtime [...] Status Risk Notes Problem Systemic lupus erythematosus (27925675) Systemic lupus erythematosus, unspecified (M32.9) Active confirmed Problem 487879797 Fibromyalgia (M79.7) Active confirmed Problem 17481163 Systemic lupus erythematosus, unspecified SLE type, unspecified [...] 12/20/2023 Encounters Encounter Location Date Provider Diagnosis [facility] [address] [place] [address] 09/14/2023 Marisel Du 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 ; Fibromyalgia M79.7 ; Dry eyes H04.123 and High risk medication use Z79.899 [facility] [address] [place] [address] 10/04/2023 Marisel Du 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 ; Lupus M32.9 ; Fibromyalgia M79.7 ; Dry eyes H04.123 and High risk medication use Z79.899 [facility] [address] [place] [address] 10/18/2023 Marisel Du Systemic lupus erythematosus, unspecified SLE type, unspecified organ involvement status M32.9 [facility] [address] [place] [address] 11/01/2023 Marisel Du Lupus M32.9 [facility] [address] [place] [address] 11/01/2023 Marisel Du 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 ; Lupus M32.9 ; Fibromyalgia M79.7 ; Dry eyes H04.123 and High risk medication use Z79.899 [facility] [address] [place] [address] 11/15/2023 Marisel Du Systemic lupus erythematosus, unspecified M32.9 [facility] [address] [place] [address] 12/13/2023 Marisel Pineda [facility] [address] [place] [address] 12/20/2023 Marisel Pineda Systemic lupus erythematosus, unspecified SLE type, unspecified organ involvement status M32.9 [facility] [address] [place] [address] 12/22/2023 Marisel Pineda [facility] [address] [place] [address] 03/29/2024 Marisel Pineda Assessments Encounter Date Diagnosis (ICD [...] 024 SSA/SSB ANTIBODY (SJOGREN'S) 09/14/2023 PALACIOS / PROCESS STEWARD ANTIBODY 09/14/2023 DNA (DS) ANTIBODY 09/14/2023 CAROLYN SCREEN/REFLEX TITER/PATTERN 09/14/19 24 Next Appt Details Provider Name:Marisel Pineda, 04/11 08:30:00 AM, [address] [place] [address], [place], [address], Insurance Providers Payer Name Payer Address Payer Phone Subscriber Number Group Number Insured Name Patient Relationship to Insured Coverage Start Date Coverage End Date Medicare [address] [address] [place] [address] [id number] Dafne Schulz Self - patient is the insured [address] [address] [id number] Dafne Schulz Self - patient is the [...]
[2024-03-29 15:31] LABS: Basophils Absolute Auto 0.1 K/mm3 (0.0-0.1); Basophils Percent Auto 1.4 % (0.2-1.2); Eosinophils Absolute Auto 0.1 K/mm3 (0-0.3); Hematocrit 42.3 % (37.0-47.0); Hemoglobin 13.9 g/dL (12.0-15.0); Immature Granulocyte Absolute 0.01 K/mm3 (0.00-0.031); Immature Granulocyte Percent A 0.2 % (0-0.5); Lymphocytes Absolute Auto 1.63 K/mm3 (0.9-3.2); Mean Corpuscular HGB Conc 32.9 g/dl (32-36); Mean Corpuscular Hemoglobin 29.3 pg (26-34); Mean Corpuscular Volume 89.2 fl (80-100); Mean Platelet Volume 10.4 fl (7.4-10.4); Monocytes Absolute Auto 0.5 K/mm3 (0.1-0.6); Monocytes Percent Auto 9.8 % (2.6-8.5); Neutrophils Absolute Auto 2.8 K/mm3 (1.3-6.7); Neutrophils Percent Auto 54.6 % (45.5-73.1); Platelet Count Result 237 k/mm3 (150-375); Red Blood Count 4.74 M/mm3 (4.2-5.4); Red Cell Distribution Width 12.6 % (11.5-14.5); White Blood Count 5.1 K/mm3 (4.5-10.0)
[2024-03-29 15:48] LABS: Albumin Level 4.1 g/dL (3.5-5.1); Anion Gap 7 mmol/L (4-12); Blood Urea Nitrogen 12 mg/dL (7-17); Calcium 9.2 mg/dL (8.4-10.2); Carbon Dioxide 30 mmol/L (22-30); Chloride 102 mmol/L (98-107); Estimated Glomerular Filt Rate > 60; Glucose 95 mg/dL (65-110); Potassium 4.2 mmol/L (3.4-5.0); Sodium 139 mmol/L (137-145)
[2024-03-29 15:55] LABS: Prealbumin 21.2 mg/dL (17.6-36.0)
[2024-03-29 16:33] LABS: Iron 98 ug/dL (37-170)
[2024-04-03 06:22] LABS: Vitamin B1 14 nmol/L (8-30)
== END 2024-03-29 14:47 | disposition home or self-care (01) ==
PROVIDERS: PCP Family Medicine; Visit Provider Surgery Plastic and Reconstructive Surgery
DX: R63.4 Abnormal weight loss (principal); Z68.20 Body mass index [BMI] 20.0-20.9, adult
CPT/HCPCS: 36415; 80048; 82040; 83540; 84134; 84425; 85025

== ENCOUNTER 2024-05-07 12:26 | Outpatient (CLI) | payer OTHER, SELFPAY ==
--- OUTSIDE RECORDS SUMMARY | 2024-05-07 13:33 | XMS_ITS | Referral Summary ---
Author Organization [facility] Address [address] [place] [address] Care Team Providers Care Sales Compensation Analyst Name Role Phone Charmaine Black MD Primary Care Provider + Encounters Date Type Department Care Team Description 04/11/2024 2:06 PM LAW TUTOR - 04/11/2024 11:59 PM [facility] Hospital Encounter [facility] [address] [place] [address] Discharge Disposition: Discharge to home or self care from Last 3 Months Allergies No known active allergies Medications calcium carbonate (OS-TAMARA) 650 mg (260 mg elemental) tablet,chewable 260 mg Acti ve emoenvht-jwf-vn lic acid-vit K 400-80 mcg capsule Take [...] palpable pulses. I suspect her noninvasives from [facility] were inaccurate. Based on her history [...] on file Legal Sex Female 2:19 AM LAW TUTOR Gender Identity Female 06/06/2018 12:13 PM CDT [...] Procedure Name Priority Date/Time Associated Diagnosis Comments EGFR Routine 04/11/2024 8:44 AM LAW TUTOR DIFFERENTIAL AUTO Routine 04/11/2024 8:4 4 AM LAW TUTOR CREATININE Routine 04/11/2024 8:44 AM LAW TUTOR CBC WITH AUTO DIFFERENTIAL Routine 04/11/2024 8:44 AM LAW TUTOR HEPATIC FUNCTION PANEL Routine 04/11/2024 8:44 AM LAW TUTOR HEPATITIS C ANTIBODY Routine 03/08/2022 3:23 PM LAW TUTOR from Last 3 Months or Most Recently Relevant to Health Maintenance Results * eGFR (04/11/2024 8:44 AM LAW TUTOR) eGFR >90 >=60 mL/min/1. 73 m2 Comment: Interpretive Data Reference Interval Normal >/= 90 [...] Current interpretive data was last reviewed 2020. Blood 04/11/2024 8:44 AM LAW TUTOR 04/11/2024 8:31 PM LAW TUTOR us Marisel Pineda MD LAB BLOOD ORDERABLES Final Resul t [facility] [address] Department [place] [address] * Differential, auto (04/11/2024 8:44 AM LAW TUTOR) Neutrophil abs 3.1 1.5 - 6.5 K/cumm Imm gran abs 0.0 0.0 - 0.1 K/cumm [facility] Lymphocyte abs 0.8 0.8 - 3.3 K/cumm [facility] Monocyte abs 0.5 0.2 - 0.8 K/cumm [facility] Eosinophil abs 0.2 0.0 - 0.5 K/cumm [facility] Basophil abs 0.1 0.0 - 0.1 K/cumm [facility] Neutrophil pct 67.0 % [facility] Comment: Interpretive Data Percent cell count reference ranges are not reported, since discordance with absolute values may lead to misinterpretation of CBC data. Current Interpretive Data was last revised on 2017. Imm gran pct 0.2 % [facility] Comment: Interpretive Data Percent cell count reference ranges are not reported, since discordance with absolute values may lead to misinterpretation of CBC data. Current Interpretive Data was last revised on 2017. Lymphocyte pct 17.0 % [facility] Comment: Interpretive Data Percent cell count reference ranges are not reported, since discordance with absolute values may lead to misinterpretation of CBC data. Current Interpretive Data was last revised on 2017. Monocyte pct 10.4 % [facility] Comment: Interpretive Data Percent cell count reference ranges are not reported, since discordance with absolute values may lead to misinterpretation of CBC data. Current Interpretive Data was last revised on 2017. Eosinophil pct 4.1 % [facility] Comment: Interpretive Data Percent cell count reference ranges are not reported, since discordance with absolute values may lead to misinterpretation of CBC data. Current Interpretive Data was last revised on 2017. Basophil pct 1.3 % [facility] Comment: Interpretive Data Percent cell count reference ranges are not reported, since discordance with absolute values may lead to misinterpretation of CBC data. Current Interpretive Data was last revised on 2017. Blood 04/11/2024 8:44 AM LAW TUTOR 04/11/2024 3:35 PM LAW TUTOR us Marisel Pineda MD LAB BLOOD ORDERABLES Final Resul t Performing Organization Address City/[facility]/ZIP Co de Phone Number [facility] [address] Department [place] [address] * (ABNORMAL) CBC with auto differential (04/11/2024 8:44 AM LAW TUTOR) WBC 4.6 3.8 - 9.9 K/cumm Hgb 14.1 11.9 - 15.5 g/dL [facility] Hct 45.3 35.6 - 45.5 % [facility] Plt 218 150 - 400 K/cumm [facility] MPV 11.1 9.1 - 12.3 fL [facility] RBC 4.80 3.90 - 5.20 M/cumm [facility] MCV 94.4 81.3 - 96.4 fL [facility] MCH 29.4 27.1 - 33.3 pg [facility] MCHC 31.1(L) 32.3 - 35.7 g/dL [facility] RDW CV 13.2 11.1 - 14.9 % [facility] RDW SD 45.6 35.7 - 48.1 fL [facility] NRBC abs 0.00 0.00 - 0.01 K/cumm [facility] Blood 04/11/2024 8:44 AM LAW TUTOR 04/11/2024 3:35 PM LAW TUTOR us Marisel Pineda MD LAB BLOOD ORDERABLES Final Resul t [facility] [address] [place] [address] * Creatinine (04/11/2024 8:44 AM LAW TUTOR) [facility] [address] Creatinine 0.63 0.60 - 1.10 mg/dL Blood 04/11/2024 8:44 AM LAW TUTOR 04/11/2024 3:35 PM LAW TUTOR us Marisel Pineda MD LAB BLOOD ORDERABLES Final Resul t Performing Organization Address [facility] Co de Phone Number [facility] [address] [facility] [place] [address] * (ABNORMAL) Hepatic function panel (04/11/2024 8:44 AM LAW TUTOR) [facility] [address] Bilirubin, total 0.5 0.1 - 1.2 mg/dL Bilirubin, direct 0.2 0.1 - 0.3 mg/dL [facility] Protein, pl 6.5 6.5 - 8.5 g/dL [facility] Albumin 4.4 3.5 - 5.0 g/dL [facility] Alk phos 86 40 - 130 Units/L [facility] ALT 64(H) 7 - 45 Units/L [facility] AST 41 10 - 45 Units/L [facility] Blood 04/11/2024 8:44 AM LAW TUTOR 04/11/2024 3:35 PM LAW TUTOR us Marisel Pineda MD LAB BLOOD ORDERABLES Final Resul t Performing Organization Address [facility] Co de Phone Number [facility] [address] [place] [address] * Hepatitis C antibody (03/08/2022 3:23 PM LAW TUTOR) [facility] [address] Hep C Ab Nonreactive Nonreactive [facility] Comment: Interpretive Data Nonreactive: Antibodies to HCV [...] revised on 2019. Blood 03/08/2022 3:23 PM LAW TUTOR 03/08/2022 5:48 PM LAW TUTOR Marisel Pineda MD LAB MICROBIOLOGY - GENERAL ORDER NAIF Edited Result - Final [facility] [address] Department [place] [address] from Last 3 Months or Most Recently Relevant to Health Maintenance Insurance [facility] CHOICE PLUS MEDICARE [facility] MED[facility] Care Teams Sales Compensation Analyst Relationship Specialty Start Date End Date Charmaine Black MD [facility] - General 10/07/16
--- OUTSIDE RECORDS SUMMARY | 2024-05-07 13:33 | XMS_ITS | Clinical Summary ---
Author Organization [facility] Address [address] [place] [address] Care Team Providers Care Zigzag Appliquer Name Role Phone Charmaine Black MD Primary Care Provider + Allergies No known active allergies Medications calcium carbonate (OS-TAMARA) 650 mg (260 mg elemental) tablet,chewable 260 mg Acti ve ejcdqkap-ldg-xl lic acid-vit K 400-80 mcg capsule Take [...] palpable pulses. I suspect her noninvasives from [facility] were inaccurate. Based on her history a lot of her discomfort sounds more musculoskeletal in nature or from lumbosacral spine disease. Can follow up with me as needed. Encounters Date Type Department Care Team Description 04/11/2024 2:06 PM ELECTRIC TRACK SWITCH MAINTAINER - 04/11/2024 11:59 PM ELECTRIC TRACK SWITCH MAINTAINER Hospital Encounter [address] [address] Discharge Disposition: Discharge to home or self care from Last 3 Months Surgical History Surgery Date Site/Laterality Comments EPIDURAL INJECTION LUMBOSACRAL 12/29/2012 N/A EPIDURAL INJECTION LUMBOSACRAL 11/06/2012 N/A Social History Tobacco Use Types Packs/Day Years Used Date Smoking Tobacco: Unknown Tobacco Cessation:Counseling Given: Not Answered Comments Unknown Sex and Gender Information Value Date Recorded Sex Assigned at Not on file Legal Sex Female 2:19 AM ELECTRIC TRACK SWITCH MAINTAINER Gender Identity Female 06/06/2018 12:13 PM CDT [...] Diagnosis Comments EGFR Routine 04/11/2024 8:44 AM ELECTRIC TRACK SWITCH MAINTAINER DIFFERENTIAL AUTO Routine 04/11/2024 8:4 4 AM ELECTRIC TRACK SWITCH MAINTAINER CREATININE Routine 04/11/2024 8:44 AM ELECTRIC TRACK SWITCH MAINTAINER CBC WITH AUTO DIFFERENTIAL Routine 04/11/2024 8:44 AM ELECTRIC TRACK SWITCH MAINTAINER HEPATIC FUNCTION PANEL Routine 04/11/2024 8:44 AM ELECTRIC TRACK SWITCH MAINTAINER HEPATITIS C ANTIBODY Routine 03/08/2022 3:23 PM ELECTRIC TRACK SWITCH MAINTAINER from Last 3 Months or Most Recently Relevant to Health Maintenance Results * eGFR (04/11/2024 8:44 AM ELECTRIC TRACK SWITCH MAINTAINER) eGFR >90 >=60 mL/min/1. 73 m2 Comment: [...] last reviewed 2020. Blood 04/11/2024 8:44 AM ELECTRIC TRACK SWITCH MAINTAINER 04/11/2024 8:31 PM ELECTRIC TRACK SWITCH MAINTAINER us Marisel Pineda MD LAB BLOOD ORDERABLES Final Resul t [facility] [address] Department of Laboratories [place], [place] [id number] * Differential, auto (04/11/2024 8:44 AM ELECTRIC TRACK SWITCH MAINTAINER) Pathologist [facility] Neutrophil abs 3.1 1.5 - 6.5 K/cumm Imm gran abs 0.0 0.0 - 0.1 K/cumm [facility] Lymphocyte abs 0.8 0.8 - 3.3 K/cumm [facility] Monocyte abs 0.5 0.2 - 0.8 K/cumm [facility] Eosinophil abs 0.2 0.0 - 0.5 K/cumm [facility] Basophil abs 0.1 0.0 - 0.1 K/cumm [facility] Neutrophil pct 67.0 % [facility] Comment: Interpretive Data Percent cell count reference ranges are not reported, since discordance with absolute values may lead to misinterpretation of CBC data. Current Interpretive Data was last revised on 2017. Imm gran pct 0.2 % [facility] Comment: Interpretive Data Percent cell count reference ranges are not reported, since discordance with absolute values may lead to misinterpretation of CBC data. Current Interpretive Data was last revised on 2017. Lymphocyte pct 17.0 % [facility] Comment: Interpretive Data Percent cell count reference ranges are not reported, since discordance with absolute values may lead to misinterpretation of CBC data. Current Interpretive Data was last revised on 2017. Monocyte pct 10.4 % [facility] Comment: Interpretive Data Percent cell count reference ranges are not reported, since discordance with absolute values may lead to misinterpretation of CBC data. Current Interpretive Data was last revised on 2017. Eosinophil pct 4.1 % [facility] Comment: Interpretive Data Percent cell count reference ranges are not reported, since discordance with absolute values may lead to misinterpretation of CBC data. Current Interpretive Data was last revised on 2017. Basophil pct 1.3 % [facility] Comment: Interpretive Data Percent cell count reference ranges are not reported, since discordance with absolute values may lead to misinterpretation of CBC data. Current Interpretive Data was last revised on 2017. Blood 04/11/2024 8:44 AM ELECTRIC TRACK SWITCH MAINTAINER 04/11/2024 3:35 PM ELECTRIC TRACK SWITCH MAINTAINER us Marisel Pineda MD LAB BLOOD ORDERABLES Final Resul t [facility] [address] Department [place] [address] * (ABNORMAL) CBC with auto differential (04/11/2024 8:44 AM ELECTRIC TRACK SWITCH MAINTAINER) WBC 4.6 3.8 - 9.9 K/cumm Hgb 14.1 11.9 - 15.5 g/dL [facility] Hct 45.3 35.6 - 45.5 % [facility] Plt 218 150 - 400 K/cumm [facility] MPV 11.1 9.1 - 12.3 fL [facility] RBC 4.80 3.90 - 5.20 M/cumm [facility] MCV 94.4 81.3 - 96.4 fL [facility] MCH 29.4 27.1 - 33.3 pg [facility] MCHC 31.1(L) 32.3 - 35.7 g/dL [facility] RDW CV 13.2 11.1 - 14.9 % [facility] RDW SD 45.6 35.7 - 48.1 fL [facility] NRBC abs 0.00 0.00 - 0.01 K/cumm [facility] Blood 04/11/2024 8:44 AM ELECTRIC TRACK SWITCH MAINTAINER 04/11/2024 3:35 PM ELECTRIC TRACK SWITCH MAINTAINER us Marisel Pineda MD LAB BLOOD ORDERABLES Final Resul t Performing Organization Address [facility] de Phone Number [facility] [address] Department [place] [employer] [place] [address] * Creatinine (04/11/2024 8:44 AM ELECTRIC TRACK SWITCH MAINTAINER) Pathologist [facility] Creatinine 0.63 0.60 - 1.10 mg/dL Blood 04/11/2024 8:44 AM ELECTRIC TRACK SWITCH MAINTAINER 04/11/2024 3:35 PM ELECTRIC TRACK SWITCH MAINTAINER us Marisel Pineda MD LAB BLOOD ORDERABLES Final Resul t Performing Organization Address [facility] de Phone Number [facility] [address] Department [place] [address] * (ABNORMAL) Hepatic function panel (04/11/2024 8:44 AM ELECTRIC TRACK SWITCH MAINTAINER) Bilirubin, total 0.5 0.1 - 1.2 mg/dL Bilirubin, direct 0.2 0.1 - 0.3 mg/dL [facility] Protein, pl 6.5 6.5 - 8.5 g/dL [facility] Albumin 4.4 3.5 - 5.0 g/dL [facility] Alk phos 86 40 - 130 Units/L [facility] ALT 64(H) 7 - 45 Units/L [facility] AST 41 10 - 45 Units/L [facility] Blood 04/11/2024 8:44 AM ELECTRIC TRACK SWITCH MAINTAINER 04/11/2024 3:35 PM ELECTRIC TRACK SWITCH MAINTAINER us Marisel Pineda MD LAB BLOOD ORDERABLES Final Resul t Performing Organization Address City/[facility]/ZIP Co de Phone Number [facility] [address] Department [place] [address] * Hepatitis C antibody (03/08/2022 3:23 PM ELECTRIC TRACK SWITCH MAINTAINER) Hep C Ab Nonreactive Nonreactive [facility] Comment: Interpretive Data Nonreactive: Antibodies to HCV [...] revised on 2019. Blood 03/08/2022 3:23 PM ELECTRIC TRACK SWITCH MAINTAINER 03/08/2022 5:48 PM ELECTRIC TRACK SWITCH MAINTAINER us Marisel Pineda MD LAB MICROBIOLOGY - GENERAL ORDER NAIF Edited Result - Final Performing Organization Address City/[facility]/ZIP Co de Phone Number [facility] [address] Department [place] [address] from Last 3 Months or Most Recently Relevant to Health Maintenance Insurance [facility] CHOICE PLUS [facility] HMO/PPO Address: [facility] [address] [place] [address] MEDICARE [employer] [place] [employer] [place] [employer] Care Teams Zigzag Appliquer Relationship Specialty Start Date End Date Charmaine Black MD PCP - General 10/07/16
--- OUTSIDE RECORDS SUMMARY | 2024-05-07 13:33 | XMS_ITS ---
Author Organization [facility] arabella Address [address] [facility] [address] [place] [address] Care Team Providers Care Fender Mechanic Name Role Phone Maxwell Black MD Primary Care Provider Marisel Garcia Unavailable [phone] Marisel Layton MD Unavailable Unavailable Results Component Value Reference Range Notes Hep Func Panel Reviewed date:04/11/2024 10:08:08 PM Interpretation:Lab Result Generalized Performing Lab:[facility] , [address] [place] [address]. [place] [id number] Notes/Report: Total Bilirubin 0.5 0.1-1.2 mg/dL Bilirubin, Direct 0.2 0.1-0.3 mg/dL Plasma Total Protein 6.5 6.5-8.5 g/dL Albumin 4.4 3.5-5.0 g/dL Alkaline Phosphatase 86 40-130 Units/L ALT 64 7-45 Units/L AST 41 10-45 Units/L Creatinine Reviewed date:04/11/2024 10:08:51 PM Interpretation: Performing Lab:[facility] , [address] [place] [address]. [place] [address] Notes/Report: Creatinine 0.63 0.60-1.10 mg/dL CBC w auto diff Reviewed date:04/11/2024 05:38:51 PM Interpretation: Performing Lab:[facility] , [address] [place] [address]. [place] [address] Notes/Report: WBC 4.6 3.8-9.9 K/cumm Hgb 14.1 11.9-15.5 g/dL Hct 45.3 35.6-45.5 % Platelet Ct 218 150-400 K/cumm MPV 11.1 9.1-12.3 fL RBC 4.80 3.90-5.20 M/cumm MCV 94.4 81.3-96.4 fL MCH 29.4 27.1-33.3 pg MCHC 31.1 32.3-35.7 g/dL RDW CV 13.2 11.1-14.9 % RDW SD 45.6 35.7-48.1 fL NRBC Abs Auto 0.00 0.00-0.01 K/cumm REASON FOR VISIT Benlysta 480mg dose 4)120mg vials Du Medications Medication SIG (Take, Route, Frequency, Duration) Notes Start Date End Date Status Lastrup Carbonate 300 MG 1 tablet at bedtime Orally Once a day for 30 day(s) Active Cevimeline HCl 30 MG 1 capsule Orally Three times a day for 30 days As needed 09/14/2023 Active Acetaminophen-Codeine 300-15 MG 1 tablet as needed Orally every 6 hrs Not-Taking Magnesium Oxide 400 MG 1 tablet as needed Orally Once a day for 30 day(s) Active Midodrine HCl 2.5 MG 1 tablet Orally Twice a day for 30 day(s) Active PredniSONE (Curt) Act hang Amoxicillin 500 MG TAKE 1 CAPSULE BY MOUTH EVERY 8 HOURS Oral for 10 Days Active Pantoprazole Sodium 40 MG 1 tablet Orally Once a day for 30 day(s) Active Estradiol 1 MG 1 tablet Orally Once a day for 30 day(s) Active Lidocaine Viscous HCl 2 % Mouth/Throat for 25 Days Active Topiramate 100 MG take 1 tablet (100 mg) by oral route 2 times per day Oral 2 Active Cyanocobalamin 1000 MCG/ML inject 1 milliliter (1,000 mcg) by intramuscular route once a month Injection 3.00506679285992O- 02 Active LORazepam 2 MG prn Oral Activ e Clobetasol Propionate 0.05 % apply a thin layer to the affected area(s) by topical route 2 times per day External 2 Active Centrum Silver 50+Women 8 mg iron-400 mcg-300 mcg take 1 tablet by oral route once Oral 1 *Pick strength-form from [employer] for eRX* Active Wegovy - weekly subcutaneous *Pick strength-form from [employer] for eRX* Active Pilocarpine HCl 5 MG take 1 tablet (5 mg) by oral route 3 times per day Oral 3 Active Vitamin B Complex take 1 capsule by oral route once Oral 1 Active duloxetine - daily oral *Reorder from [facility] for eRx and Interaction Alerts* Active Pramipexole Dihydrochloride 0.5 MG take 1 tablet (0.5 mg) by oral route 2-3 hours before bedtime Oral 0 Active Calcium Carbonate 1500 (600 Ca) MG take 1 tablet by oral route once Oral 1 Active Omeprazole 20 MG take 1 capsule (20 mg) by oral route once daily before a meal Oral 1 Active traZODone HCl 100 MG take 1 tablet (100 mg) by oral route once daily at bedtime Oral 1 Active Crestor 5 MG take 1 tablet (5 mg) by oral route once daily Oral 1 Active metFORMIN HCl 500 MG take 1 tablet (500 mg) by oral route 2 times per day with morning and evening meals Oral 2 Active PROzac 20 MG take 1 capsule (20 mg) by oral route once daily Oral 1 Active Cholecalciferol 1.25 MG (82033 UT) take 1 tablet by oral route once Oral 1 Active Vital Signs Temperature 97.5 degrees Fahrenheit 04/12/19 25 Blood pressure systolic 116 mm Hg 04/12/19 25 Blood pressure diastolic 66 mm Hg 025 Heart Rate 78 /min 04/11/2024 Height 61 in 04/11/2024 Weight 105 lbs 04/11/2024 BMI 19.84 kg/m2 04/11/2024 Height-cm 154.94 cm 04/11/2024 Weight-kg 47.63 kg 04/11/2024 Encounters Encounter Location Date Provider Diagnosis [facility] [place] [address] [facility] [address] [place] [address] 04/11/2024 Marisel Layton Systemic lupus erythematosus M32.9 Assessments Encounter Date Diagnosis (ICD Code) Assessment Notes Treatment Notes Treatment Clinical Notes Section Notes 04/11/2024 Systemic lupus erythematosus (ICD-10 - M32.9) Plan Of Treatment No Information Progress Notes * Dafne SCHULZDOB: [birth year] (59 yo F)Acc No.[id number]:04/11/2024 Patient: Tavo Dafne DUNBAR Provider: Zaynab LAYTON MD :1965 A ge:59 Y S ex:Female Date:04/11/2024 Address:[facility] [address], [facility] Pcp:Maxwell Black MD Subjective: * Chief Complaints: * B enlysta 480mg dose 4)120mg vials Du * HPI: I nfusion: Infusion Record T ype of Infusion _ ____,Benlysta, W hat is the dosage . 480mg dose. 0mg waste., H ow is the dose calculated . order,?Authorized by _ ____,Dr. Layton, N umber of vials to reconstitute . 4)120mg vials, Infusion type _ ____,Benlysta, A mount . 480mg, M anufacturer _ ___ GSK, E xpiration date 120m06/2028, L ot number _ __ 120mD9R, S terile water (number of vials) . 1, S terile water lot number _ __ [id number], S terile water exp. date 03/2026, s terile water MFG _ _ [employer]. P re Infusion Assessment T B Screening Results PPD N /A, Q uantiferon TB Gold Results N /A, C hest Xray Results N /A,?Recent exposure to TB _ ____,N/A, A ny illness now _ ____,None. S kin Conditon Does the patient has any skin condition n o. P revious Infusion D ate of last infusion 1 02/18/2023, P revious infusion type _ ____,Benlysta, R eaction N o, W as patient pre treated _ ____,YES, R esponse to previous infusion _ ____. I V INSERTION C atheter brand _ ___ Ksb-E-Jjhzhi, C atherter Gauge _ ____,24 ga, N eedle Length _ ___,3/4 inch, I V site accessed _ ___ LAC, N umber of attempts to access vein/port 1 , P remedication _ ____ Tylenol 650mg PO only, T boogie given _ __ 843. PATIENT MONITORING T boogie infusion initated _ __ 0844, R ate of infusion _ __ 250cc/hour, I nfusion end time: _ ____ 0950. D ISPOSITION T boogie IV discontinued: _ __ 950, A mount of drug administered _ ___ 480mg, N ext Infusion Date Scheduled: 0 05/14/2024. * Medical History: * Surgical History: H ysterectomy; 6107-07-75Usue surgery; 6670-11-81Uczwfvi Bypass; 2022-03-05 * Hospitalization/Major Diagno stic Procedure: * Family History: M igrated Family History: Depression , Diabetes , Hypothyroidism . * Social History: M igrated Social History: M igrated Social History: :: CHILDREN GROWN :: note : 2 grown children , Exercise :: Minimal Amount of Exercise (Once weekly or less) :: note : 08/02/2022 - walks, Marital Status :: , Substance Use :: Alcohol-Does not give any significant history , Substance Use :: Tobacco :: Never. * Medications: T akingCholecalciferol 1.25 MG (74230 UT) Tablet take 1 tablet by oral [...] oral , Notes to Pharmacist: *Reorder from [employer] for eRx and Interaction Alerts*Vitamin B Complex Capsule take 1 capsule by oral route once Oral 1 Wegovy - weekly subcutaneous , Notes to Pharmacist: *Pick strength- form from [employer] for eRX*LORazepam 2 MG Tablet prn Oral Cyanocobalamin 1000 MCG/ML Solution inject 1 milliliter (1,000 mcg) by intramuscular route once a month Injection 3.47943730342629S-28 Topiramate 100 MG Tablet take 1 tablet (100 mg) by oral route 2 times per day Oral 2 Centrum Silver 50+Women 8 mg iron-400 mcg-300 mcg Tablet take 1 tablet by oral route once Oral 1 , Notes to Pharmacist: *Pick strength-form from [employer] for eRX*Clobetasol Propionate 0.05 % Gel apply [...] Release 1 tablet Orally Once a day Lastrup Carbonate 300 MG Tablet 1 tablet at bedtime Orally Once a day Midodrine HCl 2.5 MG Tablet 1 tablet Orally Twice a day Magnesium Oxide 400 MG Tablet 1 tablet as needed Orally Once a day Cevimeline HCl 30 MG Capsule 1 capsule Orally Three times a day As neededTaking Cholecalciferol 1.25 MG (86557 UT) Tablet take 1 tablet by oral [...] oral , Notes to Pharmacist: *Reorder from [employer] for eRx and Interaction Alerts*Taking Vitamin B Complex Capsule take 1 capsule by oral route once Oral 1 Taking Wegovy - weekly subcutaneous , Notes to Pharmacist: *Pick strength-form from [facility] for eRX*Taking LORazepam 2 MG Tablet prn Oral Taking Cyanocobalamin 1000 MCG/ML Solution inject 1 milliliter (1,000 mcg) by intramuscular route once a month Injection 3.41596559745563U-47 Taking Topiramate 100 MG Tablet take 1 tablet (100 mg) by oral route 2 times per day Oral 2 Taking Centrum Silver 50+Women 8 mg iron-400 mcg-300 mcg Tablet take 1 tablet by oral route once Oral 1 , Notes to Pharmacist: *Pick strength-form from [facility] for eRX*Taking Clobetasol Propionate 0.05 % Gel [...] 1 tablet Orally Once a day Taking Lastrup Carbonate 300 MG Tablet 1 tablet at bedtime Orally Once a day Taking Midodrine HCl 2.5 MG Tablet 1 tablet Orally Twice a day Taking Magnesium Oxide 400 MG Tablet 1 tablet as needed Orally Once a day Taking Cevimeline HCl 30 MG Capsule 1 capsule Orally Three times a day As mlkzonUlr-OludtvXrivymrtqtcjw-Dzyuktg 300-15 MG Tablet 1 tablet as needed Orally every 6 hrs Not-Taking Acetaminophen-Codeine 300-15 MG Tablet 1 tablet as needed Orally every 6 hrs Objective: * Vitals: B P:116/66mm Hg, HR:78/min, Temp:97.5F, Wt:105lbs, Wt-k.63 kg, Ht: 61 in, Ht- cm: 154.94 cm, BMI:19.84Index, Body Surface Area: 1.43. Assessment: * Assessment: 1. S ystemic lupus erythematosus - M32.9 (Primary) Plan: * Treatment: Value Reference Range W BC 4.6 3.8-9.9 - K/cumm * R BC 4.80 3.90-5.20 - M/cumm * H gb 14.1 11.9-15.5 - g/dL * H ct 45.3 35.6-45.5 - % * M CV 94.4 81.3-96.4 - fL * M CH 29.4 27.1-33.3 - pg * M CHC 31.1 L 32.3-35.7 - g/dL * P lt 218 150-400 - K/cumm * M PV 11.1 9.1-12.3 - fL * R DW CV 13.2 11.1-14.9 - % * R DW SD 45.6 35.7-48.1 - fL * N RBC Abs Auto 0.00 0.00-0.01 - K/cumm * This lab was reviewed by Leonor Layton on 04/11/2024 at 17:38 PM PHYSICS INSTRUCTOR ?LAB: Creatinine* Value Reference Range C reatinine 0.63 0.60-1.10 - mg/dL * This lab was reviewed by Leonor Layton on 04/11/2024 at 22:08 PM PHYSICS INSTRUCTOR ?LAB: Hep Func Panel * Procedure Codes: J 7050 INFUS NORMAL SALINE SOLUTION 250 [id number] INJECTION BELIMUMAB 10 MG, Units: 48.00 74779 THER/PROPH/DIAG IV INF, INIT * Billing Information: * Visit Code: * Procedure Codes: J7050 INFUS NORMAL SALINE SOLUTION 250 CC. J0490 INJECTION BELIMUMAB 10 MG. Units: 48.00. 49809 THER/PROPH/DIAG IV INF, INIT. * ICS INSTRUCTOR Electronically co-signed by Marisel Layton MD on 04/11/2024 at 04:37 PM PHYSICS INSTRUCTOR Sign off status: Completed true * Provider: Zaynab LAYTON MD Date: 04/11/2024 Generated for Kelley doherty/Ada/Vinodsmitting on: 05/07/2024 01:33 PM CDT History and Physical Notes * HPI (History of Present Illness) Category Sub-Category Detail Notes Category Not es Infusion Infusion Record Type of Infusion: ,Benlyst a What is the dosage: . 480mg dose. 0mg wa marzena. How is the dose calculated: . order Authorized by: Dr. Layton Number of vials to reconstitute: . 4)120 mg vials Infusion type: ,Benlysta Amount: . 480mg Die Designer Apprentice: ____ GSK Expiration date: 120m06/2028 Lot number: ___ [id number] Sterile water (number of vials): . 1 Sterile water lot number: ___ [id number] Sterile water exp. date: 03/2026 sterile water MFG: __ [employer] Pre Infusion [...] pre treated: ,YES Response to previous infusion: IV INSERTION Catheter brand: ____ Saf-T-Intim a Catherter Gauge: ,24 ga Needle Length: ____,3/4 inch IV site accessed: ____ LAC Number of attempts to access vein/port: 1 Premedication: Tylenol 650mg PO on ly Time given: ___ 0844 PATIENT MONITORING Time infusion initated: ___ 0 844 Rate of infusion: ___ 250cc/hour Infusion end time:: 0950 DISPOSITION Time IV discontinued:: ___ 0951 Amount of drug administered: ____ 480mg Next Infusion Date Scheduled:: 5
--- OUTSIDE RECORDS SUMMARY | 2024-05-07 13:34 | XMS_ITS ---
Author Organization [facility] ar[facility] Address [address] [facility] [address] [place] [address] Care Team Providers Care Differential Tester Name Role Phone Maxwell Black MD Primary Care Provider Marisel Garcia Unavailable [phone] Marisel Pineda MD Unavailable Unavailable REASON FOR VISIT denial Encounters Encounter Location Date Provider Diagnosis [facility] [address] [facility] [address] [place] [address] 05/07/2024 Marisel Pineda Plan Of Treatment No Information Progress Notes * Dafne SCHULZDOB: [birth year] (59 yo F)Acc No.[id number]:05/07/2024 Patient: Tavo Dafne DUNBAR :1965 A ge:59 Y S ex:Female Address:[address] [place] [address], [address] * * Date:
--- OUTSIDE RECORDS SUMMARY | 2024-05-07 13:34 | XMS_ITS ---
Author Organization [facility] ar[facility] Address [address] [facility] [address] [place] [address] Care Team Providers Care Waiver Analyst Name Role Phone Maxwell Black MD Primary Care Provider Marisel Garcia Unavailable [phone] Marisel Pineda MD Unavailable Unavailable REASON FOR VISIT infusion order Encounters Encounter Location Date Provider Diagnosis [facility] [address] [facility] [address] [place] [address] 03/29/2024 Marisel Pineda Plan Of Treatment No Information Progress Notes * Dafne SCHULZDOB: [birth year] (59 yo F)Acc No.[id number]:03/29/2024 Patient: Tavo ALANIZDafne BELTRE :1965 A ge:59 Y S ex:Female Address:[address] [place] [address], [address] * true * Date: Generated for Printi ng/Faxing/eTransmitting on: 0 05/07/2024 01:33 PM CDT
--- OUTSIDE RECORDS SUMMARY | 2024-05-07 13:34 | XMS_ITS | Patient Health Record ---
Author Organization [facility] arabella Address [address] [facility] [facility] [address] [place] [address] Care Team Providers Care Engineering Production Liaison Name Role Phone Maxwell Black MD Primary Care Provider Unava Marisel Edward Unavailable [phone] Marisel Pineda MD Unavailable Unavailable Allergies No Known Allergies Results Component Value Reference Range Notes CBC w auto diff Reviewed date:04/11/2024 05:38:51 PM Interpretation: Performing Lab:[facility] , [facility]5 [facility]. [facility] [address] Notes/Report: WBC 4.6 3.8-9.9 K/cumm Hgb 14.1 11.9-15.5 g/dL Hct 45.3 35.6-45.5 % Platelet Ct 218 150-400 K/cumm MPV 11.1 9.1-12.3 fL RBC 4.80 3.90-5.20 M/cumm MCV 94.4 81.3-96.4 fL MCH 29.4 27.1-33.3 pg MCHC 31.1 32.3-35.7 g/dL RDW CV 13.2 11.1-14.9 % RDW SD 45.6 35.7-48.1 fL NRBC Abs Auto 0.00 0.00-0.01 K/cumm Creatinine Reviewed date:04/11/2024 10:08:51 PM Interpretation: Performing Lab:[facility] , [address] [facility]. [facility] [address] Notes/Report: Creatinine 0.63 0.60-1.10 mg/dL Hep Func Panel Reviewed date:04/11/2024 10:08:08 PM Interpretation:Lab Result Generalized Performing Lab:[facility] , [address] [place] [address]. [facility] [address] Notes/Report: Total Bilirubin 0.5 0.1-1.2 mg/dL Bilirubin, Direct 0.2 0.1-0.3 mg/dL Plasma Total Protein 6.5 6.5-8.5 g/dL Albumin 4.4 3.5-5.0 g/dL Alkaline Phosphatase 86 40-130 Units/L ALT 64 7-45 Units/L AST 41 10-45 Units/L eGFR Reviewed date:04/11/2024 10:08:08 PM Interpretation:Lab Result Generalized Performing Lab:[facility] , [address] [place] [address]. [facility] [address] Notes/Report: eGFR >90 >=60 mL/min/1.73 m2 Interpretive [...] Current interpretive data was last reviewed 2020. Differential Automated Reviewed date:04/11/2024 05:38:51 PM Interpretation: Performing Lab:[facility] , [address] [place] [address]. [place] [address] Notes/Report: Neut Abs 3.1 1.5-6.5 K/cumm ImmGran Abs 0.0 0.0-0.1 K/cumm Lymphocyte Abs 0.8 0.8-3.3 K/cumm [place] Abs 0.5 0.2-0.8 K/cumm Eos Abs 0.2 0.0-0.5 K/cumm Baso Abs 0.1 0.0-0.1 K/cumm Neut Pct 67.0 Interpretive Data Percent cell count reference ranges are not reported, since discordance with absolute values may lead to misinterpretation of CBC data. Current Interpretive Data was last revised on 2017. ImmGran Pct 0.2 Interpretive Data Percent cell count reference ranges are not reported, since discordance with absolute values may lead to misinterpretation of CBC data. Current Interpretive Data was last revised on 2017. Lymph Pct 17.0 Interpretive Data Percent cell count reference ranges are not reported, since discordance with absolute values may lead to misinterpretation of CBC data. Current Interpretive Data was last revised on 2017. [place] Pct 10.4 Interpretive Data Percent cell count reference ranges are not reported, since discordance with absolute values may lead to misinterpretation of CBC data. Current Interpretive Data was last revised on 2017. Eos Pct 4.1 Interpretive Data Percent cell count reference ranges are not reported, since discordance with absolute values may lead to misinterpretation of CBC data. Current Interpretive Data was last revised on 2017. Baso Pct 1.3 Interpretive Data Percent cell count reference ranges are not reported, since discordance with absolute values may lead to misinterpretation of CBC data. Current Interpretive Data was last revised on 2017. eGFR Reviewed date:09/14/2023 12:40:26 PM Interpretation: Performing Lab:[facility] , [address] [place] [address]. [facility] [address] Notes/Report: eGFR >90 >=60 mL/min/1.73 m2 Interpretive [...] Inclusion of Race in Diagnosing Kidney Disease, SN 2020). The CKD-EPI equation should not be used for patients with unstable renal function and has not been validated in children and those over 70. Current interpretive data was last reviewed 2020. UA Micro (All Sites) Reviewed date:09/14/2023 12:40:26 PM Interpretation: Performing Lab:[facility] , [facility]. [place] [address] Notes/Report: WBC, Ur 6-10 0-5 /HPF RBC, Ur 0-2 0-2 /HPF Epithl Squam, Ur 1-5 0-5 /HPF Urinalysis reflex microscopi c exam Reviewed date:09/14/2023 12:40:26 PM Interpretation: Performing Lab:[facility] , [address] [place] [address]. [place] [address] Notes/Report: Color, Ur Yellow Yellow Clarity, Ur [...] tendency for uric acid stone formation. Source: [place] Current Interpretive Data was last revised on [...] Ab Reviewed date:09/15/2023 11:07:56 AM Interpretation: Performing Lab:[facility] , [address] [place] [address]. [facility] [address] Notes/Report: SS B Antibody <0.2 <=0.9 Ab Index Interpretive Data Negative: < 1.0 Ab Index Positive: > or = 1.0 Ab Index Current interpretive data was last revised on 2016. SSA Ab Reviewed date:09/15/2023 11:07:56 AM Interpretation: Performing Lab:[facility] , [facility]5 [facility]. [facility] [address] Notes/Report: SS A Antibody <0.2 <=0.9 Ab Index Interpretive Data Negative: < 1.0 Ab Index Positive: > or = 1.0 Ab Index Current interpretive data was last revised on 2016. Palacios Ab. Reviewed date:09/15/2023 11:07:56 AM Interpretation: Performing Lab:[facility] , [address] [place] [address]. [facility] [address] Notes/Report: Palacios Antibody <0.2 <=0.9 Ab Index Interpretive Data Negative: < 1.0 Ab Index Positive: > or = 1.0 Ab Index Current interpretive data was last revised on 2016. Sed Rate Reviewed date:09/14/2023 12:40:26 PM Interpretation: Performing Lab:[facility] , [address] [place] [address]. [facility] [address] Notes/Report: ESR 7 1-30 mm/hr SCL 70 Antibodies Reviewed date:09/15/2023 11:07:56 AM Interpretation: Performing Lab:[facility] , [address] [place] [address]. [facility] [address] Notes/Report: Scl 70 Ab, IgG <0.2 <=0.9 Ab Index Interpretive Data Negative: < 1.0 Ab Index Positive: > or = 1.0 Ab Index Current interpretive data was last revised on 2016. Ribonuclear Protein (COMPUTER SECURITY SPECIALIST) Ab Reviewed date:09/15/2023 11:07:56 AM Interpretation: Performing Lab:[facility] , [facility]. [facility] [address] Notes/Report: COMPUTER SECURITY SPECIALIST Antibody 0.3 <=0.9 Ab Index Interpretive Data Negative: < 1.0 Ab Index Positive: > or = 1.0 Ab Index Current interpretive data was last revised on 2016. Rheumatoid Factor Reviewed date:09/14/2023 12:40:26 PM Interpretation: Performing Lab:[facility] , [facility]. [facility] [address] Notes/Report: RF, Jack 10 <=15 IUnits/mL LIGIA Screen Reviewed date:09/15/2023 05:36:48 PM Interpretation: Performing Lab:[facility] , [address] [place] [address]. [facility] [address] Notes/Report: LIGIA Screen Negative Negative Interpretive Data Positive Screens will be reflexed to specific testing for Antibodies against the following antigens: Sandy-1 Ab, COMPUTER SECURITY SPECIALIST Ab, Scl-70 Ab, Palacios Ab, SS-A/Ro Ab, and SS-B/La Ab. Further testing for dsDNA, Centromere, or Ribosomal P antibodies is suggested in patient with a positive screen and negative specific antibodies. Current interpretive data was last revised on 2022. DS DNA Reviewed date:09/15/2023 11:07:56 AM Interpretation: Performing Lab:[facility] , [address] [place] [address]. [facility] [address] Notes/Report: Double Stranded DNA, Jack <1.0 <=4.0 IUnits/mL Interpretive Data Negative: < or = 4 IUnits/mL Indeterminate: 5 - 9 IUnits/mL Positive: > or = 10 IUnits/mL Current interpretive data was last revised on 2016. Differential Automated Reviewed date:09/14/2023 12:21:08 PM Interpretation: Performing Lab:[facility] , [address] [place] [address]. [facility] [address] Notes/Report: Neut Abs 7.3 1.5-6.5 K/cumm ImmGran Abs 0.0 0.0-0.1 K/cumm Lymphocyte Abs 0.9 0.8-3.3 K/cumm [place] Abs 0.3 0.2-0.8 K/cumm Eos Abs 0.0 [...] Interpretive Data was last revised on 2017. [place] Pct 3.5 Interpretive Data Percent cell count [...] Kinase Reviewed date:09/14/2023 12:40:26 PM Interpretation: Performing Lab:[facility] , [address] [place] [address]. [place] [address] Notes/Report: Total CK 50 30-200 Units/L Comprehensive metabolic pane l (CMP) Reviewed date:09/14/2023 12:40:26 PM Interpretation: Performing Lab:[facility] , [address] [place] [address]. [place] [address] Notes/Report: Sodium 141 135-145 mmol/L Plasma Potassium [...] C4 Reviewed date:09/14/2023 12:40:26 PM Interpretation: Performing Lab:[facility] , [address] [place] [address]. [facility] [address] Notes/Report: Complement, C4 32 10-40 mg/dL Complement C3 Reviewed date:09/14/2023 12:40:26 PM Interpretation: Performing Lab:[facility] , [address] [place] [address]. [facility] [address] Notes/Report: Complement, C3 135 90-180 mg/dL CBC w auto diff Reviewed date:09/14/2023 12:21:08 PM Interpretation: Performing Lab:[facility] , [address] [place] [address]. [facility] [address] Notes/Report: WBC 8.5 3.8-9.9 K/cumm Hgb 14.9 11.9-15.5 g/dL Hct 45.9 35.6-45.5 % Platelet Ct 242 150-400 K/cumm MPV 11.3 9.1-12.3 fL RBC 5.11 3.90-5.20 M/cumm MCV 89.8 81.3-96.4 fL MCH 29.2 27.1-33.3 pg MCHC 32.5 32.3-35.7 g/dL RDW CV 12.3 11.1-14.9 % RDW SD 40.7 35.7-48.1 fL NRBC Abs Auto 0.00 0.00-0.01 K/cumm C Reactive Protein Reviewed date:09/14/2023 12:40:26 PM Interpretation: Performing Lab:[facility] , [address] [place] [address]. [facility] [address] Notes/Report: C-Reactive Protein <3.0 <=10.0 mg/L Anti-CCP (Cyclic Citrullinat ed Peptide Ab) Reviewed date:09/15/2023 11:07:56 AM Interpretation: Performing Lab:[facility] , [address] [facility] [place] [address] Notes/Report: CCP Ab <0.5 <=2.9 units/mL Interpretive data Negative: <3 units/mL Positive: > or equal to 3 units/mL Current interpretive data was last revised on 2016. CAROLYN reflex titer pattern LIGIA + dsDNA Reviewed date:09/15/2023 12:41:33 PM Interpretation: Performing Lab:[facility] , [address] [facility]. [facility] [address] Notes/Report: CAROLYN, Qual Positive 1:640 Interpretive Data [...] [facility], [address] [place]., [address] CAROLYN, Jack 1:640 Testing performed by: [facility], [address] [place]., [address] CAROLYN Pattern 1 Homogeneous Testing performed by: [facility], [address] [place] [address]., [address] Reason For Referral Reason Benlysta Medicare/Mu [place]ual of [place] No [place] Req'd Diagnosis 1 Lupus (M32.9) Referral Organization [facility] alonzo Referring Provider First Name Marisel Referring Provider Last Name Edwin Referring Provider Speciality Rheumatolo gy Referred Organization [facility] alonzo Referred Provider Marisel Pineda Referred Address [address],[place], [place],[address], Referred Provider Specialty Rheumatology Procedure 1 INJECTION BELIMUMAB 10 MG (J0490) Referral Priority Routine Reason Benlysta Medicare/Mu tual of [place] No [place] Req'd Diagnosis 1 Lupus (M32.9) Referral Organization [facility] alonzo Referring Provider First Name Marisel Referring Provider Last Name Edwin Referring Provider Speciality Rheumatolo gy Referred Organization [facility] alonzo Referred Provider Marisel Pineda Referred Address [address] [address],[place], [place],[address],[place] Referred Provider Specialty Rheumatology Procedure 1 INJECTION BELIMUMAB 10 MG (J0490) Referral Priority Routine Medications Medication SIG (Take, Route, Frequency, Duration) Notes Start Date End Date Status Calcium Carbonate 1500 (600 Ca) MG take [...] 3 times per day Oral 3 Active traZODone HCl 100 MG take 1 tablet (100 mg) by oral route once daily at bedtime Oral 1 Active Crestor 5 MG take 1 tablet (5 mg) by oral route once daily Oral 1 Active metFORMIN HCl 500 MG take 1 tablet (500 mg) by oral route 2 times per day with morning and evening meals Oral 2 Active Genola Carbonate 300 MG 1 tablet at bedtime Orally Once a day for 30 day(s) Active Vitamin B Complex take 1 capsule by oral route once Oral 1 Active Pantoprazole Sodium 40 MG 1 tablet Orally Once a day for 30 day(s) Active duloxetine - daily oral *Reorder from Notegraphy for eRx and Interaction Alerts* Active Pramipexole Dihydrochloride 0.5 MG take 1 tablet (0.5 mg) by oral route 2-3 hours before bedtime Oral 0 Active Cevimeline HCl 30 MG 1 capsule Orally Three times a day for 30 days As needed 09/14/2023 Active Acetaminophen-Codeine 300-15 MG 1 tablet as needed Orally every 6 hrs Not-Taking Magnesium Oxide 400 MG 1 tablet as needed Orally Once a day for 30 day(s) Active Midodrine HCl 2.5 MG 1 tablet Orally Twice a day for 30 day(s) Active Topiramate 100 MG take 1 tablet (100 mg) by oral route 2 times per day Oral 2 Active Cyanocobalamin 1000 MCG/ML inject 1 milliliter (1,000 mcg) by intramuscular route once a month Injection [id number]- 02 Active LORazepam 2 MG prn Oral Activ e Wegovy - weekly subcutaneous *Pick strength-form from Notegraphy for eRX* Active PredniSONE (Curt) Act hang Amoxicillin 500 MG TAKE 1 CAPSULE BY MOUTH EVERY 8 HOURS Oral for 10 Days Active Clobetasol Propionate 0.05 % apply a thin layer to the affected area(s) by topical route 2 times per day External 2 Active Centrum Silver 50+Women 8 mg iron-400 mcg-300 mcg take 1 tablet by oral route once Oral 1 *Pick strength-form from Notegraphy for eRX* Active Cholecalciferol 1.25 MG (55480 UT) take 1 tablet by oral route once Oral 1 Active Estradiol 1 MG 1 tablet Orally Once a day for 30 day(s) Active Lidocaine Viscous HCl 2 % Mouth/Throat for 25 Days Active Problems Problem Type SNOMED Code ICD Code Onset Dates Problem Status W/U Status Risk Notes Problem Systemic lupus erythematosus (61573135) Systemic lupus erythematosus, unspecified (M32.9) Active confirmed Problem 223809485 Fibromyalgia (M79.7) Active confirmed Problem 95437121 Systemic lupus erythematosus, unspecified SLE type, unspecified organ involvement status (M32.9) Active confirmed Problem Lupus (395370168) Lupus (M32.9) Active confirme d Vital Signs Heart Rate 78 /min 04/11/2024 Temperature 97.5 degrees Fahrenheit 04/11/2024 Height-cm 154.94 cm 04/11/2024 Blood pressure diastolic 66 mm Hg 04/11/2024 Oximetry 99 % 09/14/2023 Weight-kg 47.63 kg 04/11/2024 Height 61 in 04/11/2024 Blood pressure systolic 116 mm Hg 04/11/2024 Weight 105 lbs 04/11/2024 BMI 19.84 kg/m2 04/11/2024 Encounters Encounter Location Date Provider Diagnosis [facility] [address] [facility] [address] [place] [address] 09/14/2023 Marisel Pineda 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 ; Fibromyalgia M79.7 ; Dry eyes H04.123 and High risk medication use Z79.899 [facility] [address] [place] [address] 10/04/2023 Marisel Edwin 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 ; Lupus M32.9 ; Fibromyalgia M79.7 ; Dry eyes H04.123 and High risk medication use Z79.899 [facility] [address] [place] [address] 10/18/2023 Marisel Pineda Systemic lupus erythematosus, unspecified SLE type, unspecified organ involvement status M32.9 [facility] [address] [place] [address] 11/01/2023 Marisel Pineda Lupus M32.9 [facility] [address] [place] [address] 11/01/2023 Marisel Edwin 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 ; Lupus M32.9 ; Fibromyalgia M79.7 ; Dry eyes H04.123 and High risk medication use Z79.899 [facility] [address] [place] [address] 11/15/2023 Marisel Edwin Systemic lupus erythematosus, unspecified M32.9 [facility] [address] [place] [address] 12/13/2023 Marisel Edwin [facility] [address] [place] [address] 12/20/2023 Marisel Pineda Systemic lupus erythematosus, unspecified SLE type, unspecified organ involvement status M32.9 [facility] [address] [place] [address] 04/11/2024 Marisel Edwin Systemic lupus erythematosus M32.9 [facility] [address] [place] [address] 05/07/2024 Marisel Edwin [facility] [address], [place] [address] 12/22/2023 Marisel [facility] [address], [place] [address] 03/29/2024 Marisel Edwin Assessments Encounter Date Diagnosis (ICD Code) Assessment [...] unspecified organ involvement status (ICD-10 - M32.9) 04/11/2024 Systemic lupus erythematosus (ICD-10 - M32.9) 11/01/2023 Lupus (ICD-10 - [...] 024 SSA/SSB ANTIBODY (SJOGREN'S) 09/14/2023 PALACIOS / COMPUTER SECURITY SPECIALIST ANTIBODY 09/14/2023 DNA (DS) ANTIBODY 09/14/2023 CAROLYN SCREEN/REFLEX TITER/PATTERN 09/14/19 24 Insurance Providers Payer Name Payer Address Payer Phone Subscriber Number Group Number Insured Name Patient Relationship to Insured Coverage Start Date Coverage End Date Medicare [address] [address] [place] [address] [id number] Dafne Schulz Self - patient is the insured [address] [address] [id number] Dafne Schulz Self - patient is the [...]
--- OUTSIDE RECORDS SUMMARY | 2024-05-07 13:34 | XMS_ITS | Clinical Summary ---
Author Organization [facility] Address [address] [place] [address] Care Team Providers Care Photo Checker Name Role Phone Maxwell Black MD Primary Care Provider [phone] Source Comments [employer] [facility],non-owned Affiliates and Associated Physician Practices is amultiple site organization consisting of ambulatory clinics and hospital sitesin [place], [place], [place] and [place]. This disclosure is being madepursuant to the Care Everywhere program and may not contain all information available regarding this patient. Last updated 17.[employer] Allergies No known active allergies Medications * [...] (Atrovent) 0.06 % nasal sprayIndications:V asomotor rhinitis Berkley 2 (two) sprays into each nostril 3 [...] complete this topic MENINGOCOCCAL (Group B) VACCINE SHARED DECISION-MAKING Aged Out No longer eligible based on patient's age to complete this topic MENINGOCOCCAL GROUPS A/C/Y/W VACCINE Aged Out No longer eligible based on patient's age to complete this topic PNEUMOCOCCAL VACCINE Aged Out No long er eligible based on patient's age to complete this topic Care Teams Photo Checker Relationship Specialty Start Date End Date Maxwell Black MD [address] [place] [id number] PCP - General 12/03/13
== END 2024-05-07 12:27 | disposition home or self-care (01) ==
LOC: ANHLAB 12:30
PROVIDERS: PCP Family Medicine; Visit Provider Surgery Plastic and Reconstructive Surgery
DX: E11.9 Type 2 diabetes mellitus without complications (principal)
CPT/HCPCS: 36415; 83036

== ENCOUNTER 2024-05-22 08:41 | Outpatient (CLI) | payer OTHER, SELFPAY ==
--- OUTSIDE RECORDS SUMMARY | 2024-05-22 08:58 | XMS_ITS | Referral Summary ---
Author Organization [facility] Address [address] [place] [address] Care Team Providers Care Spray Technician Name Role Phone Charmaine Black MD Primary Care Provider + Encounters Date Type Department Care Team Description 04/11/2024 2:06 PM SERVICE CENTER MANAGER - 04/11/2024 11:59 PM [facility] [address] [place] [address] Discharge Disposition: Discharge to home or self care from Last 3 Months Allergies No known active allergies Medications calcium carbonate (OS-TAMARA) 650 mg (260 mg elemental) tablet,chewable 260 mg Acti ve ziatjekt-vdc-st lic acid-vit K 400-80 mcg capsule Take [...] I suspect her noninvasives from [facility] were inaccurate. Based on her history a [...] on file Legal Sex Female 2:19 AM SERVICE CENTER MANAGER Gender Identity Female 06/06/2018 12:13 PM CDT [...] Diagnosis Comments EGFR Routine 04/11/2024 8:44 AM SERVICE CENTER MANAGER DIFFERENTIAL AUTO Routine 04/11/2024 8:4 4 AM SERVICE CENTER MANAGER CREATININE Routine 04/11/2024 8:44 AM SERVICE CENTER MANAGER CBC WITH AUTO DIFFERENTIAL Routine 04/11/2024 8:44 AM SERVICE CENTER MANAGER HEPATIC FUNCTION PANEL Routine 04/11/2024 8:44 AM SERVICE CENTER MANAGER HEPATITIS C ANTIBODY Routine 03/08/2022 3:23 PM SERVICE CENTER MANAGER from Last 3 Months or Most Recently Relevant to Health Maintenance Results * eGFR (04/11/2024 8:44 AM SERVICE CENTER MANAGER) eGFR >90 >=60 mL/min/1. 73 m2 Comment: [...] last reviewed 2020. Blood 04/11/2024 8:44 AM SERVICE CENTER MANAGER 04/11/2024 8:31 PM SERVICE CENTER MANAGER us Marisel Pineda MD LAB BLOOD ORDERABLES Final Resul t [facility] [address] Department [place] [address] * Differential, auto (04/11/2024 8:44 AM SERVICE CENTER MANAGER) Neutrophil abs 3.1 1.5 - 6.5 K/cumm Imm gran abs 0.0 0.0 - 0.1 K/cumm [facility] Lymphocyte abs 0.8 0.8 - 3.3 K/cumm [facility] Monocyte abs 0.5 0.2 - 0.8 K/cumm [facility] Eosinophil abs 0.2 0.0 - 0.5 K/cumm [facility] Basophil abs 0.1 0.0 - 0.1 K/cumm [facility] Neutrophil pct 67.0 % [facility] Comment: Interpretive Data Percent cell count reference ranges are not reported, since discordance with absolute values may lead to misinterpretation of CBC data. Current Interpretive Data was last revised on 2017. Imm gran pct 0.2 % [facility] Comment: Interpretive Data Percent cell count reference ranges are not reported, since discordance with absolute values may lead to misinterpretation of CBC data. Current Interpretive Data was last revised on 2017. Lymphocyte pct 17.0 % [facility] Comment: Interpretive Data Percent cell count reference ranges are not reported, since discordance with absolute values may lead to misinterpretation of CBC data. Current Interpretive Data was last revised on 2017. Monocyte pct 10.4 % [facility] Comment: Interpretive Data Percent cell count reference ranges are not reported, since discordance with absolute values may lead to misinterpretation of CBC data. Current Interpretive Data was last revised on 2017. Eosinophil pct 4.1 % [facility] Comment: Interpretive Data Percent cell count reference ranges are not reported, since discordance with absolute values may lead to misinterpretation of CBC data. Current Interpretive Data was last revised on 2017. Basophil pct 1.3 % [facility] Comment: Interpretive Data Percent cell count reference ranges are not reported, since discordance with absolute values may lead to misinterpretation of CBC data. Current Interpretive Data was last revised on 2017. Blood 04/11/2024 8:44 AM SERVICE CENTER MANAGER 04/11/2024 3:35 PM SERVICE CENTER MANAGER us Marisel Pineda MD LAB BLOOD ORDERABLES Final Resul t Performing Organization Address City/[facility]/ZIP Co de Phone Number [facility] [address] Department [place] [address] * (ABNORMAL) CBC with auto differential (04/11/2024 8:44 AM SERVICE CENTER MANAGER) WBC 4.6 3.8 - 9.9 K/cumm Hgb 14.1 11.9 - 15.5 g/dL [facility] Hct 45.3 35.6 - 45.5 % [facility] Plt 218 150 - 400 K/cumm [facility] MPV 11.1 9.1 - 12.3 fL [facility] RBC 4.80 3.90 - 5.20 M/cumm [facility] MCV 94.4 81.3 - 96.4 fL [facility] MCH 29.4 27.1 - 33.3 pg [facility] MCHC 31.1(L) 32.3 - 35.7 g/dL [facility] RDW CV 13.2 11.1 - 14.9 % [facility] RDW SD 45.6 35.7 - 48.1 fL [facility] NRBC abs 0.00 0.00 - 0.01 K/cumm [facility] Blood 04/11/2024 8:44 AM SERVICE CENTER MANAGER 04/11/2024 3:35 PM SERVICE CENTER MANAGER us Marisel Pineda MD LAB BLOOD ORDERABLES Final Resul t [facility] [address] [place] [address] * Creatinine (04/11/2024 8:44 AM SERVICE CENTER MANAGER) [facility] Creatinine 0.63 0.60 - 1.10 mg/dL Blood 04/11/2024 8:44 AM SERVICE CENTER MANAGER 04/11/2024 3:35 PM SERVICE CENTER MANAGER us Marisel Pineda MD LAB BLOOD ORDERABLES Final Resul t Performing Organization Address [facility] Co de Phone Number [facility] [address] [facility] [place] [address] * (ABNORMAL) Hepatic function panel (04/11/2024 8:44 AM SERVICE CENTER MANAGER) [facility] Bilirubin, total 0.5 0.1 - 1.2 mg/dL Bilirubin, direct 0.2 0.1 - 0.3 mg/dL [facility] Protein, pl 6.5 6.5 - 8.5 g/dL [facility] Albumin 4.4 3.5 - 5.0 g/dL [facility] Alk phos 86 40 - 130 Units/L [facility] ALT 64(H) 7 - 45 Units/L [facility] AST 41 10 - 45 Units/L [facility] Blood 04/11/2024 8:44 AM SERVICE CENTER MANAGER 04/11/2024 3:35 PM SERVICE CENTER MANAGER us Marisel Pineda MD LAB BLOOD ORDERABLES Final Resul t Performing Organization Address [facility] Co de Phone Number [facility] [address] [place] [address] * Hepatitis C antibody (03/08/2022 3:23 PM SERVICE CENTER MANAGER) [facility] Hep C Ab Nonreactive Nonreactive [facility] Comment: Interpretive Data Nonreactive: Antibodies to [...] revised on 2019. Blood 03/08/2022 3:23 PM SERVICE CENTER MANAGER 03/08/2022 5:48 PM SERVICE CENTER MANAGER Marisel Pineda MD LAB MICROBIOLOGY - GENERAL ORDER NAIF Edited Result - Final [facility] [address] Department [place] [address] from Last 3 Months or Most Recently Relevant to Health Maintenance Insurance [facility] CHOICE PLUS MEDICARE [facility] MEDICARE Care Teams Spray Technician Relationship Specialty Start Date End Date Charmaine Black MD [facility] - General 10/07/16
--- OUTSIDE RECORDS SUMMARY | 2024-05-22 08:58 | XMS_ITS | Clinical Summary ---
Author Organization [email or web address] Address [address] [place] [address] Care Team Providers Care Billiard Table Assembler Name Role Phone Maxwell Black MD Primary Care Provider [phone] Source Comments [email or web address],non-owned Affiliates and Associated Physician Practices is amultiple site organization consisting of ambulatory clinics and hospital sitesin [place], [place], [place] and [place]. This disclosure is being madepursuant to the Care Everywhere program and may not contain all information available regarding this patient. Last updated 17.autoGraph Allergies No known active allergies Medications * Be aware that medications may not be up to date on this document. Alwaysverify current medications with the patient. cyanocobalamin (Vitamin B-12) injection Inject into muscle [...] 1 (one) capsule by mouth once daily 2 Active hydroxychloroq uine (Plaquenil) 200 MG tablet Take 1 (one) tablet by mouth as directed 3 Active lithium CR (Lithobid) 300 MG tablet Take 1 (one) tablet by mouth once daily 3 Active LORazepam (Ativan) 1 MG tablet Take 1 (one) tablet by mouth as directed 3 Active metFORMIN ER 24hr (Glucophage XR) 500 MG tablet Take 1 (one) tablet by mouth as directed 3 Active traZODone (Desyrel) 100 MG tablet 3 Active semaglutide (Wegovy) 2.4 MG/0.75ML pen Inject [...] by mouth once daily Active vitamin D3 (Cholecalcifer ol) 25 MCG (1000 UNITS) tablet Take 1 (one) tablet by mouth once daily 5000 Active Multiple Vitamins-[place] als (Centrum Silver 50+Women) TABS Activ e ipratropium (Atrovent) 0.06 % nasal sprayIndicatio ns:Vasomotor rhinitis [place] 2 (two) sprays into each nostril 3 times daily 15 mL 3 Active Active Problems Problem Noted Date Diagnosed Date Sjogren syndrome, unspecified 07/08/2022 Hypercholesteremia 07/07/2022 Migraines 07/07/2022 Prediabetes 07/07/2022 Anxiety 07/07/2022 Depression 07/07/2022 Systemic lupus erythematosus 07/07/2022 GERD (gastroesophageal reflux disease) 3 Hypertension 07/07/2022 Resolved Problems Problem Noted Date Diagnosed Date Resolved Date Sjogren's syndrome without e xtraglandular involvement 07/07/2022 07/07/2022 Immunizations Immunization Administration Dates Next Due INFLUENZA VACCINE, QUADR. [...] more drinks on one occasion? Never 09/25/2021 Comments Unknown Sex and Gender Information Value Date Recorded Sex Assigned at Not on file Legal Sex Female 6:19 PM MEDICAL ART THERAPIST Gender Identity Not on file Sexual Orientation [...] SCREENING FOR DIABETES 07/07/2022 COVID-19 VACCINE ( season) 2023 04/07/2022, 05/13/2020, 04/22/2020 DEPRESSION SCREENING 02/08/2024 INFLUENZA VACCINE (Season Ended) 2024 11/26/2019, 11/24/2018, 11/27/2015, Additional history exists HIB VACCINE Aged Out No longer eligi [...] on patient's age to complete this topic Insurance MEDICARE [facility] MEDICARE [facility] Care Teams Billiard Table Assembler Relationship Specialty Start Date End Date Maxwell Black MD [facility] [place] [id number] PCP - General 12/03/13
--- OUTSIDE RECORDS SUMMARY | 2024-05-22 08:58 | XMS_ITS | Clinical Summary ---
Author Organization [facility] Address [address] [place] [address] Care Team Providers Care Counselor Aide Name Role Phone Charmaine Black MD Primary Care Provider + Allergies No known active allergies Medications calcium carbonate (OS-TAMARA) 650 mg (260 mg elemental) tablet,chewable 260 mg Acti ve oykpwfqd-mow-he lic acid-vit K 400-80 mcg capsule Take [...] palpable pulses. I suspect her noninvasives from [facility] were inaccurate. Based on her history a lot of her discomfort sounds more musculoskeletal in nature or from lumbosacral spine disease. Can follow up with me as needed. Encounters Date Type Department Care Team Description 04/11/2024 2:06 PM BARREL LOADER AND CLEANER - 04/11/2024 11:59 PM BARREL LOADER AND CLEANER Hospital Encounter [address] [address] Discharge Disposition: Discharge to home [...] on file Legal Sex Female 2:19 AM BARREL LOADER AND CLEANER Gender Identity Female 06/06/2018 12:13 PM CDT [...] season) 2023 04/07/2022, 05/13/2020, 04/22/2020 Influenza Vaccine (Season Ended) 2024 11/26/2019, 11/24/2018, 11/27/2015, Additional history exists Hepatitis C Screening Completed 03/08/2022 Procedures Procedure Name Priority Date/Time Associated Diagnosis Comments EGFR Routine 04/11/2024 8:44 AM BARREL LOADER AND CLEANER DIFFERENTIAL AUTO Routine 04/11/2024 8:4 4 AM BARREL LOADER AND CLEANER CREATININE Routine 04/11/2024 8:44 AM BARREL LOADER AND CLEANER CBC WITH AUTO DIFFERENTIAL Routine 04/11/2024 8:44 AM BARREL LOADER AND CLEANER HEPATIC FUNCTION PANEL Routine 04/11/2024 8:44 AM BARREL LOADER AND CLEANER HEPATITIS C ANTIBODY Routine 03/08/2022 3:23 PM BARREL LOADER AND CLEANER from Last 3 Months or Most Recently Relevant to Health Maintenance Results * eGFR (04/11/2024 8:44 AM BARREL LOADER AND CLEANER) eGFR >90 >=60 mL/min/1. 73 m2 Comment: [...] last reviewed 2020. Blood 04/11/2024 8:44 AM BARREL LOADER AND CLEANER 04/11/2024 8:31 PM BARREL LOADER AND CLEANER us Marisel Pineda MD LAB BLOOD ORDERABLES Final Resul t [facility] [address] Department [place] [address] * Differential, auto (04/11/2024 8:44 AM BARREL LOADER AND CLEANER) Pathologist [facility] Neutrophil abs 3.1 1.5 - 6.5 K/cumm Imm gran abs 0.0 0.0 - 0.1 K/cumm [facility] Lymphocyte abs 0.8 0.8 - 3.3 K/cumm [facility] Monocyte abs 0.5 0.2 - 0.8 K/cumm [facility] Eosinophil abs 0.2 0.0 - 0.5 K/cumm [facility] Basophil abs 0.1 0.0 - 0.1 K/cumm [facility] Neutrophil pct 67.0 % [facility] Comment: Interpretive Data Percent cell count reference ranges are not reported, since discordance with absolute values may lead to misinterpretation of CBC data. Current Interpretive Data was last revised on 2017. Imm gran pct 0.2 % [facility] Comment: Interpretive Data Percent cell count reference ranges are not reported, since discordance with absolute values may lead to misinterpretation of CBC data. Current Interpretive Data was last revised on 2017. Lymphocyte pct 17.0 % [facility] Comment: Interpretive Data Percent cell count reference ranges are not reported, since discordance with absolute values may lead to misinterpretation of CBC data. Current Interpretive Data was last revised on 2017. Monocyte pct 10.4 % [facility] Comment: Interpretive Data Percent cell count reference ranges are not reported, since discordance with absolute values may lead to misinterpretation of CBC data. Current Interpretive Data was last revised on 2017. Eosinophil pct 4.1 % [facility] Comment: Interpretive Data Percent cell count reference ranges are not reported, since discordance with absolute values may lead to misinterpretation of CBC data. Current Interpretive Data was last revised on 2017. Basophil pct 1.3 % [facility] Comment: Interpretive Data Percent cell count reference ranges are not reported, since discordance with absolute values may lead to misinterpretation of CBC data. Current Interpretive Data was last revised on 2017. Blood 04/11/2024 8:44 AM BARREL LOADER AND CLEANER 04/11/2024 3:35 PM BARREL LOADER AND CLEANER us Marisel Pineda MD LAB BLOOD ORDERABLES Final Resul t [facility] [address] Department [place] [address] * (ABNORMAL) CBC with auto differential (04/11/2024 8:44 AM BARREL LOADER AND CLEANER) WBC 4.6 3.8 - 9.9 K/cumm Hgb 14.1 11.9 - 15.5 g/dL [facility] Hct 45.3 35.6 - 45.5 % [facility] Plt 218 150 - 400 K/cumm [facility] MPV 11.1 9.1 - 12.3 fL [facility] RBC 4.80 3.90 - 5.20 M/cumm [facility] MCV 94.4 81.3 - 96.4 fL [facility] MCH 29.4 27.1 - 33.3 pg [facility] MCHC 31.1(L) 32.3 - 35.7 g/dL [facility] RDW CV 13.2 11.1 - 14.9 % [facility] RDW SD 45.6 35.7 - 48.1 fL [facility] NRBC abs 0.00 0.00 - 0.01 K/cumm [facility] Blood 04/11/2024 8:44 AM BARREL LOADER AND CLEANER 04/11/2024 3:35 PM BARREL LOADER AND CLEANER us Marisel Pineda MD LAB BLOOD ORDERABLES Final Resul t Performing Organization Address [facility] de Phone Number [facility] [address] Department of [employer] [place] [address] * Creatinine (04/11/2024 8:44 AM BARREL LOADER AND CLEANER) Pathologist [facility] Creatinine 0.63 0.60 - 1.10 mg/dL Blood 04/11/2024 8:44 AM BARREL LOADER AND CLEANER 04/11/2024 3:35 PM BARREL LOADER AND CLEANER us Marisel Pineda MD LAB BLOOD ORDERABLES Final Resul t Performing Organization Address [facility] de Phone Number [facility] [address] [facility] [employer] [place] [address] * (ABNORMAL) Hepatic function panel (04/11/2024 8:44 AM BARREL LOADER AND CLEANER) Bilirubin, total 0.5 0.1 - 1.2 mg/dL Bilirubin, direct 0.2 0.1 - 0.3 mg/dL [facility] Protein, pl 6.5 6.5 - 8.5 g/dL [facility] Albumin 4.4 3.5 - 5.0 g/dL [facility] Alk phos 86 40 - 130 Units/L [facility] ALT 64(H) 7 - 45 Units/L [facility] AST 41 10 - 45 Units/L [facility] Blood 04/11/2024 8:44 AM BARREL LOADER AND CLEANER 04/11/2024 3:35 PM BARREL LOADER AND CLEANER Marisel Pineda MD LAB BLOOD ORDERABLES Final Resul t Performing Organization Address City/[facility]/ZIP Co de Phone Number [facility] [address] Department [place] [address] * Hepatitis C antibody (03/08/2022 3:23 PM BARREL LOADER AND CLEANER) Hep C Ab Nonreactive Nonreactive [facility] Comment: Interpretive Data Nonreactive: Antibodies to [...] revised on 2019. Blood 03/08/2022 3:23 PM BARREL LOADER AND CLEANER 03/08/2022 5:48 PM BARREL LOADER AND CLEANER Marisel Pineda MD LAB MICROBIOLOGY - GENERAL ORDER NAIF Edited Result - Final Performing Organization Address City/[facility]/ZIP Co de Phone Number [facility] [address] Department [place] [address] from Last 3 Months or Most Recently Relevant to Health Maintenance Insurance [facility] CHOICE PLUS MEDICARE [employer] MEDIC[employer] Care Teams Counselor Aide Relationship Specialty Start Date End Date Charmaine Black MD PCP - General 10/07/16
--- OUTSIDE RECORDS SUMMARY | 2024-05-22 08:59 | XMS_ITS ---
Author Organization [facility] Address [address] [place] [address] Care Team Providers Care Meter Attendant Name Role Phone Wayne FOSTER, Maxwell Primary Care Provider Marisel Garcia Unavailable [phone] Marisel Layton MD Unavailable Unavailable REASON FOR VISIT infusion pt Encounters Encounter Location Date Provider Diagnosis [facility] [address] [place] [address] 05/14/2024 Marisel Layton Plan Of Treatment No Information Progress Notes * Dafne SCHULZDOB: [birth year] (59 yo F)Acc No.[id number]:05/14/2024 Progress Notes Patient: Dafne MCCOLLUM Provider: Zaynab LAYTON MD :1965 A ge:59 Y S ex:Female Date:05/14/2024 Address:[address] [place] [address] Pcp:Maxwell Black MD Subjective: * Chief Complaints: * 1 . Infusion pt. * Medical History: Objective: * Vitals: Assessment: Plan: * Treatment: * Billing Information: * Visit Code: * Procedure Codes: * Electronic signature of Marisel Layton MD on 05/22/2024 at 08:58 AM CDT Sign off status: Pending * Provider: Zaynab LAYTON MD Date: 05/14/2024 Generated for Printi ng/Faxing/eTransmitting on: 05/22/2024 08:58 AM CDT
[2024-05-22 09:28] LABS: Lithium < 0.2 mmol/L (0.6-1.2)
== END 2024-05-22 08:42 | disposition home or self-care (01) ==
PROVIDERS: PCP Family Medicine; Visit Provider Anesthesiology
DX: Z01.818 Encounter for other preprocedural examination (principal); Z79.899 Other long term (current) drug therapy
CPT/HCPCS: 36415; 80178

== ENCOUNTER 2024-05-24 00:41 | Day surgery (SDC) | payer OTHER, SELFPAY ==
[2024-05-14 14:29] VITALS: BMI 19.3
--- NOTE | 2024-05-14 14:35 | PC.NURSE ---
Report to the Outpatient Waiting Room, entrance under the green pavilion located off [facility], at time _0700_ on date _[id number]_. Planned Procedure Time: _0900_.? Time changes happen often and if your time is changed the preop area will call you the afternoon before. - You and your visitor will be asked to self-screen and do not enter if you have any COVID symptoms. Please call surgeon if you need to reschedule. - A mask is optional within the hospital at this time. Patients may have clear liquids (water, carbonated beverages, clear teas, apple juice) until 3 hours prior to surgery with a maximum of 20 ounces. - No food from midnight until time of surgery and no smoking, or chewing tobacco (or any form of nicotine). No chewing gum, candy or mints. Take only the following medications with a SIP of water on the morning of surgery: __Fluoxetine and if needed Lorazepam. DO NOT STOP ANY OF YOUR OTHER PRESCRIPTION MEDICATIONS PRIOR TO SURGERY EXCEPT THE FOLLOWING Hold all vitamins and supplements for 3 days per anesthesiologist. Medications to discontinue per physician Date to take last lpch__[id number] Please no make-up, nail serbian, hairspray, perfume, deodorant, or body powder the day of surgery.? No jewelry (including any body piercings) or valuables the day of surgery, leave them at home.? Please take a shower or bath the night before, or the morning of, surgery with an antibacterial soap.? Wear comfortable, loose fitting clothing.? - Jewelry must be removed prior to entering the operating room.? Rings and piercings that are not removed may be cut off. - The hospital will not accept responsibility for valuables.? - Please leave all valuables, including medications, at home the day of surgery. If you are going home after surgery, a licensed stacker driver must drive you home.? - NO public transportation without another adult if you receive anesthesia. - We recommend that an adult stay with you for 24 hours following discharge. - We also recommend that you do not drive, make important decision, drink alcoholic beverages, or take any drugs that were not prescribed by your health care provider for at least 24 hours after your discharge time. Follow any additional instructions given to you from your surgeon. Telephone instructions given to __Liz___and asked if any additional questions and then verbalized understanding. Patient advised to call surgeon office or pre surgery nurse liaison [phone] if any additional questions.
[2024-05-24] VITALS (10 sets, daily range): BP systolic 93–117; BP diastolic 42–57; PULSE 63–86; RESP 9–18; TEMP 36.1–37.1; O2SAT 96–100; BMI 19.8
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
--- OUTSIDE RECORDS SUMMARY | 2024-05-24 00:43 | XMS_ITS | Referral Summary ---
Author Organization [facility] al Address [address] [place] [address] Care Team Providers Care Car Installations Supervisor Name Role Phone Charmaine Blakc MD Primary Care Provider + Encounters Date Type Department Care Team Description 04/11/2024 2:06 PM FLIGHT KITCHEN MANAGER - 04/11/2024 11:59 PM [facility] Hospital Encounter [facility] [address] [place] [address] Discharge Disposition: Discharge to home or self care from Last 3 Months Allergies No known active allergies Medications calcium carbonate (OS-TAMARA) 650 mg (260 mg elemental) tablet,chewable 260 mg Acti ve svebgush-ape-eg lic acid-vit K 400-80 mcg capsule Take [...] palpable pulses. I suspect her noninvasives from [facility] were inaccurate. Based on her history a [...] on file Legal Sex Female 2:19 AM FLIGHT KITCHEN MANAGER Gender Identity Female 06/06/2018 12:13 PM [...] Diagnosis Comments EGFR Routine 04/11/2024 8:44 AM FLIGHT KITCHEN MANAGER DIFFERENTIAL AUTO Routine 04/11/2024 8:4 4 AM FLIGHT KITCHEN MANAGER CREATININE Routine 04/11/2024 8:44 AM FLIGHT KITCHEN MANAGER CBC WITH AUTO DIFFERENTIAL Routine 04/11/2024 8:44 AM FLIGHT KITCHEN MANAGER HEPATIC FUNCTION PANEL Routine 04/11/2024 8:44 AM FLIGHT KITCHEN MANAGER HEPATITIS C ANTIBODY Routine 03/08/2022 3:23 PM FLIGHT KITCHEN MANAGER from Last 3 Months or Most Recently Relevant to Health Maintenance Results * eGFR (04/11/2024 8:44 AM FLIGHT KITCHEN MANAGER) eGFR >90 >=60 mL/min/1. 73 m2 [...] last reviewed 2020. Blood 04/11/2024 8:44 AM FLIGHT KITCHEN MANAGER 04/11/2024 8:31 PM FLIGHT KITCHEN MANAGER us Marisel Pineda MD LAB BLOOD ORDERABLES Final Resul t [facility] [address] Department [place] [address] * Differential, auto (04/11/2024 8:44 AM FLIGHT KITCHEN MANAGER) Neutrophil abs 3.1 1.5 - 6.5 K/cumm Imm gran abs 0.0 0.0 - 0.1 K/cumm [facility] Lymphocyte abs 0.8 0.8 - 3.3 K/cumm [facility] Monocyte abs 0.5 0.2 - 0.8 K/cumm [facility] Eosinophil abs 0.2 0.0 - 0.5 K/cumm [facility] Basophil abs 0.1 0.0 - 0.1 K/cumm [facility] Neutrophil pct 67.0 % [facility] Comment: Interpretive Data Percent cell count reference ranges are not reported, since discordance with absolute values may lead to misinterpretation of CBC data. Current Interpretive Data was last revised on 2017. Imm gran pct 0.2 % [facility] Comment: Interpretive Data Percent cell count reference ranges are not reported, since discordance with absolute values may lead to misinterpretation of CBC data. Current Interpretive Data was last revised on 2017. Lymphocyte pct 17.0 % [facility] Comment: Interpretive Data Percent cell count reference ranges are not reported, since discordance with absolute values may lead to misinterpretation of CBC data. Current Interpretive Data was last revised on 2017. Monocyte pct 10.4 % [facility] Comment: Interpretive Data Percent cell count reference ranges are not reported, since discordance with absolute values may lead to misinterpretation of CBC data. Current Interpretive Data was last revised on 2017. Eosinophil pct 4.1 % [facility] Comment: Interpretive Data Percent cell count reference ranges are not reported, since discordance with absolute values may lead to misinterpretation of CBC data. Current Interpretive Data was last revised on 2017. Basophil pct 1.3 % [facility] Comment: Interpretive Data Percent cell count reference ranges are not reported, since discordance with absolute values may lead to misinterpretation of CBC data. Current Interpretive Data was last revised on 2017. Blood 04/11/2024 8:44 AM FLIGHT KITCHEN MANAGER 04/11/2024 3:35 PM FLIGHT KITCHEN MANAGER us Marisel Pineda MD LAB BLOOD ORDERABLES Final Resul t Performing Organization Address City/[facility] [address]/ZIP Co de Phone Number [facility] [address] Department [place] [address] * (ABNORMAL) CBC with auto differential (04/11/2024 8:44 AM FLIGHT KITCHEN MANAGER) WBC 4.6 3.8 - 9.9 K/cumm Hgb 14.1 11.9 - 15.5 g/dL [facility] Hct 45.3 35.6 - 45.5 % [facility] Plt 218 150 - 400 K/cumm [facility] MPV 11.1 9.1 - 12.3 fL [facility] RBC 4.80 3.90 - 5.20 M/cumm [facility] MCV 94.4 81.3 - 96.4 fL [facility] MCH 29.4 27.1 - 33.3 pg [facility] MCHC 31.1(L) 32.3 - 35.7 g/dL [facility] RDW CV 13.2 11.1 - 14.9 % [facility] RDW SD 45.6 35.7 - 48.1 fL [facility] NRBC abs 0.00 0.00 - 0.01 K/cumm [facility] Blood 04/11/2024 8:44 AM FLIGHT KITCHEN MANAGER 04/11/2024 3:35 PM FLIGHT KITCHEN MANAGER us Marisel Pineda MD LAB BLOOD ORDERABLES Final Resul t [facility] [address] [place] [address] * Creatinine (04/11/2024 8:44 AM FLIGHT KITCHEN MANAGER) [facility] Creatinine 0.63 0.60 - 1.10 mg/dL Blood 04/11/2024 8:44 AM FLIGHT KITCHEN MANAGER 04/11/2024 3:35 PM FLIGHT KITCHEN MANAGER us Marisel Pineda MD LAB BLOOD ORDERABLES Final Resul t Performing Organization Address [facility] [address]/[facility] Co de Phone Number [facility] [address] [facility] [place] [address] * (ABNORMAL) Hepatic function panel (04/11/2024 8:44 AM FLIGHT KITCHEN MANAGER) [facility] Bilirubin, total 0.5 0.1 - 1.2 mg/dL Bilirubin, direct 0.2 0.1 - 0.3 mg/dL [facility] Protein, pl 6.5 6.5 - 8.5 g/dL [facility] Albumin 4.4 3.5 - 5.0 g/dL [facility] Alk phos 86 40 - 130 Units/L [facility] ALT 64(H) 7 - 45 Units/L [facility] AST 41 10 - 45 Units/L [facility] Blood 04/11/2024 8:44 AM FLIGHT KITCHEN MANAGER 04/11/2024 3:35 PM FLIGHT KITCHEN MANAGER us Marisel Pineda MD LAB BLOOD ORDERABLES Final Resul t Performing Organization Address [facility] [address] [facility] Co de Phone Number [facility] [address] [place] [address] * Hepatitis C antibody (03/08/2022 3:23 PM FLIGHT KITCHEN MANAGER) [facility] Hep C Ab Nonreactive Nonreactive [facility] Comment: Interpretive Data Nonreactive: Antibodies to HCV [...] revised on 2019. Blood 03/08/2022 3:23 PM FLIGHT KITCHEN MANAGER 03/08/2022 5:48 PM FLIGHT KITCHEN MANAGER Marisel Pineda MD LAB MICROBIOLOGY - GENERAL ORDER NAIF Edited Result - Final [facility] [address] Department [place] [address] from Last 3 Months or Most Recently Relevant to Health Maintenance Insurance [facility] CHOICE PLUS MEDICARE [facility] MEDICARE Care Teams Car Installations Supervisor Relationship Specialty Start Date End Date Charmaine Black MD [facility] - General 10/07/16
--- OUTSIDE RECORDS SUMMARY | 2024-05-24 00:43 | XMS_ITS | Clinical Summary ---
Author Organization [facility] Address [address] [place] [address] Care Team Providers Care Manager State Name Role Phone Maxwell Black MD Primary Care Provider [phone] Source Comments [facility],non-owned Affiliates and Associated Physician Practices is amultiple site organization consisting of ambulatory clinics and hospital sitesin [place], [place], [place] and [place]. This disclosure is being madepursuant to the Care Everywhere program and may not contain all information available regarding this patient. Last updated 17[employer] Allergies No known active allergies Medications * [...] by mouth once daily 5000 Active Multiple Vitamins-Fairway als (Centrum Silver 50+Women) TABS Activ e ipratropium (Atrovent) 0.06 % nasal sprayIndicatio ns:Vasomotor rhinitis [place] 2 (two) sprays into each nostril 3 [...] on file Legal Sex Female 6:19 PM PROJECT DEVELOPMENT ENGINEER Gender Identity Not on file Sexual Orientation [...] age to complete this topic Insurance MEDICARE [facility] MEDICARE [facility] Care Teams Manager State Relationship Specialty Start Date End Date Maxwell Black MD [facility] [place] [address] PCP - General 12/03/13
--- OUTSIDE RECORDS SUMMARY | 2024-05-24 00:43 | XMS_ITS ---
Author Organization [facility]abella Address [address] [place] [address] Care Team Providers Care Stewardesses Teacher Name Role Phone Wayne FOSTER, Maxwell Primary Care Provider Marisel Garcia Unavailable [phone] Marisel Layton MD Unavailable Unavailable REASON FOR VISIT Benlysta 480mg dose 4)120 Du Encounters Encounter Location Date Provider Diagnosis [facility] [address] [place] [address] 05/14/2024 Marisel Layton Plan Of Treatment No Information Progress Notes * Avtar HUTCHINSONcariDOB: [birth year] (59 yo F)Acc No.[id number]:05/14/2024 Patient: Dafne MCCOLLUM Provider: Zaynab LAYTON MD :1965 A ge:59 Y S ex:Female Date:05/14/2024 Address:[address] [place], [place] [id number] Pcp:Maxwell Black MD Subjective: * Chief Complaints: * 1 . Benlysta 480mg dose 4)120 Du. * Medical History: Objective: * Vitals: Assessment: Plan: * Treatment: * Billing Information: * Visit Code: * Procedure Codes: * Electronic signature of Marisel Layton MD on 05/24/2024 at 12:43 AM CDT Sign off status: Pending * Provider: Zaynab LAYTON MD Date: 0 05/14/2024 Generated for Printi ng/Faxing/eTransmitting on: 05/24/2024 12:43 AM CDT
--- OUTSIDE RECORDS SUMMARY | 2024-05-24 00:43 | XMS_ITS | Clinical Summary ---
Author Organization [facility] Address [address] [place] [address] Care Team Providers Care Wool Broker Name Role Phone Charmaine Black MD Primary Care Provider + Allergies No known active allergies Medications calcium carbonate (OS-TAMARA) 650 mg (260 mg elemental) tablet,chewable 260 mg Acti ve mhsswzne-skj-qw lic acid-vit K 400-80 mcg capsule Take [...] Department Care Team Description 04/11/2024 2:06 PM QUICK TECHNICIAN - 04/11/2024 11:59 PM QUICK TECHNICIAN Hospital Encounter [address] [address] Discharge Disposition: Discharge to home [...] on file Legal Sex Female 2:19 AM QUICK TECHNICIAN Gender Identity Female 06/06/2018 12:13 PM CDT [...] Diagnosis Comments EGFR Routine 04/11/2024 8:44 AM QUICK TECHNICIAN DIFFERENTIAL AUTO Routine 04/11/2024 8:4 4 AM QUICK TECHNICIAN CREATININE Routine 04/11/2024 8:44 AM QUICK TECHNICIAN CBC WITH AUTO DIFFERENTIAL Routine 04/11/2024 8:44 AM QUICK TECHNICIAN HEPATIC FUNCTION PANEL Routine 04/11/2024 8:44 AM QUICK TECHNICIAN HEPATITIS C ANTIBODY Routine 03/08/2022 3:23 PM QUICK TECHNICIAN from Last 3 Months or Most Recently Relevant to Health Maintenance Results * eGFR (04/11/2024 8:44 AM QUICK TECHNICIAN) eGFR >90 >=60 mL/min/1. 73 m2 Comment: [...] last reviewed 2020. Blood 04/11/2024 8:44 AM QUICK TECHNICIAN 04/11/2024 8:31 PM QUICK TECHNICIAN us Marisel Pineda MD LAB BLOOD ORDERABLES Final Resul t [facility] [address] Department [place] [address] * Differential, auto (04/11/2024 8:44 AM QUICK TECHNICIAN) Pathologist [facility] Neutrophil abs 3.1 1.5 - 6.5 K/cumm Imm gran abs 0.0 0.0 - 0.1 K/cumm [facility] Lymphocyte abs 0.8 0.8 - 3.3 K/cumm [facility] Monocyte abs 0.5 0.2 - 0.8 K/cumm [facility] Eosinophil abs 0.2 0.0 - 0.5 K/cumm [facility] Basophil abs 0.1 0.0 - 0.1 K/cumm [facility] Neutrophil pct 67.0 % [facility] Comment: Interpretive Data Percent cell count reference ranges are not reported, since discordance with absolute values may lead to misinterpretation of CBC data. Current Interpretive Data was last revised on 2017. Imm gran pct 0.2 % [facility] Comment: Interpretive Data Percent cell count reference ranges are not reported, since discordance with absolute values may lead to misinterpretation of CBC data. Current Interpretive Data was last revised on 2017. Lymphocyte pct 17.0 % [facility] Comment: Interpretive Data Percent cell count reference ranges are not reported, since discordance with absolute values may lead to misinterpretation of CBC data. Current Interpretive Data was last revised on 2017. Monocyte pct 10.4 % [facility] Comment: Interpretive Data Percent cell count reference ranges are not reported, since discordance with absolute values may lead to misinterpretation of CBC data. Current Interpretive Data was last revised on 2017. Eosinophil pct 4.1 % [facility] Comment: Interpretive Data Percent cell count reference ranges are not reported, since discordance with absolute values may lead to misinterpretation of CBC data. Current Interpretive Data was last revised on 2017. Basophil pct 1.3 % [facility] Comment: Interpretive Data Percent cell count reference ranges are not reported, since discordance with absolute values may lead to misinterpretation of CBC data. Current Interpretive Data was last revised on 2017. Blood 04/11/2024 8:44 AM QUICK TECHNICIAN 04/11/2024 3:35 PM QUICK TECHNICIAN us Marisel Pineda MD LAB BLOOD ORDERABLES Final Resul t [facility] [address] Department [place] [address] * (ABNORMAL) CBC with auto differential (04/11/2024 8:44 AM QUICK TECHNICIAN) WBC 4.6 3.8 - 9.9 K/cumm Hgb 14.1 11.9 - 15.5 g/dL [facility] Hct 45.3 35.6 - 45.5 % [facility] Plt 218 150 - 400 K/cumm [facility] MPV 11.1 9.1 - 12.[address] [facility] RBC 4.80 3.90 - 5.20 M/cumm [facility] MCV 94.4 81.3 - 96.[address] [facility] MCH 29.4 27.1 - 33.[address] [facility] MCHC 31.1(L) 32.3 - 35.7 g/dL [facility] RDW CV 13.2 11.1 - 14.9 % [facility] RDW SD 45.6 35.7 - 48.[address] [facility] NRBC abs 0.00 0.00 - 0.01 K/cumm [facility] Blood 04/11/2024 8:44 AM QUICK TECHNICIAN 04/11/2024 3:35 PM QUICK TECHNICIAN us Marisel Pineda MD LAB BLOOD ORDERABLES Final Resul t Performing Organization Address [facility] de Phone Number [facility] [address] [place] [address] * Creatinine (04/11/2024 8:44 AM QUICK TECHNICIAN) Pathologist [facility] Creatinine 0.63 0.60 - 1.10 mg/dL Blood 04/11/2024 8:44 AM QUICK TECHNICIAN 04/11/2024 3:35 PM QUICK TECHNICIAN us Marisle Pineda MD LAB BLOOD ORDERABLES Final Resul t Performing Organization Address [facility] de Phone Number [facility] [address] [facility] [place] [place] [address] * (ABNORMAL) Hepatic function panel (04/11/2024 8:44 AM QUICK TECHNICIAN) Bilirubin, total 0.5 0.1 - 1.2 mg/dL Bilirubin, direct 0.2 0.1 - 0.3 mg/dL [facility] Protein, pl 6.5 6.5 - 8.5 g/dL [facility] Albumin 4.4 3.5 - 5.0 g/dL [facility] Alk phos 86 40 - 130 Units/L [facility] ALT 64(H) 7 - 45 Units/L [facility] AST 41 10 - 45 Units/L [facility] Blood 04/11/2024 8:44 AM QUICK TECHNICIAN 04/11/2024 3:35 PM QUICK TECHNICIAN Marisel Pineda MD LAB BLOOD ORDERABLES Final Resul t Performing Organization Address City/[facility]/ZIP Co de Phone Number [facility] [address] Department [place] [address] * Hepatitis C antibody (03/08/2022 3:23 PM QUICK TECHNICIAN) Hep C Ab Nonreactive Nonreactive [facility] Comment: Interpretive Data Nonreactive: Antibodies [...] revised on 2019. Blood 03/08/2022 3:23 PM QUICK TECHNICIAN 03/08/2022 5:48 PM QUICK TECHNICIAN Marisel Pineda MD LAB MICROBIOLOGY - GENERAL ORDER NAIF Edited Result - Final Performing Organization Address City/[facility]/ZIP Co de Phone Number [facility] [address] Department [place] [address] from Last 3 Months or Most Recently Relevant to Health Maintenance Insurance [facility] H[facility]/PPO Address: [address] [address] [place] [address] MEDICARE [employer] [place] MED[employer] Care Teams Wool Broker Relationship Specialty Start Date End Date Charmaine Black MD PCP - General 10/07/16
--- OUTSIDE RECORDS SUMMARY | 2024-05-24 00:44 | XMS_ITS ---
Author Organization [facility]abella Address [address] [place] [address] Care Team Providers Care C Architect Name Role Phone Maxwell Black MD Primary Care Provider Marisel Garcia Unavailable [phone] Mairsel Pineda MD Unavailable Unavailable REASON FOR VISIT denial Encounters Encounter Location Date Provider Diagnosis [facility] [address] [place] [address] 05/07/2024 Marisel Pineda Plan Of Treatment No Information Progress Notes * Dafne SCHULZDOB: [birth year] (59 yo F)Acc No.[id number]:05/07/2024 Patient: Tavo Dafne DUNBAR :1965 A ge:59 Y S ex:Female Address:[address] [place] [address], [address] * true * Date: Generated for Printi ng/Faxing/eTransmitting on: 0 05/24/2024 12:43 AM CDT
--- OUTSIDE RECORDS SUMMARY | 2024-05-24 00:44 | XMS_ITS | Patient Health Record ---
Author Organization [facility] arabella Address [address] [place] [address] Care Team Providers Care Pie Topper Name Role Phone Maxwell Black MD Primary Care Provider Unava ilMarisel Owens Unavailable [phone] Marisel Pineda MD Unavailable Unavailable Allergies No Known Allergies Results Component Value Reference Range Notes SSB Ab Reviewed date:09/15/2023 11:07:56 AM Interpretation: Performing Lab:[facility] , [address] [facility] [address] Notes/Report: SS B Antibody <0.2 <=0.9 Ab Index Interpretive Data Negative: < 1.0 Ab Index Positive: > or = 1.0 Ab Index Current interpretive data was last revised on 2016. SSA Ab Reviewed date:09/15/2023 11:07:56 AM Interpretation: Performing Lab:[facility] , [address] [facility] [address] Notes/Report: SS A Antibody <0.2 <=0.9 Ab Index Interpretive Data Negative: < 1.0 Ab Index Positive: > or = 1.0 Ab Index Current interpretive data was last revised on 2016. Palacios Ab. Reviewed date:09/15/2023 11:07:56 AM Interpretation: Performing Lab:[facility] , [address] [facility] [address] Notes/Report: Palacios Antibody <0.2 <=0.9 Ab Index Interpretive Data Negative: < 1.0 Ab Index Positive: > or = 1.0 Ab Index Current interpretive data was last revised on 2016. SCL 70 Antibodies Reviewed date:09/15/2023 11:07:56 AM Interpretation: Performing Lab:[facility] , [address] [place] [address]. [facility] [address] Notes/Report: Scl 70 Ab, IgG <0.2 <=0.9 Ab Index Interpretive Data Negative: < 1.0 Ab Index Positive: > or = 1.0 Ab Index Current interpretive data was last revised on 2016. Ribonuclear Protein (BUDGET REPORT CLERK) Ab Reviewed date:09/15/2023 11:07:56 AM Interpretation: Performing Lab:[facility] , [address] [place] [address]. [facility] [address] Notes/Report: BUDGET REPORT CLERK Antibody 0.3 <=0.9 Ab Index Interpretive Data Negative: < 1.0 Ab Index Positive: > or = 1.0 Ab Index Current interpretive data was last revised on 2016. DS DNA Reviewed date:09/15/2023 11:07:56 AM Interpretation: Performing Lab:[facility] , [address] [place] [address]. [facility] [address] Notes/Report: Double Stranded DNA, Jack <1.0 <=4.0 IUnits/mL Interpretive Data Negative: < or = 4 IUnits/mL Indeterminate: 5 - 9 IUnits/mL Positive: > or = 10 IUnits/mL Current interpretive data was last revised on 2016. Anti-CCP (Cyclic Citrullinat ed Peptide Ab) Reviewed date:09/15/2023 11:07:56 AM Interpretation: Performing Lab:[facility] , [address] [place] [address]. [facility] [address] Notes/Report: CCP Ab <0.5 <=2.9 units/mL Interpretive data Negative: <3 units/mL Positive: > or equal to 3 units/mL Current interpretive data was last revised on 2016. eGFR Reviewed date:04/11/2024 10:08:08 PM Interpretation:Lab Result Generalized Performing Lab:[facility] , [address] [place] [address]. [facility] [address] Notes/Report: eGFR >90 >=60 mL/min/1.73 m2 Interpretive [...] Current interpretive data was last reviewed 2020. eGFR Reviewed date:09/14/2023 12:40:26 PM Interpretation: Performing Lab:[facility] , [address] [facility] [place] [address] Notes/Report: eGFR >90 >=60 mL/min/1.73 m2 Interpretive [...] of Race in Diagnosing Kidney Disease, JASN 1). The CKD-EPI equation should not be used for patients with unstable renal function and has not been validated in children and those over 70. Current interpretive data was last reviewed 2020. UA Micro (All Sites) Reviewed date:09/14/2023 12:40:26 PM Interpretation: Performing Lab:[facility] , [address] [facility] [place] [address] Notes/Report: WBC, Ur 6-10 0-5 /HPF RBC, Ur 0-2 0-2 /HPF Epithl Squam, Ur 1-5 0-5 /HPF Urinalysis reflex microscopi c exam Reviewed date:09/14/2023 12:40:26 PM Interpretation: Performing Lab:[facility] , [address] [place] [address]. [facility] [address] Notes/Report: Color, Ur Yellow Yellow Clarity, Ur [...] tendency for uric acid stone formation. Source: [facility] [employer] Current Interpretive Data was last revised on 2017 Protein, Ur Ql Negative Negative Glucose, Ur Ql Negative Negative Ketones, Ur Negative Negative Bilirubin, Ur Negative Negative Blood, Ur Negative Negative Urobilinogen, Ur <2.0 <2.0 mg/dL Nitrite, Ur Negative Negative Leukocyte Esterase, Ur 4+ Negative UA reflex comment See Below Reflex to microscopic UA will be performed. Sed Rate Reviewed date:09/14/2023 12:40:26 PM Interpretation: Performing Lab:[facility] , [address] [place] [address]. [facility] [address] Notes/Report: ESR 7 1-30 mm/hr Rheumatoid Factor Reviewed date:09/14/2023 12:40:26 PM Interpretation: Performing Lab:[facility] , [address] [place] [address]. [facility] [address] Notes/Report: RF, Jack 10 <=15 IUnits/mL Differential Automated Reviewed date:09/14/2023 12:21:08 PM Interpretation: Performing Lab:[facility] , [address] [place] [address]. [facility] [address] Notes/Report: Neut Abs 7.3 1.5-6.5 K/cumm ImmGran Abs 0.0 0.0-0.1 K/cumm Lymphocyte Abs 0.9 0.8-3.3 K/cumm [facility] Abs 0.3 0.2-0.8 K/cumm Eos Abs 0.0 [...] Interpretive Data was last revised on 2017. [facility] Pct 3.5 Interpretive Data Percent cell count [...] Kinase Reviewed date:09/14/2023 12:40:26 PM Interpretation: Performing Lab:[facility] , [address] [place] [address]. [place] [address] Notes/Report: Total CK 50 30-200 Units/L Comprehensive metabolic pane l (CMP) Reviewed date:09/14/2023 12:40:26 PM Interpretation: Performing Lab:[facility] , [facility]. [place] [address] Notes/Report: Sodium 141 135-145 mmol/L Plasma Potassium [...] C4 Reviewed date:09/14/2023 12:40:26 PM Interpretation: Performing Lab:[facility] , [address] [place] [address]. [facility] [address] Notes/Report: Complement, C4 32 10-40 mg/dL Complement C3 Reviewed date:09/14/2023 12:40:26 PM Interpretation: Performing Lab:[facility] , [address] [place] [address]. [place] [address] Notes/Report: Complement, C3 135 90-180 mg/dL CBC w auto diff Reviewed date:09/14/2023 12:21:08 PM Interpretation: Performing Lab:[facility] , [address] [place] [address]. [facility] [address] Notes/Report: WBC 8.5 3.8-9.9 K/cumm Hgb 14.9 11.9-15.5 g/dL Hct 45.9 35.6-45.5 % Platelet Ct 242 150-400 K/cumm MPV 11.3 9.1-12.3 fL RBC 5.11 3.90-5.20 M/cumm MCV 89.8 81.3-96.4 fL MCH 29.2 27.1-33.3 pg MCHC 32.5 32.3-35.7 g/dL RDW CV 12.3 11.1-14.9 % RDW SD 40.7 35.7-48.1 fL NRBC Abs Auto 0.00 0.00-0.01 K/cumm C Reactive Protein Reviewed date:09/14/2023 12:40:26 PM Interpretation: Performing Lab:[facility] , [address] [place] [address]. [facility] [address] Notes/Report: C-Reactive Protein <3.0 <=10.0 mg/L Hep Func Panel Reviewed date:04/11/2024 10:08:08 PM Interpretation:Lab Result Generalized Performing Lab:[facility] , [address] [place] [address] Notes/Report: Total Bilirubin 0.5 0.1-1.2 mg/dL Bilirubin, Direct 0.2 0.1-0.3 mg/dL Plasma Total Protein 6.5 6.5-8.5 g/dL Albumin 4.4 3.5-5.0 g/dL Alkaline Phosphatase 86 40-130 Units/L ALT 64 7-45 Units/L AST 41 10-45 Units/L Creatinine Reviewed date:04/11/2024 10:08:51 PM Interpretation: Performing Lab:[facility] , [address] [place] [address] Notes/Report: Creatinine 0.63 0.60-1.10 mg/dL CBC w auto diff Reviewed date:04/11/2024 05:38:51 PM Interpretation: Performing Lab:[facility] , [address] [place] [address] Notes/Report: WBC 4.6 3.8-9.9 K/cumm Hgb 14.1 11.9-15.5 g/dL Hct 45.3 35.6-45.5 % Platelet Ct 218 150-400 K/cumm MPV 11.1 9.1-12.3 fL RBC 4.80 3.90-5.20 M/cumm MCV 94.4 81.3-96.4 fL MCH 29.4 27.1-33.3 pg MCHC 31.1 32.3-35.7 g/dL RDW CV 13.2 11.1-14.9 % RDW SD 45.6 35.7-48.1 fL NRBC Abs Auto 0.00 0.00-0.01 K/cumm Differential Automated Reviewed date:04/11/2024 05:38:51 PM Interpretation: Performing Lab:[facility] , [facility]. [place] [address] Notes/Report: Neut Abs 3.1 1.5-6.5 K/cumm ImmGran Abs 0.0 0.0-0.1 K/cumm Lymphocyte Abs 0.8 0.8-3.3 K/cumm [facility] Abs 0.5 0.2-0.8 K/cumm Eos Abs 0.2 [...] Interpretive Data was last revised on 2017. [facility] Pct 10.4 Interpretive Data Percent cell count [...] Interpretive Data was last revised on 2017. LIGIA Screen Reviewed date:09/15/2023 05:36:48 PM Interpretation: Performing Lab:[facility] , [facility]. [facility] [address] Notes/Report: LIGIA Screen Negative Negative Interpretive Data Positive Screens will be reflexed to specific testing for Antibodies against the following antigens: Sandy-1 Ab, BUDGET REPORT CLERK Ab, Scl-70 Ab, Palacios Ab, SS-A/Ro Ab, and SS-B/La Ab. Further testing for dsDNA, Centromere, or Ribosomal P antibodies is suggested in patient with a positive screen and negative specific antibodies. Current interpretive data was last revised on 2022. CAROLYN reflex titer pattern LIGIA + dsDNA Reviewed date:09/15/2023 12:41:33 PM Interpretation: Performing Lab:[facility] , [address] [facility] [facility] [address] Notes/Report: CAROLYN, Qual Positive 1:640 Interpretive Data [...] last revised on 2019. Testing performed by: , [address] [place]., [address] CAROLYN, Jack 1:640 Testing performed by: , [address] [place]., [address] CAROLYN Pattern 1 Homogeneous Testing performed by: , [address] [place] [address]., [address] Reason For Referral Reason Benlysta Medicare/Mu tual of [place] No PA Req'd Diagnosis 1 Lupus (M32.9) Referral Organization [facility] alonzo Referring Provider First Name Marisel Referring Provider Last Name Edwin Referring Provider Speciality Rheumatolo gy Referred Organization [facility] alonzo Referred Provider Marisel Pineda Referred Address [address], [place],[address], Referred Provider Specialty Rheumatology Procedure 1 INJECTION BELIMUMAB 10 MG (J0490) Referral Priority Routine Reason Benlysta Medicare/Mu tual of [place] No PA Req'd Diagnosis 1 Lupus (M32.9) Referral Organization [facility] alonzo Referring Provider First Name Marisel Referring Provider Last Name Edwin Referring Provider Speciality Rheumatolo gy Referred Organization [facility] alonzo Referred Provider Marisel Pineda Referred Address [address] [facility] [address],[place], [place],[address] Referred Provider Specialty Rheumatology Procedure 1 INJECTION [...] morning and evening meals Oral 2 Active Bethany Carbonate 300 MG 1 tablet at bedtime Orally Once a day for 30 day(s) Active Vitamin B Complex take 1 capsule by oral route once Oral 1 Active Pantoprazole Sodium 40 MG 1 tablet Orally Once a day for 30 day(s) Active duloxetine - daily oral *Reorder from [employer] for eRx and Interaction Alerts* Active Pramipexole [...] by intramuscular route once a month Injection 3.96208962354315L- 02 Active LORazepam 2 MG prn Oral Activ e Wegovy - weekly subcutaneous *Pick strength-form from [employer] for eRX* Active PredniSONE (Curt) Act hang [...] route once Oral 1 *Pick strength-form from [employer] for eRX* Active Cholecalciferol 1.25 MG (57473 UT) take 1 tablet by oral route once Oral 1 Active Estradiol 1 MG 1 tablet Orally Once a day for 30 day(s) Active Lidocaine Viscous HCl 2 % Mouth/Throat for 25 Days Active Problems Problem Type SNOMED Code ICD Code Onset Dates Problem Status W/U Status Risk Notes Problem Systemic lupus erythematosus (97633843) Systemic lupus erythematosus, unspecified (M32.9) Active confirmed Problem 046134103 Fibromyalgia (M79.7) Active confirmed Problem 88999108 Systemic lupus erythematosus, unspecified SLE type, unspecified organ involvement status (M32.9) Active confirmed Problem Lupus (592632465) Lupus (M32.9) Active confirme d Vital Signs Heart Rate 78 /min 04/11/2024 Temperature 97.5 degrees Fahrenheit 04/11/2024 Height-cm 154.94 cm 04/11/2024 Blood pressure diastolic 66 mm Hg 04/11/2024 Oximetry 99 % 09/14/2023 Weight-kg 47.63 kg 04/11/2024 Height 61 in 04/11/2024 Blood pressure systolic 116 mm Hg 04/11/2024 Weight 105 lbs 04/11/2024 BMI 19.84 kg/m2 04/11/2024 Encounters Encounter Location Date Provider Diagnosis [facility] [address] [place] [address] 09/14/2023 Marisel Pineda 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 ; Fibromyalgia M79.7 ; Dry eyes H04.123 and High risk medication use Z79.899 [facility] [address] [place] [address] 10/04/2023 Marisel Pineda 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 ; Lupus M32.9 ; Fibromyalgia M79.7 ; Dry eyes H04.123 and High risk medication use Z79.899 [facility] [address] [place] [address] 10/18/2023 Marisel Pineda Systemic lupus erythematosus, unspecified SLE type, unspecified organ involvement status M32.9 [facility] [address] [place] [address] 11/01/2023 Marisel Pineda Lupus M32.9 [facility] [address] [place] [address] 11/01/2023 Marisel Pineda 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 ; Lupus M32.9 ; Fibromyalgia M79.7 ; Dry eyes H04.123 and High risk medication use Z79.899 [facility] [address] [place] [address] 11/15/2023 Marisel Pineda Systemic lupus erythematosus, unspecified M32.9 [facility] [address] [place] [address] 12/13/2023 Marisel Edwin [facility] [address] [place] [address] 12/20/2023 Marisel Pineda Systemic lupus erythematosus, unspecified SLE type, unspecified organ involvement status M32.9 [facility] [address] [address] 04/11/2024 Marisel Pineda Systemic lupus erythematosus M32.9 [facility] [address] [address] 12/22/2023 Marisel Edwin [facility] [address] [address] 03/29/2024 Marisel [facility] [address] [address] 05/07/2024 Marisel Edwin Assessments Encounter Date Diagnosis (ICD [...] 024 SSA/SSB ANTIBODY (SJOGREN'S) 09/14/2023 PALACIOS / BUDGET REPORT CLERK ANTIBODY 09/14/2023 DNA (DS) ANTIBODY 09/14/2023 CAROLYN SCREEN/REFLEX TITER/PATTERN 09/14/19 Insurance Providers Payer Name Payer Address Payer Phone Subscriber Number Group Number Insured Name Patient Relationship to Insured Coverage Start Date Coverage End Date Medicare [address] [address] [place] [address] [id number] Dafne Schulz Self - patient is the insured [address] [address] [id number] Dafne Schulz Self - patient is the [...]
--- OUTSIDE RECORDS SUMMARY | 2024-05-24 00:44 | XMS_ITS ---
Author Organization [facility] arabella Address [address] [place] [address] Care Team Providers Care Veterans Employment Representative Name Role Phone Wayne FOSTER, Maxwell Primary Care Provider Marisel Garcia Unavailable [phone] Marisel Layton MD Unavailable Unavailable REASON FOR VISIT infusion pt Encounters Encounter Location Date Provider Diagnosis [facility] [address] [place] [address] 05/14/2024 Marisel Layton Plan Of Treatment No Information Progress Notes * Dafne SCHULZDOB: [birth year] (59 yo F)Acc No.[id number]:05/14/2024 Progress Notes Patient: Dafne MCCOLLUM Provider: Zaynab LAYTON MD :1965 A ge:59 Y S ex:Female Date:05/14/2024 Address:[address] [place] [address] Pcp:Maxwell Black MD Subjective: * Chief Complaints: * 1 . Infusion pt. * Medical History: Objective: * Vitals: Assessment: Plan: * Treatment: * Billing Information: * Visit Code: * Procedure Codes: * Electronic signature of Marisel Layton MD on 05/24/2024 at 12:44 AM CDT Sign off status: Pending * Provider: Zaynab LAYTON MD Date: 05/14/2024 Generated for Printi ng/Faxing/eTransmitting on: 05/24/2024 12:44 AM CDT
[2024-05-24 07:16] LABS: Glucose Point of Care 89 mg/dl (65-105)
[2024-05-24] MEDS: LACTATED RINGERS 1,000 ML 30 ML IV CONT ×2 (07:35→11:14)
[2024-05-24] MEDS: SCOPOLAMINE 1 MG PATCH 1 PATCH TRANSDERM (07:35)
[2024-05-24 08:23] LABS: Urine Cotinine NEGATIVE
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
--- NOTE | 2024-05-24 08:43 | WPDHPUPDATE1 ---
History and Physical Update Update Date/Time: 05/24/24 08:43 History and Physical has been reviewed, including an updated exam of the patient. There are NO changes in the patient's condition. Risks, benefits, and alternatives have been discussed and questions answered. Patient agrees to proceed with procedure.
[2024-05-24] MEDS: TRANEXAMIC ACID 1,000MG/ISO100 1,000 MG/100 ML BAG 200 MG IVPB (08:44)
--- NOTE | 2024-05-24 08:47 | W.PM.PROC2 ---
Procedure Note - Detailed Date of Procedure 05/24/24 Pre-op Diagnosis macromastia, breast ptsois, Post-op Diagnosis Same Procedure Performed Bilateral augmentation mastopexy with Galaflex Surgeon Jayme Rao MD Anesthesia General Findings Inverted T Superior Pedicle Bilateral Eyal Kapoor SoftTouch 385cc dual plane 1 Right REF# [id number] SN [id number] Left REF# [id number] SN [id number] Description of Procedure She is here today for bilateral breast augmentation mastopexy. Previously and again today the risks, benefits, alternatives were discussed in extensive detail. I wanted her to be very realistic about the risks involved as well as expectations. We discussed aftercare and what to monitor for. Made sure answered all of her questions to her satisfaction today and consent was obtained. Marked in the preoperative holding area with their verification. The patient was taken to the operating room placed supine on the operating table. Anesthesia was provided by anesthesiology. A surgical time-out was taken. She was prepped and draped in a standard sterile fashion. Tumescent was utilized laterally to provide field block Tegaderm nipple Baxter were placed. A 15 blade used to make an incision just superior to the inframammary fold. Dissection was continued until the chest wall as identified. I incised the pectoralis major along its inferior border and completely released the inferior border leaving the medial border intact. I created a subpectoral pocket in the appropriate dimensions based on our preoperative planning for the implant. I then copiously irrigated with saline solution and verified a strict hemostasis. Next the use a triple antibiotic and Betadine containing solution to irrigate the pocket. I washed my gloves with the triple antibiotic and Betadine solution. We washed the implant immediately upon opening it with this solution and only opened it when we needed it. I used implant funnel and no-touch technique. The implant was introduced into the pocket using the funnel. Galaflex was soaking on the back table in a betadine solution. Trimmed and placed along the inferior / lateral gutter of the implant Having verified positioning of the implant this was closed using 2-0 PDS. I tailor tacked the breast into position. Placed her in a sitting position. Verified the nipple-areolar location based on preoperative planning as well as intraoperative observations and measurements in full agreement. She was placed supine. I de-epithelialized the pedicle. I then removed the inferior central portion of the breast need making sure the implant was well protected. I elevated medial and lateral tissue flaps as well for planned closure. I closed along the IMF with 2-0 Stratafix. Along the vertical with 2-0 PDS. I closed around the areola with 3-0 strata fix. 3-0 Monocryl along the vertical. 3-0 Stratafix along the IMF. I finally closed everything with running subcuticular 4-0 Monocryl and tissue glue. Corners sutured with 5-0 fast absorbing plain gut. At the final suture the needle came loose from the suture. Radiograph was taken and no suture needle identified. It was found at the end of the case on the floor. Fluffs and surgical bra were placed. Estimated Blood Loss 40 Drains No Packing No Pathology None sent Complications No immediate complications Condition Stable Disposition PACU
[2024-05-24] MEDS: ceFAZolin 2 GM/D5W 50 ML 2 GM/50 ML BAG IVPB (08:49)
[2024-05-24] MEDS: NACL 0.9% IRRIG POUR BOTTLE 900 ML, GENTAMICIN SULFATE INJ 160 MG, ceFAZolin 2 GM, POVI... IRRIGATION (09:40)
[2024-05-24] MEDS: LACTATED RINGERS IRRIG 1,000 ML, LIDOCAINE 1% LOCAL INJ 50 ML, EPINEPHrine HCL INJ 1 MG... INFILTRATE (10:28)
[2024-05-24] MEDS: HYDROmorphone HCL INJ (*CRX) 1 MG/ML SYR 0.25 MG IV PUSH ×6 (11:21→12:30)
[2024-05-24 11:46] LABS: Glucose Point of Care 138 mg/dl (65-105)
[2024-05-24] MEDS: ONDANSETRON INJ 4 MG/2 ML VIAL IV PUSH (12:20)
[2024-05-24] MEDS: oxyCODONE HCL (*CRX) 5 MG TAB IR PO (12:56)
== END 2024-05-24 13:40 | disposition home or self-care (01) ==
PROVIDERS: PCP Family Medicine; Visit Provider Surgery Plastic and Reconstructive Surgery
PROC: (CPT 19325; principal; 2024-05-24 09:00)
PROC: (CPT 19316; 2024-05-24 09:00)
DX: Z41.1 Encounter for cosmetic surgery (principal); L57.4 Cutis laxa senilis; N64.81 Ptosis of breast; E11.9 Type 2 diabetes mellitus without complications; E78.00 Pure hypercholesterolemia, unspecified; K21.9 Gastro-esophageal reflux disease without esophagitis; G25.81 Restless legs syndrome; F32.A Depression, unspecified; I95.9 Hypotension, unspecified; J32.9 Chronic sinusitis, unspecified; N39.41 Urge incontinence; M65.4 Radial styloid tenosynovitis [de Quervain]; F90.9 Attention-deficit hyperactivity disorder, unspecified type; F41.9 Anxiety disorder, unspecified; L93.0 Discoid lupus erythematosus; M35.00 Sjogren syndrome, unspecified; M19.90 Unspecified osteoarthritis, unspecified site; F12.90 Cannabis use, unspecified, uncomplicated; Z79.84 Long term (current) use of oral hypoglycemic drugs; Z98.890 Other specified postprocedural states; Z79.899 Other long term (current) drug therapy; Z98.1 Arthrodesis status; Z98.84 Bariatric surgery status; Z91.81 History of falling; Z87.442 Personal history of urinary calculi; Z87.11 Personal history of peptic ulcer disease; Z90.49 Acquired absence of other specified parts of digestive tract
CPT/HCPCS: 19325; 19316; 71045; 80307; 82948; A9270; J0171; J0690; J1100; J1171; J1580; J2003; J2250; J2371; J2405; J2704; J3010; J7120

== ENCOUNTER 2024-09-17 20:24 | Emergency (ER) | payer MEDICARE, OTHER, SELFPAY ==
--- NOTE | ~2024-09-17 | CT_ITS ---
History: Neck pain PROCEDURE: CT cervical spine without intravenous contrast. COMPARISON: None 09/25/2019 Plain film evaluation of the cervical spine which demonstrated postsurgical change at C5/C6 with 2 mm anterolisthesis C5 on during flexion. TECHNIQUE: Multiple contiguous axial images of the cervical spine were performed without the administration of i ntravenous contrast. DLP: 93 mGy-cm FINDINGS: Straightening of the normal curvature of the cervical spine is identified. Postoperative change is present the level of C5/C6, with placement of the intervertebral disc. No acute fractures are present. Biapical scarring, right greater than left. No soft tissue abnormality is appreciated The airway is patent. Impression: Degenerative disease, without acute fracture. Reviewed, dictated and finalized at location A. Impression: Degenerative disease, without acute fracture.
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
--- NOTE | ~2024-09-17 | CT_ITS ---
History: Back pain PROCEDURE: CT thoracic spine without intravenous contrast. COMPARISON: None TECHNIQUE: Multiple contiguous axial images of the thoracic spine were performed without the administration of i ntravenous contrast. DLP: 177 mGy-cm FINDINGS: Preservation of the normal curvature of the thoracic spine is identified. No acute compression fractures are present. No soft tissue abnormality is noted. At the level of T8/T9 is a central disc protrusion with mass effect on the spinal canal and to a less er extent the bilateral neural foramen. At the level of T9/T10 is a right paracentral disc protrusion without significant mass effect on the spinal canal and trace mass effect on the right neural foramen. No additional disc protrusions are id entified. The gallbladder is surgically absent. Findings suggesting prior gastric bypass within the upper stomach. The visualized lung zelaya are clear. Impression: Degenerative disease is identified at the levels of T8/T9 and T9/T10. No acute compression fractures. Reviewed, dictated and finalized at location A. Impression: Degenerative disease is identified at the levels of T8/T9 and T9/T10. No acute compression fractures.
--- OUTSIDE RECORDS SUMMARY | 2024-09-17 20:27 | XMS_ITS ---
Author Organization [facility] arabella Address [address] [place] [address] Care Team Providers Care Skilled Nursing Facility Counselor Name Role Phone Wayne FOSTER, Maxwell Primary Care Provider Marisel Garcia Unavailable [phone] Marisel Layton MD Unavailable Unavailable REASON FOR VISIT Benlysta 480mg dose 4)120 Du Encounters Encounter Location Date Provider Diagnosis [facility] [address] [place] [address] 05/14/2024 Marisel Layton Plan Of Treatment No Information Progress Notes * Dafne SCHULZDOB: [birth year] (59 yo F)Acc No.[id number]:05/14/2024 Patient: Dafne MCCOLLUM Appointment Provider: Zaynab LAYTON MD :1965 A ge:59 Y S ex:Female Date:05/14/2024 Address:[address] [place], [place] [id number] Pcp:Maxwell Black MD Subjective: * Chief Complaints: * 1 . Benlysta 480mg dose 4)120 Du. * Medical History: Objective: * Vitals: Assessment: Plan: * Treatment: * Billing Information: * Visit Code: * Procedure Codes: * Electronic signature of Marisel Layton MD on 09/17/2024 at 08:26 PM CDT Sign off status: Pending * Appointment Provider: Zaynab LAYTON MD Date: 0 05/14/2024 Generated for Printi ng/Faxing/eTransmitting on: 0 09/17/2024 08:26 PM CDT
--- OUTSIDE RECORDS SUMMARY | 2024-09-17 20:27 | XMS_ITS | Encounter Summary ---
Author Organization [facility] Address [address] [place] [address] Care Team Providers Care Hardwood Floor Finisher Name Role Phone Maxwell Black MD Primary Care Provider +1- [phone] Reason for Visit * Reason Onset Date Comments Appointment Notification 08/20/2024 Encounter Details Date Type Department Care Team (Late st Contact Info) Description 08/20/2024 Telephone [facility] Nephrology [address] [facility] [place] [address] Mary Kate Venegas MD [address] 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 Will call back to reschedule. Contacted her PCP Dr.Michael [place] to have records sent across also Dr.Ying Pineda her Banquet Bartender at [facility]. Zenon documented in this encounter Plan of Treatment Not on file documented as of this encounter Visit Diagnoses Not on filedocumented in this encounter Care Teams Hardwood Floor Finisher Relationship Specialty Start Date End Date Maxwell Black MD [address] [place] [phone] PCP - General Family Practice 08/20/24 documented as of this encounter
--- OUTSIDE RECORDS SUMMARY | 2024-09-17 20:27 | XMS_ITS | Clinical Summary ---
Author Organization [facility] Address [address] [place] [address] Care Team Providers Care Hand Iii Cutter Name Role Phone Maxwell Black MD Primary Care Provider +1- [phone] Source Comments [facility],non-owned Affiliates and Associated Physician Practices is amultiple site organization consisting of ambulatory clinics and hospital sitesin [place], [place], [place] and [place]. This disclosure is being madepursuant to the Care Everywhere program and may not contain all information available regarding this patient. 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 Gender Identity Not on file Sexual Orientation [...] MAMMOGRAM 1965 MEDICARE AWV 12 MONTHS 1965 HIV SCREENING 02/21/1980 HEPATITIS C SCREENING 02/16/1983 DTAP/TDAP/TD VACCINES (1 - Tdap) 02/21/1984 HEPATITIS B VACCINE (1 of 3 - 19+ 3-dose series) 02/21/1984 PAP SMEAR 1986 PNEUMOCOCCAL VACCINE 50+ (1 of 1 - PCV) 2015 ZOSTER VACCINE (1 of 2) 2015 SCREENING FOR DIABETES 07/07/2022 12/21/2017, 2017 COVID-19 VACCINE ( season) 2023 04/07/2022, 05/13/2020, 04/22/2020 DEPRESSION SCREENING 02/08/2024 INFLUENZA VACCINE (#1) 2024 , 11/24/2018, 11/27/2015, Additional history exists HIB VACCINE [...] age to complete this topic Insurance [facility]IC[facility]IC[facility] Care Teams Hand Iii Cutter Relationship Specialty Start Date End Date Maxwell Black MD [facility] [place] [phone] PCP - General 12/03/13
--- OUTSIDE RECORDS SUMMARY | 2024-09-17 20:27 | XMS_ITS ---
Author Organization [facility] arabella Address [address] [place] [address] Care Team Providers Care Engineering Supplies Sales Name Role Phone Wayne FOSTER, Maxwell Primary Care Provider Marisel Garcia Unavailable [phone] Marisel Layton MD Unavailable Unavailable REASON FOR VISIT infusion pt Encounters Encounter Location Date Provider Diagnosis [facility] [address] [facility] [address] [place] [address] 05/14/2024 Marisel Layton Plan Of Treatment No Information Progress Notes * Dafne SCHULZDOB: [birth year] (59 yo F)Acc No.[id number]:05/14/2024 Progress Notes Patient: Dafne MCCOLLUM Appointment Provider: Zaynab LAYTON MD :1965 A ge:59 Y S ex:Female Date:05/14/2024 Address:[address] [place] [address] Pcp:Maxwell Black MD Subjective: * Chief Complaints: * 1 . Infusion pt. * Medical History: Objective: * Vitals: Assessment: Plan: * Treatment: * Billing Information: * Visit Code: * Procedure Codes: * Electronic signature of Marisel Layton MD on 09/17/2024 at 08:27 PM CDT Sign off status: Pending * Appointment Provider: Zaynab LAYTON MD Date: 05/14/2024 Generated for Printi ng/Faxing/eTransmitting on: 0 09/17/2024 08:27 PM CDT
--- OUTSIDE RECORDS SUMMARY | 2024-09-17 20:27 | XMS_ITS | Patient Health Record ---
Author Organization [facility] arabella Address [address] [place] [address] Care Team Providers Care Senior Functional Analyst Name Role Phone Maxwell Black MD Primary Care Provider Marisel Garcia Unavailable [phone] Marisel Pineda MD Unavailable Unavailable Allergies No Known Allergies Results Component Value Reference Range Notes eGFR Reviewed date:04/11/2024 10:08:08 PM Interpretation:Lab Result Generalized Performing Lab:[facility] , [address] [facility] [address] Notes/Report: eGFR >90 >=60 mL/min/1.73 m2 Interpretive [...] Automated Reviewed date:04/11/2024 05:38:51 PM Interpretation: Performing Lab:[facility] , [address] [facility] [facility] [address] Notes/Report: Neut Abs 3.1 1.5-6.5 K/cumm ImmGran Abs 0.0 0.0-0.1 K/cumm Lymphocyte Abs 0.8 0.8-3.3 K/cumm [place] Abs 0.5 0.2-0.8 K/cumm Eos Abs 0.2 [...] Interpretive Data was last revised on 2017. [place] Pct 10.4 Interpretive Data Percent cell count [...] Interpretive Data was last revised on 2017. Hep Func Panel Reviewed date:04/11/2024 10:08:08 PM Interpretation:Lab Result Generalized Performing Lab:[facility] , [address] [facility] [address] Notes/Report: Total Bilirubin 0.5 0.1-1.2 mg/dL Bilirubin, Direct 0.2 0.1-0.3 mg/dL Plasma Total Protein 6.5 6.5-8.5 g/dL Albumin 4.4 3.5-5.0 g/dL Alkaline Phosphatase 86 40-130 Units/L ALT 64 7-45 Units/L AST 41 10-45 Units/L Creatinine Reviewed date:04/11/2024 10:08:51 PM Interpretation: Performing Lab:[facility] , [facility] [facility]. [facility] [address] Notes/Report: Creatinine 0.63 0.60-1.10 mg/dL CBC w auto diff Reviewed date:04/11/2024 05:38:51 PM Interpretation: Performing Lab:[facility] , [address] [place] [address]. [facility] [address] Notes/Report: WBC 4.6 3.8-9.9 K/cumm Hgb 14.1 11.9-15.5 g/dL Hct 45.3 35.6-45.5 % Platelet Ct 218 150-400 K/cumm MPV 11.1 9.1-12.3 fL RBC 4.80 3.90-5.20 M/cumm MCV 94.4 81.3-96.4 fL MCH 29.4 27.1-33.3 pg MCHC 31.1 32.3-35.7 g/dL RDW CV 13.2 11.1-14.9 % RDW SD 45.6 35.7-48.1 fL NRBC Abs Auto 0.00 0.00-0.01 K/cumm Reason For Referral Reason Benlysta Medicare/[place] Req'd Diagnosis 1 Lupus (M32.9) Referral Organization [facility]onzo Referring Provider First Name Marisel Referring Provider Last Name Edwin Referring Provider Speciality Rheumatolo gy Referred Organization [facility] Referred Provider Marisel Pineda Referred Address [address],[place], [place],[address], Referred Provider Specialty Rheumatology Procedure 1 INJECTION BELIMUMAB 10 MG (J0490) Referral Priority Routine Reason Benlysta Medicare/[place] No [place] Req'd Diagnosis 1 Lupus (M32.9) Referral Organization [facility] Referring Provider First Name Marisel Referring Provider Last Name Edwin Referring Provider Speciality Rheumatolo gy Referred Organization [facility] Referred Provider Marisel Pineda Referred Address [address],[place], [place],[address],[place] Referred Provider Specialty Rheumatology Procedure 1 INJECTION [...] morning and evening meals Oral 2 Active Seguin Carbonate 300 MG 1 tablet at bedtime Orally Once a day; Duration: 30 day(s) Active Vitamin B Complex take 1 capsule by oral route once Oral 1 Active Pantoprazole Sodium 40 MG 1 tablet Orally Once a day; Duration: 30 day(s) Active duloxetine - daily oral *Reorder from [employer] for eRx and Interaction Alerts* Active Pramipexole Dihydrochloride 0.5 MG take 1 tablet (0.5 mg) by oral route 2-3 hours before bedtime Oral 0 Active Cevimeline HCl 30 MG 1 capsule Orally Three times a day; Duration: 30 days As needed 09/14/2023 Active Acetaminophen-Codeine 300-15 MG 1 tablet as needed Orally every 6 hrs Not-Taking Magnesium Oxide 400 MG 1 tablet as needed Orally Once a day; Duration: 30 day(s) Active Midodrine HCl 2.5 MG 1 tablet Orally Twice a day; Duration: 30 day(s) Active Topiramate 100 MG take 1 tablet (100 mg) by oral route 2 times per day Oral 2 Active Cyanocobalamin 1000 MCG/ML inject 1 milliliter (1,000 mcg) by intramuscular route once a month Injection [id number]- 02 Active LORazepam 2 MG prn Oral Activ e Wegovy - weekly subcutaneous *Pick strength-form from [employer] for eRX* Active PredniSONE (Curt) Act hang Amoxicillin 500 MG TAKE 1 CAPSULE BY MOUTH EVERY 8 HOURS Oral; Duration: 10 Days Active Clobetasol Propionate 0.05 % apply a thin layer to the affected area(s) by topical route 2 times per day External 2 Active Centrum Silver 50+Women 8 mg iron-400 mcg-300 mcg take 1 tablet by oral route once Oral 1 *Pick strength-form from [employer] for eRX* Active Cholecalciferol 1.25 MG (14723 UT) take 1 tablet by oral route once Oral 1 Active Estradiol 1 MG 1 tablet Orally Once a day; Duration: 30 day(s) Active Lidocaine Viscous HCl 2 % Mouth/Throat; Duration: 25 Days Active Problems Problem Type SNOMED Code ICD Code Onset Dates Problem Status W/U Status Risk Notes Problem Systemic lupus erythematosus (46196780) Systemic lupus erythematosus, unspecified (M32.9) Active confirmed Problem Fibromyalgia (390532811) Fibromyalgia (M79.7) Active confirmed Problem Systemic lupus erythematosus (36213603) Systemic lupus erythematosus, unspecified SLE type, unspecified organ involvement status (M32.9) Active confirmed Problem Lupus (365777942) Lupus (M32.9) Active confirme d Vital Signs Heart Rate 78 /min 04/11/2024 Temperature 97.5 degrees Fahrenheit 04/11/2024 Height-cm 154.94 cm 04/11/2024 Blood pressure diastolic 66 mm Hg 04/11/2024 Weight-kg 47.63 kg 04/11/2024 Height 61 in 04/11/2024 Blood pressure systolic 116 mm Hg 04/11/2024 Weight 105 lbs 04/11/2024 BMI 19.84 kg/m2 04/11/2024 Encounters Encounter Location Date Provider Diagnosis [facility] [address] [place] [address] 10/04/2023 Marisel Pineda 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 ; Lupus M32.9 ; Fibromyalgia M79.7 ; Dry eyes H04.123 and High risk medication use Z79.899 [facility] [address] [place] [address] 11/15/2023 Marisel Pineda Systemic lupus erythematosus, unspecified M32.9 [facility] [address] [place] [address] 12/13/2023 Marisel Pineda [facility] [address] [place] [address] 12/20/2023 Marisel Pineda Systemic lupus erythematosus, unspecified SLE type, unspecified organ involvement status M32.9 [facility] [address] [place] [address] 04/11/2024 Marisel Pineda Systemic lupus erythematosus M32.9 [facility] [address] [place] [address] 12/22/2023 Marisel Pineda [facility] [address] [place] [address] 03/29/[address] [facility] [address] [place] [address] 05/07/2024 Marisel Pineda [facility] [address] [place] [address] 08/20/2024 Marisel Pineda Assessments Encounter Date Diagnosis (ICD Code) Assessment Notes Treatment Notes Treatment Clinical Notes Section Notes 10/04/2023 Connective tissue disease (ICD-10 - M35.9) [...] oral ulcers, will start benlysta infusion. 11/01/2023 Fibromyalgia (ICD-10 - M79.7) hurting all [...] 70 (SCL-70) 024 SSA/SSB ANTIBODY (SJOGREN'S) 09/14/2023 HERMOSILLO / OPERATIONAL INTELLIGENCE ANALYST ANTIBODY 09/14/2023 DNA (DS) ANTIBODY 09/14/2023 CAROLYN SCREEN/REFLEX TITER/PATTERN 09/14/19 24 Insurance Providers Payer Name Payer Address Payer Phone Subscriber Number Group Number Insured Name Patient Relationship to Insured Coverage Start Date Coverage End Date Medicare [address] [address] [place] [address] [id number] Dafne Schulz Self - patient is the insured [address] [address] [id number] Dafne Schulz Self - patient is the [...]
--- OUTSIDE RECORDS SUMMARY | 2024-09-17 20:27 | XMS_ITS | Clinical Summary ---
Author Organization [facility] Address [address] [place] [address] Phone Care Team Providers Care Business Resiliency Manager Name Role Phone Maxwell Black MD Primary Care Provider +1- [phone] Medications No known medications Active Problems No known active problems Encounters Date Type Department Care Team Description 08/22/2024 External Device Data [facility] ABSTRACTION Provider, Abstract 08/22/2024 External Device Data [facility] ABSTRACTION Provider, Abstract 08/22/2024 External Device Data [place] ABSTRACTION Provider, Abstract 08/21/2024 External Device Data [place] ABSTRACTION Provider, Abstract 08/20/2024 Orders Only [facility] [address] [facility] [address] [place] [phone] Provider, Abstract 08/20/2024 Telephone [facility] [address] [place] [address] Mary Kate Venegas MD Appointment Notification from Last 3 Months Social History Tobacco Use Types Packs/Day Years Used Date Smoking Tobacco: Never Assessed Comments Unknown Sex and Gender Information Value Date Recorded Sex Assigned at Not on file 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 Gender Identity Not on file Sexual Orientation Not on file Plan of Treatment Health Maintenance Due Date Last Done Comments DTAP/TDAP/TD VACCINES (1 - Tdap) 02/21/1984 HEPATITIS B VACCINES (1 of 3 - 19+ 3-dose series) 02/07 HPV/Cotest (21-29) 1986 CERVICAL CANCER SCREENING 1995 HPV/Cotest (30-65) 1995 PAP SMEAR 1995 BREAST CANCER SCREENING 2005 COLORECTAL SCREENING 2010 Colorectal Cancer Screening 2010 FIT-DNA Q 3 years 2010 FIT/FOBT Q 1 year 2010 Flex Sig/CT Colonography Q 5 years 2010 ZOSTER VACCINE (1 of 2) 2015 INFLUENZA VACCINE (#1) 2024 Care Teams Business Resiliency Manager Relationship Specialty Start Date End Date Maxwell Black MD [address] [place] [phone] PCP - General Family Practice 08/20/24
--- OUTSIDE RECORDS SUMMARY | 2024-09-17 20:27 | XMS_ITS | Clinical Summary ---
Author Organization [facility] Address [address] [place] [address] Care Team Providers Care Practical Ministries Professor Name Role Phone Charmaine Black MD Primary Care Provider + Allergies No known active allergies Medications calcium carbonate (OS-TAMARA) 650 mg (260 mg elemental) tablet,chewable 260 mg Acti ve tacqbbny-ubr-qr lic acid-vit K 400-80 mcg capsule Take [...] pulses. I suspect her noninvasives from [facility] were inaccurate. Based on her history a [...] on file Legal Sex Female 2:19 AM LUMBER SALES SUPERVISOR Gender Identity Female 06/06/2018 12:13 PM CDT [...] P M CDT Height 154.9 cm (5' 1) 05/14/2023 3:38 PM CDT Body Mass Index [...] 2023 04/07/2022, 05/13/2020, 04/22/2020 Influenza Vaccine (#1) 2024 , 11/24/2018, 11/27/2015, Additional history exists Hepatitis C Screening Completed 03/08/2022 Procedures Procedure Name Priority Date/Time Associated Diagnosis Comments HEPATITIS C ANTIBODY Routine 03/08/2022 3:23 PM LUMBER SALES SUPERVISOR from Last 3 Months or Most Recently Relevant to Health Maintenance Results * Hepatitis C antibody (03/08/2022 3:23 PM LUMBER SALES SUPERVISOR) Hep C Ab Nonreactive Nonreactive [facility] Comment: Interpretive Data Nonreactive: Antibodies to HCV [...] revised on 2019. Blood 03/08/2022 3:23 PM LUMBER SALES SUPERVISOR 03/08/2022 5:48 PM LUMBER SALES SUPERVISOR Marisel Pineda MD LAB MICROBIOLOGY - GENERAL ORDER NAIF Edited Result - Final [facility] [address] [place] Department [place] [address] from Last 3 Months or Most Recently Relevant to Health Maintenance Insurance [facility] CHOICE PLUS MEDICARE [facility] MED[facility] Care Teams Practical Ministries Professor Relationship Specialty Start Date End Date Charmaine Black MD PCP - General 10/07/16
[2024-09-17 20:31] VITALS: BP 111/64; PULSE 95; RESP 16; TEMP 36.2; O2SAT 98
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
[2024-09-17 22:46] VITALS: BP 103/63; PULSE 75; RESP 16; O2SAT 98
--- OUTSIDE RECORDS SUMMARY | 2024-09-17 22:50 | XMS_ITS | Clinical Summary ---
Author Organization [facility] Address [address] [place] [address] Care Team Providers Care Superintendent Gas Distribution Name Role Phone Maxwell Black MD Primary Care Provider +1- [phone] Source Comments [facility],non-owned Affiliates and Associated Physician Practices is amultiple site organization consisting of ambulatory clinics and hospital sitesin [place], [place], [place] and [place]. This disclosure is being madepursuant to the Care Everywhere program and may not contain all information available regarding this patient. 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
--- OUTSIDE RECORDS SUMMARY | 2024-09-17 22:50 | XMS_ITS | Clinical Summary ---
Author Organization [facility] Address [address] [place] [address] Care Team Providers Care Community Administrator Name Role Phone Charmaine Black MD Primary Care Provider + Allergies No known active allergies Medications calcium carbonate (OS-TAMARA) 650 mg (260 mg elemental) tablet,chewable 260 mg Acti ve lxyrcpye-exa-rs lic acid-vit K 400-80 mcg capsule Take [...] palpable pulses. I suspect her noninvasives from [facility] were inaccurate. Based on her history [...] on file Legal Sex Female 2:19 AM RESIDENTIAL DESIGNER Gender Identity Female 06/06/2018 12:13 PM [...] HEPATITIS C ANTIBODY Routine 03/08/2022 3:23 PM RESIDENTIAL DESIGNER from Last 3 Months or Most Recently Relevant to Health Maintenance Results * Hepatitis C antibody (03/08/2022 3:23 PM RESIDENTIAL DESIGNER) Hep C Ab Nonreactive Nonreactive [facility] PATIENT'S [...] revised on 2019. Blood 03/08/2022 3:23 PM RESIDENTIAL DESIGNER 03/08/2022 5:48 PM RESIDENTIAL DESIGNER Marisel Pineda MD LAB MICROBIOLOGY - GENERAL ORDER NAIF Edited Result - Final [facility] [address] [place] Department [place] [address] from Last 3 Months or Most Recently Relevant to Health Maintenance Insurance [facility] [place] [address] MEDICARE [facility] MEDICARE Care Teams Community Administrator Relationship Specialty Start Date End Date Charmaine Black MD PCP - General 10/07/16
--- OUTSIDE RECORDS SUMMARY | 2024-09-17 22:50 | XMS_ITS | Encounter Summary ---
Author Organization [facility] Address [address] [place] [phone] Care Team Providers Care Ring Sorter Name Role Phone Maxwell Black MD Primary Care Provider +1- [phone] Reason for Visit * Reason Onset Date Comments Appointment Notification 08/20/2024 Encounter Details Date Type Department Care Team (Late st Contact Info) Description 08/20/2024 Telephone [facility] Nephrology [place] [address] [facility] [place] [address] Mary Kate Venegas MD [address] 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 Will call back to reschedule. Contacted her PCP Dr.Michael [place] to have records sent across also Dr.Ying Pineda her Bouffant Curtain Machine Tender at [facility]. Zenon documented in this encounter Plan of Treatment Not on file documented as of this encounter Visit Diagnoses Not on filedocumented in this encounter Care Teams Ring Sorter Relationship Specialty Start Date End Date Maxwell Black MD [address] [place] [phone] PCP - General Family Practice 08/20/24 documented as of this encounter
--- OUTSIDE RECORDS SUMMARY | 2024-09-17 22:50 | XMS_ITS | Clinical Summary ---
Author Organization [facility] Address [address] [place] [address] Phone Care Team Providers Care Yard Crane Operator Name Role Phone Maxwell Black MD Primary Care Provider +1- [phone] Medications No known medications Active Problems No known active problems Encounters Date Type Department Care Team Description 08/22/2024 External Device Data [facility] ABSTRACTION Provider, Abstract 08/22/2024 External Device Data [facility]STRACTION Provider, Abstract 08/22/2024 External Device Data [facility] ABSTRACTION Provider, Abstract 08/21/2024 External Device Data [facility] ABSTRACTION Provider, Abstract 08/20/2024 Orders Only [facility] [address] [facility] [address] [place] [phone] Provider, Abstract 08/20/2024 Telephone [facility] [address] [facility] [address] [place] [address] Mary Kate Venegas MD Appointment Notification from Last 3 Months Social History Tobacco Use Types Packs/Day Years Used Date Smoking Tobacco: Never Assessed Comments Unknown Sex and Gender Information Value Date Recorded Sex Assigned at Not on file Legal 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
--- NOTE | 2024-09-17 23:27 | PC.NURSE ---
Pt is at scans at this moment. Will medicate when patient returns.
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
[2024-09-17] MEDS: CYCLOBENZAPRINE HCL 5 MG TABLET PO (23:35)
[2024-09-17] MEDS: HYDROcodone/acetaminophen (*CRX) 5-325 MG TABLET 1 TAB PO (23:35)
[2024-09-17] MEDS: KETOROLAC (*BKC) 60 MG/2 ML VIAL IM (23:36)
[2024-09-18 01:23] VITALS: BP 121/69; PULSE 80; RESP 18; TEMP 36.6; O2SAT 100
== END 2024-09-18 01:21 | disposition home or self-care (01) ==
PROVIDERS: Emergency Provider Physician Assistant; PCP Family Medicine
DX: S16.1XXA Strain of muscle, fascia and tendon at neck level, initial encounter (principal); S29.012A Strain of muscle and tendon of back wall of thorax, initial encounter; J32.9 Chronic sinusitis, unspecified; E11.9 Type 2 diabetes mellitus without complications; K21.9 Gastro-esophageal reflux disease without esophagitis; M32.9 Systemic lupus erythematosus, unspecified; Q87.19 Other congenital malformation syndromes predominantly associated with short stature; Z96.652 Presence of left artificial knee joint; Z98.84 Bariatric surgery status; Z86.16 Personal history of COVID-19; Z87.440 Personal history of urinary (tract) infections; Z87.442 Personal history of urinary calculi; Z87.11 Personal history of peptic ulcer disease; Z87.01 Personal history of pneumonia (recurrent); Z90.710 Acquired absence of both cervix and uterus; Z90.49 Acquired absence of other specified parts of digestive tract; Z79.84 Long term (current) use of oral hypoglycemic drugs; Z79.899 Other long term (current) drug therapy; M19.011 Primary osteoarthritis, right shoulder; M51.34 Other intervertebral disc degeneration, thoracic region; Y93.I1 Activity, roller coaster riding; X50.9XXA Other and unspecified overexertion or strenuous movements or postures, initial encounter
CPT/HCPCS: 72125; 72128; 73030; 96372; 99284; A4565; A9270; J1885

== ENCOUNTER 2024-10-09 19:41 | Emergency (ER) | payer MEDICARE, OTHER, SELFPAY ==
--- OUTSIDE RECORDS SUMMARY | 2024-01-17 03:15 | XMS_ITS ---
Author Organization [facility] Address [address] [address] [address] Care Team Providers Care Department Clinician Name Role Phone Wayen FOSTER, Maxwell Primary Care Provider Marisel Garcia Unavailable [phone] Marisel Layton MD Unavailable Unavailable REASON FOR VISIT Benlysta 520mg dose. 1)400 1)120 Du Encounters Encounter Location Date Provider Diagnosis [facility] [address] [facility] [address] [address] 01/17/2024 Marisel Layton Plan Of Treatment No Information Progress Notes * Dafne SCHULZDOB: [birth year] (59 yo F)Acc No.[id number]:01/17/2024 Patient: Dafne MCCOLLUM Appointment Provider: Zaynab LAYTON MD :1965 A ge:58 Y S ex:Female Date:01/17/2024 Address:[address] [place], [place] [id number] Pcp:Maxwell Black MD Subjective: * Chief Complaints: * 1 . Benlysta 520mg dose. 1)400 1)120 Du. * Medical History: Objective: * Vitals: Assessment: Plan: * Treatment: * Billing Information: * Visit Code: * Procedure Codes: * Electronic signature of Marisel Layton MD on 10/09/2024 at 07:42 PM CDT Sign off status: Pending * Appointment Provider: Zaynab LAYTON MD Date: 1 03/19/2023 Generated for Printi ng/Faxing/eTransmitting on: 0 10/09/2024 07:42 PM CDT
--- OUTSIDE RECORDS SUMMARY | 2024-05-14 03:30 | XMS_ITS ---
Author Organization [facility] [place] [facility] Address [address] [address] [place] [address] Care Team Providers Care Film Sorter Name Role Phone Wanye FOSTER, Maxwell Primary Care Provider Marisel Garcia Unavailable [phone] Marisel Layton MD Unavailable Unavailable REASON FOR VISIT Benlysta 480mg dose 4)120 Du Encounters Encounter Location Date Provider Diagnosis [facility] [address] [facility] [address] [place] [address] 05/14/2024 Marisel Layton Plan Of Treatment No Information Progress Notes * Dafne SCHULZDOB: [birth year] (59 yo F)Acc No.[id number]:05/14/2024 Patient: Dafne MCCOLLUM Appointment Provider: Zaynab LAYTON MD :1965 A ge:59 Y S ex:Female Date:05/14/2024 Address:[address] [place], [place] [address] Pcp:Maxwell Black MD Subjective: * Chief Complaints: * 1 . Benlysta 480mg dose 4)120 Du. * Medical History: Objective: * Vitals: Assessment: Plan: * Treatment: * Billing Information: * Visit Code: * Procedure Codes: * Electronic signature of Marisel Layton MD on 10/09/2024 at 07:43 PM CDT Sign off status: Pending * Appointment Provider: Zaynab LAYTON MD Date: 0 05/14/2024 Generated for Printi ng/Faxing/eTransmitting on: 0 10/09/2024 07:43 PM CDT
--- OUTSIDE RECORDS SUMMARY | 2024-05-14 03:30 | XMS_ITS ---
Author Organization [facility] Address [address] [facility] [address] [place] [address] Care Team Providers Care Car Rental Clerk Name Role Phone Wayne FOSTER, Maxwell Primary Care Provider Marisel Garcia Unavailable [phone] Marisel Layton MD Unavailable Unavailable REASON FOR VISIT infusion pt Encounters Encounter Location Date Provider Diagnosis [facility] [address] [facility] [address] [place] [address] 05/14/2024 Marisel Layton Plan Of Treatment No Information Progress Notes * Dafne SCHULZDOB: [birth year] (59 yo F)Acc No.[id number]:05/14/2024 Progress Notes Patient: Dafne MCCOLLUM Appointment Provider: Zaynab LAYTON MD :1965 A ge:59 Y S ex:Female Date:05/14/2024 Address:[address] [place] [address] Pcp:Maxwell Black MD Subjective: * Chief Complaints: [...]
[2024-10-09] VITALS (12 sets, daily range): BP systolic 106–137; BP diastolic 72–95; PULSE 65–88; RESP 13–21; O2SAT 98–99
--- NOTE | ~2024-10-09 | XR_ITS ---
EXAMINATION: XR chest 2V 10/09/2024 20:39 INDICATION: Syncope PROCEDURE: 2 view chest COMPARISON: Comparison to multiple prior studies sequentially, with oldest reviewed study dated 04/30/2016. FINDINGS: The lungs are clear. The cardiomediastinal silhouette is within normal limits. There are no pleural effusions. There is no pneumothorax suspected. The lungs are hyperinflated which is consistent with, but not diagnostic of chronic obstructive pulmonary disease. IMPRESSION: 1: NO ACUTE CARDIOPULMONARY DISEASE. Reviewed, dictated and finalized at location O.
--- NOTE | 2024-10-09 19:42 | ECG_ITS ---
Test Date: 2024-10-09 19:55:10 Measurements Intervals [place] Rate: 83 P: 59 MI: 140 QRS: 15 QRSD: 78 T: 72 QT: 353 QTc: 417 Interpretive Statements SINUS RHYTHM SEPTAL MYOCARDIAL INFARCTION , OF INDETERMINATE AGE [40+ ms Q WAVE IN V1/V2] ABNORMAL ECG Compared to ECG 01/11/2024 15:47:00 No significant changes Electronically Signed On 10-10-2024 11:08:56 CDT by Jesus Waldrop M.D.
--- OUTSIDE RECORDS SUMMARY | 2024-10-09 19:43 | XMS_ITS | Clinical Summary ---
Author Organization [facility] Address [address] [place] [address] Care Team Providers Care Dynamite Cartridge Crimper Name Role Phone Maxwell Black MD Primary Care Provider +1- [phone] Source Comments [facility],non-owned Affiliates and Associated Physician Practices is amultiple site organization consisting of ambulatory clinics and hospital sitesin [place], [place], [place] and [place]. This disclosure is being madepursuant to the Care Everywhere program and may not contain all information available regarding this patient. 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
--- OUTSIDE RECORDS SUMMARY | 2024-10-09 19:43 | XMS_ITS | Patient Health Record ---
Author Organization [facility] arabella Address [address] [place] [address] Care Team Providers Care Traffic Control Officer Name Role Phone Maxwell Black MD Primary Care Provider Sallyva Marisel Edward Unavailable [phone] Marisel Pineda MD Unavailable Unavailable Allergies No Known Allergies Results Component Value Reference Range Notes Hep Func Panel Reviewed date:04/11/2024 10:08:08 PM Interpretation:Lab Result Generalized Performing Lab:[facility] , [address] [place] [address]. [place] [address] Notes/Report: Total Bilirubin 0.5 0.1-1.2 mg/dL Bilirubin, Direct 0.2 0.1-0.3 mg/dL Plasma Total Protein 6.5 6.5-8.5 g/dL Albumin 4.4 3.5-5.0 g/dL Alkaline Phosphatase 86 40-130 Units/L ALT 64 7-45 Units/L AST 41 10-45 Units/L Creatinine Reviewed date:04/11/2024 10:08:51 PM Interpretation: Performing Lab:[facility] , [address] [place] [address]. [place] [address] Notes/Report: Creatinine 0.63 0.60-1.10 mg/dL CBC w auto diff Reviewed date:04/11/2024 05:38:51 PM Interpretation: Performing Lab:[facility] , [address] [place] [address]. [place] [address] Notes/Report: WBC 4.6 3.8-9.9 K/cumm Hgb 14.1 11.9-15.5 g/dL Hct 45.3 35.6-45.5 % Platelet Ct 218 150-400 K/cumm MPV 11.1 9.1-12.3 fL RBC 4.80 3.90-5.20 M/cumm MCV 94.4 81.3-96.4 fL MCH 29.4 27.1-33.3 pg MCHC 31.1 32.3-35.7 g/dL RDW CV 13.2 11.1-14.9 % RDW SD 45.6 35.7-48.1 fL NRBC Abs Auto 0.00 0.00-0.01 K/cumm eGFR Reviewed date:04/11/2024 10:08:08 PM Interpretation:Lab Result Generalized Performing Lab:[facility] , [address] [facility] [place] [address] Notes/Report: eGFR >90 >=60 mL/min/1.73 m2 Interpretive [...] Reviewed date:04/11/2024 05:38:51 PM Interpretation: Performing Lab:[facility] , [address] [facility] [facility] [place] [address] Notes/Report: Neut Abs 3.1 1.5-6.5 K/cumm ImmGran Abs 0.0 0.0-0.1 K/cumm Lymphocyte Abs 0.8 0.8-3.3 K/cumm Dawson Abs 0.5 0.2-0.8 K/cumm Eos Abs 0.2 [...] Interpretive Data was last revised on 2017. Dawson Pct 10.4 Interpretive Data Percent cell count [...] Interpretive Data was last revised on 2017. Reason For Referral Reason Benlysta Medicare/[facility] No PA Req'd Diagnosis 1 Lupus (M32.9) Referral Organization [facility]zo Referring Provider First Name Marisel Referring Provider Last Name Edwin Referring Provider Speciality Rheumatolo gy Referred Organization [facility] Referred Provider Marisel Pineda Referred Address [address],[place], [place],[address] Referred Provider Specialty Rheumatology Procedure 1 INJECTION [...] morning and evening meals Oral 2 Active [place] Carbonate 300 MG 1 tablet at bedtime Orally Once a day; Duration: 30 day(s) Active Vitamin B Complex take 1 capsule by oral route once Oral 1 Active Pantoprazole Sodium 40 MG 1 tablet Orally Once a day; Duration: 30 day(s) Active duloxetine - daily oral *Reorder from [employer] for eRx and Interaction Alerts* Active Pramipexole [...] by intramuscular route once a month Injection [id number]- 02 Active LORazepam 2 MG prn Oral Activ e Wegovy - weekly subcutaneous *Pick strength-form from [employer] for eRX* Active PredniSONE (Curt) Act hang [...] route once Oral 1 *Pick strength-form from [employer] for eRX* Active Cholecalciferol 1.25 MG (12156 UT) take 1 tablet by oral route once Oral 1 Active Estradiol 1 MG 1 tablet Orally Once a day; Duration: 30 day(s) Active Lidocaine Viscous HCl 2 % Mouth/Throat; Duration: 25 Days Active Problems Problem Type SNOMED Code ICD Code Onset Dates Problem Status W/U Status Risk Notes Problem Systemic lupus erythematosus (08470824) Systemic lupus erythematosus, unspecified (M32.9) Active confirmed Problem Fibromyalgia (545321091) Fibromyalgia (M79.7) Active confirmed Problem Systemic lupus erythematosus (25325471) Systemic lupus erythematosus, unspecified SLE type, unspecified organ involvement status (M32.9) Active confirmed Problem Lupus (368350940) Lupus (M32.9) Active confirme d Vital Signs Heart Rate 78 /min 04/11/2024 Temperature 97.5 degrees Fahrenheit 04/11/2024 Height-cm 154.94 cm 04/11/2024 Blood pressure diastolic 66 mm Hg 04/11/2024 Weight-kg 47.63 kg 04/11/2024 Height 61 in 04/11/2024 Blood pressure systolic 116 mm Hg 04/11/2024 Weight 105 lbs 04/11/2024 BMI 19.84 kg/m2 04/11/2024 Encounters Encounter Location Date Provider Diagnosis [facility] [address] [place] [address] 10/18/2023 Marisel Edwin Systemic lupus erythematosus, unspecified SLE type, unspecified organ involvement status M32.9 [facility] [address] [place] [address] 11/01/2023 Marisel Du Lupus M32.9 [facility] [address] [place] [address] 11/01/2023 Marisel Du 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 ; Lupus M32.9 ; Fibromyalgia M79.7 ; Dry eyes H04.123 and High risk medication use Z79.899 [facility] [address] [place] [address] 11/15/2023 Marisel Du Systemic lupus erythematosus, unspecified M32.9 [facility] [address] [place] [address] 12/13/2023 Marisel Du [facility] [address] [place] [address] 12/20/2023 Marisel Pineda Systemic lupus erythematosus, unspecified SLE type, unspecified organ involvement status M32.9 [facility] [address] [place] [address] 04/11/2024 Marisel Pineda Systemic lupus erythematosus M32.9 [facility] [address] [place] [address] 12/22/2023 Marisel Pineda [facility] [address] [place] [address] 03/29/2024 Marisel Pineda [facility] [address] [place] [address] 05/07/2024 Marisel Pineda [facility] [address] [place] [address] 08/20/2024 Marisel Pineda Assessments Encounter Date Diagnosis (ICD Code) Assessment Notes Treatment Notes Treatment Clinical Notes Section Notes 10/18/2023 Systemic lupus erythematosus, unspecified SLE type, [...] start prednisone taper, continue benlysta infusion. 11/01/2023 Fibromyalgia (ICD-10 - M79.7) hurting all over, restart plaquenil 400mg/day, start prednisone taper, continue benlysta infusion. 11/01/2023 Dry eyes (ICD-10 - H04.123) hurting all over, restart plaquenil 400mg/day, start prednisone taper, continue benlysta infusion. 11/01/2023 High risk medication use (ICD-10 - Z79.899) hurting all over, restart plaquenil 400mg/day, start prednisone taper, continue benlysta infusion. Plan Of Treatment Pending Test Test Name Order Date CRP (C-REACTIVE PROTEIN) 09/14/2023 RHEUMATOID FACTOR (RF), QUANTITATIVE 08/2023 CK 09/14/2023 CMP(COMPREHENSIVE METABOLIC PANEL) 09/13 C3 AND C4 COMPLEMENTS 09/14/2023 URINALYSIS, WITH MICROSCOPIC 09/14/2023 CBC W/DIFF 09/14/2023 SEDIMENTATION RATE, ESR 09/14/2023 CYCLIC CITRULLINATED PEPTIDE (CCP) AB, I gG/IgA 09/14/2023 SCLERODERMA ANTIBODY 70 (SCL-70) 024 SSA/SSB ANTIBODY (SJOGREN'S) 09/14/2023 HERMOSILLO / BUTTONHOLER ANTIBODY 09/14/2023 DNA (DS) ANTIBODY 09/14/2023 CAROLYN SCREEN/REFLEX TITER/PATTERN 09/14/19 24 Insurance Providers Payer Name Payer Address Payer Phone Subscriber Number Group Number Insured Name Patient Relationship to Insured Coverage Start Date Coverage End Date Medicare [address] [address] [place] [address] [id number] Dafne Schulz Self - patient is the insured [address] [address] [phone] [id number] Dafne Schulz Self - patient is the [...]
--- OUTSIDE RECORDS SUMMARY | 2024-10-09 19:43 | XMS_ITS | Encounter Summary ---
Author Organization [facility] Address [address] [place] [address] Care Team Providers Care Risk Management Consultant Name Role Phone Maxwell Black MD Primary Care Provider [phone] Reason for Visit * Reason Onset Date Comments Appointment Notification 08/20/2024 Encounter Details Date Type Department Care Team (Late st Contact Info) Description 08/20/2024 Telephone [facility] [address] [facility] [facility] [address] [place] [address] Mary Kate Venegas MD [address] 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 Will call back to reschedule. Contacted her PCP Dr.Michael Black-[place] to have records sent across also Dr.Ying Pineda her Compensation And Hris Analyst at [facility]. [place] documented in this encounter Plan of Treatment Not on file documented as of this encounter Visit Diagnoses Not on filedocumented in this encounter Care Teams Risk Management Consultant Relationship Specialty Start Date End Date Maxwell Black MD [address] [place] [phone] PCP - General Family Practice 08/20/24 documented as of this encounter
--- OUTSIDE RECORDS SUMMARY | 2024-10-09 19:43 | XMS_ITS | Clinical Summary ---
Author Organization [facility] Address [address] [place] [address] Care Team Providers Care Ross Lift Operator Name Role Phone Charmaine Black MD Primary Care Provider + Allergies No known active allergies Medications calcium carbonate (OS-TAMARA) 650 mg (260 mg elemental) tablet,chewable 260 mg Acti ve yaubhckc-zyz-kg lic acid-vit K 400-80 mcg capsule Take [...] palpable pulses. I suspect her noninvasives from [facility] were inaccurate. Based on her history [...] on file Legal Sex Female 2:19 AM ACOUSTICAL CARPENTER Gender Identity Female 06/06/2018 12:13 PM CDT [...] HEPATITIS C ANTIBODY Routine 03/08/2022 3:23 PM ACOUSTICAL CARPENTER from Last 3 Months or Most Recently Relevant to Health Maintenance Results * Hepatitis C antibody (03/08/2022 3:23 PM ACOUSTICAL CARPENTER) Hep C Ab Nonreactive Nonreactive [facility] Comment: Interpretive Data Nonreactive: Antibodies to [...] revised on 2019. Blood 03/08/2022 3:23 PM ACOUSTICAL CARPENTER 03/08/2022 5:48 PM ACOUSTICAL CARPENTER Marisel Pineda MD LAB MICROBIOLOGY - GENERAL ORDER NAIF Edited Result - Final [facility] [address] [place] Department [place] [address] from Last 3 Months or Most Recently Relevant to Health Maintenance Insurance [facility] CHO[employer] PLUS MEDICARE [facility] Care Teams Ross Lift Operator Relationship Specialty Start Date End Date Charmaine Black MD PCP - General 10/07/16
[2024-10-09 22:39] LABS: Hematocrit 43.4 % (37.0-47.0); Hemoglobin 14.4 g/dL (12.0-15.0); Immature Granulocyte Percent A 0.2 % (0-0.5); Lymphocytes Absolute Auto 1.59 K/mm3 (0.9-3.2); Mean Corpuscular HGB Conc 33.2 g/dl (32-36); Mean Corpuscular Hemoglobin 29.6 pg (26-34); Mean Corpuscular Volume 89.1 fl (80-100); Nucleated Red Blood Cells Absolute Auto 0.000 K/mm3 (0.0-0.012); Nucleated Red Blood Cells Perc 0.0 % (0.0-0.2); Platelet Count Result 236 k/mm3 (150-375); Red Blood Count 4.87 M/mm3 (4.2-5.4); White Blood Count 6.6 K/mm3 (4.5-10.0)
[2024-10-09 22:52] LABS: Alanine Aminotransferase 143 U/L (6-35); Albumin Level 4.5 g/dL (3.5-5.1); Alkaline Phosphatase 91 U/L (38-126); Anion Gap 7 mmol/L (4-12); Aspartate Amino Transferase 55 U/L (14-36); Bilirubin,Total 0.3 mg/dL (0.2-1.3); Blood Urea Nitrogen 10 mg/dL (7-17); Calcium 9.3 mg/dL (8.4-10.2); Carbon Dioxide 28 mmol/L (22-30); Chloride 103 mmol/L (98-107); Estimated CRCL calculation 54 ml/min; Estimated Glomerular Filt Rate > 60; Glucose 80 mg/dL (65-110); Potassium 3.6 mmol/L (3.4-5.0); Sodium 138 mmol/L (137-145); Total Protein 7.0 g/dL (6.3-8.2)
[2024-10-09 22:58] LABS: Add Urine Microscopic? YES; Appearance Urine Cloudy (Clear); Glucose Urine UA Negative (Negative); Leukocyte Esterase Ur 2+ LEU/UL (Negative); Nitrate Urine Positive (Negative); Non Pathogenic Casts 0-2; Specific Grav Ur 1.019 (1.001-1.035)
[2024-10-09] MEDS: CEPHALEXIN 500 MG CAPSULE PO (23:26)
[2024-10-09] MEDS: SODIUM CHLORIDE 0.9% IV 1,000 ML 999 ML IV CONT (23:26)
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
[2024-10-09 23:48] LABS: Lithium 0.3 mmol/L (0.6-1.2)
[2024-10-10 00:28] VITALS: BP 120/68
== END 2024-10-10 00:30 | disposition home or self-care (01) ==
PROVIDERS: Emergency Provider Student in an Organized Health Care Education/Training Program; PCP Family Medicine
DX: I95.1 Orthostatic hypotension (principal); N30.00 Acute cystitis without hematuria; I10 Essential (primary) hypertension; E11.9 Type 2 diabetes mellitus without complications; J32.9 Chronic sinusitis, unspecified; G25.81 Restless legs syndrome; M32.9 Systemic lupus erythematosus, unspecified; M79.7 Fibromyalgia; M35.00 Sjogren syndrome, unspecified; K21.9 Gastro-esophageal reflux disease without esophagitis; F90.9 Attention-deficit hyperactivity disorder, unspecified type; F41.9 Anxiety disorder, unspecified; F31.9 Bipolar disorder, unspecified; Z98.84 Bariatric surgery status; Z96.652 Presence of left artificial knee joint; Z86.16 Personal history of COVID-19; Z87.440 Personal history of urinary (tract) infections; Z87.11 Personal history of peptic ulcer disease; Z87.01 Personal history of pneumonia (recurrent); Z90.710 Acquired absence of both cervix and uterus; Z90.49 Acquired absence of other specified parts of digestive tract; Z79.84 Long term (current) use of oral hypoglycemic drugs; Z79.899 Other long term (current) drug therapy; R94.31 Abnormal electrocardiogram [ECG] [EKG]
CPT/HCPCS: 36415; 71046; 80053; 80178; 81001; 82948; 85025; 87077; 87086; 87186; 93005; 96360; 99284; A9270; J7030

== ENCOUNTER 2024-10-16 00:29 | Day surgery (SDC) | payer OTHER, SELFPAY ==
--- OUTSIDE RECORDS SUMMARY | 2024-01-17 03:15 | XMS_ITS ---
Author Organization [facility] Address [address] [facility] [address], [place] [address] Care Team Providers Care Windshield Repair Technician Name Role Phone Wayne FOSTER, Maxwell Primary Care Provider Marisel Garcia Unavailable [phone] Marisel Layton MD Unavailable Unavailable REASON FOR VISIT Benlysta 520mg dose. 1)400 1)120 Du Encounters Encounter Location Date Provider Diagnosis [facility] [address] [facility] [address], [place] [address] 01/17/2024 Marisel Layton Plan Of Treatment No Information Progress Notes * Dafne SCHULZDOB: [birth year] (59 yo F)Acc No.[id number]:01/17/2024 Patient: Dafne MCCOLLUM Appointment Provider: Zaynab LAYTON MD :1965 A ge:58 Y S ex:Female Date:01/17/2024 Address:[address] [place], [place] [id number] Pcp:Maxwell Black MD Subjective: * Chief Complaints: * 1 . Benlysta 520mg dose. 1)400 1)120 Du. * Medical History: Objective: * Vitals: Assessment: Plan: * Treatment: * Billing Information: * Visit Code: * Procedure Codes: * Electronic signature of Marisel Layton MD on 10/16/2024 at 12:31 AM CDT Sign off status: Pending * Appointment Provider: Zaynab LAYTON MD Date: 1 03/19/2023 Generated for Printi ng/Faxing/eTransmitting on: 0 10/16/2024 12:31 AM CDT
--- OUTSIDE RECORDS SUMMARY | 2024-05-14 03:30 | XMS_ITS ---
Author Organization [facility] ar[facility] Address [address] [facility] [address] [place] [address] Care Team Providers Care Collar Cutter Name Role Phone Wayne FOSTER, Maxwell Primary Care Provider Marisel Garcia Unavailable [phone] Marisel Layton MD Unavailable Unavailable REASON FOR VISIT infusion pt Encounters Encounter Location Date Provider Diagnosis [facility] [address] [facility] [address] [place] [address] 05/14/2024 Marisel Layton Plan Of Treatment No Information Progress Notes * Dafne SCHULZDOB: [birth year] (59 yo F)Acc No.[id number]:05/14/2024 Progress Notes Patient: Dafne MCCOLLUM Appointment Provider: Zaynab LAYTON MD :1965 A ge:59 Y S ex:Female Date:05/14/2024 Address:[address] [place] [address] Pcp:Maxwell Black MD Subjective: * Chief Complaints: * 1 . Infusion pt. * Medical History: Objective: * Vitals: Assessment: Plan: * Treatment: * Billing Information: * Visit Code: * Procedure Codes: * Electronic signature of Marisel Layton MD on 10/16/2024 at 12:32 AM CDT Sign off status: Pending * Appointment Provider: Zaynab LAYTON MD Date: 05/14/2024 Generated for Printi ng/Faxing/eTransmitting on: 0 10/16/2024 12:32 AM CDT
--- OUTSIDE RECORDS SUMMARY | 2024-05-14 03:30 | XMS_ITS ---
Author Organization [facility] Address [address] [facility] [address] [place] [address] Care Team Providers Care Plating Foreman Name Role Phone Wayne FOSTER, Maxwell Primary Care Provider Marisel Garcia Unavailable [phone] Marisel Layton MD Unavailable Unavailable REASON FOR VISIT Benlysta 480mg dose 4)120 Du Encounters Encounter Location Date Provider Diagnosis [facility] [address] [facility] [facility] [address] [place] [address] 05/14/2024 Marisel Layton Plan Of Treatment No Information Progress Notes * Dfane SCHULZDOB: [birth year] (59 yo F)Acc No.[id number]:05/14/2024 Patient: Dafne MCCOLLUM Appointment Provider: Zaynab LAYTON MD :1965 A ge:59 Y S ex:Female Date:05/14/2024 Address:[address] [place], [place] [id number] Pcp:Maxwell Black MD Subjective: * Chief Complaints: * 1 . Benlysta 480mg dose 4)120 Du. * Medical History: Objective: * Vitals: Assessment: Plan: * Treatment: * Billing Information: * Visit Code: * Procedure Codes: * Electronic signature of Marisel Layton MD on 10/16/2024 at 12:32 AM CDT Sign off status: Pending * Appointment Provider: Zaynab LAYTON MD Date: 0 05/14/2024 Generated for Printi ng/Fabrightg/eTransmitting on: 0 10/16/2024 12:32 AM CDT
--- NOTE | 2024-10-11 12:42 | PC.NURSE ---
Addendum entered by Amilcar Nichols RN 10/11/24 16:00: Patient denies any changes to health history since previous interview. Original Note: Report to the Outpatient Waiting Room, entrance under the green pavilion located off [facility], at time _1130_ on date _[id number]_. Planned Procedure Time: _130pm_.? Time changes happen often and if your time is changed the preop area will call you the afternoon before. - You and your visitor will be asked to self-screen and do not enter if you have any COVID symptoms. Please call surgeon if you need to reschedule. - A mask is optional within the hospital at this time. Patients may have clear liquids (water, carbonated beverages, clear teas, apple juice) until 3 hours prior to surgery with a maximum of 20 ounces. - No food from midnight until time of surgery and no smoking, or chewing tobacco (or any form of nicotine). No chewing gum, candy or mints. Take only the following medications with a SIP of water on the morning of surgery: ___Patient says she prefers to not take any medicine morning of surgery.___ DO NOT STOP ANY OF YOUR OTHER PRESCRIPTION MEDICATIONS PRIOR TO SURGERY EXCEPT THE FOLLOWING Hold all vitamins and supplements for 3 days per anesthesiologist. Medications to discontinue per physician Date to take last [id number]____ Please no make-up, nail bengali, hairspray, perfume, deodorant, or body powder the day of surgery.? No jewelry (including any body piercings) or valuables the day of surgery, leave them at home.? Please take a shower or bath the night before, or the morning of, surgery with an antibacterial soap.? Wear comfortable, loose fitting clothing.? - Jewelry must be removed prior to entering the operating room.? Rings and piercings that are not removed may be cut off. - The hospital will not accept responsibility for valuables.? - Please leave all valuables, including medications, at home the day of surgery. If you are going home after surgery, a licensed shuttle bus driver must drive you home.? - NO public transportation without another adult if you receive anesthesia. - We recommend that an adult stay with you for 24 hours following discharge. - We also recommend that you do not drive, make important decision, drink alcoholic beverages, or take any drugs that were not prescribed by your health care provider for at least 24 hours after your discharge time. Follow any additional instructions given to you from your surgeon. Telephone instructions given to __Liz___and asked if any additional questions and then verbalized understanding. Patient advised to call surgeon office or pre surgery nurse liaison [phone] if any additional questions.
[2024-10-11 12:48] VITALS: BMI 19.8
[2024-10-16] VITALS (8 sets, daily range): BP systolic 117–141; BP diastolic 51–89; PULSE 65–91; RESP 12–16; TEMP 36.3–36.4; O2SAT 98–100
--- OUTSIDE RECORDS SUMMARY | 2024-10-16 00:32 | XMS_ITS | Clinical Summary ---
Author Organization [facility] Address [address] [place] [address] Care Team Providers Care Cotton Picking Machine Operator Name Role Phone Maxwell Black MD Primary Care Provider +1- [phone] Source Comments [facility],non-owned Affiliates and Associated Physician Practices is amultiple site organization consisting of ambulatory clinics and hospital sitesin [place], [place], [place] and [place]. This disclosure is being madepursuant to the Care Everywhere program and may not contain all information available regarding this patient. 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
--- OUTSIDE RECORDS SUMMARY | 2024-10-16 00:32 | XMS_ITS | Clinical Summary ---
Author Organization [facility] Address [address] [place] [address] Phone Care Team Providers Care Mechanic Welder Name Role Phone Maxwell Black MD Primary Care Provider +1- [phone] Medications No known medications Active Problems No known active problems Encounters Date Type Department Care Team Description 10/01/2024 Abstract [facility] Nephrology [place] [address] [facility] [address] [place] [address] Mary Kate Venegas MD 10/01/2024 Abstract [facility] [address] [facility] [address] [place] [address] Mary Kate Venegas MD 08/22/2024 External Device Data [facility] ABSTRACTION Provider, Abstract 08/22/2024 External Device Data [facility] Provider, Abstract 08/22/2024 External Device Data [facility] Provider, Abstract 08/21/2024 External Device Data [facility]STRA[facility] Provider, Abstract 08/20/2024 Orders Only [facility] Nephrology [place] [address] [facility] [address] [place] [address] Provider, Abstract 08/20/2024 Telephone [facility] Nephrology [place] [address] [place] [address] Mary Kate Venegas MD Appointment Notification from Last 3 Months Social History Tobacco Use Types Packs/Day Years Used Date Smoking Tobacco: Never Assessed Comments Unknown Sex and Gender Information Value Date Recorded Sex Assigned at Not on file 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
--- OUTSIDE RECORDS SUMMARY | 2024-10-16 00:32 | XMS_ITS | Encounter Summary ---
Author Organization [facility] Address [address] [place] [address] Care Team Providers Care Mainframe Analyst Name Role Phone Maxwell Black MD Primary Care Provider +1- [phone] Reason for Visit * Reason Onset Date Comments Appointment Notification 08/20/2024 Encounter Details Date Type Department Care Team (Late st Contact Info) Description 08/20/2024 Telephone [facility] Nephrology [place] [address] [facility] [address] [place] [address] Mary Kate Venegas MD 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 Will call back to reschedule. Contacted her PCP Dr.Michael Black-[place] to have records sent across also Dr.Ying Pineda her Athletic Monitor at [facility]. Zenon documented in this encounter Plan of Treatment Not on file documented as of this encounter Visit Diagnoses Not on filedocumented in this encounter Care Teams Mainframe Analyst Relationship Specialty Start Date End Date Maxwell Black MD [address] [place] [phone] PCP - General Family Practice 08/20/24 documented as of this encounter
--- OUTSIDE RECORDS SUMMARY | 2024-10-16 00:32 | XMS_ITS | Clinical Summary ---
Author Organization [facility] Address [address] [place] [address] Care Team Providers Care Vegetable Picker Name Role Phone Charmaine Black MD Primary Care Provider + Allergies No known active allergies Medications calcium carbonate (OS-TAMARA) 650 mg (260 mg elemental) tablet,chewable 260 mg Acti ve [id number]-ood-[id number] lic acid-vit K 400-80 mcg capsule Take [...] palpable pulses. I suspect her noninvasives from [facility] were inaccurate. 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 Blood 03/08/2022 3:23 PM CAR WASH ATTENDANT AUTOMATIC 03/08/2022 5:48 PM CAR WASH ATTENDANT AUTOMATIC Marisel Pineda MD LAB MICROBIOLOGY - GENERAL ORDER NAIF Edited Result - Final [facility] [address] [place] Department [place] [address] from Last 3 Months or Most Recently Relevant to Health Maintenance Insurance [facility] [place] [address] [facility] MED[facility] Care Teams Vegetable Picker Relationship Specialty Start Date End Date Charmaine Black MD PCP - General 10/07/16
--- OUTSIDE RECORDS SUMMARY | 2024-10-16 00:32 | XMS_ITS | Patient Health Record ---
Author Organization [facility] Address [address] [place] [address] Care Team Providers Care Superintendent Storage Area Name Role Phone Maxwell Black MD Primary Care Provider Marisel Garcia Unavailable [phone] Marisel Pineda MD Unavailable Unavailable Allergies No Known Allergies Results Component Value Reference Range Notes eGFR Reviewed date:04/11/2024 10:08:08 PM Interpretation:Lab Result Generalized Performing Lab:[facility] , [address] [facility] [address] Notes/Report: eGFR >90 >=60 mL/min/1.73 m2 Interpretive [...] Automated Reviewed date:04/11/2024 05:38:51 PM Interpretation: Performing Lab:[facility] , [address] [facility] [facility] [facility] [address] Notes/Report: Neut Abs 3.1 1.5-6.5 K/cumm ImmGran Abs 0.0 0.0-0.1 K/cumm Lymphocyte Abs 0.8 0.8-3.3 K/cumm [place] Abs 0.5 0.2-0.8 K/cumm Eos Abs 0.2 [...] Interpretive Data was last revised on 2017. [place] Pct 10.4 Interpretive Data Percent cell count [...] date:04/11/2024 10:08:08 PM Interpretation:Lab Result Generalized Performing Lab:[facility] , [address] [facility] [address] Notes/Report: Total Bilirubin 0.5 0.1-1.2 mg/dL Bilirubin, Direct 0.2 0.1-0.3 mg/dL Plasma Total Protein 6.5 6.5-8.5 g/dL Albumin 4.4 3.5-5.0 g/dL Alkaline Phosphatase 86 40-130 Units/L ALT 64 7-45 Units/L AST 41 10-45 Units/L Creatinine Reviewed date:04/11/2024 10:08:51 PM Interpretation: Performing Lab:[facility] , [facility] [facility]. [facility] [address] Notes/Report: Creatinine 0.63 0.60-1.10 mg/dL CBC w auto diff Reviewed date:04/11/2024 05:38:51 PM Interpretation: Performing Lab:[facility] , [address] [place] [address]. [facility] [address] Notes/Report: WBC 4.6 3.8-9.9 K/cumm Hgb 14.1 11.9-15.5 g/dL Hct 45.3 35.6-45.5 % Platelet Ct 218 150-400 K/cumm MPV 11.1 9.1-12.3 fL RBC 4.80 3.90-5.20 M/cumm MCV 94.4 81.3-96.4 fL MCH 29.4 27.1-33.3 pg MCHC 31.1 32.3-35.7 g/dL RDW CV 13.2 11.1-14.9 % RDW SD 45.6 35.7-48.1 fL NRBC Abs Auto 0.00 0.00-0.01 K/cumm Reason For Referral Reason Benlysta Medicare/[facility] No [place] Req'd Diagnosis 1 Lupus (M32.9) Referral Organization [facility] alonzo Referring Provider First Name Marisel Referring Provider Last Name Edwin Referring Provider Speciality Rheumatolo gy Referred Organization [facility] alonzo Referred Provider Marisel Pineda Referred Address [address] [address],[place], [place],[address], Referred Provider Specialty Rheumatology Procedure 1 INJECTION [...] morning and evening meals Oral 2 Active [place] Carbonate 300 MG 1 tablet at bedtime Orally Once a day; Duration: 30 day(s) Active Vitamin B Complex take 1 capsule by oral route once Oral 1 Active Pantoprazole Sodium 40 MG 1 tablet Orally Once a day; Duration: 30 day(s) Active duloxetine - daily oral *Reorder from [employer] for eRx and Interaction Alerts* Active Pramipexole [...] by intramuscular route once a month Injection [id number]- 02 Active LORazepam 2 MG prn Oral Activ e Wegovy - weekly subcutaneous *Pick strength-form from [employer] for eRX* Active PredniSONE (Curt) Act hang [...] route once Oral 1 *Pick strength-form from [employer] for eRX* Active Cholecalciferol 1.25 MG (49340 UT) take 1 tablet by oral route once Oral 1 Active Estradiol 1 MG 1 tablet Orally Once a day; Duration: 30 day(s) Active Lidocaine Viscous HCl 2 % Mouth/Throat; Duration: 25 Days Active Problems Problem Type SNOMED Code ICD Code Onset Dates Problem Status W/U Status Risk Notes Problem Systemic lupus erythematosus (73970245) Systemic lupus erythematosus, unspecified (M32.9) Active confirmed Problem Fibromyalgia (187735382) Fibromyalgia (M79.7) Active confirmed Problem Systemic lupus erythematosus (98679711) Systemic lupus erythematosus, unspecified SLE type, unspecified organ involvement status (M32.9) Active confirmed Problem Lupus (257871895) Lupus (M32.9) Active confirme d Vital Signs Heart Rate 78 /min 04/11/2024 Temperature 97.5 degrees Fahrenheit 04/11/2024 Height-cm 154.94 cm 04/11/2024 Blood pressure diastolic 66 mm Hg 04/11/2024 Weight-kg 47.63 kg 04/11/2024 Height 61 in 04/11/2024 Blood pressure systolic 116 mm Hg 04/11/2024 Weight 105 lbs 04/11/2024 BMI 19.84 kg/m2 04/11/2024 Encounters Encounter Location Date Provider Diagnosis [facility] [address] [place] [address] 10/18/2023 Marisel Edwin Systemic lupus erythematosus, unspecified SLE type, unspecified organ involvement status M32.9 [facility] [address] [place] [address] 11/01/2023 Marisel Du Lupus M32.9 [facility] [address] [place] [address] 11/01/2023 Marisel Du 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 ; Lupus M32.9 ; Fibromyalgia M79.7 ; Dry eyes H04.123 and High risk medication use Z79.899 [facility] [address] [place] [address] 11/15/2023 Marisel Du Systemic lupus erythematosus, unspecified M32.9 [facility] [address] [place] [address] 12/13/2023 Marisel Du [facility] [address] [place] [address] 12/20/2023 Marisel Pineda Systemic lupus erythematosus, unspecified SLE type, unspecified organ involvement status M32.9 [facility] [address] [place] [address] 04/11/2024 Marisel Pineda Systemic lupus erythematosus M32.9 [facility] [address] [place] [address] 12/22/2023 Marisel Pineda [facility] [address] [place] [address] 03/29/2024 Marisel Pineda [facility] [address] [place] [address] 05/07/2024 Marisel Pineda [facility] [address] [place] [address] 08/20/2024 Marisel Pineda Assessments Encounter Date Diagnosis [...] 024 SSA/SSB ANTIBODY (SJOGREN'S) 09/14/2023 HERMOSILLO / FISHING LURE ASSEMBLER ANTIBODY 09/14/2023 DNA (DS) ANTIBODY 09/14/2023 CAROLYN SCREEN/REFLEX TITER/PATTERN 09/14/19 24 Insurance Providers Payer Name Payer Address Payer Phone Subscriber Number Group Number Insured Name Patient Relationship to Insured Coverage Start Date Coverage End Date Medicare [address] [address] [place] [address] [id number] Dafne Schulz Self - patient is the insured [address] [address] [id number] Dafne Schulz Self - patient is the [...]
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
[2024-10-16] MEDS: LACTATED RINGERS 1,000 ML 30 ML IV CONT (07:35)
[2024-10-16] MEDS: SCOPOLAMINE 1 MG PATCH 1 PATCH TRANSDERM (07:59)
[2024-10-16] MEDS: TRANEXAMIC ACID 1,000MG/ISO100 1,000 MG/100 ML BAG 200 MG IVPB (08:00)
--- NOTE | 2024-10-16 08:06 | WPDHPUPDATE1 ---
History and Physical Update Update Date/Time: 10/16/24 08:06 History and Physical has been reviewed, including an updated exam of the patient. There are NO changes in the patient's condition. Risks, benefits, and alternatives have been discussed and questions answered. Patient agrees to proceed with procedure.
--- NOTE | 2024-10-16 08:06 | W.PM.PROC2 ---
Procedure Note - Detailed Date of Procedure 10/16/24 Pre-op Diagnosis Hx of Breast Augmentation Post-op Diagnosis Same Procedure Performed Bilateral breast implant exchange Surgeon Jayme Rao MD Anesthesia General Findings Previous implants: Bilateral Natrelle Inspira SoftTouch 385cc Intact New implants: Bilateral Natrelle Inspira SoftTouch 375cc Right: REF# [id number] SN [id number] Left: REF# [id number] SN [id number] Description of Procedure Preoperatively the risks, benefits, alternatives were discussed in extensive detail. I wanted to be very realistic about the risks involved as well as expectations. I was clear about how we could actually make her worse. Answered all questions to satisfaction. Voiced a clear understanding. Consent obtained. She was taken the operating room placed supine on the operating room table. Anesthesia provided by anesthesiology and prepped and draped in a standard sterile fashion. Surgical time-out was taken. 1% lidocaine and 0.25% Marcaine with epinephrine was used to provide a field block. Tegaderm nipple murray were placed. Fifteen blade used to excise the previous IMF scars. Dissection was continued down until the capsules were identified and entered. Implants removed. I then copiously irrigated with 3 L of saline solution on TUR tubing. Verified strict hemostasis. Lateral popcorn capsulorraphy completed as well as superior medial capsulotomy. Lateral secured with 2-0 PDO quill (bilateral) Next, irrigated with Betadine containing solution. Using a no-touch technique and a Monteiro funnel the implant was introduced into the pocket. This was closed with 2-0 PDS followed by 3-0 Monocryl and a running subcuticular 4-0 Monocryl followed by tissue glue. Dressings were placed. She was woken taken to the PACU without difficulty. All instrument sponge counts were correct at the end of the case. Estimated Blood Loss 10 Drains No Packing No Pathology None sent Complications No immediate complications Condition Stable Disposition PACU
[2024-10-16] MEDS: ceFAZolin 2 GM in SODIUM CHLORIDE 0.9% IV 50 ML 100 ML IVPB (08:26)
[2024-10-16] MEDS: LIDO 1%/EPINEPHRINE 1:100,000 50 ML VIAL 30 ML INFILTRATE (08:42)
[2024-10-16] MEDS: NACL 0.9% IRRIG POUR BOTTLE 900 ML, GENTAMICIN SULFATE INJ 160 MG, ceFAZolin 2 GM, POVI... IRRIGATION (08:54)
[2024-10-16] MEDS: oxyCODONE HCL (*CRX) 5 MG TAB IR PO (11:01)
== END 2024-10-16 11:16 | disposition home or self-care (01) ==
PROVIDERS: PCP Family Medicine; Visit Provider Surgery Plastic and Reconstructive Surgery
PROC: (CPT 19370; principal; 2024-10-16 08:30)
DX: Z41.1 Encounter for cosmetic surgery (principal); E11.9 Type 2 diabetes mellitus without complications; K21.9 Gastro-esophageal reflux disease without esophagitis; E78.00 Pure hypercholesterolemia, unspecified; G25.81 Restless legs syndrome; F41.9 Anxiety disorder, unspecified; F32.A Depression, unspecified; M19.90 Unspecified osteoarthritis, unspecified site; M65.4 Radial styloid tenosynovitis [de Quervain]; F90.9 Attention-deficit hyperactivity disorder, unspecified type; M35.00 Sjogren syndrome, unspecified; I95.9 Hypotension, unspecified; J32.9 Chronic sinusitis, unspecified; N39.41 Urge incontinence; M32.9 Systemic lupus erythematosus, unspecified; Z79.84 Long term (current) use of oral hypoglycemic drugs; Z79.891 Long term (current) use of opiate analgesic; Z98.890 Other specified postprocedural states; Z98.1 Arthrodesis status; Z90.49 Acquired absence of other specified parts of digestive tract; Z98.84 Bariatric surgery status; Z87.442 Personal history of urinary calculi; Z87.11 Personal history of peptic ulcer disease
CPT/HCPCS: 19370; 19325; 82948; J0690; A9270; J1100; J1171; J1580; J2003; J2004; J2250; J2405; J2704; J3010; J7030; J7120